=== PATIENT | male | born 1975 | race Caucasian/White ===

== ENCOUNTER 2019-05-28 20:11 | Emergency (ER) | payer OTHER ==
[~2019-05-28] VITALS: Ht 170 cm; Wt 105.0 kg
[~2019-05-28 20:11] MED LIST: AMBIEN; CPR500T PO; CYCL10TA9; ORPH100T PO; PAXIL; PRX20T; TRAM-21 PO; TRM50T
[2019-05-28] MEDS ORDERED: METO75TA PO (20:45)
[2019-05-28] MEDS ORDERED: NAPR250T6 PO (20:45)
[2019-05-28] MEDS ORDERED: HYDR25TA4 PO (20:45)
[2019-05-28 20:48] LABS: BILIRUBIN,URINE NEGATIVE (NEGATIVE); CLARITY,URINE CLEAR; COLOR,URINE YELLOW; GLUCOSE, URINE (UA) NEGATIVE (NEGATIVE); KETONES,URINE NEGATIVE (NEGATIVE); LEUKOCYTE ESTERASE ,URINE NEGATIVE (NEGATIVE); NITRITE,URINE NEGATIVE (NEGATIVE); PH,URINE 6.5 (5-9); PROTEIN,URINE NEGATIVE (NEGATIVE)
[2019-05-28 21:11] LABS: AMORPHOUS SEDIMENT,UR RARE AMOR URATES /LPF; BACTERIA,URINE TRACE /HPF
--- NOTE | 2019-05-28 21:22 | ED General ---
General Chief Complaint: General Problems/Pain Stated Complaint: POSSIBLE KIDNEY INFECTION, Nursing Triage Note: Pt ambulates to [facility] 6 with c/o fever and aches for 1 day. PT states he has one working kidney and gets kidney infections frequently. Pt states he's been taking tylenol for his fever, last dose at 1800. Pt denies any acute pain at this time, has chronic back pain. Nursing Sepsis Screen: No Definite Risk Source of Information: Patient Exam Limitations: No Limitations History of Present Illness Date Seen by Provider: May 28, 2019 Time Seen by Provider: 20:25 Initial Comments This 44-year-old gentleman presents to the emergency room concerned that he may be developing a urinary tract infection. He has had body aches and subjective fever at home today. He last took Tylenol 2 hours ago. 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 He historically has had several urinary tract infections and is susceptible to UTI. He is presenting today to be sure his symptoms are not secondary to UTI. He reports chronic dysuria but no acute changes to his urine. He is afebrile on presentation but slightly tachycardic. His primary care provider is Dr. Piter Willard in [place]. His urologist is Dr. Mata, also in [place]. He denies any respiratory symptoms today. Allergies and Home Medications Allergies Coded Allergies: No Known Drug Allergies (Unverified , 05/28/19) Patient Home Medication List Home Medication List Reviewed: Yes Review of Systems Review of Systems Constitutional: see HPI EENTM: no symptoms reported Respiratory: no symptoms reported Cardiovascular: see HPI Gastrointestinal: no symptoms reported Genitourinary: see HPI Musculoskeletal: no symptoms reported Skin: no symptoms reported Psychiatric/Neurological: No Symptoms Reported Hematologic/Lymphatic: No Symptoms Reported Immunological/Allergic: no symptoms reported Past Zkgvidq-Qexvbk-Ckpysc Hx Past Med/Social Hx: Reviewed Nursing Past Med/Soc Hx Patient Social History Alcohol Use: Rarely Uses Recreational Drug Use: No Smoking Status: Never a Smoker 2nd Hand Smoke Exposure: No Recent Foreign Travel: No Contact w/Someone Who Travel: No Recent Infectious Disease Expo: No Recent Hopitalizations: No Physical Abuse: No Sexual Abuse: No Mistreated: No Fear: No Seasonal Allergies Seasonal Allergies: No Past Medical History Surgeries: Yes (back Sx, 6 percutaneous nephrolithotomy) Tonsillectomy Respiratory: No Cardiac: Yes Hypertension Neurological: No Genitourinary: Yes (functionally unilateral kidney) Kidney Infection, Kidney Stones Gastrointestinal: No Musculoskeletal: Yes Chronic Back Pain Endocrine: No HEENT: No Cancer: No Psychosocial: No Integumentary: No Blood Disorders: No Physical Exam Vital Signs Vital Signs - First Documented 05/28/19 20:17 Temp 36.5 Pulse 104 Resp 18 B/P (MAP) 150/105 (120) Pulse Ox 97 O2 Delivery Room Air Capillary Refill : Less Than 3 Seconds Height, Weight, BMI Height: '" Weight: lbs. oz. 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 Norm as Tested Skin: Normal Color, Warm/Dry Progress/Results/Core Measures Suspected Sepsis Recent Fever Within 48 Hours: Yes Infection Criteria Present: None New/Unexplained Altered Menta: No Sepsis Screen: No Definite Risk SIRS Temperature: Pulse: 104 Respiratory Rate: 18 Blood Pressure 150 /105 Mean: 120 Results/Orders Lab Results Laboratory Tests Test 05/28/19 20:16 Range/Units Urine Color YELLOW Urine Clarity CLEAR Urine pH 6.5 5-9 Urine Specific [place] 1.025 H 1.016-1.022 Urine Protein NEGATIVE NEGATIVE Urine Glucose (UA) NEGATIVE NEGATIVE Urine Ketones NEGATIVE NEGATIVE Urine Nitrite NEGATIVE NEGATIVE Urine Bilirubin NEGATIVE NEGATIVE Urine Urobilinogen 4.0 < = 1.0 MG/DL Urine Leukocyte Esterase NEGATIVE NEGATIVE Urine RBC (Auto) NEGATIVE NEGATIVE Urine RBC NONE /HPF Urine WBC 2-5 /HPF Urine Crystals PRESENT H /LPF Urine Amorphous Sediment RARE CARROLL URATES H /LPF Urine Bacteria TRACE /HPF Urine Casts NONE /LPF Urine Mucus SMALL H /LPF Urine Culture Indicated NO Micro Results Microbiology 05/28/19 Influenza Types A,B Antigen ([facility]) - Final, Complete My Orders Orders - GREGORY NELSON MD Ua Culture If Indicated (05/28/19 20:25) Influenza A And B Antigens (05/28/19 20:33) Vital Signs/I&O 05/28/19 05/28/19 20:17 21:27 Temp 36.5 36.5 Pulse 104 96 Resp 18 18 B/P (MAP) 150/105 (120) 134/98 (120) Pulse Ox 97 97 O2 Delivery Room Air Capillary Refill : Less Than 3 Seconds Blood Pressure Mean: 120 Progress Note : Progress Note Urinalysis demonstrated no evidence of urinary tract infection. Influenza screen was negative. Patient was dismissed home with reassurance and return precautions. Departure Impression Primary Impression: Myalgia Additional Impression: History of recurrent urinary tract infection Disposition: HOME, SELF-CARE Condition: Stable Departure-Patient Inst. Decision time for Depature: 21:21 Referrals: SELFANNE MD (PCP/Family) Primary Care Physician Patient Instructions: Urinary Tract Infection, Adult (DC) Add. Discharge Instructions: Your urine was concentrated but did not show evidence of active infection. Drink plenty of clear liquids to stay well-hydrated. Your influenza screen was negative. Return to care in the ER or contact your doctor tomorrow if symptoms worsen or you still have concerns. All discharge instructions reviewed with patient and/or family. Voiced understanding. GREGORY NELSON MD May 28, 2019 21:22
[2019-05-28 21:27] VITALS: BP 134/98
--- OUTSIDE RECORDS SUMMARY | 2019-05-31 10:25 | XMS REPORT ---
Author Author [facility] Medic al StaffAIMEE Organization [facility] Address [address] [place], [place] [id number] Phone [phone] Care Team Providers Care Pearl Fisherman Name Role Phone KATHIA DUKE MD PP [phone] KATHIA DUKE MD, PP [phone] Summary purpose TRANSITION OF CARE AUTO GENERATION Chief Complaint and Reason for Visit Admit Diagnosis 1 LEFT URETEROSCOPY W STONE EX TRACTION Admit Diagnosis 2 POSS LASER Problem list No authorized problems tracked for continuity of care are available for this vis it. Encounters No authorized problems tracked for encounter diagnoses are available for this vi sit. Medications No medications recorded for this patient visit Allergies, adverse reactions, alerts Allergen Category Ingredient Status Reaction Severity Onset No known drug allergies No known drug allergies No known drug al lergies Confirmed or Verified Immunizations No immunizations recorded for this patient visit Relevant diagnostic tests and/or laboratory data RESULTS Radiology Results [id number] RETROGRADE PYELOGRAM PACs Image DATE OF EXAM: Apr 04 2015 RAD 1274-RETROGRADE PYELOGRA M : RADIOLOGY REPORT DATE OF SERVICE: 04/04/15 HISTORY: Ureteral calculus LEFT RETROGRADE PYELOGRAM SUPERVISION AN D [id number] HOURS Comparison is made with the plain film s tudy performed earlier today. The metal flooring installer radiograph shows left ureteral stent in place. There is an opacity overlying the transverse process of L3 on the left adjacent to the stent suggestive of proximal left ur eteric calculus. This was not identified on the prior study. Additiona l left renal calculi are noted. Subsequently, ureteroscope is advanced t o the level of the calculus. IMPRESSION: Left renal and proximal left ureteric calculi as above. MD MARIPOSA Ulloa/wi04/04/2015 14:07:00 / 03/22 14:12:54 cc:Dr. Valdez Herrera This document has been electronically Signed by: On: DATE OF EXAM: Apr 04 2015 RAD 1274-RETROGRADE PYELOGRA M : RADIOLOGY REPORT DATE OF SERVICE: 04/04/15 HISTORY: Ureteral calculus LEFT RETROGRADE PYELOGRAM SUPERVISION AN D [id number] HOURS Comparison is made with the plain film s tudy performed earlier today. The metal flooring installer radiograph shows left ureteral stent in place. There is an opacity overlying the transverse process of L3 on the left adjacent to the stent suggestive of proximal left ur eteric calculus. This was not identified on the prior study. Additiona l left renal calculi are noted. Subsequently, ureteroscope is advanced t o the level of the calculus. IMPRESSION: Left renal and proximal left ureteric calculi as above. MD MARIPOSA Ulloa/nancy04/04/2015 14:07:00 / 03/22 14:12:54 cc:Dr. Valdez Herrera This document has been electronically Signed by: MARYBETH SALGUERO MD On: Apr 04 20156:08P LEFT URETEROSCOPY W STONE EXTR POSS LASER Result Amended on 2015-04-04 at 18:08:39 . Previous status was WI. LEFT URETEROSCOPY W STONE EXTR POSS LASER [id number] ABDOMEN 1 VIEW PACs Image DATE OF EXAM: Apr 04 2015 RAD [id number] 1 VIEW : RADIOLOGY REPORT DATE OF SERVICE: 04/04/15 HISTORY: Left ureteroscopy and possible stone extraction, stent removal. SUPINE ABDOMEN 1240 HOURS The bowel gas pattern is normal. Left ur eteral stent is in place. There are several left renal calculi in the mi dregion and lower pole with at least 3 separate stones. These measures 2.5-6 mm. No definite ureteral calculus is seen. There are surgical kyle nges at the lumbosacral junction. IMPRESSION: 3 small left renal calculi. MD MARIPOSA Ulloa/nancy04/04/2015 13:29:00 / 03/22 13:33:58 cc:Dr. Valdez Herrera This document has been electronically Signed by: On: DATE OF EXAM: Apr 04 2015 RAD [id number] 1 VIEW : RADIOLOGY REPORT DATE OF SERVICE: 04/04/15 HISTORY: Left ureteroscopy and possible stone extraction, stent removal. SUPINE ABDOMEN 1240 HOURS The bowel gas pattern is normal. Left ur eteral stent is in place. There are several left renal calculi in the mi dregion and lower pole with at least 3 separate stones. These measures 2.5-6 mm. No definite ureteral calculus is seen. There are surgical kyle nges at the lumbosacral junction. IMPRESSION: 3 small left renal calculi. MD MARIPOSA Ulloa/wi/ 13:29:00 / 03/22 13:33:58 cc:Dr. Valdez Herrera This document has been electronically Signed by: MARYBETH SALGUERO MD On: Apr 04:10P LEFT URETEROSCOPY W STONE EXTR POSS LASER Result Amended on 2015-04-04 at 14:10:48 . Previous status was WI. LEFT URETEROSCOPY W STONE EXTR POSS LASER Reference Lab ([facility]) [id number] Result Normal Range Units Stone NIDUS Not observed Non Kidney Stone Component See Below Calcium Oxalate Monohydrate (Whewellite) 95% Carbonate Apatite (Dahllite) 5% Stone Weight 0.1560 g The image will follow, unless test is cancelled or no picture is available to report. TEST PERFORMED AT: [facility] [address] [phone] BETZAIDA MENA MD,FCAP History of procedures No procedures recorded for this patient visit. Functional status Functional Status Finding Observation Time Hearing Prob Loc none : Vision Problems no :30 Ambulation Asst Dev none :30 Range of Motion full :10 Muscle Strength RUE 5 ROM full resist :10 Muscle Strength RLE 5 ROM full resist :10 Muscle Strength LUE 5 ROM full resist :10 Muscle Strength LLE 5 ROM full resist :10 Transfers independent :10 Ambulation up ad selvin :10 Balance steady :10 Bathing Assistance none :30 Eating Assistance none :30 Dressing Assistance none : Toileting Assistance none :30 Transfer Assistance none :30 Decline Slf Care/Mob no :30 Phys Cond Stable yes :30 Nutrition normal :10 Diet regular :10 Oral Cavity moist and intact : Teeth intact :10 Dental Hygiene good :10 Abdomen Appearance round : Abdomen tender :10 Bowel Sounds present : NG Tube no :10 Feeding Tube none :10 Hernandez no :10 Cont Bladder Irr no :10 Ostomy no :10 Stool normal : Urination normal : Quality sym/unlabored : Cough absent :10 Secretions no : Breath Sounds RUL clear :10 Breath Sounds RML clear :10 Breath Sounds RLL clear :10 Breath Sounds ALFONSO clear :10 Breath Sounds LLL clear :10 Airway natural :10 Chest Tube no :10 Oxygen no :00 C-PAP no :10 BI-PAP no :10 Temp >100.4 no :10 Temp <96.8 no : Chills with rigors no : HR > 90bpm no :10 Respirations > 20 no :10 Systolic <90 no :10 headache stiff neck no :10 Rapid Resp no :10 IV Site Location Rt hand :35 IV Type peripheral :35 IV Site Information discontinued Comment: cath tip intact :35 IV Site Start Attmpt 1 times :10 IV Site Herb 20 :35 IV Site Appearance WNL :35 IV Site Color clear :35 IV Site Patent yes :35 Dressing Changed yes : Dressing Type gauze :35 Nursing Note VSS. Denies pain or nausea. Voiding without difficulty. States that his urine is red. DC teaching provided. Strainer for urine provided. Pt verbalized understanding and denied further needs or questions. Pt escorted out via wheelchair to private vehicle that is driven by his SO. :40 Cognitive Status Finding Observation Time Oriented To Date 5 Yes : Oriented To Place 5 Yes : Name 3 Objects 3 Yes : Name Object in Rm 2 Yes : Recall 3 Objects 3 Yes : Repeats a Phrase 1 Yes : Follows Verbal Direc 3 Yes : Follows Written Dire 1 Yes : Write a Sentance 1 Yes : Draw an Object 1 Yes :30 Mini Mental Total 25 points :30 Learning Ability comprehends well :35 Neurological no :35 Psychological no :35 Physical no :35 Hearing no :35 Tube Drawing Supervisor Needed no :35 Sign Language no :35 Emotional no :35 Vision no :35 Laguage no :35 Financial no :35 Vital signs Type Value Date Respiration Rate 18breaths per minute : Pulse 79beats per minute : Oxygen Saturation 96% :00 BP Systolic 111mmHg : BP Diastolic 65mmHg : Temperature 97.5F :50 Height 66inches :30 Weight 233.5LB [id number] Social history No Social History or smoking status observations were recorded for this visit. ( Unknown if ever smoked.) Treatment Plan No treatment plan text is available for this visit. Hospital discharge instructions Discharge Date/Time 04/04/15 1540 Relationship spouse/signif other Dismissal Condition good Disposition on DC home Valuables yes Valuable Type cell phone Valuables Returned T patient DC Inst/Educ Give yes Exit Care Educ Given yes Med/Side Effects Rev yes PNE Vac refuses Flu Vac refuses Tetanus Vac 2008 Follow up appt appt made (specify) Follow Up Appt D/T 04/25/15 9:30
--- OUTSIDE RECORDS SUMMARY | 2019-05-31 10:25 | XMS REPORT ---
Author Author Liam Willard Organization [facility] Address [address] [place], [place] [address] Care Team Providers Care Motel Maid Name Role Phone Heath Willard PCP Heath Willard PreferredProvider Allergies and Adverse Reactions Name Reaction Notes No known drug allergy Plan of Treatment Planned Activity Comments Planned Date Planned Time Plan/Goal CMP 04/30/2017 12:00 AM Renal Ultrasound 06/20/2018 12:00 AM ABDOMEN ONE VIEW 06/20/2018 12:00 AM Medications Active Name Start Date Estimated Completion Date SIG Co mments Naproxen OTC 2 in am 2 in the pm metoprolol tartrate 25 mg oral tablet 04/14/2018 TAKE 3 TABLETS BY MOUTH ONCE DAILY hydrochlorothiazide 12.5 mg oral capsule 04/14/2018 TAKE 1 CAPSULE BY MOUTH ONCE DAILY baclofen 20 mg oral tablet 08/31/2018 take 1 tablet by oral route once a day (at bedtime) Name Start Date Expiration Date SIG Comments Bactrim DS 800-160 mg oral tablet 02/04/2018 02/11/2018 take 1 tablet by oral route every 12 hours for 7 days cephalexin 500 mg oral capsule 03/07/2018 03/14/2018 t robi 1 capsule (500 mg) by oral route every 12 hours for 7 days hydrocodone-acetaminophen 7.5-325 mg oral tablet 04/21/2018 04/28/2018 take 1 tablet by oral route prior to bedtime to help with pain/sleep diclofenac sodium 50 mg oral tablet,delayed release (DR/EC) 2018 take 1 tablet (50 mg) by oral route 2 times per day for 30 days Bactrim DS 800-160 mg oral tablet 05/26/2018 06/05/2018 take 1 tablet by oral route every 12 hours for 10 days prednisone 20 mg oral tablet 08/31/2018 09/05/2018 Take 2 tabs x 5 days; Discontinued Name Start Date Discontinued Date SIG Comments metoprolol astudillo-hydrochlorothiaz 50-12.5 mg oral tablet extend ed release 24 hr 04/30/2017 take 1 tablet by oral route once daily taking these me dication seperatly cyclobenzaprine 10 mg oral tablet 03/30/2017 04/30/2017 take 1 tablet (10 mg) by oral route 3 times per day for 30 days metoprolol succinate 25 mg oral tablet extended release 24 h r 05/07/2017 05/07/2017 take 2 tablets (50 mg) by oral route once daily for 30 days Revatio 20 mg oral tablet 05/28/2017 08/31/2017 take 2 tablets by oral route daily as needed for 30 days Problem List Description Status Onset Hypertension Active Kidney Stones Active Solitary kidney Active 12/08/2017 Vital Signs Date Time BP-Sys(mm[Hg] BP-Agatha(mm[Hg]) HR(bpm) RR(rpm) Temp WT HT HC BMI BSA BMI Percentile O2 Sat(%) 08/31/2018 10:38:00 AM 120 mmHg 80 mmHg 90 bpm 16 rpm 97.2 F 230 lbs 67 in 36.0227 kg/m 2.2208 m 96 % 06/11/2018 12:33:00 PM 130 mmHg 90 mmHg 103 bpm 18 rpm 98.1 F 224.25 lbs 98 % 05/26/2018 3:55:00 PM 124 mmHg 90 mmHg 113 bpm 18 rpm 99.1 F 225.125 lbs 67 in 35.2592 kg/m 2.1971 m 94 % 03/25/2018 11:41:00 AM 138 mmHg 80 mmHg 92 bpm 18 rpm 97.7 F 222.25 lbs 67 i n 34.81 kg/m2 2.18 m2 96 % 03/07/2018 3:50:00 PM 110 mmHg 80 mmHg 99 bpm 17 rpm 97.5 F 212 lbs 67 in 33.20 kg/m2 2.13 m2 92 % 12/17/2017 2:56:00 PM 120 mmHg 80 mmHg 95 bpm 18 rpm 98.1 F 214.375 lbs 96 % 11/26/2017 10:20:00 AM 130 mmHg 100 mmHg 83 bpm 16 rpm 97.9 F 212.25 lbs 67 in 33.2427 kg/m 2.1333 m 95 % 11/26/2017 8:58:00 AM 132 mmHg 82 mmHg 105 bpm 20 rpm 97.3 F 213 lbs 67 in 33.36 kg/m2 2.14 m2 97 % 09/27/2017 5:16:00 PM 150 mmHg 88 mmHg 86 bpm 97.9 F 214 lbs 67 in 33.5168 kg/m 2.1421 m 96 % 08/31/2017 3:53:00 PM 130 mmHg 90 mmHg 08/31/2017 3:48:00 PM 132 mmHg 90 mmHg 82 bpm 20 rpm 97.9 F 212.25 lbs 67 i n 33.24 kg/m2 2.13 m2 96 % 04/30/2017 11:37:00 AM 122 mmHg 78 mmHg 71 bpm 20 rpm 98.5 F 214.375 lbs 67 in 33.5755 kg/m 2.144 m 95 % 03/30/2017 6:15:00 PM 144 mmHg 84 mmHg 88 bpm 18 rpm 97.3 F 216 lbs 67 in 33.83 kg/m2 2.15 m2 95 % Social History Name Description Comments Tobacco Former smoker Alcohol Light History of Procedures Date Ordered Description Order Status 08/31/2017 12:00 AM RADEX SPINE LUMBOSACRAL 2/3 VIEWS Return ed 08/31/2017 12:00 AM COMPLETE CBC W/AUTO DIFF WBC Returned 08/31/2017 12:00 AM COMPREHEN METABOLIC PANEL Returned 08/31/2017 12:00 AM C-REACTIVE PROTEIN Returned 08/31/2017 12:00 AM RBC SED RATE AUTOMATED Returned 08/31/2017 12:00 AM CREATINE MB FRACTION Returned 08/31/2017 12:00 AM VITAMIN B-12 Returned 11/26/2017 12:00 AM URINALYSIS AUTO W/SCOPE Reviewed 11/26/2017 12:00 AM COMPLETE CBC W/AUTO DIFF WBC Reviewed 11/26/2017 12:00 AM METABOLIC PANEL TOTAL CA Reviewed 12/17/2017 12:00 AM CALCULUS SPECTROSCOPY Reviewed 02/04/2018 12:00 AM URNLS DIP STICK/TABLET RGNT AUTO W/O STARR ROSCOPY Reviewed 03/07/2018 12:00 AM URINALYSIS AUTO W/SCOPE Reviewed 05/26/2018 12:00 AM URINALYSIS AUTO W/SCOPE Reviewed 06/11/2018 12:00 AM THER/PROPH/DIAG INJ SC/IM Reviewed 06/11/2018 12:00 AM Depo Medrol 40mg Injection, RHC Medicai d Reviewed 06/11/2018 12:00 AM Decadron 4mg Injection Reviewed 03/25/2018 12:00 AM URINALYSIS AUTO W/SCOPE Reviewed 03/25/2018 12:00 AM COMPLETE CBC W/AUTO DIFF WBC Reviewed 03/25/2018 12:00 AM METABOLIC PANEL TOTAL CA Reviewed 03/25/2018 12:00 AM ELECTROCARDIOGRAM TRACING Reviewed 05/26/2018 12:00 AM SEMEN ANAL SPERM DETECTION Reviewed Results Summary Date and Description Results 11/26/2017 11:44 AM COLOR YELLOW APPEARANCE LISHA R SPEC GRAV 1.020 pH 6.5 PROTEIN NEGATIVE GLUCOSE NEGATIVE KETONE NEGATIVE BILIRUBIN NEGATIVE BLOOD NEGATIVE NITRITE NEGATIVE LEUK SCREEN NEGATIVE WBC/HPF NEGATIVE RBC/HPF NEGATIVE CASTS/LPF NEGATIVE CRYSTALS NEGATIVE MUCOUS THRDS NEGATIVE BACTERIA NEGATIVE EPITH CELLS NEGATIVE TRICHOMONAS NEGATIVE YEAST NEGATIVE CULT SET UP? NO 11/26/2017 11:48 AM GLUCOSE 88 SODIUM 140 POTASS IUM 4.3 CHLORIDE 103 CO2 28 BUN 23 CREATININE 1.2 CALCIUM 9.5 AGE 42 GFR NonAA 67 GFR AA 81 eGFR 67 eGFR AA* >60 WBC 9.6 RBC 4.38 HGB 14.1 HCT 41.9 MCV 96 MCH 32.2 MCHC 33.7 RDW SD 46 RDW CV 12.9 MPV 9.5 PLT 542 NRBC# 0.00 NRBC% 0.0 %NEUT 50.7 %LYMP 38.4 %MONO 8.1 %EOS 1.8 %BASO 0.7 #NEUT 4.88 #LYMP 3.69 #MONO 0.78 #EOS 0.17 #BASO 0.07 MANUAL DIFF NOT IND 12/17/2017 5:00 PM Color Brown Size COMMENT Monty ght 37.0 Composition COMMENT Ca oxalate dihydrate 2 Ca oxalate monohydr. 95 Calcium phosphate 3 Nidus No Nidus visualized Comment Note: Photo COMMENT Comment: COMMENT Please note: COMMENT Disclaimer: COMMENT 02/04/2018 12:11 PM COLOR YELLOW APPEARANCE LISHA R SPEC GRAV 1.025 pH 6.0 PROTEIN TRACE GLUCOSE NEGATIVE KETONE NEGATIVE BILIRUBIN NEGATIVE BLOOD NEGATIVE NITRITE NEGATIVE LEUK SCREEN NEGATIVE MICRO INDICATED? SEE BELOW WBC/HPF 5-10 RBC/HPF RARE CASTS/LPF NEGATIVE CRYSTALS NEGATIVE MUCOUS THRDS NEGATIVE BACTERIA NEGATIVE EPITH CELLS NEGATIVE TRICHOMONAS NEGATIVE YEAST NEGATIVE CULT SET UP? YES 03/07/2018 11:04 AM COLOR YELLOW APPEARANCE LISHA R SPEC GRAV 1.015 pH 7.5 PROTEIN NEGATIVE GLUCOSE NEGATIVE KETONE NEGATIVE BILIRUBIN NEGATIVE BLOOD NEGATIVE NITRITE NEGATIVE LEUK SCREEN NEGATIVE WBC/HPF 0-5 RBC/HPF NEGATIVE CASTS/LPF NEGATIVE CRYSTALS NEGATIVE MUCOUS THRDS FEW BACTERIA NEGATIVE EPITH CELLS FEW SQUAMOUS TRICHOMONAS NEGATIVE YEAST NEGATIVE CULT SET UP? NO 03/25/2018 12:41 PM COLOR YELLOW APPEARANCE LISHA R SPEC GRAV 1.015 pH 6.0 PROTEIN NEGATIVE GLUCOSE NEGATIVE KETONE TRACE BILIRUBIN NEGATIVE BLOOD NEGATIVE NITRITE NEGATIVE LEUK SCREEN NEGATIVE WBC/HPF RARE RBC/HPF NEGATIVE CASTS/LPF NEGATIVE CRYSTALS NEGATIVE MUCOUS THRDS NEGATIVE BACTERIA NEGATIVE EPITH CELLS NEGATIVE TRICHOMONAS NEGATIVE YEAST NEGATIVE CULT SET UP? NO 03/25/2018 12:45 PM WBC 7.2 RBC 4.73 HGB 15.0 HC T 43.5 MCV 92 MCH 31.7 MCHC 34.5 RDW SD 43 RDW CV 12.8 MPV 10.6 PLT 306 NRBC# 0.00 NRBC% 0.0 %NEUT 51.6 %LYMP 35.5 %MONO 10.3 %EOS 2.1 %BASO 0.4 #NEUT 3.69 #LYMP 2.54 #MONO 0.74 #EOS 0.15 #BASO 0.03 MANUAL DIFF NOT IND GLUCOSE 91 SODIUM 140 POTASSIUM 4.3 CHLORIDE 107 CO2 25 BUN 21 CREATININE 1.5 CALCIUM 9.4 AGE 43 GFR NonAA 52 GFR AA 63 eGFR 52 eGFR AA* >60 05/26/2018 5:18 PM COLOR YELLOW APPEARANCE LISHA R SPEC GRAV 1.025 pH 6.0 PROTEIN NEGATIVE GLUCOSE NEGATIVE KETONE NEGATIVE BILIRUBIN NEGATIVE BLOOD NEGATIVE NITRITE NEGATIVE LEUK SCREEN NEGATIVE WBC/HPF RARE RBC/HPF NEGATIVE CASTS/LPF NEGATIVE CRYSTALS NEGATIVE MUCOUS THRDS NEGATIVE BACTERIA NEGATIVE EPITH CELLS FEW SQUAMOUS TRICHOMONAS NEGATIVE YEAST NEGATIVE CULT SET UP? NO History Of Immunizations Not available. History of Past Illness Name Date of Onset Comments Hypertension Kidney Stones Solitary kidney 12/08/2017 Left anterior knee pain Mar 30 2017 6:20PM Acute pain of left knee Apr 30 2017 11:49AM Essential Hypertension Apr 30 2017 11:49AM Establishing care with new doctor, encounter for Apr 30 2017 11:49AM Numbness in feet Aug 31 2017 3:55PM Essential hypertension Sep 27 2017 5:21PM Left-sided Nephrolithiasis Nov 26 2017 10:23AM Solitary kidney Nov 26 2017 10:23AM Vasectomy evaluation Nov 26 2017 10:23AM Solitary kidney Nov 26 2017 8:59AM Nephrolithiasis Nov 26 2017 8:59AM Nephrolithiasis Dec 17 2017 2:59PM Solitary kidney Dec 17 2017 2:59PM Dysuria Feb 04 2018 11:34AM Dysuria Mar 07 2018 11:00AM Solitary kidney Mar 07 2018 3:51PM Kidney Stones Mar 07 2018 3:51PM Dysuria Mar 07 2018 3:51PM Kidney Stones Mar 25 2018 11:42AM Burning with urination Mar 25 2018 11:42AM Left-sided Nephrolithiasis Apr 15 2018 6:53AM Vasectomy evaluation Apr 15 2018 6:53AM S/P vasectomy Apr 21 2018 10:53AM Urinary Frequency May 26 2018 4:00PM Hematoma (nontraumatic) of seminal vesic le, spermatic cord, testis, scrotum, tunica vaginalis, or vas deferens May 26 2018 4:00PM Urinary frequency May 26 2018 4:33PM Allergic rhinitis Jun 11 2018 12:38PM Left-sided Nephrolithiasis May 26 2018 4:00PM Nephrolithiasis Jun 20 2018 8:34AM Lumbago with sciatica, right side Aug 31 2018 10:40AM Payers Insurance Name Company Name Plan Name Plan Number Policy Number Duane cy Group Number Start Date Cigna Cigna [id number] May History of Encounters Visit Date Visit Type Provider 08/31/2018 Office visit Heath Willard APR N 06/11/2018 Office visit Bailey KATE RN 05/26/2018 Office visit Bar Mata MD 04/21/2018 Office visit Bar Mata MD 04/15/2018 Surgery Bar Mata MD 03/25/2018 Hospital Mina Barlow MD 03/25/2018 Office visit Bar Mata MD 03/07/2018 Office visit Heath Willard APR N 12/17/2017 Office visit Heath Willard APR N 12/06/2017 Hospital Mina Barlow MD 11/26/2017 Office visit Bar Mata MD 11/26/2017 Office visit Heath Willard APR N 09/27/2017 Office visit Heath Willard APR N 08/31/2017 Office visit Philomena Nelson COMMERCIAL LOAN COORDINATOR 04/30/[address] Julio Alexis MD 03/30/2017 Office visit Uyen Cardenas APR N
--- OUTSIDE RECORDS SUMMARY | 2019-05-31 10:25 | XMS REPORT ---
Author Author Liam Tom Organization [facility] Address [address] [place], [place] [address] Care Team Providers Care Superintendent Landfill Operations Name Role Phone Bailey Tom PCP Heath Willard PreferredProvider Allergies and Adverse [...] TAKE 1 CAPSULE BY MOUTH ONCE DAILY Name Start Date Expiration Date SIG Comments [...] route every 12 hours for 10 days Discontinued Name Start Date Discontinued Date SIG [...] HC BMI BSA BMI Percentile O2 Sat(%) 06/11/2018 12:33:00 PM 130 mmHg 90 mmHg [...] 2018 4:00PM Nephrolithiasis Jun 20 2018 8:34AM Payers Insurance Name Company Name Plan Name Plan Number Policy Number Duane cy Group Number Start Date Cigna Cigna [id number] N/A History of Encounters Visit Date Visit Type Provider 06/11/2018 Office visit Bailey KATE RN 05/26/2018 Office visit Bar Mata MD 04/21/2018 Office visit Bar Mata MD 04/15/2018 Surgery Bar Mata MD 03/25/2018 Hospital Mina Barlow MD 03/25/2018 Office visit Bar Mata MD 03/07/2018 Office visit Heath Willard APR N 12/17/2017 Office visit Heath Willard APR N 12/06/2017 [facility] Mina Barlow MD 11/26/2017 Office visit Bar Mata MD 11/26/2017 Office visit Heath Willard APR N 09/27/2017 Office visit Heath Willard APR N 08/31/2017 Office visit Philomena Nelson INPATIENT AUDITOR 04/30/[address] Julio Alexis MD 03/30/2017 Office visit Uyen Cardenas APR N
--- OUTSIDE RECORDS SUMMARY | 2019-05-31 10:25 | XMS REPORT ---
Author Author [facility] Medic al Staff, AIMEE Lopez Organization [facility] Address [address] [place], [place] [address] Phone [phone] Care Team Providers Care Furniture Delivery Driver Name Role Phone KATHIA DUKE MD PP [phone] Summary purpose TRANSITION OF CARE AUTO GENERATION Chief Complaint and Reason for Visit Admit Diagnosis 1 ABN INVOLUN MOVEMENT NEC Problem list No authorized problems tracked for continuity of care are available for this vis it. Encounters No authorized problems tracked for encounter diagnoses are available for this vi sit. Medications No home medications recorded for this patient visit Allergies, adverse reactions, alerts Allergen Category Ingredient Status Reaction Severity Onset No known allergies No known allergies No known allergies Confirmed or Verified Immunizations No immunizations recorded for this patient visit Relevant diagnostic tests and/or laboratory data No authorized results are available for this patient visit History of procedures Procedure Code Code Type Description Date Performed Performing Physician 65316 CPT-4 EMERGENCY DEPT VISIT 06-16-2014 YUDI JUNE 72805 CPT-4 EMERGENCY DEPT VISIT 06-16-2014 YUDI JUNE Functional status Functional Status Finding Observation Time Abdomen Appearance flat :30 Abdomen non-tender :30 Bowel Sounds present [id number] Quality sym/unlabored :30 Cough absent :30 Breath Sounds RUL clear :30 Breath Sounds RML clear :30 Breath Sounds RLL clear :30 Breath Sounds ALFONSO clear :30 Breath Sounds LLL clear :30 Oxygen no :55 Temp >100.4 no :30 Temp <96.8 no :30 Chills with rigors no :30 HR > 90bpm no :30 Respirations > 20 no :30 Systolic <90 no :30 headache stiff neck no :30 Rapid Resp no :30 Nursing Note dc inst discussed with pt.dc d to home in good condition. Pain med script given to pt. :55 Vital signs Type Value Date Respiration Rate 18breaths per minute : 55 Pulse 103beats per minute :5 5 Oxygen Saturation 96% :55 BP Systolic 136mmHg :55 BP Diastolic 108mmHg :55 Temperature 96.6F :55 Height 66inches :21 Weight 225LB :21 Social history No Social History or smoking status observations were recorded for this visit. ( Unknown if ever smoked.) Treatment Plan No treatment plan text is available for this visit. Hospital discharge instructions Dismissal Condition good Disposition on DC home DC Inst/Educ Give yes Med/Side Effects Rev yes PNE Vac never Flu Vac none Tetanus Vac 2007
--- OUTSIDE RECORDS SUMMARY | 2019-05-31 10:25 | XMS REPORT ---
Author Author [facility] Medic al Staff, AIMEE Lopez Organization [facility] Address [address], [place] [address] Phone [phone] Care Team Providers Care Wall Crane Operator Name Role Phone KATHIA DUKE MD PP [phone] Summary purpose TRANSITION OF CARE AUTO GENERATION Chief Complaint and Reason for Visit Admit Diagnosis 1 SUICIDE IDEATION Problem list No authorized problems tracked for [...] Relevant diagnostic tests and/or laboratory data RESULTS Drug Screen In House :50:00 Result Normal Range Units Amphetamine Negative Negative Barbiturates Negative Negative Benzodiazepines Negative Negative Cannabinoids Negative Negative *Triage TOXis a medical drug screen to be used only for assessment and treatment of patients. This drug screen cannot be used for employment or legal purposes. Cocaine Negative Negative Mamp/MDMA Negative Negative Methadone Negative Negative Opiates AB Positive Negative Phencyclidine Negative Negative Tricyclic Antidepressants Negative Negativ e Therapeutic Drug Monitoring :42:00 Result Normal Range Units Acetaminophen L 0 10.0-30.0 ug/ml Salicylate 2.5 2.0-20.0 mg/dl Chemistry :42:00 Result Normal Range Units Sodium 140 134-145 mEq/l Potassium 3.7 3.5-5.1 mEq/l Chloride 103 98-107 mEq/l CO2 26.7 22-28 mEq/l Glucose H 112 70-105 mg/dl BUN 13 7-18 mg/dl Creatinine H 1.46 0.6-1.3 mg/dl Calcium 9.3 8.4-10.2 mg/dl TP - Total Protein 7.9 6.0-8.3 g /dl Albumin 4.3 3.5-5 g/dl Bilirubin - Total 0.4 0.1-1.0 mg /dl AST H 48 10-42 IU/L ALT H 105 12-65 IU/L ALP H 215 39-107 IU/L Osmolality 280.3 280-300 mOsm/L Albumin/Globulin Ratio 1.2 0-8 Anion GAP 10.3 8-16 BUN/Creatinine Ratio L 8.9 10-20 Estimated GFR L 54 >= 60 mL/min /1.7 Hematology [id number]:42:00 Result Normal Range Units WBC H 11.0 4.8-10.8 103/uL RBC 4.8 4.7-6.1 106/uL HGB 15.4 13.0-18.0 g/dl HCT 43.7 41.9-52.0 % MCV 92.0 80-94 FL MCH H 32.4 27-31 pg MCHC 35.2 33-37 g/dl RDW 12.7 11.5-15.5 % PLT 324 130-400 103/uL MPV H 10.7 7.3-10.4 FL Neutro % 46.0 40-70 % Lymph % H 44.2 20-40 % [place] % 7.8 0-10.0 % Eos % 1.5 0-7.0 % Baso % 0.4 0-2 % Neutro # 5.1 1.5-7.5 103/uL Lymph # H 4.9 0.9-4.0 103/uL [place] # H 0.9 0-0.8 103/uL Eos # 0.2 0-0.6 103/uL Baso # 0.0 0-0.1 103/uL Special Chemistry [id number]:42:00 Result Normal Range Units ETOH < 3 0-5 mg/dl Thyroid Testing [id number]:42:00 Result Normal Range Units TSH H 4.23 0.36-3.74 uIU/mL Radiology Results [id number]:42:00 Result Normal Range Units MPV H 10.7 7.3-10.4 FL History of procedures Procedure Code Code Type Description Date Performed Performing Physician 08196 CPT-4 COMPLETE CBC W/AUTO DIFF WBC 10-03-2014 TIA WALL 20566 CPT-4 COMPREHEN METABOLIC PANEL 10-03-2014 TIA WALL 03732 CPT-4 ANALGESICS NON-OPIOID 1 OR 2 10-03-2014 TIA WALL 80846 CPT-4 ANALGESICS NON-OPIOID 1 OR 2 10-03-2014 TIA WALL 90824 CPT-4 DRUG SCREEN QUANTALCOHOLS 10-03-2014 TIA WALL 51983 CPT-4 DRUG SCREEN NON TLC DEVICES 10-03-2014 TIA WALL 79463 CPT-4 ASSAY THYROID STIM HORMONE 10-03-2014 TIA WALL 73477 CPT-4 ROUTINE VENIPUNCTURE 10-03-2014 TIA WALL 14013 CPT-4 EMERGENCY DEPT VISIT 10-03-2014 TIA WALL 32638 CPT-4 EMERGENCY DEPT VISIT 10-03-2014 TIA WALL Functional status Functional Status Finding Observation Time Abdomen Appearance round [id number]:30 Abdomen non-tender [id number]:30 Bowel Sounds present :30 Urination normal [id number]:30 Quality sym/unlabored :30 Cough absent :30 Secretions no :30 Breath Sounds RUL clear :30 Breath Sounds RML clear :30 Breath Sounds RLL clear : Breath Sounds ALFONSO clear :30 Breath Sounds LLL clear :30 Airway natural :30 Oxygen no [id number] Temp >100.4 no :30 Temp <96.8 no : Chills with rigors no : HR > 90bpm no : Respirations > 20 no : Systolic <90 no : headache stiff neck no :30 Rapid Resp no :30 Nursing Note Dismissed home per Dr Wall . Has been medically cleared by a screener.Has a plan in place to remove guns from the house and that he will not hurt himself. Agreed to follow up with physciatric provider or return to ER if suicidal thoughts return. Verbalized understanding of instructions. Ambulated to exit in stable condition escorted by PD. :40 Vital signs Type Value Date Respiration Rate 18breaths per minute : 40 Pulse 88beats per minute :40 Oxygen Saturation 99% :40 BP Systolic 134mmHg :40 BP Diastolic 103mmHg :40 Temperature 98.4F :40 Social history Type Value Smoking Status FORMER SMOKER Treatment Plan No treatment plan text is available for this visit. Hospital discharge instructions Dismissal Condition good Disposition on DC home DC Inst/Educ Give yes Med/Side Effects Rev yes PNE Vac never Flu Vac none Tetanus Vac 2007
--- OUTSIDE RECORDS SUMMARY | 2019-05-31 10:26 | XMS REPORT ---
Author Author Liam Tom Organization [facility] Address [address] [place], [place] [address] Care Team Providers Care Cobol Developer Name Role Phone Bailey Tom PCP Heath Willard PreferredProvider Allergies and Adverse Reactions Name Reaction Notes No known drug allergy Plan of Treatment Planned Activity Comments Planned Date Planned Time Plan/Goal CMP 04/30/2017 12:00 AM Post vasectomy sperm count 05/26/2018 12:00 AM Renal Ultrasound 06/20/2018 12:00 AM [...] Reviewed 03/25/2018 12:00 AM ELECTROCARDIOGRAM TRACING Reviewed Results Summary Date and Description Results [...] cy Group Number Start Date Cigna Cigna [id number] N/A History of Encounters Visit Date Visit Type Provider 06/11/2018 Office visit Bailey KATE RN 05/26/2018 Office visit Bar Mata MD 04/21/2018 Office visit Bar Mata MD 04/15/2018 Surgery Bar Mata MD 03/25/2018 Hospital Mina Barlow MD 03/25/2018 Office visit Bar Mata MD 03/07/2018 Office visit Heath Willard APR N 12/17/2017 Office visit Heath Willard APR N 12/06/2017 [facility] Mina Barlow MD 11/26/2017 Office visit Bar Mata MD 11/26/2017 Office visit Heath Willard APR N 09/27/2017 Office visit Heath Willard APR N 08/31/2017 Office visit Philomena Nelson TIP PUNCHER 04/30/[address] Julio Alexis MD 03/30/2017 Office visit Uyen Cardenas APR N
--- OUTSIDE RECORDS SUMMARY | 2019-05-31 10:26 | XMS REPORT ---
Author Author Liam Tom Organization [facility] Address [address] [place], [place] [address] Care Team Providers Care University Services Program Associate Name Role Phone Bailey Tom PCP Heath [...] cy Group Number Start Date Cigna Cigna [id number] N/A History of Encounters Visit Date Visit Type Provider 06/11/2018 Office visit Bailey KATE RN 05/26/2018 Office visit Bar Mata MD 04/21/2018 Office visit Bar Mata MD 04/15/2018 Surgery Bar Mata MD 03/25/2018 Hospital Mina Barlow MD 03/25/2018 Office visit Bar Mata MD 03/07/2018 Office visit Heath Willard APR N 12/17/2017 Office visit Heath Willard APR N 12/06/2017 [facility] Mina Barlow MD 11/26/2017 Office visit Bar Mata MD 11/26/2017 Office visit Heath Willard APR N 09/27/2017 Office visit Heath Willard APR N 08/31/2017 Office visit Philomena Nelson WATER SOFTENER SERVICER 04/30/[address] Julio Alexis MD 03/30/2017 Office visit Uyen Cardenas APR N
--- OUTSIDE RECORDS SUMMARY | 2019-05-31 10:26 | XMS REPORT ---
Author Author Liam Tom Organization [facility] Address [address] [place], [place] [address] Care Team Providers Care Electrician Helper Name Role Phone Bailey Tom PCP Heath [...] cy Group Number Start Date Cigna Cigna [id number] N/A History of Encounters Visit Date Visit Type Provider 06/11/2018 Office visit Bailey KATE RN 05/26/2018 Office visit Bar Mata MD 04/21/2018 Office visit Bar Mata MD 04/15/2018 Surgery Bar Mata MD 03/25/2018 Hospital Mina Barlow MD 03/25/2018 Office visit Bar Mata MD 03/07/2018 Office visit Heath Willard APR N 12/17/2017 Office visit Heath Willard APR N 12/06/2017 [facility] Mina Barlow MD 11/26/2017 Office visit Bar Mata MD 11/26/2017 Office visit Heath Willard APR N 09/27/2017 Office visit Heath Willard APR N 08/31/2017 Office visit Philomena Nelson MARBLE SETTER HELPER 04/30/[address] Julio Alexis MD 03/30/2017 Office visit Uyen Cardenas APR N
--- OUTSIDE RECORDS SUMMARY | 2019-05-31 10:26 | XMS REPORT ---
Author Author Liam Tom Organization [facility] Address [address] [place], [place] [address] Care Team Providers Care Verifying Machine Operator Name Role Phone Bailey Tom PCP Heath [...] 05/26/2018 12:00 AM SEMEN ANAL SPERM DETECTION Returned Results Summary Date and Description Results 11/26/2017 [...] cy Group Number Start Date Cigna Cigna [id number] N/A History of Encounters Visit Date Visit Type Provider 06/11/2018 Office visit Bailey KATE RN 05/26/2018 Office visit Bar Mata MD 04/21/2018 Office visit Bar Mata MD 04/15/2018 Surgery Bar Mata MD 03/25/2018 Hospital Mina Barlow MD 03/25/2018 Office visit Bar Mata MD 03/07/2018 Office visit Heath Willard APR N 12/17/2017 Office visit Heath Willard APR N 12/06/2017 [facility] Mina Barlow MD 11/26/2017 Office visit Bar Mata MD 11/26/2017 Office visit Heath Willard APR N 09/27/2017 Office visit Heath Willard APR N 08/31/2017 Office visit Philomena Nelson BRIQUETTE OPERATOR 04/30/[address] Julio Alexis MD 03/30/2017 Office visit Uyen Cardenas APR N
--- OUTSIDE RECORDS SUMMARY | 2019-05-31 10:27 | XMS REPORT ---
Author Author Liam Tom Organization [facility] ou Address [address] [place], [place] [phone] Care Team Providers Care Audit Associate Name Role Phone Bailey Tom PCP Heath Willard PreferredProvider Allergies and Adverse Reactions Name Reaction Notes No known drug allergy Plan of Treatment Planned Activity Comments Planned Date Planned Time Plan/Goal CMP 04/30/2017 12:00 AM Post vasectomy sperm count 05/26/2018 12:00 AM Medications Active Name Start Date [...] 12:38PM Left-sided Nephrolithiasis May 26 2018 4:00PM Payers Insurance Name Company Name Plan Name Plan Number Policy Number Duane cy Group Number Start Date Cigna Cigna [id number] N/A History of Encounters Visit Date Visit Type Provider 06/11/2018 Office visit Bailey KATE RN 05/26/2018 Office visit Bar Mata MD 04/21/2018 Office visit Bar Mata MD 04/15/2018 Surgery Bar Mata MD 03/25/2018 Hospital Mina Barlow MD 03/25/2018 Office visit Bar Mata MD 03/07/2018 Office visit Heath Willard APR N 12/17/2017 Office visit Heath Willard APR N 12/06/2017 [facility] Mina Barlow MD 11/26/2017 Office visit Bar aMta MD 11/26/2017 Office visit Heath Willard APR N 09/27/2017 Office visit Heath Willard APR N 08/31/2017 Office visit Philomena Nelson MACHINE CERAMIC COATER 04/30/[address] Julio Aelxis MD 03/30/2017 Office visit Uyen Cardenas APR N
--- OUTSIDE RECORDS SUMMARY | 2019-05-31 10:27 | XMS REPORT ---
Author Author Liam Mata Organization [facility] oup Address [address] [place] [id number] Care Team Providers Care Early Morning Name Role Phone Bar Mata PCP Heath Willard PreferredProvider Allergies and Adverse Reactions Name Reaction Notes No known drug allergy Plan of Treatment Planned Activity Comments Planned Date Planned Time Plan/Goal CMP 04/30/2017 12:00 AM Post vasectomy sperm count 05/26/2018 12:00 AM URINALYSIS W/MICRO C&S IF IND 05/26/2018 12:00 AM Medications Active Name Start Date Estimated Completion Date SIG Co mments Naproxen OTC 2 in am 2 in the pm metoprolol tartrate 25 mg oral tablet 04/14/2018 TAKE 3 TABLETS BY MOUTH ONCE DAILY hydrochlorothiazide 12.5 mg oral capsule 04/14/2018 TAKE 1 CAPSULE BY MOUTH ONCE DAILY diclofenac sodium 50 mg oral tablet,delayed release (DR/EC) 2018 take 1 tablet (50 mg) by oral route 2 times per day for 30 days Bactrim DS 800-160 mg oral tablet 05/26/2018 06/05/2018 take 1 tablet by oral route every 12 hours for 10 days Name Start Date Expiration Date SIG Comments [...] prior to bedtime to help with pain/sleep Discontinued Name Start Date Discontinued Date SIG [...] HC BMI BSA BMI Percentile O2 Sat(%) 05/26/2018 3:55:00 PM 124 mmHg 90 mmHg [...] 03/07/2018 12:00 AM URINALYSIS AUTO W/SCOPE Reviewed 03/25/2018 12:00 AM URINALYSIS AUTO W/SCOPE [...] AA 63 eGFR 52 eGFR AA* >60 History Of Immunizations Not available. History of [...] 4:00PM Urinary frequency May 26 2018 4:33PM Payers Insurance Name Company Name Plan Name Plan Number Policy Number Duane cy Group Number Start Date Cigna Cigna [id number] N/A History of Encounters Visit Date Visit Type Provider 05/26/2018 Office visit Bar Mata MD 04/21/2018 Office visit Bar Mata MD 04/15/2018 Surgery Bar Mata MD 03/25/2018 [facility] Mina Barlow MD 03/25/2018 Office visit Bar Mata MD 03/07/2018 Office visit Heath Willard APR N 12/17/2017 Office visit Heath Willard APR N 12/06/2017 Hafsa Barlow MD 11/26/2017 Office visit Bar aMta MD 11/26/2017 Office visit Heath Willard APR N 09/27/2017 Office visit Heath Willard APR N 08/31/2017 Office visit Philomena Nelson AGRICULTURAL SCIENCE PROFESSOR 04/30/[address] Julio Alexis MD 03/30/2017 Office visit Uyen Cardenas APR N
--- OUTSIDE RECORDS SUMMARY | 2019-05-31 10:27 | XMS REPORT ---
Author Author Liam Tom Organization [facility] ou Address [address] [place], [place] [phone] Care Team Providers Care Planer Tailer Name Role Phone Bailey Tom PCP Heath [...] 4:33PM Allergic rhinitis Jun 11 2018 12:38PM Payers Insurance Name Company Name Plan Name Plan Number Policy Number Duane cy Group Number Start Date Cigna Cigna [id number] N/A History of Encounters Visit Date Visit [...] APR N 08/31/2017 Office visit Philomena Nelson PHYSICAL PLANT MANAGER 04/30/[address] Julio Alexis MD 03/30/2017 Office visit Uyen Cardenas APR N
--- OUTSIDE RECORDS SUMMARY | 2019-05-31 10:27 | XMS REPORT ---
Author Author Liam Mata Organization [facility] Phys[facility] oup Address [address] [place] [phone] Care Team Providers Care Middle School English Teacher Name Role Phone Bar Mata PCP Heath [...] 2 times per day for 30 days Name Start Date Expiration Date SIG [...] prior to bedtime to help with pain/sleep Bactrim DS 800-160 mg oral tablet 05/26/2018 [...] AM ELECTROCARDIOGRAM TRACING Reviewed 05/26/2018 12:00 AM URINALYSIS AUTO W/SCOPE Returned Results Summary Date and Description Results [...] Duane cy Group Number Start Date Cigna Cigcherelle [id number] N/A History of Encounters Visit Date Visit Type Provider 05/26/2018 Office visit Bar Mata MD 04/21/2018 Office visit Bar Mata MD 04/15/2018 Surgery Bar Mata MD 03/25/2018 [facility] Mina Balrow MD 03/25/2018 Office visit Bar Mata MD 03/07/2018 Office visit Heath Willard APR N 12/17/2017 Office visit Heath Willard APR N 12/06/2017 Hafsa Barlow MD 11/26/2017 Office visit Bar Mata MD 11/26/2017 Office visit Heath Willard APR N 09/27/2017 Office visit Heath Willard APR N 08/31/2017 Office visit Philomena Nelson COMMUNICATION PROFESSOR 04/30/[address] Julio Alexis MD 03/30/2017 Office visit Uyen Cardenas APR N
--- OUTSIDE RECORDS SUMMARY | 2019-05-31 10:27 | XMS REPORT ---
Author Author Liam Tom Organization [facility] ou Address [address] [place], [place] [phone] Care Team Providers Care Towerman Name Role Phone Bailey Tom PCP Heath [...] 06/11/2018 12:00 AM THER/PROPH/DIAG INJ SC/IM Reviewed Results Summary Date and Description Results [...] Number Duane cy Group Number Start Date Adela Chapman [id number] N/A History of Encounters Visit Date Visit Type Provider 06/11/2018 Office visit Bailey KATE RN 05/26/2018 Office visit Bar Mata MD 04/21/2018 Office visit Bar Mata MD 04/15/2018 Surgery Bar Mata MD 03/25/2018 Hospital Mina Barlow MD 03/25/2018 Office visit Bar Mata MD 03/07/2018 Office visit Heath Willard APR N 12/17/2017 Office visit Heath Willard APR N 12/06/2017 [facility] Mina Barlow MD 11/26/2017 Office visit Bar Mata MD 11/26/2017 Office visit Heath Willard APR N 09/27/2017 Office visit Heath Willard APR N 08/31/2017 Office visit Philomena Nelson GUIDANCE ADVISER 04/30/[address] Julio Alexis MD 03/30/2017 Office visit Uyen Cardenas APR N
--- OUTSIDE RECORDS SUMMARY | 2019-05-31 10:28 | XMS REPORT ---
Author Author Liam Mata Organization [facility] oup Address [address] [place] [id number] Care Team Providers Care Field Operations Technician Name Role Phone Bar Mata PCP Heath Willard PreferredProvider Allergies and Adverse Reactions Name Reaction Notes No known drug allergy Plan of Treatment Planned Activity Comments Planned Date Planned Time Plan/Goal CMP 04/30/2017 12:00 AM Medications Active Name Start Date Estimated Completion Date SIG Co mments Naproxen OTC 2 in am 2 in the pm metoprolol tartrate 25 mg oral tablet 04/14/2018 TAKE 3 TABLETS BY MOUTH ONCE DAILY hydrochlorothiazide 12.5 mg oral capsule 04/14/2018 TAKE 1 CAPSULE BY MOUTH ONCE DAILY hydrocodone-acetaminophen 7.5-325 mg oral tablet 04/21/2018 04/28/2018 [...] route every 12 hours for 7 days Discontinued Name Start Date Discontinued Date [...] HC BMI BSA BMI Percentile O2 Sat(%) 03/25/2018 11:41:00 AM 138 mmHg 80 mmHg 92 bpm 18 rpm 97.7 F 222.25 lbs 67 i n 34.8089 kg/m 2.183 m 96 % 03/07/2018 3:50:00 PM 110 mmHg [...] 6:53AM S/P vasectomy Apr 21 2018 10:53AM Payers Insurance Name Company Name Plan Name Plan Number Policy Number Duane cy Group Number Start Date Cigna Cigna [id number] N/A History of Encounters Visit Date Visit Type Provider 04/21/2018 Office visit Bar Mata MD 04/15/2018 Surgery Bar Mata MD 03/25/2018 [facility] Mina Barlow MD 03/25/2018 Office visit Bar Mata MD 03/07/2018 Office visit Heath Willard APR N 12/17/2017 Office visit Heath Willard APR N 12/06/2017 Hospital Mina Barlow MD 11/26/2017 Office visit Bar Mata MD 11/26/2017 Office visit Heath Willard APR N 09/27/2017 Office visit Heath Willard APR N 08/31/2017 Office visit Philomena Nelson SCANNER OPERATOR 04/30/[address] Julio Alexis MD 03/30/2017 Office visit Uyen Cardenas APR N
--- OUTSIDE RECORDS SUMMARY | 2019-05-31 10:28 | XMS REPORT ---
Author Author Liam Mata Organization [facility] oup Address [address] [place] [id number] Care Team Providers Care Behavioral Health Rn Name Role Phone Bar Mata PCP Heath [...] cy Group Number Start Date Cigna Cigna [id number] N/A History of Encounters Visit Date Visit Type Provider 04/21/2018 Office visit Bar Mata MD 04/15/2018 Surgery Bar Mata MD 03/25/2018 [facility] Mina Barlow MD 03/25/2018 Office visit Bar Mata MD 03/07/2018 Office visit Heath Willard APR N 12/17/2017 Office visit Heath Willard APR N 12/06/2017 Hospital Mina Barlow MD 11/26/2017 Office visit Bar Mata MD 11/26/2017 Office visit Heath Willard APR N 09/27/2017 Office visit Heath Willard APR N 08/31/2017 Office visit Philomena Nelson CLINICAL TRIAL SPECIALIST 04/30/[address] Julio Alexis MD 03/30/2017 Office visit Uyen Cardenas APR N
--- OUTSIDE RECORDS SUMMARY | 2019-05-31 10:28 | XMS REPORT ---
Author Author Liam Mata Organization [facility] Physicians oup Address [address] [place] [id number] Care Team Providers Care Electronic Lab Technician Name Role Phone Bar Mata PCP [...] 6:53AM Vasectomy evaluation Apr 15 2018 6:53AM Payers Insurance Name Company Name Plan Name Plan Number Policy Number Duane cy Group Number Start Date Cigna Cigna [id number] N/A History of Encounters Visit Date Visit Type Provider 04/21/2018 Office visit Bar Mata MD 04/15/2018 Surgery Bar Mata MD 03/25/2018 [facility] Mina Barlow MD 03/25/2018 Office visit Bar Mata MD 03/07/2018 Office visit Heath Willard APR N 12/17/2017 Office visit Heath Willard APR N 12/06/2017 Hospital Mina Barlow MD 11/26/2017 Office visit Bar Mata MD 11/26/2017 Office visit Heath Willard APR N 09/27/2017 Office visit Heath Willard APR N 08/31/2017 Office visit Philomena Nelson SENIOR ENGINEERING TEAM LEADER 04/30/[address] Julio Alexis MD 03/30/2017 Office visit Uyen Cardenas APR N
--- OUTSIDE RECORDS SUMMARY | 2019-05-31 10:28 | XMS REPORT ---
Author Author Liam Mata Organization [facility] oup Address [address] [place] [id number] Care Team Providers Care Furniture Designer Name Role Phone Bar Mata PCP Heath [...] cy Group Number Start Date Cigna Cigna [id number] N/A History of Encounters Visit Date Visit [...] APR N 08/31/2017 Office visit Philomena Nelson DIRECTOR HRIS 04/30/[address] Julio Alexis MD 03/30/2017 Office visit Uyen Cardenas APR N
--- OUTSIDE RECORDS SUMMARY | 2019-05-31 10:28 | XMS REPORT ---
Author Author Liam Mata Organization [facility] oup Address [address] [place] [phone] Care Team Providers Care Esol Instructor Name Role Phone Bar Mata PCP Heath [...] route every 12 hours for 7 days diclofenac sodium 50 mg oral tablet,delayed release (DR/EC) 03/07/2018 04/06/2018 take 1 tablet (50 mg) by oral route 2 times per day fo r 30 days Discontinued Name Start Date Discontinued Date SIG Comments metoprolol asutdillo-hydrochlorothiaz 50-12.5 mg oral tablet extend ed release [...] cy Group Number Start Date Cigna Cigna [id number] N/A History of Encounters Visit Date Visit Type Provider 04/15/2018 Surgery Bar Mata MD 03/25/2018 Hospital Mina Barlow MD 03/25/2018 Office visit Bar Mata MD 03/07/2018 Office visit Heath Willard APR N 12/17/2017 Office visit Heath Willard APR N 12/06/2017 Hospital Mina Barlow MD 11/26/2017 Office visit Bar Mata MD 11/26/2017 Office visit Heath Willard APR N 09/27/2017 Office visit Heath Willard APR N 08/31/2017 Office visit Philomena Nelson HUMAN RESOURCES SERVICES SPECIALIST 04/30/[address] Julio Alexis MD 03/30/2017 Office visit Uyen Cardenas APR N
--- OUTSIDE RECORDS SUMMARY | 2019-05-31 10:29 | XMS REPORT ---
Author Author Liam Willard Organization [facility] Physicians oup Address [address] [place], [place] [phone] Care Team Providers Care Detention Deputy Name Role Phone Heath Willard PCP Allergies and Adverse Reactions Name Reaction Notes No known drug allergy Plan of Treatment Planned Activity Comments Planned Date Planned Time Plan/Goal CMP 04/30/2017 12:00 AM URINALYSIS W/MICRO C&S IF IND 03/07/2018 12:00 AM Medications Active Name Start Date Estimated Completion Date SIG Co mments Naproxen OTC 2 in am 2 in the pm metoprolol tartrate 25 mg oral tablet 09/27/2017 03/26/2018 take 3 tablets by oral route daily for 30 days hydrochlorothiazide 12.5 mg oral capsule 09/27/2017 9 take 1 capsule (12.5 mg) by oral route once daily for 30 days Name Start Date Expiration [...] HC BMI BSA BMI Percentile O2 Sat(%) 12/17/2017 2:56:00 PM 120 mmHg 80 mmHg 95 bpm 18 rpm 98.1 F 214.375 lbs 96 % 11/26/2017 10:20:00 AM 130 mmHg 100 mmHg 83 bpm 16 rpm 97.9 F 212.25 lbs 67 in 33.24 kg/m2 2.1333 m 95 % 11/26/2017 8:58:00 AM 132 mmHg 82 mmHg 105 bpm 20 rpm 97.3 F 213 lbs 67 in 33.3602 kg/m 2.14 m2 97 % 09/27/2017 5:16:00 PM 150 mmHg 88 mmHg 86 bpm 97.9 F 214 lbs 67 in 33.52 kg/m2 2.1421 m 96 % 08/31/2017 3:53:00 PM 130 mmHg 90 mmHg 08/31/2017 3:48:00 PM 132 mmHg 90 mmHg 82 bpm 20 rpm 97.9 F 212.25 lbs 67 i n 33.24 kg/m2 2.1333 m 96 % 04/30/2017 11:37:00 AM 122 mmHg 78 mmHg 71 bpm 20 rpm 98.5 F 214.375 lbs 67 in 33.5755 kg/m 2.14 m2 95 % 03/30/2017 6:15:00 PM 144 mmHg [...] CA Reviewed 12/17/2017 12:00 AM CALCULUS SPECTROSCOPY Returned 02/04/2018 12:00 AM URNLS DIP STICK/TABLET RGNT AUTO W/O STARR ROSCOPY Returned Results Summary Date and Description Results [...] 0.17 #BASO 0.07 MANUAL DIFF NOT IND History Of Immunizations Not available. History of [...] 2018 11:34AM Dysuria Mar 07 2018 11:00AM Payers Insurance Name Company Name Plan Name Plan Number Policy Number Duane cy Group Number Start Date Adela Chapman [id number] N/A History of Encounters Visit Date Visit Type Provider 12/17/2017 Office visit Heath Willard APR N 12/06/2017 [facility] Mina Barlow MD 11/26/2017 Office visit Bar Mata MD 11/26/2017 Office visit Heath Willard APR N 09/27/2017 Office visit Heath Willard APR N 08/31/2017 Office visit Philomena Nelson HEAD LOADER 04/30/[address] Julio Alexis MD 03/30/2017 Office visit Uyen Cardenas APR N
--- OUTSIDE RECORDS SUMMARY | 2019-05-31 10:29 | XMS REPORT ---
Author Author Liam Willard Organization [facility] Physicians oup Address [address] [place], [place] [phone] Care Team Providers Care Die Trouble Shooter Name Role Phone Heath Willard PCP Allergies and Adverse Reactions Name Reaction Notes No known drug allergy Plan of Treatment Planned Activity Comments Planned Date Planned Time Plan/Goal CMP 04/30/2017 12:00 AM Stone analysis 12/17/2017 12:00 AM Medications Active Name Start Date Estimated Completion Date SIG Co mments Naproxen OTC 2 in am 2 in the pm metoprolol tartrate 25 mg oral tablet 09/27/2017 03/26/2018 take 3 tablets by oral route daily for 30 days hydrochlorothiazide 12.5 mg oral capsule 09/27/2017 9 take 1 capsule (12.5 mg) by oral route once daily for 30 days Discontinued Name Start Date Discontinued [...] 12:00 AM METABOLIC PANEL TOTAL CA Reviewed Results Summary Date and Description Results [...] 2:59PM Solitary kidney Dec 17 2017 2:59PM Payers Insurance Name Company Name Plan Name Plan Number Policy Number Duane cy Group Number Start Date Cigna Cigna [id number] N/A History of Encounters Visit Date Visit Type Provider 12/17/2017 Office visit Heath Willard APR N 11/26/2017 Office visit Bar Mata MD 11/26/2017 Office visit Heath Willard APR N 09/27/2017 Office visit Heath Willard APR N 08/31/2017 Office visit Philomena Nelson CANVAS BASTER 04/30/[address] Julio Alexis MD 03/30/2017 Office visit Uyen Cardenas APR N
--- OUTSIDE RECORDS SUMMARY | 2019-05-31 10:29 | XMS REPORT ---
Author Author Liam Willard Organization [facility] Physicians oup Address [address] [place], [place] [phone] Care Team Providers Care Licensed Electrician Name Role Phone Heath Willard PCP Allergies [...] route once daily taking these me dication seperatlkat cyclobenzaprine 10 mg oral tablet 03/30/2017 04/30/2017 [...] STICK/TABLET RGNT AUTO W/O STARR ROSCOPY Returned 03/07/2018 12:00 AM URINALYSIS AUTO W/SCOPE Returned Results [...] Number Duane cy Group Number Start Date Cigcherelle Chapman [id number] N/A History of Encounters Visit Date Visit Type Provider 03/07/2018 Office visit Heath Willard APR N 12/17/2017 Office visit Heath Willard APR N 12/06/2017 [facility] Mina Barlow MD 11/26/2017 Office visit Bar Mata MD 11/26/2017 Office visit Heath Willard APR N 09/27/2017 Office visit Heath Willard APR N 08/31/2017 Office visit Philomena Nelson EQUIPMENT INSTALLER 04/30/[address] Julio Alexis MD 03/30/2017 Office visit Uyen Cardenas APR N
--- OUTSIDE RECORDS SUMMARY | 2019-05-31 10:29 | XMS REPORT ---
Author Author Liam Willard Organization [facility] Physicians ou Address [address] [place], [place] [address] Care Team Providers Care Seo Marketing Specialist Name Role Phone Heath Willard PCP Allergies [...] oral route once daily for 30 days cephalexin 500 mg oral capsule 03/07/2018 03/14/2018 t robi 1 capsule (500 mg) by oral route every 12 hours for 7 days diclofenac sodium 50 mg oral tablet,delayed release (DR/EC) 03/07/2018 04/06/2018 take 1 tablet (50 mg) by oral route 2 times per day fo r 30 days Name Start Date Expiration Date [...] HC BMI BSA BMI Percentile O2 Sat(%) 03/07/2018 3:50:00 PM 110 mmHg 80 mmHg 99 bpm 17 rpm 97.5 F 212 lbs 67 in 33.2036 kg/m 2.1321 m 92 % 12/17/2017 2:56:00 PM 120 mmHg [...] 97.3 F 216 lbs 67 in 33.83 kg/m 2.15 m2 95 % Social History Name [...] 03/07/2018 12:00 AM URINALYSIS AUTO W/SCOPE Reviewed Results Summary Date and Description Results [...] 2018 3:51PM Dysuria Mar 07 2018 3:51PM Payers Insurance Name Company Name Plan Name Plan Number Policy Number Duane cy Group Number Start Date Cigna Cigna [id number] N/A History of Encounters Visit Date Visit Type Provider 03/07/2018 Office visit Heath Willard APR N 12/17/2017 Office visit Heath Willard APR N 12/06/2017 Hfasa Barlow MD 11/26/2017 Office visit Bar Mata MD 11/26/2017 Office visit Heath Willard APR N 09/27/2017 Office visit Heath Willard APR N 08/31/2017 Office visit Philomena Nelson BLUEPRINT REPRODUCER 04/30/[address] Julio Alexis MD 03/30/2017 Office visit Uyen Cardenas APR N
--- OUTSIDE RECORDS SUMMARY | 2019-05-31 10:29 | XMS REPORT ---
Author Author Liam Willard Organization [facility] Physicians oup Address [address] [place], [place] [address] Care Team Providers Care Blankbook Forwarder Name Role Phone Heath Willard PCP Allergies and Adverse Reactions Name Reaction Notes No known drug allergy Plan of Treatment Planned Activity Comments Planned Date Planned Time Plan/Goal CMP 04/30/2017 12:00 AM Urinalysis Routine C&S If Indicated 02/04/2018 12:00 AM Medications Active Name Start Date [...] Reviewed 12/17/2017 12:00 AM CALCULUS SPECTROSCOPY Returned Results Summary Date and Description Results [...] 2017 2:59PM Dysuria Feb 04 2018 11:34AM Payers Insurance Name Company Name Plan Name Plan Number Policy Number Duane cy Group Number Start Date Cigna Cigcherelle [id number] N/A History of Encounters Visit Date Visit Type Provider 12/17/2017 Office visit Heath Willard APR N 12/06/2017 Hafsa Barlow MD 11/26/2017 Office visit Bar Mata MD 11/26/2017 Office visit Heath Willard APR N 09/27/2017 Office visit Heath Willard APR N 08/31/2017 Office visit Philomena Nelson CLOTHING EXAMINER 04/30/[address] Julio Alexis MD 03/30/2017 Office visit Uyen Cardenas APR N
--- OUTSIDE RECORDS SUMMARY | 2019-05-31 10:29 | XMS REPORT ---
Author Author Liam Willard Organization [facility] Phys[facility] ou Address [address] [place], [place] [address] Care Team Providers Care Globe Mounter Name Role Phone Heath Willard PCP Allergies [...] cy Group Number Start Date Cigna Cigna [id number] N/A History of Encounters Visit Date Visit Type Provider 03/07/2018 Office visit Heath Willard APR N 12/17/2017 Office visit Heath Willard APR N 12/06/2017 Hafsa Barlow MD 11/26/2017 Office visit Bar Mata MD 11/26/2017 Office visit Heath Willard APR N 09/27/2017 Office visit Heath Willard APR N 08/31/2017 Office visit Philomena Nelson CONFERENCE ORGANIZER 04/30/[address] Julio Alexis MD 03/30/2017 Office visit Uyen Cardenas APR N
--- OUTSIDE RECORDS SUMMARY | 2019-05-31 10:29 | XMS REPORT ---
Author Author Liam Mata Organization [facility] Physicians oup Address [address] [place] [phone] Care Team Providers Care Apprentice Plant Attendant Name Role Phone Bar Mata PCP Heath [...] cy Group Number Start Date Cigna Cigna [id number] N/A History of Encounters Visit Date Visit Type Provider 03/25/2018 Office visit Bar Mata MD 03/07/2018 Office visit Heath Willard APR N 12/17/2017 Office visit Heath Willard APR N 12/06/2017 Hafsa Barlow MD 11/26/2017 Office visit Bar Mata MD 11/26/2017 Office visit Heath Willard APR N 09/27/2017 Office visit Heath Willard APR N 08/31/2017 Office visit Philomena Nelson CLINICAL LIAISON 04/30/[address] Julio Alexis MD 03/30/2017 Office visit Uyen Cardenas APR N
--- OUTSIDE RECORDS SUMMARY | 2019-05-31 10:30 | XMS REPORT ---
Author Author Liam Mata Organization [facility] Gr oup Address [address] [place] [id number] Care Team Providers Care Rn Patient Services Name Role Phone Esperanza Bar PCP Allergies and Adverse Reactions Name Reaction Notes No known drug allergy Plan of Treatment Planned Activity Comments Planned Date Planned Time Plan/Goal CMP 04/30/2017 12:00 AM URINALYSIS W/MICRO C&S IF IND 11/26/2017 12:00 AM CBC W/ AUTO DIFF (RFLX MAN DIFF IF IND). 11/26/2017 12:00 AM BMP 11/26/2017 12:00 AM Medications Active Name Start Date [...] as needed for 30 days Problem List Not available. Vital Signs Date Time BP-Sys(mm[Hg] BP-Agatha(mm[Hg]) HR(bpm) RR(rpm) Temp WT HT HC BMI BSA BMI Percentile O2 Sat(%) 11/26/2017 10:20:00 AM 130 mmHg 100 mmHg 83 bpm 16 rpm 97.9 F 212.25 lbs 67 in 33.2427 kg/m 2.1333 m 95 % 11/26/2017 8:58:00 AM 132 mmHg 82 mmHg 105 bpm 20 rpm 97.3 F 213 lbs 67 in 33.36 kg/m2 2.14 m2 97 % 09/27/2017 5:16:00 PM 150 mmHg 88 mmHg 86 bpm 97.9 F 214 lbs 67 in 33.52 kg/m2 2.14 m2 96 % 08/31/2017 3:53:00 PM 130 mmHg [...] Returned 08/31/2017 12:00 AM VITAMIN B-12 Returned Results Summary Not available. History Of Immunizations Not available. History of Past Illness Name Date of Onset Comments Hypertension Kidney Stones Left anterior knee pain Mar 30 2017 [...] 10:23AM Vasectomy evaluation Nov 26 2017 10:23AM Payers Insurance Name Company Name Plan Name Plan Number Policy Number Duane cy Group Number Start Date Adela Chapman [id number] N/A History of Encounters Visit Date Visit Type Provider 11/26/2017 Office visit Bar Mata MD 11/26/2017 Office visit Heath Willard APR N 09/27/2017 Office visit Heath Willard APR N 08/31/2017 Office visit Philomena Nelson 5TH GRADE TEACHER 04/30/[address] Juilo Alexis MD 03/30/2017 Office visit Uyen Cardenas APR N
--- OUTSIDE RECORDS SUMMARY | 2019-05-31 10:30 | XMS REPORT ---
Author Author Liam Alexis Organization [facility] Address [address] [place], [place] [address] Care Team Providers Care Legal Biller Name Role Phone Julio Alexis PCP Allergies and Adverse Reactions Name Reaction Notes No known drug allergy Plan of Treatment Planned Activity Comments Planned Date Planned Time Plan/Goal CMP 04/30/2017 12:00 AM Medications Active Name Start Date Estimated Completion Date SIG Co mments metoprolol succinate 25 mg oral tablet extended release 24 hr take 2 tablets (50 mg) by oral route once daily hydrochlorothiazide 12.5 mg oral tablet take 1 tablet (12.5 mg) by oral route once daily Naproxen OTC 2 in am 2 in the pm Discontinued Name Start Date Discontinued Date SIG Comments metoprolol astudillo-hydrochlorothiaz 50-12.5 mg oral tablet extend ed release 24 hr 04/30/2017 take 1 tablet by oral route once daily taking these me dication seperatly cyclobenzaprine 10 mg oral tablet 03/30/2017 04/30/2017 take 1 tablet (10 mg) by oral route 3 times per day for 30 days Problem List Not available. Vital Signs Date Time BP-Sys(mm[Hg] BP-Agatha(mm[Hg]) HR(bpm) RR(rpm) Temp WT HT HC BMI BSA BMI Percentile O2 Sat(%) 04/30/2017 11:37:00 AM 122 mmHg 78 mmHg 71 bpm 20 rpm 98.5 F 214.375 lbs 67 in 33.58 kg/m2 2.14 m2 95 % 03/30/2017 6:15:00 PM 144 mmHg 84 mmHg 88 bpm 18 rpm 97.3 F 216 lbs 67 in 33.83 kg/m 2.1521 m 95 % Social History Name Description Comments Tobacco Former smoker Alcohol Light History of Procedures Not available. Results Summary Not available. History Of Immunizations Not available. History of Past Illness Name Date of Onset Comments Hypertension Kidney Stones Left anterior knee pain Mar 30 2017 6:20PM Acute pain of left knee Apr 30 2017 11:49AM Essential Hypertension Apr 30 2017 11:49AM Establishing care with new doctor, encounter for Apr 30 2017 11:49AM Payers Insurance Name Company Name Plan Name Plan Number Policy Number Duane cy Group Number Start Date Cigna [employer] [id number] N/A History of Encounters Visit Date Visit Type Provider 04/30/[address] Julio Alexis MD 03/30/2017 Office visit Uyen Cardenas APR N
--- OUTSIDE RECORDS SUMMARY | 2019-05-31 10:30 | XMS REPORT | Clinical Summary ---
Author Author Admin, Liam Ruffin [facility] Address Unknown Phone Unavailable Allergies, Adverse Reactions, Alerts Allergy Name Reaction Description Start Date Severity Status Pr ovider No Known Allergies Alliso n [place] NKDA Critical Active Jameel STILES Conditions or Problems Problem Name Problem Code Onset Date Status Entry Date Provider Comment Standard Description Annotate HEALTH SCREENING V70.0 Resolved Didier Valdez MD Routine general medical examination at a health care facility UTI 599.0 Resolved Didier Valdez MD Urinary tract infection, site not specified RENAL CALCULUS, RIGHT 592.0 Resolved Didier Sibley MD Calculus of kidney URETERAL CALCULUS 592.1 Resolved Didier Valdez MD Calculus of ureter URETERAL CALCULUS 592.1 Active Jessica Burton Calculus of ureter RENAL CALCULUS 592.9 Resolved Didier Valdez MD Urinary calculus, unspecified HEALTH SCREENING V70.0 Active Jameel Balderrama A Routine general medical examination at a health care facility BACK PAIN 724.5 Inactive Eli De La Torre Ba ckache, unspecified Low back pain, chronic 724.2 Active Didier Sibley MD Lumbago LOW BACK PAIN, ACUTE 724.2 Resolved Didier talavera MD Lumbago LUMBAR STRAIN, ACUTE 847.2 Resolved Didier talavera MD Lumbar sprain SCIATICA 724.3 Resolved Didier Valdez MD Sciatica HYPERTENSION 401.9 Active Wilfredo Troncoso MD Unspecified essential hypertension Depression 311 Active Didier Valdez MD Depressive disorder, not elsewhere classified HEALTH SCREENING ICD-V70.0 Inactive Didier Sibley MD UTI ICD-599.0 Inactive Didier Valdez MD 2014 RENAL CALCULUS, RIGHT ICD-592.0 Inactive Lyudmila Valdez MD RENAL CALCULUS ICD-592.9 Inactive Didier dasilva MD LOW BACK PAIN, ACUTE ICD-724.2 Inactive Josh Valdez MD LUMBAR STRAIN, ACUTE ICD-847.2 Inactive Josh Valdez MD SCIATICA ICD-724.3 Inactive Didier Valdez MD 201 07/21/05 Medication List Medication Instructions Start Date Stop Date Generic Name NDC Status Provider Patient Instruction CYCLOBENZAPRINE HCL 10 MG TABS 1 tablet by mouth three times daily as needed for muscle spasm/pain CYCLOBENZAPRINE HCL 44360668197 Active Didier Valdez MD Active OXYCONTIN 10 MG ORAL T12A by mouth twice a day OXY CODONE HCL 44201135837 Active Didier Valdez MD Active OXYCODONE HCL 5 MG ORAL CAPS Take one by mouth TID OXYCODONE HCL 43548197049 Active Didier Valdez MD Active METHYLPREDNISOLONE (MARY KATE) 4 MG TABS M ETHYLPREDNISOLONE 58138366596 No Longer Active Didier Valdez MD Active METHOCARBAMOL 750 MG TABS 1 tab tid METHOCARBAMOL 84372014848 No Longer Active Didier Valdez MD Active ULTRAM 50 MG TABS 1 tab q4-6h PRN TRAMADOL HCL 66 610812747 No Longer Active Didier Valdez MD Active TRAZODONE HCL 50 MG TABS Take 1 to 2 tablets every night TRAZODONE HCL 84643338301 No Longer Active Didier Valdez MD Activ e EQ IBUPROFEN 200 MG TABS Take 2 tablets every 4 to 6 hours PRN IBUPROFEN 96097570003 No Longer Active Wilfredo Troncoso MD Acti ve MOBIC 7.5 MG TABS 1 tablet by mouth twice daily MELOXICAM 38889012894 No Longer Active Wilfredo Troncoso MD Active PERCOCET 10-325 MG TABS take 1 tab po q6 hours prn pain. OXYCODONE-ACETAMINOPHEN 54694084413 Active Wilfredo Troncoso MD Active HYDROCODONE-ACETAMINOPHEN 7.5-325 MG TABS take 1-2 tab lets every 6 hours as needed for pain HYDROCODONE-ACETAMINOPHEN 90807608014 No Longer Active Wilfredo Troncoso MD Active LORTAB 5 5-500 MG TABS 1 tablet by mouth every 6 hours as ne eded for pain HYDROCODONE-ACETAMINOPHEN 77962216511 No Longer Activ e Wilfredo Troncoso MD Active MEDROL (MARY KATE) 4 MG TABS 6 tabs on day 1, 5 tabs on d ay 2, 4 tabs on day 3, 3 tabs on day 4, 2 tabs on day 5, 1 tab on day 6 METHYLPREDNISOLONE 76434412159 No Longer Active Wilfredo Troncoso MD Active ALPRAZOLAM 1 MG TABS Take 1 tablet 1x daily ALPRAZOLAM 3 6866216173 Active Wilfredo Troncoso MD Active ZOLOFT 100 MG TABS Take 1 tablet 2x daily SERTRALINE HCL 69140759573 Active Wilfredo Troncoso MD Active ZOLOFT 100 MG TABS 2 tabs by mouth once a day S ERTRALINE HCL 77221996175 No Longer Active Jameel STILES Active ZOFRAN ODT 4 MG TBDP 1 tablet every 6 hours as needed for nausea . ONDANSETRON 87937284247 No Longer Active Jameel STIELS Active METOPROLOL TARTRATE 25 MG TABS 1 po q a.m. and 0.5 in evening 03/12 METOPROLOL TARTRATE 53053823448 Active Didier Valdez MD Ac tive ZOFRAN ODT 4 MG TBDP 1 tablet every 6 hours as needed for nausea . ZOFRAN ODT 4 MG TBDP 292815 ONDANSETRON Inactive ZOLOFT 100 MG TABS 2 tabs by mouth once a day Z OLOFT 100 MG TABS 614156 SERTRALINE HCL Inactive LORTAB 5 5-500 MG TABS 1 tablet by mouth every 6 hours as ne eded for pain LORTAB 5 5-500 MG TABS HYDROCODONE-ACETAM INOPHEN Inactive HYDROCODONE-ACETAMINOPHEN 7.5-325 MG TABS take 1-2 tab lets every 6 hours as needed for pain HYDROCODONE-ACETAMINOPHEN 7.5-32 5 MG TABS 958900 HYDROCODONE-ACETAMINOPHEN Inactive MOBIC 7.5 MG TABS 1 tablet by mouth twice daily 09/16 MOBIC 7.5 MG TABS 536152 MELOXICAM Inactive EQ IBUPROFEN 200 MG TABS Take 2 tablets every 4 to 6 hours PRN EQ IBUPROFEN 200 MG TABS 741447 IBUPROFEN Inactive TRAZODONE HCL 50 MG TABS Take 1 to 2 tablets every night TRAZODONE HCL 50 MG TABS 533936 TRAZODONE HCL Inactive ULTRAM 50 MG TABS 1 tab q4-6h PRN ULTRAM 50 MG TA 506858 TRAMADOL HCL Inactive METHOCARBAMOL 750 MG TABS 1 tab tid METHOCARBA MOL 750 MG TABS 509339 METHOCARBAMOL Inactive METHYLPREDNISOLONE (MARY KATE) 4 MG TABS 04/27 METHYLPREDNISOLONE (MARY KATE) 4 MG TABS METHYLPREDNISOLONE Inactive MEDROL (MARY KATE) 4 MG TABS 6 tabs on day 1, 5 tabs on d ay 2, 4 tabs on day 3, 3 tabs on day 4, 2 tabs on day 5, 1 tab on day 6 MEDROL (MARY KATE) 4 MG TABS METHYLPREDNISOLONE Inactive Vital Signs Date Name Value Unit Range Description blood pressure, diastolic, second observation 86 m m[Hg] BP fink blood pressure, diastolic - 8462-4 79 mm[Hg] BP fink blood pressure, systolic, second observation 128 mm [Hg] BP sys blood pressure, systolic - 8480-6 157 mm[Hg] BP sys pulse rate E&M - 8867-4 90 /min H eart rate temperature E&M 97.1 [degF] Body temp erature weight E&M - 3141-9 228.7 [lb_av] Weigh t Measured Diagnostic Results Date Name Value Unit Range Description Chart Maintenance: Outside labs entered on flowsheet - Chemistry sodium, serum 142 mmol/L potassium, serum 3.9 mmol/L blood glucose 95 mg/dL creatinine, serum 1.35 mg/dL Chart Maintenance: Outside labs entered on flowsheet - Hematology leukocyte count, blood 8.1 10*3/mm3 hemoglobin, blood 15.2 g/dL platelet count 329 10*3/mm3 Encounters Code Encounter Date Provider Facility CPT-29220 Level 4 Est. 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 Patient 17:18:46 CDT Wilfredo wyatt MD [facility] CPT-22717 Level 3 Est. Patient 10:03:01 CDT Wilfredo wyatt MD [facility] CPT-29909 Level 3 Est. 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 Patient 18:41:44 FIBRE OPTIC CABLE SPLICER Wilfredo wyatt MD [facility] CPT-90632 Level 3 Est. Patient 19:42:04 FIBRE OPTIC CABLE SPLICER Wilfredo wyatt MD [facility] CPT-86464 Level 4 New Patient 12:51:50 CDT J Valdez gan MD [facility] Procedures Code Procedure Name Date Entry Date Standard Desc ription CPT-96866 Abd single AP View 10:52:37 FIBRE OPTIC CABLE SPLICER CPT-90706 LS spine AP and Lat 13:45:51 CDT CPT-06782 LS spine AP and Lat 15:58:55 FIBRE OPTIC CABLE SPLICER CPT-56109 Drug Screen Leonid 14:45:55 FIBRE OPTIC CABLE SPLICER CPT-15595 Postop F/U Visit 17:53:11 CDT CPT-92316 Urine Dip (Floor Use Only) 12:51:50 CDT 201 04/24/28 CPT-25432 Abd single AP View 12:51:50 CDT
--- OUTSIDE RECORDS SUMMARY | 2019-05-31 10:30 | XMS REPORT | Clinical Summary ---
Author Author Admin, Liam Ruffin [facility] Address Unknown Phone Unavailable Allergies, Adverse Reactions, [...] MD LOW BACK PAIN, ACUTE ICD-724.2 Inactive Johs Valdez MD LUMBAR STRAIN, ACUTE ICD-847.2 Inactive Jsoh Valdez MD SCIATICA ICD-724.3 Inactive Didier Valdez MD 201 07/21/05 Medication List Medication Instructions Start Date Stop Date Generic Name NDC Status Provider Patient Instruction CYCLOBENZAPRINE HCL 10 MG TABS 1 tablet by mouth three times daily as needed for muscle spasm/pain CYCLOBENZAPRINE HCL 59110493982 Active Didier Valdez MD Active OXYCONTIN 10 MG ORAL T12A by mouth twice a day OXY CODONE HCL 66587801558 Active Didier Valdez MD Active OXYCODONE HCL 5 MG ORAL CAPS Take one by mouth TID OXYCODONE HCL 10248272689 Active Didier Valdez MD Active METHYLPREDNISOLONE (MARY KATE) 4 MG TABS M ETHYLPREDNISOLONE 44348457937 No Longer Active Didier Valdez MD Active METHOCARBAMOL 750 MG TABS 1 tab tid METHOCARBAMOL 56466112530 No Longer Active Didier Valdez MD Active ULTRAM 50 MG TABS 1 tab q4-6h PRN TRAMADOL HCL 66 545827347 No Longer Active Didier Valdez MD Active TRAZODONE HCL 50 MG TABS Take 1 to 2 tablets every night TRAZODONE HCL 21649229341 No Longer Active Didier Valdez MD Activ e EQ IBUPROFEN 200 MG TABS Take 2 tablets every 4 to 6 hours PRN IBUPROFEN 19196259339 No Longer Active Wilfredo Troncoso MD Acti ve MOBIC 7.5 MG TABS 1 tablet by mouth twice daily MELOXICAM 66268113936 No Longer Active Wilfredo Troncoso MD Active PERCOCET 10-325 MG TABS take 1 tab po q6 hours prn pain. OXYCODONE-ACETAMINOPHEN 17828833261 Active Wilfredo Troncoso MD Active HYDROCODONE-ACETAMINOPHEN 7.5-325 MG TABS take 1-2 tab lets every 6 hours as needed for pain HYDROCODONE-ACETAMINOPHEN 01283006291 No Longer Active Wilfredo Troncoso MD Active LORTAB 5 5-500 MG TABS 1 tablet by mouth every 6 hours as ne eded for pain HYDROCODONE-ACETAMINOPHEN 89762296248 No Longer Activ e Wilfredo Troncoso MD Active MEDROL (MARY KATE) 4 MG TABS 6 tabs on day 1, 5 tabs on d ay 2, 4 tabs on day 3, 3 tabs on day 4, 2 tabs on day 5, 1 tab on day 6 METHYLPREDNISOLONE 13644474488 No Longer Active Wilfredo Troncoso MD Active ALPRAZOLAM 1 MG TABS Take 1 tablet 1x daily ALPRAZOLAM 3 0139750819 Active Wilfredo Troncoso MD Active ZOLOFT 100 MG TABS Take 1 tablet 2x daily SERTRALINE HCL 92440093812 Active Wilfredo Troncoso MD Active ZOLOFT 100 MG TABS 2 tabs by mouth once a day S ERTRALINE HCL 66638162558 No Longer Active Jameel STILES Active ZOFRAN ODT 4 MG TBDP 1 tablet every 6 hours as needed for nausea . ONDANSETRON 99221586128 No Longer Active Jameel STILES Active METOPROLOL TARTRATE 25 MG TABS 1 po q a.m. and 0.5 in evening 03/12 METOPROLOL TARTRATE 64605231993 Active Didier Valdez MD Ac tive ZOFRAN ODT 4 MG TBDP 1 tablet every 6 hours as needed for nausea . ZOFRAN ODT 4 MG TBDP 009652 ONDANSETRON Inactive ZOLOFT 100 MG TABS 2 tabs by mouth once a day Z OLOFT 100 MG TABS 021544 SERTRALINE HCL Inactive LORTAB 5 5-500 MG TABS 1 tablet by mouth every 6 hours as ne eded for pain LORTAB 5 5-500 MG TABS HYDROCODONE-ACETAM INOPHEN Inactive HYDROCODONE-ACETAMINOPHEN 7.5-325 MG TABS take 1-2 tab lets every 6 hours as needed for pain HYDROCODONE-ACETAMINOPHEN 7.5-32 5 MG TABS 189923 HYDROCODONE-ACETAMINOPHEN Inactive MOBIC 7.5 MG TABS 1 tablet by mouth twice daily 09/16 MOBIC 7.5 MG TABS 397518 MELOXICAM Inactive EQ IBUPROFEN 200 MG TABS Take 2 tablets every 4 to 6 hours PRN EQ IBUPROFEN 200 MG TABS 492049 IBUPROFEN Inactive TRAZODONE HCL 50 MG TABS Take 1 to 2 tablets every night TRAZODONE HCL 50 MG TABS 907952 TRAZODONE HCL Inactive ULTRAM 50 MG TABS 1 tab q4-6h PRN ULTRAM 50 MG TA 788238 TRAMADOL HCL Inactive METHOCARBAMOL 750 MG TABS 1 tab tid METHOCARBA MOL 750 MG TABS 750242 METHOCARBAMOL Inactive METHYLPREDNISOLONE (MARY KATE) 4 MG [...] 10*3/mm3 Encounters Code Encounter Date Provider Facility CPT-28954 Level 4 Est. 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 Patient 17:18:46 CDT Wilfredo wyatt MD [facility] CPT-56284 Level 3 Est. Patient 10:03:01 CDT Wilfredo wyatt MD [facility] CPT-92911 Level 3 Est. Patient 14:51:46 READING PROFESSOR Wilfredo wyatt MD [facility] CPT-12084 Level 3 Est. Patient 18:41:44 READING PROFESSOR Wilfredo wyatt MD [facility] CPT-76862 Level 3 Est. Patient 19:42:04 READING PROFESSOR Wilfredo wyatt MD [facility] CPT-62015 Level 4 New Patient 12:51:50 CDT J Valdez gan MD [facility] Procedures Code Procedure Name Date Entry Date Standard Desc ription CPT-22703 Postop F/U Visit 12:35:54 READING PROFESSOR CPT-51582 Abd single AP View 10:52:37 READING PROFESSOR CPT-06223 LS spine AP and Lat 13:45:51 CDT CPT-94639 LS spine AP and Lat 15:58:55 READING PROFESSOR CPT-60398 Drug Screen Leonid 14:45:55 READING PROFESSOR CPT-76455 Postop F/U Visit 17:53:11 CDT CPT-58631 Urine Dip (Floor Use Only) 12:51:50 CDT 201 04/24/28 CPT-11836 Abd single AP View 12:51:50 CDT
--- OUTSIDE RECORDS SUMMARY | 2019-05-31 10:30 | XMS REPORT ---
Author Author Liam Willard Organization [facility] Address [address] [place] [id number] Care Team Providers Care Robotics Specialist Name Role Phone Heath Willard PCP [...] HC BMI BSA BMI Percentile O2 Sat(%) 09/27/2017 5:16:00 PM 150 mmHg 88 mmHg [...] 3:55PM Essential hypertension Sep 27 2017 5:21PM Payers Insurance Name Company Name Plan Name Plan Number Policy Number Duane cy Group Number Start Date Cigna Cigna [id number] N/A History of Encounters Visit Date Visit Type Provider 09/27/2017 Office visit Heath Willard APR N 08/31/2017 Office visit Philomena Nelson INSTRUMENT MECHANICS SUPERVISOR 04/30/[address] Julio Alexis MD 03/30/2017 Office visit Uyen Cardenas APR N
--- OUTSIDE RECORDS SUMMARY | 2019-05-31 10:30 | XMS REPORT ---
Author Author Liam Mata Organization [facility] Address [address] [place], [place] [address] Care Team Providers Care Supervisor Statement Clerks Name Role Phone Esperanza Bar PCP Allergies [...] 2017 8:59AM Nephrolithiasis Nov 26 2017 8:59AM Payers Insurance Name Company Name Plan Name Plan Number Policy Number Duane cy Group Number Start Date Cigna Cigna [id number] N/A History of Encounters Visit Date Visit Type Provider 11/26/2017 Office visit Bar Mata MD 11/26/2017 Office visit Heath Willard APR N 09/27/2017 Office visit Heath Willard APR N 08/31/2017 Office visit Philomena Nelson IN SCHOOL SUSPENSION AIDE 04/30/[address] Julio Alexis MD 03/30/2017 Office visit Uyen Cardenas APR N
--- OUTSIDE RECORDS SUMMARY | 2019-05-31 10:30 | XMS REPORT ---
Author Author Liam Cardenas Organization [facility] Address [address] [place], [place] [address] Care Team Providers Care Measurement Advisor Name Role Phone Uyen Cardenas PCP Allergies and Adverse Reactions Name Reaction Notes No known drug allergy Plan of Treatment Not available. Medications Active Name Start Date Estimated Completion Date SIG Co mments metoprolol astudillo-hydrochlorothiaz 50-12.5 mg oral tablet extend ed release 24 hr take 1 tablet by oral route once daily cyclobenzaprine 10 mg oral tablet 03/30/2017 take 1 tablet (10 mg) by oral route 3 times per day for 30 days Problem List Not available. Vital Signs Date Time BP-Sys(mm[Hg] BP-Agatha(mm[Hg]) HR(bpm) RR(rpm) Temp WT HT HC BMI BSA BMI Percentile O2 Sat(%) 03/30/2017 6:15:00 PM 144 mmHg 84 mmHg 88 bpm 18 rpm 97.3 F 216 lbs 67 in 33.83 kg/m2 2.15 m2 95 % Social History Name Description Comments Tobacco Alcohol Light History of Procedures Not available. Results Summary Not available. History Of Immunizations Not available. History of Past Illness Name Date of Onset Comments Hypertension Left anterior knee pain Mar 30 2017 6:20PM Payers Insurance Name Company Name Plan Name Plan Number Policy Number Duane cy Group Number Start Date Cigna Cigna [id number] N/A History of Encounters Visit Date Visit Type Provider 03/30/2017 Office visit Uyen Cardenas APR N
--- OUTSIDE RECORDS SUMMARY | 2019-05-31 10:30 | XMS REPORT | Clinical Summary ---
Author Author Admin, Liam Ruffin [facility] Address Unknown Phone Unavailable Allergies, Adverse [...] as needed for muscle spasm/pain CYCLOBENZAPRINE HCL 26666174519 Active Didier Valdez MD Active OXYCONTIN 10 MG ORAL T12A by mouth twice a day OXY CODONE HCL 05734066269 Active Didier Valdez MD Active OXYCODONE HCL 5 MG ORAL CAPS Take one by mouth TID OXYCODONE HCL 10367494926 Active Didier Valdez MD Active METHYLPREDNISOLONE (MARY KATE) 4 MG TABS M ETHYLPREDNISOLONE 41172969898 No Longer Active Didier Valdez MD Active METHOCARBAMOL 750 MG TABS 1 tab tid METHOCARBAMOL 57265929924 No Longer Active Didier Valdez MD Active ULTRAM 50 MG TABS 1 tab q4-6h PRN TRAMADOL HCL 66 016693619 No Longer Active Didier Valdez MD Active TRAZODONE HCL 50 MG TABS Take 1 to 2 tablets every night TRAZODONE HCL 18714832660 No Longer Active Didier Valdez MD Activ e EQ IBUPROFEN 200 MG TABS Take 2 tablets every 4 to 6 hours PRN IBUPROFEN 78687358204 No Longer Active Wilfredo Troncoso MD Acti ve MOBIC 7.5 MG TABS 1 tablet by mouth twice daily MELOXICAM 13895707839 No Longer Active Wilfredo Troncoso MD Active PERCOCET 10-325 MG TABS take 1 tab po q6 hours prn pain. OXYCODONE-ACETAMINOPHEN 60364986676 Active Wilfredo Troncoso MD Active HYDROCODONE-ACETAMINOPHEN 7.5-325 MG TABS take 1-2 tab lets every 6 hours as needed for pain HYDROCODONE-ACETAMINOPHEN 93905338069 No Longer Active Wilfredo Troncoso MD Active LORTAB 5 5-500 MG TABS 1 tablet by mouth every 6 hours as ne eded for pain HYDROCODONE-ACETAMINOPHEN 43971882724 No Longer Activ e Wilfredo Troncoso MD Active MEDROL (MARY KATE) 4 MG TABS 6 tabs on day 1, 5 tabs on d ay 2, 4 tabs on day 3, 3 tabs on day 4, 2 tabs on day 5, 1 tab on day 6 METHYLPREDNISOLONE 27545079877 No Longer Active Wilfredo Troncoso MD Active ALPRAZOLAM 1 MG TABS Take 1 tablet 1x daily ALPRAZOLAM 3 7425072759 Active Wilfredo Troncoso MD Active ZOLOFT 100 MG TABS Take 1 tablet 2x daily SERTRALINE HCL 41060811694 Active Wilfredo Troncoso MD Active ZOLOFT 100 MG TABS 2 tabs by mouth once a day S ERTRALINE HCL 88442723637 No Longer Active Jameel STILES Active ZOFRAN ODT 4 MG TBDP 1 tablet every 6 hours as needed for nausea . ONDANSETRON 06707119964 No Longer Active Jameel STILES Active METOPROLOL TARTRATE 25 MG TABS 1 po q a.m. and 0.5 in evening 03/12 METOPROLOL TARTRATE 48116142933 Active Didier Valdez MD Ac tive ZOFRAN ODT 4 MG TBDP 1 tablet every 6 hours as needed for nausea . ZOFRAN ODT 4 MG TBDP 419913 ONDANSETRON Inactive ZOLOFT 100 MG TABS 2 tabs by mouth once a day Z OLOFT 100 MG TABS 796931 SERTRALINE HCL Inactive LORTAB 5 5-500 MG TABS 1 tablet by mouth every 6 hours as ne eded for pain LORTAB 5 5-500 MG TABS HYDROCODONE-ACETAM INOPHEN Inactive HYDROCODONE-ACETAMINOPHEN 7.5-325 MG TABS take 1-2 tab lets every 6 hours as needed for pain HYDROCODONE-ACETAMINOPHEN 7.5-32 5 MG TABS 534557 HYDROCODONE-ACETAMINOPHEN Inactive MOBIC 7.5 MG TABS 1 tablet by mouth twice daily 09/16 MOBIC 7.5 MG TABS 237188 MELOXICAM Inactive EQ IBUPROFEN 200 MG TABS Take 2 tablets every 4 to 6 hours PRN EQ IBUPROFEN 200 MG TABS 114774 IBUPROFEN Inactive TRAZODONE HCL 50 MG TABS Take 1 to 2 tablets every night TRAZODONE HCL 50 MG TABS 296737 TRAZODONE HCL Inactive ULTRAM 50 MG TABS 1 tab q4-6h PRN ULTRAM 50 MG TA 151320 TRAMADOL HCL Inactive METHOCARBAMOL 750 MG TABS 1 tab tid METHOCARBA MOL 750 MG TABS 470961 METHOCARBAMOL Inactive METHYLPREDNISOLONE (MARY KATE) 4 MG [...] Name Value Unit Range Description blood pressure, diastolic - 8462-4 82 mm[Hg] BP fink blood pressure, systolic - 8480-6 127 mm[Hg] BP sys pulse rate E&M - 8867-4 80 /min H eart rate weight E&M - 3141-9 230 [lb_av] Weigh t Measured blood pressure, diastolic, second observation 86 m [...] 10*3/mm3 Encounters Code Encounter Date Provider Facility CPT-66409 Level 4 Est. 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 Patient 17:18:46 CDT Wilfredo wyatt MD [facility] CPT-79528 Level 3 Est. Patient 10:03:01 CDT Wilfredo wyatt MD [facility] CPT-65311 Level 3 Est. Patient 14:51:46 MACHINE CRATER Wilfredo wyatt MD [facility] CPT-26634 Level 3 Est. Patient 18:41:44 MACHINE CRATER Wilfredo wyatt MD [facility] CPT-05814 Level 3 Est. Patient 19:42:04 MACHINE CRATER Wilfredo wyatt MD [facility] CPT-56638 Level 4 New Patient 12:51:50 CDT J Valdez gan MD [facility] Procedures Code Procedure Name Date Entry Date Standard Desc ription CPT-85212 Postop F/U Visit 12:35:54 MACHINE CRATER CPT-88136 Abd single AP View 10:52:37 MACHINE CRATER CPT-66300 LS spine AP and Lat 13:45:51 CDT CPT-65488 LS spine AP and Lat 15:58:55 MACHINE CRATER CPT-86785 Drug Screen Leonid 14:45:55 MACHINE CRATER CPT-40039 Postop F/U Visit 17:53:11 CDT CPT-66231 Urine Dip (Floor Use Only) 12:51:50 CDT 201 04/24/28 CPT-35698 Abd single AP View 12:51:50 CDT
--- OUTSIDE RECORDS SUMMARY | 2019-05-31 10:30 | XMS REPORT ---
Author Author Liam Nelson Organization [facility] Address [address] [place], [place] [id number] Care Team Providers Care Corporate Tutor Name Role Phone Philomena Nelson PCP Allergies and Adverse Reactions Name Reaction Notes No known drug allergy Plan of Treatment Planned Activity Comments Planned Date Planned Time Plan/Goal CMP 04/30/2017 12:00 AM Medications Active Name Start Date Estimated Completion Date SIG Co mments Naproxen OTC 2 in am 2 in the pm hydrochlorothiazide 12.5 mg oral tablet 05/07/2017 take 1 tablet (12.5 mg) by oral route once daily for 30 days metoprolol tartrate 25 mg oral tablet take 2 tablets (50 mg) by oral [...] HC BMI BSA BMI Percentile O2 Sat(%) 08/31/2017 3:53:00 PM 130 mmHg 90 mmHg [...] Numbness in feet Aug 31 2017 3:55PM Payers Insurance Name Company Name Plan Name Plan Number Policy Number [place] Group Number Start Date Cigna Cigna [id number] N/A History of Encounters Visit Date Visit Type Provider 08/31/2017 Office visit Philomena Nelson APRN 04/30/[address] Julio Alexis MD 03/30/2017 Office visit Uyen Cardenas APR N
--- OUTSIDE RECORDS SUMMARY | 2019-05-31 10:30 | XMS REPORT | Clinical Summary ---
Author Author Admin, Liam Lopez Organization [facility] Address Unknown Phone Unavailable Allergies, Adverse [...] MD Calculus of ureter URETERAL CALCULUS 592.1 Resolved Didier Valdez MD Calculus of ureter RENAL CALCULUS 592.9 Resolved Didier Valdez MD Urinary calculus, unspecified Health screening V70.0 Active Didier Kim Routine general medical examination at a health care facility BACK PAIN 724.5 Inactive Eli De La Torre Ba ckache, unspecified Low back pain, chronic 724.2 Active Didier Sibley MD Lumbago LOW BACK PAIN, ACUTE 724.2 Resolved Didier talavera MD Lumbago LUMBAR STRAIN, ACUTE 847.2 Resolved Didier talavera MD Lumbar sprain SCIATICA 724.3 Resolved Didier Valdez MD Sciatica HYPERTENSION 401.9 Inactive Wilfredo Troncoso MD Unspecified essential hypertension Hypertension, benign essential 401.1 Active 10/13 Didier Valdez MD Benign essential hypertension Depression 311 Active Didier Valdez MD Depressive disorder, not elsewhere classified Daytime somnolence 780.09 Active Didier Valdez MD Other alteration of consciousness UTI ICD-599.0 Inactive Didier Valdez MD 2014 RENAL CALCULUS, RIGHT ICD-592.0 Inactive Lyudmila Valdez MD URETERAL CALCULUS ICD-592.1 Inactive Didier rose MD RENAL CALCULUS ICD-592.9 Inactive Didier dasilva MD LOW BACK PAIN, ACUTE ICD-724.2 Inactive Josh Valdez MD LUMBAR STRAIN, ACUTE ICD-847.2 Inactive Josh Valdez MD SCIATICA ICD-724.3 Inactive Didier Valdez MD 201 07/21/05 HEALTH SCREENING ICD-V70.0 Inactive Didier Sibley MD Medication List Medication Instructions Start Date Stop Date Generic Name NDC Status Provider Patient Instruction ZOLOFT 100 MG TABS 1 po qd SERTRALINE HCL 42448998610 Active Didier Valdez MD Active OXYCONTIN 10 MG ORAL T12A by mouth twice a day OXYCODONE HCL 39501002628 No Longer Active Didier Valdez MD Active CYCLOBENZAPRINE HCL 10 MG TABS 1 tablet by mouth three times daily as needed for muscle spasm/pain CYCLOBENZAPRINE HCL 32942160871 Active Didier Valdez MD Active OXYCODONE HCL 5 MG ORAL CAPS Take one by mouth TID OXYCODONE HCL 13075460853 Active Didier Valdez MD Active METHYLPREDNISOLONE (MARY KATE) 4 MG TABS M ETHYLPREDNISOLONE 71402600122 No Longer Active Didier Valdez MD Active METHOCARBAMOL 750 MG TABS 1 tab tid METHOCARBAMOL 92715083650 No Longer Active Didier Valdez MD Active ULTRAM 50 MG TABS 1 tab q4-6h PRN TRAMADOL HCL 66 997611483 No Longer Active Didier Valdez MD Active TRAZODONE HCL 50 MG TABS Take 1 to 2 tablets every night TRAZODONE HCL 97435409550 No Longer Active Didier Valdez MD Activ e EQ IBUPROFEN 200 MG TABS Take 2 tablets every 4 to 6 hours PRN IBUPROFEN 09165071931 No Longer Active Wilfredo Troncoso MD Acti ve MOBIC 7.5 MG TABS 1 tablet by mouth twice daily MELOXICAM 06993291834 No Longer Active Wilfredo Troncoso MD Active PERCOCET 10-325 MG TABS take 1 tab po q6 hours prn pain. OXYCODONE-ACETAMINOPHEN 34920553325 Active Wilfredo Troncoso MD Active HYDROCODONE-ACETAMINOPHEN 7.5-325 MG TABS take 1-2 tab lets every 6 hours as needed for pain HYDROCODONE-ACETAMINOPHEN 57937943165 No Longer Active Wilfredo Troncoso MD Active LORTAB 5 5-500 MG TABS 1 tablet by mouth every 6 hours as ne eded for pain HYDROCODONE-ACETAMINOPHEN 15870808067 No Longer Activ e Wilfredo Troncoso MD Active MEDROL (MARY KATE) 4 MG TABS 6 tabs on day 1, 5 tabs on d ay 2, 4 tabs on day 3, 3 tabs on day 4, 2 tabs on day 5, 1 tab on day 6 METHYLPREDNISOLONE 96350090607 No Longer Active Wilfredo Troncoso MD Active ALPRAZOLAM 1 MG TABS Take 1 tablet 1x daily ALPRAZOLAM 3 9756564913 Active Wilfredo Troncoso MD Active ZOLOFT 100 MG TABS 2 tabs by mouth once a day S ERTRALINE HCL 17817458079 No Longer Active Jameel STILES Active ZOFRAN ODT 4 MG TBDP 1 tablet every 6 hours as needed for nausea . ONDANSETRON 93902783992 No Longer Active Jameel STILES Active METOPROLOL TARTRATE 25 MG TABS 1 po q a.m. and 0.5 in evening 03/12 METOPROLOL TARTRATE 74070116134 Active Didier Valdez MD Ac tive ZOFRAN ODT 4 MG TBDP 1 tablet every 6 hours as needed for nausea . ZOFRAN ODT 4 MG TBDP 810649 ONDANSETRON Inactive ZOLOFT 100 MG TABS 2 tabs by mouth once a day Z OLOFT 100 MG TABS 282938 SERTRALINE HCL Inactive LORTAB 5 5-500 MG TABS 1 tablet by mouth every 6 hours as ne eded for pain LORTAB 5 5-500 MG TABS HYDROCODONE-ACETAM INOPHEN Inactive HYDROCODONE-ACETAMINOPHEN 7.5-325 MG TABS take 1-2 tab lets every 6 hours as needed for pain HYDROCODONE-ACETAMINOPHEN 7.5-32 5 MG TABS 415096 HYDROCODONE-ACETAMINOPHEN Inactive MOBIC 7.5 MG TABS 1 tablet by mouth twice daily 09/16 MOBIC 7.5 MG TABS 735916 MELOXICAM Inactive EQ IBUPROFEN 200 MG TABS Take 2 tablets every 4 to 6 hours PRN EQ IBUPROFEN 200 MG TABS 817152 IBUPROFEN Inactive TRAZODONE HCL 50 MG TABS Take 1 to 2 tablets every night TRAZODONE HCL 50 MG TABS 414824 TRAZODONE HCL Inactive ULTRAM 50 MG TABS 1 tab q4-6h PRN ULTRAM 50 MG TA BS 244256 TRAMADOL HCL Inactive METHOCARBAMOL 750 MG TABS 1 tab tid METHOCARBA MOL 750 MG TABS 465948 METHOCARBAMOL Inactive METHYLPREDNISOLONE (MARY KATE) 4 MG TABS 04/27 METHYLPREDNISOLONE (MARY KATE) 4 MG TABS 204904 METHYLPREDNISOLONE Inactive OXYCONTIN 10 MG ORAL T12A by mouth twice a day OXYCONTIN 10 MG ORAL T12A OXYCODONE HCL Inactive MEDROL (MARY KATE) 4 MG TABS 6 tabs on day 1, 5 tabs on d ay 2, 4 tabs on day 3, 3 tabs on day 4, 2 tabs on day 5, 1 tab on day 6 MEDROL (MARY KATE) 4 MG TABS 392396 METHYLPREDNISOLONE Inactive Vital Signs Date Name Value Unit Range Description blood pressure, diastolic - 8462-4 95 mm[Hg] BP fink blood pressure, systolic - 8480-6 131 mm[Hg] BP sys pulse rate E&M - 8867-4 70 /min H eart rate temperature E&M 96.9 [degF] Body temp erature weight E&M - 3141-9 212 [lb_av] Weigh t Measured blood pressure, diastolic - 8462-4 82 mm[Hg] BP fink blood pressure, systolic - 8480-6 127 mm[Hg] BP sys pulse rate E&M - 8867-4 80 /min H eart rate weight E&M - 3141-9 230 [lb_av] Weigh t Measured Diagnostic Results Date [...] 10*3/mm3 Encounters Code Encounter Date Provider Facility CPT-99589 Level 4 Est. Patient 08:45:55 CDT Didier Valdez MD [facility] CPT-40269 Level 4 Est. Patient 16:31:23 SERVER Didier Valdez MD [facility] CPT-12313 Level 3 Est. Patient 17:18:46 CDT Wilfredo wyatt MD [facility] CPT-23969 Level 3 Est. Patient 10:03:01 CDT Wilfredo wyatt MD [facility] CPT-10899 Level 3 Est. Patient 14:51:46 SERVER Wilfredo wyatt MD [facility] CPT-78120 Level 3 Est. Patient 18:41:44 SERVER Wilfredo wyatt MD [facility] CPT-20056 Level 3 Est. Patient 19:42:04 SERVER Wilfredo wyatt MD [facility] CPT-62616 Level 4 New Patient 12:51:50 CDT J Valdez gan MD [facility] Procedures Code Procedure Name Date Entry Date Standard Desc ription CPT-38732 Venipuncture Draw Fee 08:56:11 CDT CPT-71104 Postop F/U Visit 12:35:54 SERVER CPT-85850 Abd single AP View 10:52:37 SERVER CPT-69862 LS spine AP and Lat 13:45:51 CDT CPT-84223 LS spine AP and Lat 15:58:55 SERVER CPT-05273 Drug Screen Leonid 14:45:55 SERVER CPT-92711 Postop F/U Visit 17:53:11 CDT CPT-44864 Urine Dip (Floor Use Only) 12:51:50 CDT 201 04/24/28 CPT-86573 Abd single AP View 12:51:50 CDT
--- OUTSIDE RECORDS SUMMARY | 2019-05-31 10:31 | XMS REPORT | Clinical Summary ---
Author Author Admin, Liam Ruffin [facility] Address Unknown Phone Unavailable Allergies, Adverse Reactions, [...] MG TABS 1 po qd SERTRALINE HCL 75978280886 Active Didier Valdez MD Active OXYCONTIN 10 MG ORAL T12A by mouth twice a day OXYCODONE HCL 20641886480 No Longer Active Didier Valdez MD Active CYCLOBENZAPRINE HCL 10 MG TABS 1 tablet by mouth three times daily as needed for muscle spasm/pain CYCLOBENZAPRINE HCL 62703566269 Active Didier Valdez MD Active OXYCODONE HCL 5 MG ORAL CAPS Take one by mouth TID OXYCODONE HCL 42427932838 Active Didier Valdez MD Active METHYLPREDNISOLONE (MARY KATE) 4 MG TABS M ETHYLPREDNISOLONE 45283750915 No Longer Active Didier Valdez MD Active METHOCARBAMOL 750 MG TABS 1 tab tid METHOCARBAMOL 09268967862 No Longer Active Didier Valdez MD Active ULTRAM 50 MG TABS 1 tab q4-6h PRN TRAMADOL HCL 66 196266583 No Longer Active Didier Valdez MD Active TRAZODONE HCL 50 MG TABS Take 1 to 2 tablets every night TRAZODONE HCL 48363152115 No Longer Active Didier Valdez MD Activ e EQ IBUPROFEN 200 MG TABS Take 2 tablets every 4 to 6 hours PRN IBUPROFEN 75648094707 No Longer Active Wilfredo Troncoso MD Acti ve MOBIC 7.5 MG TABS 1 tablet by mouth twice daily MELOXICAM 86276400726 No Longer Active Wilfredo Troncoso MD Active PERCOCET 10-325 MG TABS take 1 tab po q6 hours prn pain. OXYCODONE-ACETAMINOPHEN 45522529834 Active Wilfredo Troncoso MD Active HYDROCODONE-ACETAMINOPHEN 7.5-325 MG TABS take 1-2 tab lets every 6 hours as needed for pain HYDROCODONE-ACETAMINOPHEN 23882097158 No Longer Active Wilfredo Troncoso MD Active LORTAB 5 5-500 MG TABS 1 tablet by mouth every 6 hours as ne eded for pain HYDROCODONE-ACETAMINOPHEN 99967880682 No Longer Activ e Wilfredo Troncoso MD Active MEDROL (MARY KATE) 4 MG TABS 6 tabs on day 1, 5 tabs on d ay 2, 4 tabs on day 3, 3 tabs on day 4, 2 tabs on day 5, 1 tab on day 6 METHYLPREDNISOLONE 32033641982 No Longer Active Wilfredo Troncoso MD Active ALPRAZOLAM 1 MG TABS Take 1 tablet 1x daily ALPRAZOLAM 3 7296692694 Active Wilfredo Troncoso MD Active ZOLOFT 100 MG TABS 2 tabs by mouth once a day S ERTRALINE HCL 60134233006 No Longer Active Jameel STILES Active ZOFRAN ODT 4 MG TBDP 1 tablet every 6 hours as needed for nausea . ONDANSETRON 05387073041 No Longer Active Jameel STILES Active METOPROLOL TARTRATE 25 MG TABS 1 po q a.m. and 0.5 in evening 03/12 METOPROLOL TARTRATE 63998873920 Active Didier Valdez MD Ac tive ZOFRAN ODT 4 MG TBDP 1 tablet every 6 hours as needed for nausea . ZOFRAN ODT 4 MG TBDP 278313 ONDANSETRON Inactive ZOLOFT 100 MG TABS 2 tabs by mouth once a day Z OLOFT 100 MG TABS 893215 SERTRALINE HCL Inactive LORTAB 5 5-500 MG TABS 1 tablet by mouth every 6 hours as ne eded for pain LORTAB 5 5-500 MG TABS HYDROCODONE-ACETAM INOPHEN Inactive HYDROCODONE-ACETAMINOPHEN 7.5-325 MG TABS take 1-2 tab lets every 6 hours as needed for pain HYDROCODONE-ACETAMINOPHEN 7.5-32 5 MG TABS 658875 HYDROCODONE-ACETAMINOPHEN Inactive MOBIC 7.5 MG TABS 1 tablet by mouth twice daily 09/16 MOBIC 7.5 MG TABS 819578 MELOXICAM Inactive EQ IBUPROFEN 200 MG TABS Take 2 tablets every 4 to 6 hours PRN EQ IBUPROFEN 200 MG TABS 657875 IBUPROFEN Inactive TRAZODONE HCL 50 MG TABS Take 1 to 2 tablets every night TRAZODONE HCL 50 MG TABS 635152 TRAZODONE HCL Inactive ULTRAM 50 MG TABS 1 tab q4-6h PRN ULTRAM 50 MG TA BS 536226 TRAMADOL HCL Inactive METHOCARBAMOL 750 MG TABS 1 tab tid METHOCARBA MOL 750 MG TABS 036993 METHOCARBAMOL Inactive METHYLPREDNISOLONE (MARY KATE) 4 MG TABS 04/27 METHYLPREDNISOLONE (MARY KATE) 4 MG TABS 829119 METHYLPREDNISOLONE Inactive OXYCONTIN 10 MG ORAL T12A by mouth twice a day OXYCONTIN 10 MG ORAL T12A OXYCODONE HCL Inactive MEDROL (MARY KATE) 4 MG TABS 6 tabs on day 1, 5 tabs on d ay 2, 4 tabs on day 3, 3 tabs on day 4, 2 tabs on day 5, 1 tab on day 6 MEDROL (MARY KATE) 4 MG TABS 707298 METHYLPREDNISOLONE Inactive Vital Signs Date Name Value [...] mg/dL Chart Maintenance: Outside labs entered on [employer] - Hematology leukocyte count, blood 8.1 10*3/mm3 hemoglobin, blood 15.2 g/dL platelet count 329 10*3/mm3 Lab Report: Thyroid Stimulating Hormone (L), MICROALB/CREAT W/RATIO, Lip ... - Chemistry TSH 1.38 m[iU]/mL 0.36-3.74 albumin/creatinine ratio, urine < 30 mg/g mg/g{creat} 0-2 9 cholesterol, serum 154 mg/dL 009-680 2394/07/25 triglyceride, serum, fasting 122 mg/dL 30-200 HDL cholesterol, serum 41 mg/dL 32-96 LDL cholesterol, serum 89 mg/dL 0-130 sodium, serum 144 mmol/L 742-933 8325/07/25 carbon dioxide, venous blood 30.1 mmol/L 21.0-32 .0 potassium, serum 4.3 mmol/L 3.5-5.2 chloride, serum 106 mmol/L 98-107 blood glucose 98 mg/dL 65-110 urea nitrogen, blood 8 mg/dL 7-18 creatinine, serum 1.13 mg/dL 0.55-1.30 alanine aminotransferase (SGPT), serum 73 U/L 12-78 aspartate aminotransferase (SGOT), serum 37 U/L 15-37 calcium, serum 9.3 mg/dL 8.5-10.1 bilirubin, serum, total 0.50 mg/dL 0.00-1.00 Lab Report: Thyroid Stimulating Hormone (L), MICROALB/CREAT W/RATIO, Lip ... - Lab microalbumin, urine 30 0-19 Encounters Code Encounter Date Provider Facility CPT-58061 Level 4 Est. Patient 08:45:55 CDT Didier Valdez MD [facility] CPT-51953 Level 4 Est. Patient 16:31:23 CARDIAC CATHETERIZATION TECHNICIAN Didier Valdez MD [facility] CPT-88570 Level 3 Est. Patient 17:18:46 CDT Wilfredo wyatt MD [facility] CPT-87590 Level 3 Est. Patient 10:03:01 CDT Wilfredo wyatt MD [facility] CPT-83053 Level 3 Est. Patient 14:51:46 CARDIAC CATHETERIZATION TECHNICIAN Wilfredo wyatt MD [facility] CPT-62793 Level 3 Est. Patient 18:41:44 CARDIAC CATHETERIZATION TECHNICIAN Wilfredo wyatt MD [facility] CPT-11754 Level 3 Est. Patient 19:42:04 CARDIAC CATHETERIZATION TECHNICIAN Wilfredo wyatt MD [facility] CPT-46604 Level 4 New Patient 12:51:50 CDT J Valdez gan MD [facility] Procedures Code Procedure Name Date Entry Date Standard Desc ription CPT-56402 Venipuncture Draw Fee 09:13:28 CDT CPT-57744 Venipuncture Draw Fee 08:56:11 CDT CPT-55860 Postop F/U Visit 12:35:54 CARDIAC CATHETERIZATION TECHNICIAN CPT-06691 Abd single AP View 10:52:37 CARDIAC CATHETERIZATION TECHNICIAN CPT-05451 LS spine AP and Lat 13:45:51 CDT CPT-80981 LS spine AP and Lat 15:58:55 CARDIAC CATHETERIZATION TECHNICIAN CPT-29589 Drug Screen Leonid 14:45:55 CARDIAC CATHETERIZATION TECHNICIAN CPT-28217 Postop F/U Visit 17:53:11 CDT CPT-46114 Urine Dip (Floor Use Only) 12:51:50 CDT 201 04/24/28 CPT-42121 Abd single AP View 12:51:50 CDT
--- OUTSIDE RECORDS SUMMARY | 2019-05-31 10:31 | XMS REPORT | Clinical Summary ---
Author Author Admin, Liam Ruffin [facility] Address Unknown Phone Unavailable Allergies, Adverse Reactions, [...] Didier Valdez MD Other alteration of consciousness HEALTH SCREENING ICD-V70.0 Inactive Didier Sibley MD [...] MG TABS 1 po qd SERTRALINE HCL 15910836226 Active Didier Valdez MD Active OXYCONTIN 10 MG ORAL T12A by mouth twice a day OXYCODONE HCL 63443348569 No Longer Active Didier Valdez MD Active CYCLOBENZAPRINE HCL 10 MG TABS 1 tablet by mouth three times daily as needed for muscle spasm/pain CYCLOBENZAPRINE HCL 59650912770 Active Didier Valdez MD Active OXYCODONE HCL 5 MG ORAL CAPS Take one by mouth TID OXYCODONE HCL 97406537313 Active Didier Valdez MD Active METHYLPREDNISOLONE (MARY KATE) 4 MG TABS M ETHYLPREDNISOLONE 71556907997 No Longer Active Didier Valdez MD Active METHOCARBAMOL 750 MG TABS 1 tab tid METHOCARBAMOL 75497235396 No Longer Active Didier Valdez MD Active ULTRAM 50 MG TABS 1 tab q4-6h PRN TRAMADOL HCL 66 402077010 No Longer Active Didier Valdez MD Active TRAZODONE HCL 50 MG TABS Take 1 to 2 tablets every night TRAZODONE HCL 19846864336 No Longer Active Didier Valdez MD Activ e EQ IBUPROFEN 200 MG TABS Take 2 tablets every 4 to 6 hours PRN IBUPROFEN 29483946288 No Longer Active Wilfredo Troncoso MD Acti ve MOBIC 7.5 MG TABS 1 tablet by mouth twice daily MELOXICAM 69399725473 No Longer Active Wilfredo Troncoso MD Active PERCOCET 10-325 MG TABS take 1 tab po q6 hours prn pain. OXYCODONE-ACETAMINOPHEN 04349979311 Active Wilfredo Troncoso MD Active HYDROCODONE-ACETAMINOPHEN 7.5-325 MG TABS take 1-2 tab lets every 6 hours as needed for pain HYDROCODONE-ACETAMINOPHEN 40764134489 No Longer Active Wilfredo Troncoso MD Active LORTAB 5 5-500 MG TABS 1 tablet by mouth every 6 hours as ne eded for pain HYDROCODONE-ACETAMINOPHEN 59624756594 No Longer Activ e Wilfredo Troncoso MD Active MEDROL (MARY KATE) 4 MG TABS 6 tabs on day 1, 5 tabs on d ay 2, 4 tabs on day 3, 3 tabs on day 4, 2 tabs on day 5, 1 tab on day 6 METHYLPREDNISOLONE 25039416805 No Longer Active Wilfredo Troncoso MD Active ALPRAZOLAM 1 MG TABS Take 1 tablet 1x daily ALPRAZOLAM 3 1281829347 Active Wilfredo Troncoso MD Active ZOLOFT 100 MG TABS 2 tabs by mouth once a day S ERTRALINE HCL 17415074907 No Longer Active Jameel STILES Active ZOFRAN ODT 4 MG TBDP 1 tablet every 6 hours as needed for nausea . ONDANSETRON 42031583361 No Longer Active Jameel STILES Active METOPROLOL TARTRATE 25 MG TABS 1 po q a.m. and 0.5 in evening 03/12 METOPROLOL TARTRATE 38787339011 Active Didier Valdez MD Ac tive ZOFRAN ODT 4 MG TBDP 1 tablet every 6 hours as needed for nausea . ZOFRAN ODT 4 MG TBDP 650723 ONDANSETRON Inactive ZOLOFT 100 MG TABS 2 tabs by mouth once a day Z OLOFT 100 MG TABS 781924 SERTRALINE HCL Inactive LORTAB 5 5-500 MG TABS 1 tablet by mouth every 6 hours as ne eded for pain LORTAB 5 5-500 MG TABS HYDROCODONE-ACETAM INOPHEN Inactive HYDROCODONE-ACETAMINOPHEN 7.5-325 MG TABS take 1-2 tab lets every 6 hours as needed for pain HYDROCODONE-ACETAMINOPHEN 7.5-32 5 MG TABS 922679 HYDROCODONE-ACETAMINOPHEN Inactive MOBIC 7.5 MG TABS 1 tablet by mouth twice daily 09/16 MOBIC 7.5 MG TABS 736737 MELOXICAM Inactive EQ IBUPROFEN 200 MG TABS Take 2 tablets every 4 to 6 hours PRN EQ IBUPROFEN 200 MG TABS 474934 IBUPROFEN Inactive TRAZODONE HCL 50 MG TABS Take 1 to 2 tablets every night TRAZODONE HCL 50 MG TABS 639057 TRAZODONE HCL Inactive ULTRAM 50 MG TABS 1 tab q4-6h PRN ULTRAM 50 MG TA BS 105354 TRAMADOL HCL Inactive METHOCARBAMOL 750 MG TABS 1 tab tid METHOCARBA MOL 750 MG TABS 792920 METHOCARBAMOL Inactive METHYLPREDNISOLONE (MARY KATE) 4 MG TABS 04/27 METHYLPREDNISOLONE (MARY KATE) 4 MG TABS 690270 METHYLPREDNISOLONE Inactive OXYCONTIN 10 MG ORAL T12A by mouth twice a day OXYCONTIN 10 MG ORAL T12A OXYCODONE HCL Inactive MEDROL (MARY KATE) 4 MG TABS 6 tabs on day 1, 5 tabs on d ay 2, 4 tabs on day 3, 3 tabs on day 4, 2 tabs on day 5, 1 tab on day 6 MEDROL (MARY KATE) 4 MG TABS 181885 METHYLPREDNISOLONE Inactive Vital Signs Date Name Value [...] mg/dL Chart Maintenance: Outside labs entered on [employer] - Hematology leukocyte count, blood 8.1 10*3/mm3 hemoglobin, blood 15.2 g/dL platelet count 329 10*3/mm3 Lab Report: Thyroid Stimulating Hormone (L), MICROALB/CREAT W/RATIO, Lip ... - Chemistry TSH 1.38 m[iU]/mL 0.36-3.74 albumin/creatinine ratio, urine < 30 mg/g mg/g{creat} 0-2 9 cholesterol, serum 154 mg/dL 731-521 8624/07/25 triglyceride, serum, fasting 122 mg/dL 30-200 HDL cholesterol, serum 41 mg/dL 32-96 LDL cholesterol, serum 89 mg/dL 0-130 sodium, serum 144 mmol/L 473-752 6092/07/25 carbon dioxide, venous blood 30.1 mmol/L 21.0-32 [...] 0-19 Encounters Code Encounter Date Provider Facility CPT-75119 Level 4 Est. Patient 08:45:55 CDT Didier Valdez MD [facility] CPT-61675 Level 4 Est. Patient 16:31:23 IT SYSTEMS ANALYST CONSULTANT Didier Valdez MD [facility] CPT-09871 Level 3 Est. Patient 17:18:46 CDT Wilfredo wyatt MD [facility] CPT-73268 Level 3 Est. Patient 10:03:01 CDT Wilfredo wyatt MD [facility] CPT-64377 Level 3 Est. Patient 14:51:46 IT SYSTEMS ANALYST CONSULTANT Wilfredo wyatt MD [facility] CPT-75963 Level 3 Est. Patient 18:41:44 IT SYSTEMS ANALYST CONSULTANT Wilfredo wyatt MD [facility] CPT-88503 Level 3 Est. Patient 19:42:04 IT SYSTEMS ANALYST CONSULTANT Wilfredo wyatt MD [facility] CPT-15013 Level 4 New Patient 12:51:50 CDT J Valdez gan MD [facility] Procedures Code Procedure Name Date Entry Date Standard Desc ription CPT-20324 Venipuncture Draw Fee 09:13:28 CDT CPT-12623 Venipuncture Draw Fee 08:56:11 CDT CPT-38228 Postop F/U Visit 12:35:54 IT SYSTEMS ANALYST CONSULTANT CPT-30988 Abd single AP View 10:52:37 IT SYSTEMS ANALYST CONSULTANT CPT-11532 LS spine AP and Lat 13:45:51 CDT CPT-71315 LS spine AP and Lat 15:58:55 IT SYSTEMS ANALYST CONSULTANT CPT-00570 Drug Screen Leonid 14:45:55 IT SYSTEMS ANALYST CONSULTANT CPT-32566 Postop F/U Visit 17:53:11 CDT CPT-76205 Urine Dip (Floor Use Only) 12:51:50 CDT 201 04/24/28 CPT-67154 Abd single AP View 12:51:50 CDT
--- OUTSIDE RECORDS SUMMARY | 2019-05-31 10:31 | XMS REPORT | Clinical Summary ---
Author Author Admin, Liam Ruffin [facility] Address Unknown Phone Unavailable Allergies, Adverse Reactions, [...] as needed for muscle spasm/pain CYCLOBENZAPRINE HCL 52233767238 Active Didier Valdez MD Active OXYCONTIN 10 MG ORAL T12A by mouth twice a day OXY CODONE HCL 10515736283 Active Didier Valdez MD Active OXYCODONE HCL 5 MG ORAL CAPS Take one by mouth TID OXYCODONE HCL 33347675278 Active Didier Valdez MD Active METHYLPREDNISOLONE (MARY KATE) 4 MG TABS M ETHYLPREDNISOLONE 09376260984 No Longer Active Didier Valdez MD Active METHOCARBAMOL 750 MG TABS 1 tab tid METHOCARBAMOL 74181660729 No Longer Active Didier Valdez MD Active ULTRAM 50 MG TABS 1 tab q4-6h PRN TRAMADOL HCL 66 417496269 No Longer Active Didier Valdez MD Active TRAZODONE HCL 50 MG TABS Take 1 to 2 tablets every night TRAZODONE HCL 91171000513 No Longer Active Didier Valdez MD Activ e EQ IBUPROFEN 200 MG TABS Take 2 tablets every 4 to 6 hours PRN IBUPROFEN 63163718069 No Longer Active Wilfredo Troncoso MD Acti ve MOBIC 7.5 MG TABS 1 tablet by mouth twice daily MELOXICAM 37639136897 No Longer Active Wilfredo Troncoso MD Active PERCOCET 10-325 MG TABS take 1 tab po q6 hours prn pain. OXYCODONE-ACETAMINOPHEN 67744823441 Active Wilfredo Troncoso MD Active HYDROCODONE-ACETAMINOPHEN 7.5-325 MG TABS take 1-2 tab lets every 6 hours as needed for pain HYDROCODONE-ACETAMINOPHEN 81351909730 No Longer Active Wilfredo Troncoso MD Active LORTAB 5 5-500 MG TABS 1 tablet by mouth every 6 hours as ne eded for pain HYDROCODONE-ACETAMINOPHEN 69870083750 No Longer Activ e Wilfredo Troncoso MD Active MEDROL (MARY KATE) 4 MG TABS 6 tabs on day 1, 5 tabs on d ay 2, 4 tabs on day 3, 3 tabs on day 4, 2 tabs on day 5, 1 tab on day 6 METHYLPREDNISOLONE 03035438437 No Longer Active Wilfredo Troncoso MD Active ALPRAZOLAM 1 MG TABS Take 1 tablet 1x daily ALPRAZOLAM 3 9476392883 Active Wilfredo Troncoso MD Active ZOLOFT 100 MG TABS Take 1 tablet 2x daily SERTRALINE HCL 72502395292 Active Wilfredo Troncoso MD Active ZOLOFT 100 MG TABS 2 tabs by mouth once a day S ERTRALINE HCL 58721536961 No Longer Active Jameel STILES Active ZOFRAN ODT 4 MG TBDP 1 tablet every 6 hours as needed for nausea . ONDANSETRON 17614845858 No Longer Active Jameel W Cloven PA Active METOPROLOL TARTRATE 25 MG TABS 1 po q a.m. and 0.5 in evening 03/12 METOPROLOL TARTRATE 52268166563 Active Didier Valdez MD Ac tive ZOFRAN ODT 4 MG TBDP 1 tablet every 6 hours as needed for nausea . ZOFRAN ODT 4 MG TBDP 361462 ONDANSETRON Inactive ZOLOFT 100 MG TABS 2 tabs by mouth once a day Z OLOFT 100 MG TABS 622149 SERTRALINE HCL Inactive LORTAB 5 5-500 MG TABS 1 tablet by mouth every 6 hours as ne eded for pain LORTAB 5 5-500 MG TABS HYDROCODONE-ACETAM INOPHEN Inactive HYDROCODONE-ACETAMINOPHEN 7.5-325 MG TABS take 1-2 tab lets every 6 hours as needed for pain HYDROCODONE-ACETAMINOPHEN 7.5-32 5 MG TABS 472491 HYDROCODONE-ACETAMINOPHEN Inactive MOBIC 7.5 MG TABS 1 tablet by mouth twice daily 09/16 MOBIC 7.5 MG TABS 642234 MELOXICAM Inactive EQ IBUPROFEN 200 MG TABS Take 2 tablets every 4 to 6 hours PRN EQ IBUPROFEN 200 MG TABS 982102 IBUPROFEN Inactive TRAZODONE HCL 50 MG TABS Take 1 to 2 tablets every night TRAZODONE HCL 50 MG TABS 115237 TRAZODONE HCL Inactive ULTRAM 50 MG TABS 1 tab q4-6h PRN ULTRAM 50 MG TA BS 156184 TRAMADOL HCL Inactive METHOCARBAMOL 750 MG TABS 1 tab tid METHOCARBA MOL 750 MG TABS 795768 METHOCARBAMOL Inactive METHYLPREDNISOLONE (MARY KATE) 4 MG [...] - 3141-9 228.7 [lb_av] Weigh t Measured Encounters Code Encounter Date Provider Facility CPT-41361 Level 4 Est. 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 Patient 17:18:46 CDT Wilfredo wyatt MD [facility] CPT-84390 Level 3 Est. Patient 10:03:01 CDT Wilfredo wyatt MD [facility] CPT-91404 Level 3 Est. Patient 14:51:46 HEATING AND VENTILATING WORKER Wilfredo wyatt MD [facility] CPT-66535 Level 3 Est. Patient 18:41:44 HEATING AND VENTILATING WORKER Wilfredo wyatt MD [facility] CPT-17960 Level 3 Est. Patient 19:42:04 HEATING AND VENTILATING WORKER Wilfredo wyatt MD [facility] CPT-09826 Level 4 New Patient 12:51:50 CDT Florentino gan MD [facility] Procedures Code Procedure Name Date Entry Date Standard Desc ription CPT-07979 LS spine AP and Lat 13:45:51 CDT CPT-48254 LS spine AP and Lat 15:58:55 HEATING AND VENTILATING WORKER CPT-64760 Drug Screen Leonid 14:45:55 HEATING AND VENTILATING WORKER CPT-84707 Postop F/U Visit 17:53:11 CDT CPT-57197 Urine Dip (Floor Use Only) 12:51:50 CDT 201 04/24/28 CPT-04207 Abd single AP View 12:51:50 CDT
--- OUTSIDE RECORDS SUMMARY | 2019-05-31 10:31 | XMS REPORT | Clinical Summary ---
Author Author Admin, Liam Lopez Organization [facility] Address Unknown Phone Unavailable Allergies, Adverse Reactions, [...] MG TABS 1 po qd SERTRALINE HCL 59235625415 Active Didier Valdez MD Active OXYCONTIN 10 MG ORAL T12A by mouth twice a day OXYCODONE HCL 86872469273 No Longer Active Didier Valdez MD Active CYCLOBENZAPRINE HCL 10 MG TABS 1 tablet by mouth three times daily as needed for muscle spasm/pain CYCLOBENZAPRINE HCL 82905599265 Active Didier Valdez MD Active OXYCODONE HCL 5 MG ORAL CAPS Take one by mouth TID OXYCODONE HCL 92407315205 Active Didier Valdez MD Active METHYLPREDNISOLONE (MARY KATE) 4 MG TABS M ETHYLPREDNISOLONE 43388913253 No Longer Active Didier Valdez MD Active METHOCARBAMOL 750 MG TABS 1 tab tid METHOCARBAMOL 65096766076 No Longer Active Didier Valdez MD Active ULTRAM 50 MG TABS 1 tab q4-6h PRN TRAMADOL HCL 66 485697554 No Longer Active Didier Valdez MD Active TRAZODONE HCL 50 MG TABS Take 1 to 2 tablets every night TRAZODONE HCL 19283893248 No Longer Active Didier Valdez MD Activ e EQ IBUPROFEN 200 MG TABS Take 2 tablets every 4 to 6 hours PRN IBUPROFEN 16210313912 No Longer Active Wilfredo Troncoso MD Acti ve MOBIC 7.5 MG TABS 1 tablet by mouth twice daily MELOXICAM 36226567487 No Longer Active Wilfredo Troncoso MD Active PERCOCET 10-325 MG TABS take 1 tab po q6 hours prn pain. OXYCODONE-ACETAMINOPHEN 55989799722 Active Wilfredo Troncoso MD Active HYDROCODONE-ACETAMINOPHEN 7.5-325 MG TABS take 1-2 tab lets every 6 hours as needed for pain HYDROCODONE-ACETAMINOPHEN 80585021242 No Longer Active Wilfredo Troncoso MD Active LORTAB 5 5-500 MG TABS 1 tablet by mouth every 6 hours as ne eded for pain HYDROCODONE-ACETAMINOPHEN 62709021201 No Longer Activ e Wilfredo Troncoso MD Active MEDROL (MARY KATE) 4 MG TABS 6 tabs on day 1, 5 tabs on d ay 2, 4 tabs on day 3, 3 tabs on day 4, 2 tabs on day 5, 1 tab on day 6 METHYLPREDNISOLONE 95883204571 No Longer Active Wilfredo Troncoso MD Active ALPRAZOLAM 1 MG TABS Take 1 tablet 1x daily ALPRAZOLAM 3 0818743187 Active Wilfredo Troncoso MD Active ZOLOFT 100 MG TABS 2 tabs by mouth once a day S ERTRALINE HCL 12119695788 No Longer Active Jameel STILES Active ZOFRAN ODT 4 MG TBDP 1 tablet every 6 hours as needed for nausea . ONDANSETRON 39933474999 No Longer Active Jameel STILES Active METOPROLOL TARTRATE 25 MG TABS 1 po q a.m. and 0.5 in evening 03/12 METOPROLOL TARTRATE 68597258119 Active Didier Valdez MD Ac tive ZOFRAN ODT 4 MG TBDP 1 tablet every 6 hours as needed for nausea . ZOFRAN ODT 4 MG TBDP 018828 ONDANSETRON Inactive ZOLOFT 100 MG TABS 2 tabs by mouth once a day Z OLOFT 100 MG TABS 289653 SERTRALINE HCL Inactive LORTAB 5 5-500 MG TABS 1 tablet by mouth every 6 hours as ne eded for pain LORTAB 5 5-500 MG TABS HYDROCODONE-ACETAM INOPHEN Inactive HYDROCODONE-ACETAMINOPHEN 7.5-325 MG TABS take 1-2 tab lets every 6 hours as needed for pain HYDROCODONE-ACETAMINOPHEN 7.5-32 5 MG TABS 831110 HYDROCODONE-ACETAMINOPHEN Inactive MOBIC 7.5 MG TABS 1 tablet by mouth twice daily 09/16 MOBIC 7.5 MG TABS 844336 MELOXICAM Inactive EQ IBUPROFEN 200 MG TABS Take 2 tablets every 4 to 6 hours PRN EQ IBUPROFEN 200 MG TABS 874532 IBUPROFEN Inactive TRAZODONE HCL 50 MG TABS Take 1 to 2 tablets every night TRAZODONE HCL 50 MG TABS 710968 TRAZODONE HCL Inactive ULTRAM 50 MG TABS 1 tab q4-6h PRN ULTRAM 50 MG TA BS 320814 TRAMADOL HCL Inactive METHOCARBAMOL 750 MG TABS 1 tab tid METHOCARBA MOL 750 MG TABS 977788 METHOCARBAMOL Inactive METHYLPREDNISOLONE (MARY KATE) 4 MG TABS 04/27 METHYLPREDNISOLONE (MARY KATE) 4 MG TABS 679994 METHYLPREDNISOLONE Inactive OXYCONTIN 10 MG ORAL T12A by mouth twice a day OXYCONTIN 10 MG ORAL T12A OXYCODONE HCL Inactive MEDROL (MARY KATE) 4 MG TABS 6 tabs on day 1, 5 tabs on d ay 2, 4 tabs on day 3, 3 tabs on day 4, 2 tabs on day 5, 1 tab on day 6 MEDROL (MARY KATE) 4 MG TABS 797727 METHYLPREDNISOLONE Inactive Vital Signs Date Name Value [...] 10*3/mm3 Encounters Code Encounter Date Provider Facility CPT-03597 Level 4 Est. Patient 08:45:55 CDT Didier Valdez MD [facility] CPT-63081 Level 4 Est. 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 Patient 17:18:46 CDT Wilfredo wyatt MD [facility] CPT-30364 Level 3 Est. Patient 10:03:01 CDT Wilfredo wyatt MD [facility] CPT-22047 Level 3 Est. Patient 14:51:46 TUMBLING AND ROLLING SUPERVISOR Wilfredo wyatt MD [facility] CPT-34085 Level 3 Est. Patient 18:41:44 TUMBLING AND ROLLING SUPERVISOR Wilfredo wyatt MD [facility] CPT-28335 Level 3 Est. Patient 19:42:04 TUMBLING AND ROLLING SUPERVISOR Wilfredo wyatt MD [facility] CPT-94739 Level 4 New Patient 12:51:50 CDT Florentino gan MD [facility] Procedures Code Procedure Name Date Entry Date Standard Desc ription CPT-17084 Venipuncture Draw Fee 09:13:28 CDT CPT-74220 Venipuncture Draw Fee 08:56:11 CDT CPT-59398 Postop F/U Visit 12:35:54 TUMBLING AND ROLLING SUPERVISOR CPT-32645 Abd single AP View 10:52:37 TUMBLING AND ROLLING SUPERVISOR CPT-98381 LS spine AP and Lat 13:45:51 CDT CPT-07807 LS spine AP and Lat 15:58:55 TUMBLING AND ROLLING SUPERVISOR CPT-71240 Drug Screen Leonid 14:45:55 TUMBLING AND ROLLING SUPERVISOR CPT-57025 Postop F/U Visit 17:53:11 CDT CPT-57919 Urine Dip (Floor Use Only) 12:51:50 CDT 201 04/24/28 CPT-00659 Abd single AP View 12:51:50 CDT
--- OUTSIDE RECORDS SUMMARY | 2019-05-31 10:31 | XMS REPORT | Clinical Summary ---
Author Author Admin, Liam Ruffin [facility] Address Unknown Phone Unavailable Allergies, Adverse [...] as needed for muscle spasm/pain CYCLOBENZAPRINE HCL 58391565534 Active Didier Valdez MD Active OXYCONTIN 10 MG ORAL T12A by mouth twice a day OXY CODONE HCL 83183579373 Active Didier Valdez MD Active OXYCODONE HCL 5 MG ORAL CAPS Take one by mouth TID OXYCODONE HCL 57365202089 Active Didier Valdez MD Active METHYLPREDNISOLONE (MARY KATE) 4 MG TABS M ETHYLPREDNISOLONE 58384383445 No Longer Active Didier Valdez MD Active METHOCARBAMOL 750 MG TABS 1 tab tid METHOCARBAMOL 35014212292 No Longer Active Didier Valdez MD Active ULTRAM 50 MG TABS 1 tab q4-6h PRN TRAMADOL HCL 66 291626398 No Longer Active Didier Valdez MD Active TRAZODONE HCL 50 MG TABS Take 1 to 2 tablets every night TRAZODONE HCL 52695454639 No Longer Active Didier Valdez MD Activ e EQ IBUPROFEN 200 MG TABS Take 2 tablets every 4 to 6 hours PRN IBUPROFEN 12748602605 No Longer Active Wilfredo Troncoso MD Acti ve MOBIC 7.5 MG TABS 1 tablet by mouth twice daily MELOXICAM 43410312137 No Longer Active Wilfredo Troncoso MD Active PERCOCET 10-325 MG TABS take 1 tab po q6 hours prn pain. OXYCODONE-ACETAMINOPHEN 63135817086 Active Wilfredo Troncoso MD Active HYDROCODONE-ACETAMINOPHEN 7.5-325 MG TABS take 1-2 tab lets every 6 hours as needed for pain HYDROCODONE-ACETAMINOPHEN 06150438221 No Longer Active Wilfredo Troncoso MD Active LORTAB 5 5-500 MG TABS 1 tablet by mouth every 6 hours as ne eded for pain HYDROCODONE-ACETAMINOPHEN 17147830422 No Longer Activ e Wilfredo Troncoso MD Active MEDROL (MARY KATE) 4 MG TABS 6 tabs on day 1, 5 tabs on d ay 2, 4 tabs on day 3, 3 tabs on day 4, 2 tabs on day 5, 1 tab on day 6 METHYLPREDNISOLONE 49610946746 No Longer Active Wilfredo Troncoso MD Active ALPRAZOLAM 1 MG TABS Take 1 tablet 1x daily ALPRAZOLAM 3 0592496971 Active Wilfredo Troncoso MD Active ZOLOFT 100 MG TABS Take 1 tablet 2x daily SERTRALINE HCL 94489973033 Active Wilfredo Troncoso MD Active ZOLOFT 100 MG TABS 2 tabs by mouth once a day S ERTRALINE HCL 90317359876 No Longer Active Jameel STILES Active ZOFRAN ODT 4 MG TBDP 1 tablet every 6 hours as needed for nausea . ONDANSETRON 13206828694 No Longer Active Jameel STILES Active METOPROLOL TARTRATE 25 MG TABS 1 po q a.m. and 0.5 in evening 03/12 METOPROLOL TARTRATE 56073731313 Active Didier Valdez MD Ac tive ZOFRAN ODT 4 MG TBDP 1 tablet every 6 hours as needed for nausea . ZOFRAN ODT 4 MG TBDP 857278 ONDANSETRON Inactive ZOLOFT 100 MG TABS 2 tabs by mouth once a day Z OLOFT 100 MG TABS 749600 SERTRALINE HCL Inactive LORTAB 5 5-500 MG TABS 1 tablet by mouth every 6 hours as ne eded for pain LORTAB 5 5-500 MG TABS HYDROCODONE-ACETAM INOPHEN Inactive HYDROCODONE-ACETAMINOPHEN 7.5-325 MG TABS take 1-2 tab lets every 6 hours as needed for pain HYDROCODONE-ACETAMINOPHEN 7.5-32 5 MG TABS 964471 HYDROCODONE-ACETAMINOPHEN Inactive MOBIC 7.5 MG TABS 1 tablet by mouth twice daily 09/16 MOBIC 7.5 MG TABS 813722 MELOXICAM Inactive EQ IBUPROFEN 200 MG TABS Take 2 tablets every 4 to 6 hours PRN EQ IBUPROFEN 200 MG TABS 737442 IBUPROFEN Inactive TRAZODONE HCL 50 MG TABS Take 1 to 2 tablets every night TRAZODONE HCL 50 MG TABS 631154 TRAZODONE HCL Inactive ULTRAM 50 MG TABS 1 tab q4-6h PRN ULTRAM 50 MG TA 421053 TRAMADOL HCL Inactive METHOCARBAMOL 750 MG TABS 1 tab tid METHOCARBA MOL 750 MG TABS 546847 METHOCARBAMOL Inactive METHYLPREDNISOLONE (MARY KATE) 4 MG [...] 10*3/mm3 Encounters Code Encounter Date Provider Facility CPT-68585 Level 4 Est. 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 CPT-98632 Level 3 Est. Patient 17:18:46 CDT Wilfredo wyatt MD [facility] CPT-92465 Level 3 Est. Patient 10:03:01 CDT Wilfredo wyatt MD [facility] CPT-14067 Level 3 Est. Patient 14:51:46 EGG FACTORY WORKER Wilfredo wyatt MD [facility] CPT-55862 Level 3 Est. Patient 18:41:44 EGG FACTORY WORKER Wilfredo wyatt MD [facility] CPT-84165 Level 3 Est. Patient 19:42:04 EGG FACTORY WORKER Wilfredo wyatt MD [facility] CPT-03970 Level 4 New Patient 12:51:50 CDT J Valdez gan MD [facility] Procedures Code Procedure Name Date Entry Date Standard Desc ription CPT-90319 Postop F/U Visit 12:35:54 EGG FACTORY WORKER CPT-42627 Abd single AP View 10:52:37 EGG FACTORY WORKER CPT-44694 LS spine AP and Lat 13:45:51 CDT CPT-69384 LS spine AP and Lat 15:58:55 EGG FACTORY WORKER CPT-69416 Drug Screen Leonid 14:45:55 EGG FACTORY WORKER CPT-95565 Postop F/U Visit 17:53:11 CDT CPT-68943 Urine Dip (Floor Use Only) 12:51:50 CDT 201 04/24/28 CPT-54792 Abd single AP View 12:51:50 CDT
--- OUTSIDE RECORDS SUMMARY | 2019-05-31 10:31 | XMS REPORT | Clinical Summary ---
Author Author Admin, Liam Lopez Organization [facility] Address Unknown Phone Unavailable Allergies, [...] CALCULUS, RIGHT ICD-592.0 Inactive Lyudmila Valdez MD HEALTH SCREENING ICD-V70.0 Inactive Didier Sibley MD RENAL CALCULUS ICD-592.9 Inactive Didier dasilva MD LOW BACK PAIN, ACUTE ICD-724.2 Inactive Josh Valdez MD LUMBAR STRAIN, ACUTE ICD-847.2 Inactive Josh Valdez MD SCIATICA ICD-724.3 Inactive Didier Valdez MD 201 07/21/05 URETERAL CALCULUS ICD-592.1 Inactive Didier rose MD Medication List Medication Instructions Start Date Stop Date Generic Name NDC Status Provider Patient Instruction ZOLOFT 100 MG TABS 1 po qd SERTRALINE HCL 75243081425 Active Didier Valdez MD Active OXYCONTIN 10 MG ORAL T12A by mouth twice a day OXYCODONE HCL 46733289029 No Longer Active Didier Valdez MD Active CYCLOBENZAPRINE HCL 10 MG TABS 1 tablet by mouth three times daily as needed for muscle spasm/pain CYCLOBENZAPRINE HCL 72474228984 Active Didier Valdez MD Active OXYCODONE HCL 5 MG ORAL CAPS Take one by mouth TID OXYCODONE HCL 78685362910 Active Didier Valdez MD Active METHYLPREDNISOLONE (MARY KATE) 4 MG TABS M ETHYLPREDNISOLONE 91411291795 No Longer Active Didier Valdez MD Active METHOCARBAMOL 750 MG TABS 1 tab tid METHOCARBAMOL 66321757654 No Longer Active Didier Valdez MD Active ULTRAM 50 MG TABS 1 tab q4-6h PRN TRAMADOL HCL 66 730610074 No Longer Active Didier Valdez MD Active TRAZODONE HCL 50 MG TABS Take 1 to 2 tablets every night TRAZODONE HCL 60535089534 No Longer Active Didier Valdez MD Activ e EQ IBUPROFEN 200 MG TABS Take 2 tablets every 4 to 6 hours PRN IBUPROFEN 61081164200 No Longer Active Wilfredo Troncoso MD Acti ve MOBIC 7.5 MG TABS 1 tablet by mouth twice daily MELOXICAM 76572510944 No Longer Active Wilfredo Troncoso MD Active PERCOCET 10-325 MG TABS take 1 tab po q6 hours prn pain. OXYCODONE-ACETAMINOPHEN 84243519184 Active Wilfredo Troncoso MD Active HYDROCODONE-ACETAMINOPHEN 7.5-325 MG TABS take 1-2 tab lets every 6 hours as needed for pain HYDROCODONE-ACETAMINOPHEN 66905595064 No Longer Active Wilfredo Troncoso MD Active LORTAB 5 5-500 MG TABS 1 tablet by mouth every 6 hours as ne eded for pain HYDROCODONE-ACETAMINOPHEN 22751847942 No Longer Activ e Wilfredo Troncoso MD Active MEDROL (MARY KATE) 4 MG TABS 6 tabs on day 1, 5 tabs on d ay 2, 4 tabs on day 3, 3 tabs on day 4, 2 tabs on day 5, 1 tab on day 6 METHYLPREDNISOLONE 86756951466 No Longer Active Wilfredo Troncoso MD Active ALPRAZOLAM 1 MG TABS Take 1 tablet 1x daily ALPRAZOLAM 3 5665431374 Active Wilfredo Troncoso MD Active ZOLOFT 100 MG TABS 2 tabs by mouth once a day S ERTRALINE HCL 80266438159 No Longer Active Jameel STILES Active ZOFRAN ODT 4 MG TBDP 1 tablet every 6 hours as needed for nausea . ONDANSETRON 52148355397 No Longer Active Jameel STILES Active METOPROLOL TARTRATE 25 MG TABS 1 po q a.m. and 0.5 in evening 03/12 METOPROLOL TARTRATE 41021742159 Active Didier Valdez MD Ac tive ZOFRAN ODT 4 MG TBDP 1 tablet every 6 hours as needed for nausea . ZOFRAN ODT 4 MG TBDP 192356 ONDANSETRON Inactive ZOLOFT 100 MG TABS 2 tabs by mouth once a day Z OLOFT 100 MG TABS 702717 SERTRALINE HCL Inactive LORTAB 5 5-500 MG TABS 1 tablet by mouth every 6 hours as ne eded for pain LORTAB 5 5-500 MG TABS HYDROCODONE-ACETAM INOPHEN Inactive HYDROCODONE-ACETAMINOPHEN 7.5-325 MG TABS take 1-2 tab lets every 6 hours as needed for pain HYDROCODONE-ACETAMINOPHEN 7.5-32 5 MG TABS 277967 HYDROCODONE-ACETAMINOPHEN Inactive MOBIC 7.5 MG TABS 1 tablet by mouth twice daily 09/16 MOBIC 7.5 MG TABS 833584 MELOXICAM Inactive EQ IBUPROFEN 200 MG TABS Take 2 tablets every 4 to 6 hours PRN EQ IBUPROFEN 200 MG TABS 629109 IBUPROFEN Inactive TRAZODONE HCL 50 MG TABS Take 1 to 2 tablets every night TRAZODONE HCL 50 MG TABS 018984 TRAZODONE HCL Inactive ULTRAM 50 MG TABS 1 tab q4-6h PRN ULTRAM 50 MG TA BS 777740 TRAMADOL HCL Inactive METHOCARBAMOL 750 MG TABS 1 tab tid METHOCARBA MOL 750 MG TABS 063861 METHOCARBAMOL Inactive METHYLPREDNISOLONE (MARY KATE) 4 MG TABS 04/27 METHYLPREDNISOLONE (MARY KATE) 4 MG TABS 983530 METHYLPREDNISOLONE Inactive OXYCONTIN 10 MG ORAL T12A by mouth twice a day OXYCONTIN 10 MG ORAL T12A OXYCODONE HCL Inactive MEDROL (MARY KATE) 4 MG TABS 6 tabs on day 1, 5 tabs on d ay 2, 4 tabs on day 3, 3 tabs on day 4, 2 tabs on day 5, 1 tab on day 6 MEDROL (MARY KATE) 4 MG TABS 462340 METHYLPREDNISOLONE Inactive Vital Signs Date Name Value [...] serum 142 mmol/L potassium, serum 3.9 mmol/L creatinine, serum 1.35 mg/dL blood glucose 95 mg/dL Chart Maintenance: Outside labs entered on [employer] - Hematology hemoglobin, blood 15.2 g/dL leukocyte count, blood 8.1 10*3/mm3 platelet count 329 10*3/mm3 Lab Report: Thyroid Stimulating Hormone (L), MICROALB/CREAT W/RATIO, Lip ... - Chemistry TSH 1.38 m[iU]/mL 0.36-3.74 albumin/creatinine ratio, urine < 30 mg/g mg/g{creat} 0-2 9 cholesterol, serum 154 mg/dL 197-933 0344/07/25 triglyceride, serum, fasting 122 mg/dL 30-200 HDL cholesterol, serum 41 mg/dL 32-96 LDL cholesterol, serum 89 mg/dL 0-130 sodium, serum 144 mmol/L 974-744 0113/07/25 carbon dioxide, venous blood 30.1 mmol/L 21.0-32 [...] 0-19 Encounters Code Encounter Date Provider Facility CPT-35983 Level 4 Est. Patient 08:45:55 CDT Didier Valdez MD [facility] CPT-77517 Level 4 Est. 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 Patient 17:18:46 CDT Wilfredo wyatt MD [facility] CPT-73984 Level 3 Est. Patient 10:03:01 CDT Wilfredo wyatt MD [facility] CPT-09280 Level 3 Est. Patient 14:51:46 BUSINESS ADMINISTRATION TEACHER Wilfredo wyatt MD [facility] CPT-36493 Level 3 Est. Patient 18:41:44 BUSINESS ADMINISTRATION TEACHER Wilfredo wyatt MD [facility] CPT-27643 Level 3 Est. Patient 19:42:04 BUSINESS ADMINISTRATION TEACHER Wilfredo wyatt MD [facility] CPT-54247 Level 4 New Patient 12:51:50 CDT J Valdez gan MD [facility] Procedures Code Procedure Name Date Entry Date Standard Desc ription CPT-19663 Venipuncture Draw Fee 09:13:28 CDT CPT-42571 Venipuncture Draw Fee 08:56:11 CDT CPT-25578 Postop F/U Visit 12:35:54 BUSINESS ADMINISTRATION TEACHER CPT-82365 Abd single AP View 10:52:37 BUSINESS ADMINISTRATION TEACHER CPT-43968 LS spine AP and Lat 13:45:51 CDT CPT-36641 LS spine AP and Lat 15:58:55 BUSINESS ADMINISTRATION TEACHER CPT-04070 Drug Screen Leonid 14:45:55 BUSINESS ADMINISTRATION TEACHER CPT-52567 Postop F/U Visit 17:53:11 CDT CPT-29084 Urine Dip (Floor Use Only) 12:51:50 CDT 201 04/24/28 CPT-05377 Abd single AP View 12:51:50 CDT
--- OUTSIDE RECORDS SUMMARY | 2019-05-31 10:31 | XMS REPORT | Clinical Summary ---
Author Author Admin, Liam Ruffin [facility] Address Unknown Phone Unavailable Allergies, Adverse [...] hypertension Hypertension, benign essential 401.1 Active 10/13 Didire Valdez MD Benign essential hypertension Depression 311 [...] MG TABS 1 po qd SERTRALINE HCL 79765463194 Active Didier Valdez MD Active OXYCONTIN 10 MG ORAL T12A by mouth twice a day OXYCODONE HCL 01527352967 No Longer Active Didier Valdez MD Active CYCLOBENZAPRINE HCL 10 MG TABS 1 tablet by mouth three times daily as needed for muscle spasm/pain CYCLOBENZAPRINE HCL 32578590019 Active Didier Valdez MD Active OXYCODONE HCL 5 MG ORAL CAPS Take one by mouth TID OXYCODONE HCL 95315616611 Active Didier Valdez MD Active METHYLPREDNISOLONE (MARY KATE) 4 MG TABS M ETHYLPREDNISOLONE 91777194941 No Longer Active Didier Valdez MD Active METHOCARBAMOL 750 MG TABS 1 tab tid METHOCARBAMOL 89036682933 No Longer Active Didier Valdez MD Active ULTRAM 50 MG TABS 1 tab q4-6h PRN TRAMADOL HCL 66 948949529 No Longer Active Didier Valdez MD Active TRAZODONE HCL 50 MG TABS Take 1 to 2 tablets every night TRAZODONE HCL 96538783530 No Longer Active Didier Valdez MD Activ e EQ IBUPROFEN 200 MG TABS Take 2 tablets every 4 to 6 hours PRN IBUPROFEN 52152545029 No Longer Active Wilfredo Troncoso MD Acti ve MOBIC 7.5 MG TABS 1 tablet by mouth twice daily MELOXICAM 30922320694 No Longer Active Wilfredo Troncoso MD Active PERCOCET 10-325 MG TABS take 1 tab po q6 hours prn pain. OXYCODONE-ACETAMINOPHEN 74324776687 Active Wilfredo Troncoso MD Active HYDROCODONE-ACETAMINOPHEN 7.5-325 MG TABS take 1-2 tab lets every 6 hours as needed for pain HYDROCODONE-ACETAMINOPHEN 21574170845 No Longer Active Wilfredo Troncoso MD Active LORTAB 5 5-500 MG TABS 1 tablet by mouth every 6 hours as ne eded for pain HYDROCODONE-ACETAMINOPHEN 76663902502 No Longer Activ e Wilfredo Troncoso MD Active MEDROL (MARY KATE) 4 MG TABS 6 tabs on day 1, 5 tabs on d ay 2, 4 tabs on day 3, 3 tabs on day 4, 2 tabs on day 5, 1 tab on day 6 METHYLPREDNISOLONE 85648393599 No Longer Active Wilfredo Troncoso MD Active ALPRAZOLAM 1 MG TABS Take 1 tablet 1x daily ALPRAZOLAM 3 1900895649 Active Wilfredo Troncoso MD Active ZOLOFT 100 MG TABS 2 tabs by mouth once a day S ERTRALINE HCL 25551669087 No Longer Active Jameel STILES Active ZOFRAN ODT 4 MG TBDP 1 tablet every 6 hours as needed for nausea . ONDANSETRON 35683332145 No Longer Active Jameel STILES Active METOPROLOL TARTRATE 25 MG TABS 1 po q a.m. and 0.5 in evening 03/12 METOPROLOL TARTRATE 99824758674 Active Didier Valdez MD Ac tive ZOFRAN ODT 4 MG TBDP 1 tablet every 6 hours as needed for nausea . ZOFRAN ODT 4 MG TBDP 567924 ONDANSETRON Inactive ZOLOFT 100 MG TABS 2 tabs by mouth once a day Z OLOFT 100 MG TABS 603167 SERTRALINE HCL Inactive LORTAB 5 5-500 MG TABS 1 tablet by mouth every 6 hours as ne eded for pain LORTAB 5 5-500 MG TABS HYDROCODONE-ACETAM INOPHEN Inactive HYDROCODONE-ACETAMINOPHEN 7.5-325 MG TABS take 1-2 tab lets every 6 hours as needed for pain HYDROCODONE-ACETAMINOPHEN 7.5-32 5 MG TABS 013411 HYDROCODONE-ACETAMINOPHEN Inactive MOBIC 7.5 MG TABS 1 tablet by mouth twice daily 09/16 MOBIC 7.5 MG TABS 472681 MELOXICAM Inactive EQ IBUPROFEN 200 MG TABS Take 2 tablets every 4 to 6 hours PRN EQ IBUPROFEN 200 MG TABS 854499 IBUPROFEN Inactive TRAZODONE HCL 50 MG TABS Take 1 to 2 tablets every night TRAZODONE HCL 50 MG TABS 973737 TRAZODONE HCL Inactive ULTRAM 50 MG TABS 1 tab q4-6h PRN ULTRAM 50 MG TA BS 285359 TRAMADOL HCL Inactive METHOCARBAMOL 750 MG TABS 1 tab tid METHOCARBA MOL 750 MG TABS 784041 METHOCARBAMOL Inactive METHYLPREDNISOLONE (MARY KATE) 4 MG TABS 04/27 METHYLPREDNISOLONE (MARY KATE) 4 MG TABS 151440 METHYLPREDNISOLONE Inactive OXYCONTIN 10 MG ORAL T12A by mouth twice a day OXYCONTIN 10 MG ORAL T12A OXYCODONE HCL Inactive MEDROL (MARY KTAE) 4 MG TABS 6 tabs on day 1, 5 tabs on d ay 2, 4 tabs on day 3, 3 tabs on day 4, 2 tabs on day 5, 1 tab on day 6 MEDROL (MARY KATE) 4 MG TABS 214897 METHYLPREDNISOLONE Inactive Vital Signs Date Name Value [...] 10*3/mm3 Encounters Code Encounter Date Provider Facility CPT-98859 Level 4 Est. Patient 08:45:55 CDT Didier Valdez MD [facility] CPT-88902 Level 4 Est. Patient 16:31:23 PHARMACY TECHNICIAN INSTRUCTOR Didier Valdez MD [facility] CPT-96819 Level 3 Est. Patient 17:18:46 CDT Wilfredo wyatt MD [facility] CPT-44231 Level 3 Est. Patient 10:03:01 CDT Wilfredo wyatt MD [facility] CPT-63477 Level 3 Est. Patient 14:51:46 PHARMACY TECHNICIAN INSTRUCTOR Wilfredo wyatt MD [facility] CPT-48899 Level 3 Est. Patient 18:41:44 PHARMACY TECHNICIAN INSTRUCTOR Wilfredo wyatt MD [facility] CPT-66863 Level 3 Est. Patient 19:42:04 PHARMACY TECHNICIAN INSTRUCTOR Wilfredo wyatt MD [facility] CPT-10838 Level 4 New Patient 12:51:50 CDT Florentino gan MD [facility] Procedures Code Procedure Name Date Entry Date Standard Desc ription CPT-22401 Venipuncture Draw Fee 09:13:28 CDT CPT-91091 Venipuncture Draw Fee 08:56:11 CDT CPT-02487 Postop F/U Visit 12:35:54 PHARMACY TECHNICIAN INSTRUCTOR CPT-54040 Abd single AP View 10:52:37 PHARMACY TECHNICIAN INSTRUCTOR CPT-55957 LS spine AP and Lat 13:45:51 CDT CPT-66936 LS spine AP and Lat 15:58:55 PHARMACY TECHNICIAN INSTRUCTOR CPT-80464 Drug Screen Leonid 14:45:55 PHARMACY TECHNICIAN INSTRUCTOR CPT-24273 Postop F/U Visit 17:53:11 CDT CPT-63520 Urine Dip (Floor Use Only) 12:51:50 CDT 201 04/24/28 CPT-91249 Abd single AP View 12:51:50 CDT
--- OUTSIDE RECORDS SUMMARY | 2019-05-31 10:32 | XMS REPORT | Clinical Summary ---
Author Author Admin, Liam Ruffin [facility] Address Unknown Phone Unavailable Allergies, Adverse [...] as needed for muscle spasm/pain CYCLOBENZAPRINE HCL 03730091330 Active Didier Valdez MD Active OXYCONTIN 10 MG ORAL T12A by mouth twice a day OXY CODONE HCL 87003065263 Active Didier Valdez MD Active OXYCODONE HCL 5 MG ORAL CAPS Take one by mouth TID OXYCODONE HCL 85114194155 Active Didier Valdez MD Active METHYLPREDNISOLONE (MARY KATE) 4 MG TABS M ETHYLPREDNISOLONE 84175446349 No Longer Active Didier Valdez MD Active METHOCARBAMOL 750 MG TABS 1 tab tid METHOCARBAMOL 04076027372 No Longer Active Didier Valdez MD Active ULTRAM 50 MG TABS 1 tab q4-6h PRN TRAMADOL HCL 66 130139153 No Longer Active Didier Valdez MD Active TRAZODONE HCL 50 MG TABS Take 1 to 2 tablets every night TRAZODONE HCL 90269477814 No Longer Active Didier Valdez MD Activ e EQ IBUPROFEN 200 MG TABS Take 2 tablets every 4 to 6 hours PRN IBUPROFEN 55317081240 No Longer Active Wilfredo Troncoso MD Acti ve MOBIC 7.5 MG TABS 1 tablet by mouth twice daily MELOXICAM 72708527502 No Longer Active Wilfredo Troncoso MD Active PERCOCET 10-325 MG TABS take 1 tab po q6 hours prn pain. OXYCODONE-ACETAMINOPHEN 98490378160 Active Wilfredo Troncoso MD Active HYDROCODONE-ACETAMINOPHEN 7.5-325 MG TABS take 1-2 tab lets every 6 hours as needed for pain HYDROCODONE-ACETAMINOPHEN 22502263569 No Longer Active Wilfredo Troncoso MD Active LORTAB 5 5-500 MG TABS 1 tablet by mouth every 6 hours as ne eded for pain HYDROCODONE-ACETAMINOPHEN 53416691142 No Longer Activ e Wilfredo Troncoso MD Active MEDROL (MARY KATE) 4 MG TABS 6 tabs on day 1, 5 tabs on d ay 2, 4 tabs on day 3, 3 tabs on day 4, 2 tabs on day 5, 1 tab on day 6 METHYLPREDNISOLONE 09549119947 No Longer Active Wilfredo Troncoso MD Active ALPRAZOLAM 1 MG TABS Take 1 tablet 1x daily ALPRAZOLAM 3 6969645346 Active Wilfredo Troncoso MD Active ZOLOFT 100 MG TABS Take 1 tablet 2x daily SERTRALINE HCL 96480281434 Active Wilfredo Troncoso MD Active ZOLOFT 100 MG TABS 2 tabs by mouth once a day S ERTRALINE HCL 57972950413 No Longer Active Jameel STILES Active ZOFRAN ODT 4 MG TBDP 1 tablet every 6 hours as needed for nausea . ONDANSETRON 65634324864 No Longer Active Jameel STILES Active METOPROLOL TARTRATE 25 MG TABS 1 po q a.m. and 0.5 in evening 03/12 METOPROLOL TARTRATE 63757615220 Active Didier Valdez MD Ac tive ZOFRAN ODT 4 MG TBDP 1 tablet every 6 hours as needed for nausea . ZOFRAN ODT 4 MG TBDP 271222 ONDANSETRON Inactive ZOLOFT 100 MG TABS 2 tabs by mouth once a day Z OLOFT 100 MG TABS 386220 SERTRALINE HCL Inactive LORTAB 5 5-500 MG TABS 1 tablet by mouth every 6 hours as ne eded for pain LORTAB 5 5-500 MG TABS HYDROCODONE-ACETAM INOPHEN Inactive HYDROCODONE-ACETAMINOPHEN 7.5-325 MG TABS take 1-2 tab lets every 6 hours as needed for pain HYDROCODONE-ACETAMINOPHEN 7.5-32 5 MG TABS 630940 HYDROCODONE-ACETAMINOPHEN Inactive MOBIC 7.5 MG TABS 1 tablet by mouth twice daily 09/16 MOBIC 7.5 MG TABS 618249 MELOXICAM Inactive EQ IBUPROFEN 200 MG TABS Take 2 tablets every 4 to 6 hours PRN EQ IBUPROFEN 200 MG TABS 078540 IBUPROFEN Inactive TRAZODONE HCL 50 MG TABS Take 1 to 2 tablets every night TRAZODONE HCL 50 MG TABS 077418 TRAZODONE HCL Inactive ULTRAM 50 MG TABS 1 tab q4-6h PRN ULTRAM 50 MG TA 271587 TRAMADOL HCL Inactive METHOCARBAMOL 750 MG TABS 1 tab tid METHOCARBA MOL 750 MG TABS 791080 METHOCARBAMOL Inactive METHYLPREDNISOLONE (MARY KATE) 4 MG TABS 04/27 METHYLPREDNISOLONE (MARY KATE) 4 MG TABS METHYLPREDNISOLONE Inactive MEDROL (MARY KATE) 4 MG TABS 6 tabs on day 1, 5 tabs on d ay 2, 4 tabs on day 3, 3 tabs on day 4, 2 tabs on day 5, 1 tab on day 6 MEDROL (MARY AKTE) 4 MG TABS METHYLPREDNISOLONE Inactive Vital Signs [...] 10*3/mm3 Encounters Code Encounter Date Provider Facility CPT-51882 Level 4 Est. Patient 16:31:23 BREASTFEEDING EDUCATOR Didier Valdez MD [facility] CPT-73783 Level 3 Est. Patient 17:18:46 CDT Wilfredo wyatt MD [facility] CPT-08688 Level 3 Est. Patient 10:03:01 CDT Wilfredo wyatt MD [facility] CPT-13971 Level 3 Est. Patient 14:51:46 BREASTFEEDING EDUCATOR Wilfredo wyatt MD [facility] CPT-19132 Level 3 Est. Patient 18:41:44 BREASTFEEDING EDUCATOR Wilfredo wyatt MD [facility] CPT-25548 Level 3 Est. Patient 19:42:04 BREASTFEEDING EDUCATOR Wilfredo wyatt MD [facility] CPT-44054 Level 4 New Patient 12:51:50 CDT J Valdez gan MD [facility] Procedures Code Procedure Name Date Entry Date Standard Desc ription CPT-38724 Postop F/U Visit 12:35:54 BREASTFEEDING EDUCATOR CPT-02579 Abd single AP View 10:52:37 BREASTFEEDING EDUCATOR CPT-60111 LS spine AP and Lat 13:45:51 CDT CPT-60929 LS spine AP and Lat 15:58:55 BREASTFEEDING EDUCATOR CPT-90979 Drug Screen Leonid 14:45:55 BREASTFEEDING EDUCATOR CPT-11890 Postop F/U Visit 17:53:11 CDT CPT-16775 Urine Dip (Floor Use Only) 12:51:50 CDT 201 04/24/28 CPT-36979 Abd single AP View 12:51:50 CDT
--- OUTSIDE RECORDS SUMMARY | 2019-05-31 10:32 | XMS REPORT | Clinical Summary ---
Author Author Admin, Liam Lopez Organization [facility] Address Unknown Phone Unavailable Allergies, Adverse [...] not elsewhere classified Daytime somnolence 780.09 Active Diider Valdez MD Other alteration of consciousness UTI [...] MG TABS 1 po qd SERTRALINE HCL 59417242494 Active Didier Valdez MD Active OXYCONTIN 10 MG ORAL T12A by mouth twice a day OXYCODONE HCL 33594589631 No Longer Active Didier Valdez MD Active CYCLOBENZAPRINE HCL 10 MG TABS 1 tablet by mouth three times daily as needed for muscle spasm/pain CYCLOBENZAPRINE HCL 49212947175 Active Didier Valdez MD Active OXYCODONE HCL 5 MG ORAL CAPS Take one by mouth TID OXYCODONE HCL 28766332944 Active Didier Valdez MD Active METHYLPREDNISOLONE (MARY KATE) 4 MG TABS M ETHYLPREDNISOLONE 96948402042 No Longer Active Didier Valdez MD Active METHOCARBAMOL 750 MG TABS 1 tab tid METHOCARBAMOL 19484168877 No Longer Active Didier Valdez MD Active ULTRAM 50 MG TABS 1 tab q4-6h PRN TRAMADOL HCL 66 315730409 No Longer Active Didier Valdez MD Active TRAZODONE HCL 50 MG TABS Take 1 to 2 tablets every night TRAZODONE HCL 58405022814 No Longer Active Didier Valdez MD Activ e EQ IBUPROFEN 200 MG TABS Take 2 tablets every 4 to 6 hours PRN IBUPROFEN 01470092437 No Longer Active Wilfredo Troncoso MD Acti ve MOBIC 7.5 MG TABS 1 tablet by mouth twice daily MELOXICAM 90278383464 No Longer Active Wilfredo Troncoso MD Active PERCOCET 10-325 MG TABS take 1 tab po q6 hours prn pain. OXYCODONE-ACETAMINOPHEN 54074272529 Active Wilfredo Troncoso MD Active HYDROCODONE-ACETAMINOPHEN 7.5-325 MG TABS take 1-2 tab lets every 6 hours as needed for pain HYDROCODONE-ACETAMINOPHEN 39000046839 No Longer Active Wilfredo Troncoso MD Active LORTAB 5 5-500 MG TABS 1 tablet by mouth every 6 hours as ne eded for pain HYDROCODONE-ACETAMINOPHEN 15946678716 No Longer Activ e Wilfredo Troncoso MD Active MEDROL (MARY KATE) 4 MG TABS 6 tabs on day 1, 5 tabs on d ay 2, 4 tabs on day 3, 3 tabs on day 4, 2 tabs on day 5, 1 tab on day 6 METHYLPREDNISOLONE 15408906981 No Longer Active Wilfredo Troncoso MD Active ALPRAZOLAM 1 MG TABS Take 1 tablet 1x daily ALPRAZOLAM 3 9070644184 Active Wilfredo Troncoso MD Active ZOLOFT 100 MG TABS 2 tabs by mouth once a day S ERTRALINE HCL 16412413830 No Longer Active Jameel STILES Active ZOFRAN ODT 4 MG TBDP 1 tablet every 6 hours as needed for nausea . ONDANSETRON 64243146677 No Longer Active Jameel STILES Active METOPROLOL TARTRATE 25 MG TABS 1 po q a.m. and 0.5 in evening 03/12 METOPROLOL TARTRATE 01102879069 Active Didier Valdez MD Ac tive ZOFRAN ODT 4 MG TBDP 1 tablet every 6 hours as needed for nausea . ZOFRAN ODT 4 MG TBDP 957763 ONDANSETRON Inactive ZOLOFT 100 MG TABS 2 tabs by mouth once a day Z OLOFT 100 MG TABS 799305 SERTRALINE HCL Inactive LORTAB 5 5-500 MG TABS 1 tablet by mouth every 6 hours as ne eded for pain LORTAB 5 5-500 MG TABS HYDROCODONE-ACETAM INOPHEN Inactive HYDROCODONE-ACETAMINOPHEN 7.5-325 MG TABS take 1-2 tab lets every 6 hours as needed for pain HYDROCODONE-ACETAMINOPHEN 7.5-32 5 MG TABS 672930 HYDROCODONE-ACETAMINOPHEN Inactive MOBIC 7.5 MG TABS 1 tablet by mouth twice daily 09/16 MOBIC 7.5 MG TABS 963990 MELOXICAM Inactive EQ IBUPROFEN 200 MG TABS Take 2 tablets every 4 to 6 hours PRN EQ IBUPROFEN 200 MG TABS 930024 IBUPROFEN Inactive TRAZODONE HCL 50 MG TABS Take 1 to 2 tablets every night TRAZODONE HCL 50 MG TABS 855222 TRAZODONE HCL Inactive ULTRAM 50 MG TABS 1 tab q4-6h PRN ULTRAM 50 MG TA BS 402535 TRAMADOL HCL Inactive METHOCARBAMOL 750 MG TABS 1 tab tid METHOCARBA MOL 750 MG TABS 632962 METHOCARBAMOL Inactive METHYLPREDNISOLONE (MARY KATE) 4 MG TABS 04/27 METHYLPREDNISOLONE (MARY KATE) 4 MG TABS 160261 METHYLPREDNISOLONE Inactive OXYCONTIN 10 MG ORAL T12A by mouth twice a day OXYCONTIN 10 MG ORAL T12A OXYCODONE HCL Inactive MEDROL (MARY KATE) 4 MG TABS 6 tabs on day 1, 5 tabs on d ay 2, 4 tabs on day 3, 3 tabs on day 4, 2 tabs on day 5, 1 tab on day 6 MEDROL (MARY KATE) 4 MG TABS 634482 METHYLPREDNISOLONE Inactive Vital Signs Date Name Value [...] mg/dL Chart Maintenance: Outside labs entered on [facility] - Hematology hemoglobin, blood 15.2 g/dL leukocyte count, blood 8.1 10*3/mm3 platelet count 329 10*3/mm3 Lab Report: Thyroid Stimulating Hormone (L), MICROALB/CREAT W/RATIO, Lip ... - Chemistry TSH 1.38 m[iU]/mL 0.36-3.74 albumin/creatinine ratio, urine < 30 mg/g mg/g{creat} 0-2 9 cholesterol, serum 154 mg/dL 030-616 9961/07/25 triglyceride, serum, fasting 122 mg/dL 30-200 HDL cholesterol, serum 41 mg/dL 32-96 LDL cholesterol, serum 89 mg/dL 0-130 sodium, serum 144 mmol/L 803-877 3017/07/25 carbon dioxide, venous blood 30.1 mmol/L 21.0-32 [...] 0-19 Encounters Code Encounter Date Provider Facility CPT-31944 Level 4 Est. Patient 08:45:55 CDT Didier Valdez MD [facility] CPT-61467 Level 4 Est. Patient 16:31:23 ELECTRONIC FUNDS TRANSFER COORDINATOR Didier Valdez MD [facility] CPT-17237 Level 3 Est. Patient 17:18:46 CDT Wilfredo wyatt MD [facility] CPT-61306 Level 3 Est. Patient 10:03:01 CDT Wilfredo wyatt MD [facility] CPT-50139 Level 3 Est. Patient 14:51:46 ELECTRONIC FUNDS TRANSFER COORDINATOR Wilfredo wyatt MD [facility] CPT-07580 Level 3 Est. Patient 18:41:44 ELECTRONIC FUNDS TRANSFER COORDINATOR Wilfredo wyatt MD [facility] CPT-09697 Level 3 Est. Patient 19:42:04 ELECTRONIC FUNDS TRANSFER COORDINATOR Wilfredo wyatt MD [facility] CPT-17231 Level 4 New Patient 12:51:50 CDT J Valdez gan MD [facility] Procedures Code Procedure Name Date Entry Date Standard Desc ription CPT-27545 Venipuncture Draw Fee 09:13:28 CDT CPT-86357 Venipuncture Draw Fee 08:56:11 CDT CPT-73231 Postop F/U Visit 12:35:54 ELECTRONIC FUNDS TRANSFER COORDINATOR CPT-07042 Abd single AP View 10:52:37 ELECTRONIC FUNDS TRANSFER COORDINATOR CPT-42934 LS spine AP and Lat 13:45:51 CDT CPT-73282 LS spine AP and Lat 15:58:55 ELECTRONIC FUNDS TRANSFER COORDINATOR CPT-61902 Drug Screen Leonid 14:45:55 ELECTRONIC FUNDS TRANSFER COORDINATOR CPT-36821 Postop F/U Visit 17:53:11 CDT CPT-34639 Urine Dip (Floor Use Only) 12:51:50 CDT 201 04/24/28 CPT-81247 Abd single AP View 12:51:50 CDT
--- OUTSIDE RECORDS SUMMARY | 2019-05-31 10:32 | XMS REPORT | Clinical Summary ---
Author Author Admin, Liam Ruffin [facility] Address Unknown Phone Unavailable Allergies, Adverse Reactions, [...] Valdez MD Depressive disorder, not elsewhere classified UTI ICD-599.0 Inactive Didier Valdez MD 2014 [...] as needed for muscle spasm/pain CYCLOBENZAPRINE HCL 53522792143 Active Didier Valdez MD Active OXYCONTIN 10 MG ORAL T12A by mouth twice a day OXY CODONE HCL 35094394037 Active Didier Valdez MD Active OXYCODONE HCL 5 MG ORAL CAPS Take one by mouth TID OXYCODONE HCL 30879098703 Active Didier Valdez MD Active METHYLPREDNISOLONE (MARY KATE) 4 MG TABS M ETHYLPREDNISOLONE 93380356530 No Longer Active Didier Valdez MD Active METHOCARBAMOL 750 MG TABS 1 tab tid METHOCARBAMOL 31997940135 No Longer Active Didier Valdez MD Active ULTRAM 50 MG TABS 1 tab q4-6h PRN TRAMADOL HCL 66 002510013 No Longer Active Didier Valdez MD Active TRAZODONE HCL 50 MG TABS Take 1 to 2 tablets every night TRAZODONE HCL 09144947778 No Longer Active Didier Valdez MD Activ e EQ IBUPROFEN 200 MG TABS Take 2 tablets every 4 to 6 hours PRN IBUPROFEN 73672831137 No Longer Active Wilfredo Troncoso MD Acti ve MOBIC 7.5 MG TABS 1 tablet by mouth twice daily MELOXICAM 82634307223 No Longer Active Wilfredo Troncoso MD Active PERCOCET 10-325 MG TABS take 1 tab po q6 hours prn pain. OXYCODONE-ACETAMINOPHEN 07325126825 Active Wilfredo Troncoso MD Active HYDROCODONE-ACETAMINOPHEN 7.5-325 MG TABS take 1-2 tab lets every 6 hours as needed for pain HYDROCODONE-ACETAMINOPHEN 58062639611 No Longer Active Wilfredo Troncoso MD Active LORTAB 5 5-500 MG TABS 1 tablet by mouth every 6 hours as ne eded for pain HYDROCODONE-ACETAMINOPHEN 46731169122 No Longer Activ e Wilfredo Troncoso MD Active MEDROL (MARY KATE) 4 MG TABS 6 tabs on day 1, 5 tabs on d ay 2, 4 tabs on day 3, 3 tabs on day 4, 2 tabs on day 5, 1 tab on day 6 METHYLPREDNISOLONE 97102265823 No Longer Active Wilfredo Troncoso MD Active ALPRAZOLAM 1 MG TABS Take 1 tablet 1x daily ALPRAZOLAM 3 9059445731 Active Wilfredo Troncoso MD Active ZOLOFT 100 MG TABS Take 1 tablet 2x daily SERTRALINE HCL 76993976930 Active Wilfredo Troncoso MD Active ZOLOFT 100 MG TABS 2 tabs by mouth once a day S ERTRALINE HCL 75728229669 No Longer Active Jameel STILES Active ZOFRAN ODT 4 MG TBDP 1 tablet every 6 hours as needed for nausea . ONDANSETRON 57408134694 No Longer Active Jameel STILES Active METOPROLOL TARTRATE 25 MG TABS 1 po q a.m. and 0.5 in evening 03/12 METOPROLOL TARTRATE 03649037738 Active Didier Valdez MD Ac tive ZOFRAN ODT 4 MG TBDP 1 tablet every 6 hours as needed for nausea . ZOFRAN ODT 4 MG TBDP 446730 ONDANSETRON Inactive ZOLOFT 100 MG TABS 2 tabs by mouth once a day Z OLOFT 100 MG TABS 187953 SERTRALINE HCL Inactive LORTAB 5 5-500 MG TABS 1 tablet by mouth every 6 hours as ne eded for pain LORTAB 5 5-500 MG TABS HYDROCODONE-ACETAM INOPHEN Inactive HYDROCODONE-ACETAMINOPHEN 7.5-325 MG TABS take 1-2 tab lets every 6 hours as needed for pain HYDROCODONE-ACETAMINOPHEN 7.5-32 5 MG TABS 240446 HYDROCODONE-ACETAMINOPHEN Inactive MOBIC 7.5 MG TABS 1 tablet by mouth twice daily 09/16 MOBIC 7.5 MG TABS 381870 MELOXICAM Inactive EQ IBUPROFEN 200 MG TABS Take 2 tablets every 4 to 6 hours PRN EQ IBUPROFEN 200 MG TABS 766499 IBUPROFEN Inactive TRAZODONE HCL 50 MG TABS Take 1 to 2 tablets every night TRAZODONE HCL 50 MG TABS 444642 TRAZODONE HCL Inactive ULTRAM 50 MG TABS 1 tab q4-6h PRN ULTRAM 50 MG TA 702933 TRAMADOL HCL Inactive METHOCARBAMOL 750 MG TABS 1 tab tid METHOCARBA MOL 750 MG TABS 671010 METHOCARBAMOL Inactive METHYLPREDNISOLONE (MARY KATE) 4 MG [...] Outside labs entered on flowsheet - Chemistry blood glucose 95 mg/dL creatinine, serum 1.35 mg/dL potassium, serum 3.9 mmol/L sodium, serum 142 mmol/L Chart Maintenance: Outside labs entered on flowsheet - Hematology platelet count 329 10*3/mm3 hemoglobin, blood 15.2 g/dL leukocyte count, blood 8.1 10*3/mm3 Encounters Code Encounter Date Provider Facility CPT-76545 Level 4 Est. Patient 16:31:23 LINUX KERNEL DEVELOPER Didier Valdez MD [facility] CPT-91275 Level 3 Est. Patient 17:18:46 CDT Wilfredo wyatt MD [facility] CPT-79231 Level 3 Est. Patient 10:03:01 CDT Wilfredo wyatt MD [facility] CPT-00103 Level 3 Est. Patient 14:51:46 LINUX KERNEL DEVELOPER Wilfredo wyatt MD [facility] CPT-11729 Level 3 Est. Patient 18:41:44 LINUX KERNEL DEVELOPER Wilfredo wyatt MD [facility] CPT-50975 Level 3 Est. Patient 19:42:04 LINUX KERNEL DEVELOPER Wilfredo wyatt MD [facility] CPT-38705 Level 4 New Patient 12:51:50 CDT J Valdez gan MD [facility] Procedures Code Procedure Name Date Entry Date Standard Desc ription CPT-76170 Postop F/U Visit 12:35:54 LINUX KERNEL DEVELOPER CPT-03282 Abd single AP View 10:52:37 LINUX KERNEL DEVELOPER CPT-29265 LS spine AP and Lat 13:45:51 CDT CPT-84121 LS spine AP and Lat 15:58:55 LINUX KERNEL DEVELOPER CPT-66378 Drug Screen Leonid 14:45:55 LINUX KERNEL DEVELOPER CPT-24071 Postop F/U Visit 17:53:11 CDT CPT-42325 Urine Dip (Floor Use Only) 12:51:50 CDT 201 04/24/28 CPT-30790 Abd single AP View 12:51:50 CDT
--- OUTSIDE RECORDS SUMMARY | 2019-05-31 10:32 | XMS REPORT | Clinical Summary ---
Author Author Admin, Liam Ruffin [facility] Address Unknown Phone Unavailable Allergies, [...] MG TABS 1 po qd SERTRALINE HCL 21884133802 Active Didier Valdez MD Active OXYCONTIN 10 MG ORAL T12A by mouth twice a day OXYCODONE HCL 51480002541 No Longer Active Didier Valdez MD Active CYCLOBENZAPRINE HCL 10 MG TABS 1 tablet by mouth three times daily as needed for muscle spasm/pain CYCLOBENZAPRINE HCL 05561034456 Active Didier Valdez MD Active OXYCODONE HCL 5 MG ORAL CAPS Take one by mouth TID OXYCODONE HCL 97094084188 Active Didier Valdez MD Active METHYLPREDNISOLONE (MARY KATE) 4 MG TABS M ETHYLPREDNISOLONE 57283931406 No Longer Active Didier Valdez MD Active METHOCARBAMOL 750 MG TABS 1 tab tid METHOCARBAMOL 45579580023 No Longer Active Didier Valdez MD Active ULTRAM 50 MG TABS 1 tab q4-6h PRN TRAMADOL HCL 66 734252089 No Longer Active Didier Valdez MD Active TRAZODONE HCL 50 MG TABS Take 1 to 2 tablets every night TRAZODONE HCL 63827821734 No Longer Active Didier Valdez MD Activ e EQ IBUPROFEN 200 MG TABS Take 2 tablets every 4 to 6 hours PRN IBUPROFEN 62900422818 No Longer Active Wilfredo Troncoso MD Acti ve MOBIC 7.5 MG TABS 1 tablet by mouth twice daily MELOXICAM 65812225954 No Longer Active Wilfredo Troncoso MD Active PERCOCET 10-325 MG TABS take 1 tab po q6 hours prn pain. OXYCODONE-ACETAMINOPHEN 80968468350 Active Wilfredo Troncoso MD Active HYDROCODONE-ACETAMINOPHEN 7.5-325 MG TABS take 1-2 tab lets every 6 hours as needed for pain HYDROCODONE-ACETAMINOPHEN 99834309333 No Longer Active Wilfredo Troncoso MD Active LORTAB 5 5-500 MG TABS 1 tablet by mouth every 6 hours as ne eded for pain HYDROCODONE-ACETAMINOPHEN 00333458422 No Longer Activ e Wilfredo Troncoso MD Active MEDROL (MARY KATE) 4 MG TABS 6 tabs on day 1, 5 tabs on d ay 2, 4 tabs on day 3, 3 tabs on day 4, 2 tabs on day 5, 1 tab on day 6 METHYLPREDNISOLONE 29284525933 No Longer Active Wilfredo Troncoso MD Active ALPRAZOLAM 1 MG TABS Take 1 tablet 1x daily ALPRAZOLAM 3 9415354169 Active Wilfredo Troncoso MD Active ZOLOFT 100 MG TABS 2 tabs by mouth once a day S ERTRALINE HCL 17533099001 No Longer Active Jameel STILES Active ZOFRAN ODT 4 MG TBDP 1 tablet every 6 hours as needed for nausea . ONDANSETRON 29346832240 No Longer Active Jameel STILES Active METOPROLOL TARTRATE 25 MG TABS 1 po q a.m. and 0.5 in evening 03/12 METOPROLOL TARTRATE 45217819489 Active Didier Valdez MD Ac tive ZOFRAN ODT 4 MG TBDP 1 tablet every 6 hours as needed for nausea . ZOFRAN ODT 4 MG TBDP 059840 ONDANSETRON Inactive ZOLOFT 100 MG TABS 2 tabs by mouth once a day Z OLOFT 100 MG TABS 042962 SERTRALINE HCL Inactive LORTAB 5 5-500 MG TABS 1 tablet by mouth every 6 hours as ne eded for pain LORTAB 5 5-500 MG TABS HYDROCODONE-ACETAM INOPHEN Inactive HYDROCODONE-ACETAMINOPHEN 7.5-325 MG TABS take 1-2 tab lets every 6 hours as needed for pain HYDROCODONE-ACETAMINOPHEN 7.5-32 5 MG TABS 020743 HYDROCODONE-ACETAMINOPHEN Inactive MOBIC 7.5 MG TABS 1 tablet by mouth twice daily 09/16 MOBIC 7.5 MG TABS 115262 MELOXICAM Inactive EQ IBUPROFEN 200 MG TABS Take 2 tablets every 4 to 6 hours PRN EQ IBUPROFEN 200 MG TABS 758041 IBUPROFEN Inactive TRAZODONE HCL 50 MG TABS Take 1 to 2 tablets every night TRAZODONE HCL 50 MG TABS 362935 TRAZODONE HCL Inactive ULTRAM 50 MG TABS 1 tab q4-6h PRN ULTRAM 50 MG TA BS 619454 TRAMADOL HCL Inactive METHOCARBAMOL 750 MG TABS 1 tab tid METHOCARBA MOL 750 MG TABS 506612 METHOCARBAMOL Inactive METHYLPREDNISOLONE (MARY KATE) 4 MG TABS 04/27 METHYLPREDNISOLONE (MARY KATE) 4 MG TABS 079409 METHYLPREDNISOLONE Inactive OXYCONTIN 10 MG ORAL T12A by mouth twice a day OXYCONTIN 10 MG ORAL T12A OXYCODONE HCL Inactive MEDROL (MARY KATE) 4 MG TABS 6 tabs on day 1, 5 tabs on d ay 2, 4 tabs on day 3, 3 tabs on day 4, 2 tabs on day 5, 1 tab on day 6 MEDROL (MARY KATE) 4 MG TABS 096626 METHYLPREDNISOLONE Inactive Vital Signs Date Name Value [...] mg/dL Chart Maintenance: Outside labs entered on [employer] - Hematology leukocyte count, blood 8.1 10*3/mm3 hemoglobin, blood 15.2 g/dL platelet count 329 10*3/mm3 Lab Report: Thyroid Stimulating Hormone (L), MICROALB/CREAT W/RATIO, Lip ... - Chemistry TSH 1.38 m[iU]/mL 0.36-3.74 albumin/creatinine ratio, urine < 30 mg/g mg/g{creat} 0-2 9 cholesterol, serum 154 mg/dL 292-884 7037/07/25 triglyceride, serum, fasting 122 mg/dL 30-200 HDL cholesterol, serum 41 mg/dL 32-96 LDL cholesterol, serum 89 mg/dL 0-130 sodium, serum 144 mmol/L 000-887 3017/07/25 carbon dioxide, venous blood 30.1 mmol/L [...] 0-19 Encounters Code Encounter Date Provider Facility CPT-87457 Level 4 Est. Patient 08:45:55 CDT Didier Valdez MD [facility] CPT-22727 Level 4 Est. Patient 16:31:23 LAW EXAMINER Didier Valdez MD [facility] CPT-32986 Level 3 Est. Patient 17:18:46 CDT Wilfredo wyatt MD [facility] CPT-45684 Level 3 Est. Patient 10:03:01 CDT Wilfredo wyatt MD [facility] CPT-48535 Level 3 Est. Patient 14:51:46 LAW EXAMINER Wilfredo wyatt MD [facility] CPT-76707 Level 3 Est. Patient 18:41:44 LAW EXAMINER Wilfredo wyatt MD [facility] CPT-70735 Level 3 Est. Patient 19:42:04 LAW EXAMINER Wilfredo wyatt MD [facility] CPT-25221 Level 4 New Patient 12:51:50 CDT J Valdez gan MD [facility] Procedures Code Procedure Name Date Entry Date Standard Desc ription CPT-76517 Venipuncture Draw Fee 09:13:28 CDT CPT-39556 Venipuncture Draw Fee 08:56:11 CDT CPT-25659 Postop F/U Visit 12:35:54 LAW EXAMINER CPT-17101 Abd single AP View 10:52:37 LAW EXAMINER CPT-09051 LS spine AP and Lat 13:45:51 CDT CPT-59527 LS spine AP and Lat 15:58:55 LAW EXAMINER CPT-25289 Drug Screen Leonid 14:45:55 LAW EXAMINER CPT-01189 Postop F/U Visit 17:53:11 CDT CPT-70626 Urine Dip (Floor Use Only) 12:51:50 CDT 201 04/24/28 CPT-50962 Abd single AP View 12:51:50 CDT
--- OUTSIDE RECORDS SUMMARY | 2019-05-31 10:32 | XMS REPORT | Clinical Summary ---
Author Author Admin, Liam Ruffin [facility] Address Unknown Phone Unavailable Allergies, [...] Low back pain, chronic 724.2 Active Didier iSbley MD Lumbago LOW BACK PAIN, ACUTE 724.2 [...] as needed for muscle spasm/pain CYCLOBENZAPRINE HCL 89966631885 Active Didier Valdez MD Active OXYCONTIN 10 MG ORAL T12A by mouth twice a day OXY CODONE HCL 91015951742 Active Didier Valdez MD Active OXYCODONE HCL 5 MG ORAL CAPS Take one by mouth TID OXYCODONE HCL 12171511136 Active Didier Valdez MD Active METHYLPREDNISOLONE (MARY KATE) 4 MG TABS M ETHYLPREDNISOLONE 30149320647 No Longer Active Didier Valdez MD Active METHOCARBAMOL 750 MG TABS 1 tab tid METHOCARBAMOL 62460592088 No Longer Active Didier Valdez MD Active ULTRAM 50 MG TABS 1 tab q4-6h PRN TRAMADOL HCL 66 087081815 No Longer Active Didier Valdez MD Active TRAZODONE HCL 50 MG TABS Take 1 to 2 tablets every night TRAZODONE HCL 84315075556 No Longer Active Didier Valdez MD Activ e EQ IBUPROFEN 200 MG TABS Take 2 tablets every 4 to 6 hours PRN IBUPROFEN 63653377708 No Longer Active Wilfredo Troncoso MD Acti ve MOBIC 7.5 MG TABS 1 tablet by mouth twice daily MELOXICAM 36943843123 No Longer Active Wilfredo Troncoso MD Active PERCOCET 10-325 MG TABS take 1 tab po q6 hours prn pain. OXYCODONE-ACETAMINOPHEN 16850162246 Active Wilfredo Troncoso MD Active HYDROCODONE-ACETAMINOPHEN 7.5-325 MG TABS take 1-2 tab lets every 6 hours as needed for pain HYDROCODONE-ACETAMINOPHEN 47235373100 No Longer Active Wilfredo Troncoso MD Active LORTAB 5 5-500 MG TABS 1 tablet by mouth every 6 hours as ne eded for pain HYDROCODONE-ACETAMINOPHEN 08426989276 No Longer Activ e Wilfredo Troncoso MD Active MEDROL (MARY KATE) 4 MG TABS 6 tabs on day 1, 5 tabs on d ay 2, 4 tabs on day 3, 3 tabs on day 4, 2 tabs on day 5, 1 tab on day 6 METHYLPREDNISOLONE 65134262477 No Longer Active Wilfredo Troncoso MD Active ALPRAZOLAM 1 MG TABS Take 1 tablet 1x daily ALPRAZOLAM 3 5867036083 Active Wilfredo Troncoso MD Active ZOLOFT 100 MG TABS Take 1 tablet 2x daily SERTRALINE HCL 86921673099 Active Wilfredo Troncoso MD Active ZOLOFT 100 MG TABS 2 tabs by mouth once a day S ERTRALINE HCL 25303893260 No Longer Active Jameel STILES Active ZOFRAN ODT 4 MG TBDP 1 tablet every 6 hours as needed for nausea . ONDANSETRON 97943577430 No Longer Active Jameel STILES Active METOPROLOL TARTRATE 25 MG TABS 1 po q a.m. and 0.5 in evening 03/12 METOPROLOL TARTRATE 51573457952 Active Didier Valdez MD Ac tive ZOFRAN ODT 4 MG TBDP 1 tablet every 6 hours as needed for nausea . ZOFRAN ODT 4 MG TBDP 082744 ONDANSETRON Inactive ZOLOFT 100 MG TABS 2 tabs by mouth once a day Z OLOFT 100 MG TABS 906208 SERTRALINE HCL Inactive LORTAB 5 5-500 MG TABS 1 tablet by mouth every 6 hours as ne eded for pain LORTAB 5 5-500 MG TABS HYDROCODONE-ACETAM INOPHEN Inactive HYDROCODONE-ACETAMINOPHEN 7.5-325 MG TABS take 1-2 tab lets every 6 hours as needed for pain HYDROCODONE-ACETAMINOPHEN 7.5-32 5 MG TABS 910296 HYDROCODONE-ACETAMINOPHEN Inactive MOBIC 7.5 MG TABS 1 tablet by mouth twice daily 09/16 MOBIC 7.5 MG TABS 579179 MELOXICAM Inactive EQ IBUPROFEN 200 MG TABS Take 2 tablets every 4 to 6 hours PRN EQ IBUPROFEN 200 MG TABS 163538 IBUPROFEN Inactive TRAZODONE HCL 50 MG TABS Take 1 to 2 tablets every night TRAZODONE HCL 50 MG TABS 981437 TRAZODONE HCL Inactive ULTRAM 50 MG TABS 1 tab q4-6h PRN ULTRAM 50 MG TA 693572 TRAMADOL HCL Inactive METHOCARBAMOL 750 MG TABS 1 tab tid METHOCARBA MOL 750 MG TABS 269379 METHOCARBAMOL Inactive METHYLPREDNISOLONE (MARY KATE) 4 MG [...] 10*3/mm3 Encounters Code Encounter Date Provider Facility CPT-58604 Level 4 Est. Patient 16:31:23 MEDIA SERVICES COORDINATOR Didier Valdez MD [facility] CPT-67612 Level 3 Est. Patient 17:18:46 CDT Wilfredo wyatt MD [facility] CPT-02579 Level 3 Est. Patient 10:03:01 CDT Wilfredo wyatt MD [facility] CPT-77016 Level 3 Est. Patient 14:51:46 MEDIA SERVICES COORDINATOR Wilfredo wyatt MD [facility] CPT-93163 Level 3 Est. Patient 18:41:44 MEDIA SERVICES COORDINATOR Wilfredo wyatt MD [facility] CPT-87323 Level 3 Est. Patient 19:42:04 MEDIA SERVICES COORDINATOR Wilfredo wyatt MD [facility] CPT-62815 Level 4 New Patient 12:51:50 CDT J Valdez gan MD [facility] Procedures Code Procedure Name Date Entry Date Standard Desc ription CPT-86836 Abd single AP View 10:52:37 MEDIA SERVICES COORDINATOR CPT-65737 LS spine AP and Lat 13:45:51 CDT CPT-93890 LS spine AP and Lat 15:58:55 MEDIA SERVICES COORDINATOR CPT-68144 Drug Screen Leonid 14:45:55 MEDIA SERVICES COORDINATOR CPT-95716 Postop F/U Visit 17:53:11 CDT CPT-37754 Urine Dip (Floor Use Only) 12:51:50 CDT 201 04/24/28 CPT-27453 Abd single AP View 12:51:50 CDT
--- OUTSIDE RECORDS SUMMARY | 2019-05-31 10:32 | XMS REPORT | Clinical Summary ---
Author Author Admin, Liam Ruffin [facility] Address Unknown Phone Unavailable Allergies, Adverse Reactions, [...] as needed for muscle spasm/pain CYCLOBENZAPRINE HCL 93750901141 Active Didier Valdez MD Active OXYCONTIN 10 MG ORAL T12A by mouth twice a day OXY CODONE HCL 29302157535 Active Didier Valdez MD Active OXYCODONE HCL 5 MG ORAL CAPS Take one by mouth TID OXYCODONE HCL 39475215013 Active Didier Valdez MD Active METHYLPREDNISOLONE (MARY KATE) 4 MG TABS M ETHYLPREDNISOLONE 19055012238 No Longer Active Didier Valdez MD Active METHOCARBAMOL 750 MG TABS 1 tab tid METHOCARBAMOL 94210244167 No Longer Active Didier Valdez MD Active ULTRAM 50 MG TABS 1 tab q4-6h PRN TRAMADOL HCL 66 638478386 No Longer Active Didier Valdez MD Active TRAZODONE HCL 50 MG TABS Take 1 to 2 tablets every night TRAZODONE HCL 58523619203 No Longer Active Didier Valdez MD Activ e EQ IBUPROFEN 200 MG TABS Take 2 tablets every 4 to 6 hours PRN IBUPROFEN 29105640063 No Longer Active Wilfredo Troncoso MD Acti ve MOBIC 7.5 MG TABS 1 tablet by mouth twice daily MELOXICAM 66809432472 No Longer Active Wilfredo Troncoso MD Active PERCOCET 10-325 MG TABS take 1 tab po q6 hours prn pain. OXYCODONE-ACETAMINOPHEN 98668078388 Active Wilfredo Troncoso MD Active HYDROCODONE-ACETAMINOPHEN 7.5-325 MG TABS take 1-2 tab lets every 6 hours as needed for pain HYDROCODONE-ACETAMINOPHEN 92640952784 No Longer Active Wilfredo Troncoso MD Active LORTAB 5 5-500 MG TABS 1 tablet by mouth every 6 hours as ne eded for pain HYDROCODONE-ACETAMINOPHEN 64339038580 No Longer Activ e Wilfredo Troncoso MD Active MEDROL (MARY KATE) 4 MG TABS 6 tabs on day 1, 5 tabs on d ay 2, 4 tabs on day 3, 3 tabs on day 4, 2 tabs on day 5, 1 tab on day 6 METHYLPREDNISOLONE 91469549973 No Longer Active Wilfredo Troncoso MD Active ALPRAZOLAM 1 MG TABS Take 1 tablet 1x daily ALPRAZOLAM 3 6069366337 Active Wilfredo Troncoso MD Active ZOLOFT 100 MG TABS Take 1 tablet 2x daily SERTRALINE HCL 95601425041 Active Wilfredo Troncoso MD Active ZOLOFT 100 MG TABS 2 tabs by mouth once a day S ERTRALINE HCL 49622597586 No Longer Active Jameel STILES Active ZOFRAN ODT 4 MG TBDP 1 tablet every 6 hours as needed for nausea . ONDANSETRON 36256644159 No Longer Active Jameel STILES Active METOPROLOL TARTRATE 25 MG TABS 1 po q a.m. and 0.5 in evening 03/12 METOPROLOL TARTRATE 45553836059 Active Didier Valdez MD Ac tive ZOFRAN ODT 4 MG TBDP 1 tablet every 6 hours as needed for nausea . ZOFRAN ODT 4 MG TBDP 995705 ONDANSETRON Inactive ZOLOFT 100 MG TABS 2 tabs by mouth once a day Z OLOFT 100 MG TABS 432899 SERTRALINE HCL Inactive LORTAB 5 5-500 MG TABS 1 tablet by mouth every 6 hours as ne eded for pain LORTAB 5 5-500 MG TABS HYDROCODONE-ACETAM INOPHEN Inactive HYDROCODONE-ACETAMINOPHEN 7.5-325 MG TABS take 1-2 tab lets every 6 hours as needed for pain HYDROCODONE-ACETAMINOPHEN 7.5-32 5 MG TABS 751946 HYDROCODONE-ACETAMINOPHEN Inactive MOBIC 7.5 MG TABS 1 tablet by mouth twice daily 09/16 MOBIC 7.5 MG TABS 334793 MELOXICAM Inactive EQ IBUPROFEN 200 MG TABS Take 2 tablets every 4 to 6 hours PRN EQ IBUPROFEN 200 MG TABS 025014 IBUPROFEN Inactive TRAZODONE HCL 50 MG TABS Take 1 to 2 tablets every night TRAZODONE HCL 50 MG TABS 401211 TRAZODONE HCL Inactive ULTRAM 50 MG TABS 1 tab q4-6h PRN ULTRAM 50 MG TA 044233 TRAMADOL HCL Inactive METHOCARBAMOL 750 MG TABS 1 tab tid METHOCARBA MOL 750 MG TABS 369182 METHOCARBAMOL Inactive METHYLPREDNISOLONE (MARY KATE) 4 MG [...] 10*3/mm3 Encounters Code Encounter Date Provider Facility CPT-09332 Level 4 Est. Patient 16:31:23 SAP PP CONSULTANT Didier Valdez MD [facility] CPT-42056 Level 3 Est. Patient 17:18:46 CDT Wilfredo wyatt MD [facility] CPT-01312 Level 3 Est. Patient 10:03:01 CDT Wilfredo wyatt MD [facility] CPT-30184 Level 3 Est. Patient 14:51:46 SAP PP CONSULTANT Wilfredo wyatt MD [facility] CPT-88682 Level 3 Est. Patient 18:41:44 SAP PP CONSULTANT Wilfredo wyatt MD [facility] CPT-40118 Level 3 Est. Patient 19:42:04 SAP PP CONSULTANT Wilfredo wyatt MD [facility] CPT-37939 Level 4 New Patient 12:51:50 CDT J Valdez gan MD [facility] Procedures Code Procedure Name Date Entry Date Standard Desc ription CPT-79578 Postop F/U Visit 12:35:54 SAP PP CONSULTANT CPT-04743 Abd single AP View 10:52:37 SAP PP CONSULTANT CPT-76932 LS spine AP and Lat 13:45:51 CDT CPT-32779 LS spine AP and Lat 15:58:55 SAP PP CONSULTANT CPT-63835 Drug Screen Leonid 14:45:55 SAP PP CONSULTANT CPT-97162 Postop F/U Visit 17:53:11 CDT CPT-73308 Urine Dip (Floor Use Only) 12:51:50 CDT 201 04/24/28 CPT-35428 Abd single AP View 12:51:50 CDT
--- OUTSIDE RECORDS SUMMARY | 2019-05-31 10:33 | XMS REPORT ---
Author Author Liam BARRAGAN Organization [facility] Address [address] [place] [address] Care Team Providers Care Green Lumber Grader Name Role Phone ILIR BARRAGAN Unavailable PROBLEMS Type Condition ICD9-CM Code [id number] Code Onset Dates Condition S tatus SNOMED Code Problem Other insomnia G47.09 Active 96602 2000 Problem Chronic pain disorder G89.4 Active 554754672 Problem Essential hypertension I10 Active 73299310 ALLERGIES No Information SOCIAL HISTORY Never Assessed PLAN OF CARE VITAL SIGNS MEDICATIONS Medication Instructions Dosage Frequency Start Date End Date Duration S tatus Metoprolol Tartrate 50 mg Orally Once a day 1 tablet with food 24h May, Active Hydrochlorothiazide 12.5 MG Orally Once a day 1 tablet in the morni ng 24h May, Active RESULTS No Results PROCEDURES No Known procedures IMMUNIZATIONS No Known Immunizations MEDICAL (GENERAL) HISTORY Type Description Date Medical History Essential hypertension Surgical History Fusion L5S1. Back surgery 2012 Hospitalization History Surgery(s) Hospitalization History Kidney stones
--- OUTSIDE RECORDS SUMMARY | 2019-05-31 10:33 | XMS REPORT ---
Author Author Liam BARRAGAN Organization [facility] [place] Address [address] [place] [address] Care Team Providers Care Silverware Supervisor Name Role Phone LAUREL ILIR Unavailable PROBLEMS Type Condition ICD9-CM Code FUN48-AC Code Onset Dates Condition S tatus SNOMED Code Problem Other insomnia G47.09 Active 94106 2000 Problem Chronic pain disorder G89.4 Active 647988250 Problem Essential hypertension I10 Active 85385921 ALLERGIES No Known Allergies ENCOUNTERS Encounter Location Date Diagnosis [facility] [place] [address] [id number] [place] [address] Jan, [facility] [place] [address] [id number] [place], [place] [address]266[address] Jan, Dental examination Z01.20 [facility] [place] [address] [id number] [place], [place] [address] 9755[address] Jan, Essential hypertension I10 [facility] [place] [address] [id number] [place], [place] [address]138 Nov, Essential hypertension I10 [facility] [place] [address] [id number] [place], [place] [address] 342308 Nov, Essential hypertension I10 [facility] [place] [address] [id number] [place], [place] [id number] Oct, Essential hypertension I10 [facility] [place] [address] [id number] [place], [place] [address] 7559[address] Sep, [facility] [place] [address] [id number] [place] [address] 4997[address] Sep, [facility] [place] [address] [id number] [place], [place] [address] 047[address] Sep, [facility] [place] [address] [id number] [place], [place] [address] 244919 Aug, Essential hypertension I10 and Chronic pain disorder G89.[address] [facility] [place] [address] [id number] [place], [place] [address] 028686 Aug, [facility] [place] [address] [id number] [place], [place] [address] 0825[address] Aug, [facility] [place] [address] [id number] [place], [place] [address] 0168[address] Aug, Chronic pain disorder G89.[address] [facility] [place] [address] [id number] [place], [place] [address] 7489[address] July, Chronic pain disorder G89.4 [facility] [place] [address] [id number] [place], [place] [address] 1401[address] July, Chronic pain disorder G89.4 [facility] [place] [address] [facility] [address] [id number] [place], [place] [address] 889[address] May, Essential hypertension I10 ; Other insomnia G47.09 and Chronic pain disorder G89.4 [facility] [place] [address] [facility] [address] [id number] [place], [place] [address] 9800[address] May, Essential hypertension I10 [facility] [place] [address] [id number] [place], [place] [address] 711[address] May, [facility] [place] [address] [id number] [place], [place] [address] 735162 May, Essential hypertension I10 [facility] [place] [address] [id number] [place], [place] [address] 397244 May, Chronic pain disorder G89.4 and Essential hypertension I10 [facility] [place] [address] [id number] [place], [place] [address] 010627 14 May, 2016 Essential hypertension I10 [facility] [place] [address] [id number] [place], [place] [address] 274435 13 May, 2016 Chronic pain disorder G89.4 and Essential hypertension I10 [facility] [place] [address] [id number] [place], [place] [address]17[address] 14 Apr, 2016 Chronic pain disorder G89.4 and Essential hypertension I10 IMMUNIZATIONS No Known Immunizations SOCIAL HISTORY Never Assessed REASON FOR VISIT Blood pressure and back pain follow up-JULIO Adler PLAN OF CARE Activity Details Follow Up prn,4 Weeks Reason:f/u on pa in management VITAL SIGNS Height 66.5 in 2016-09-14 Weight 213.0 lbs 2016-09-14 Temperature 98.6 degrees Fahrenheit 2016-09-14 Heart Rate 75 bpm 2016-09-14 Respiratory Rate 18 2016-09-14 BMI 33.86 kg/m2 2016-09-14 Blood pressure systolic 122 mmHg 2016-09-14 Blood pressure diastolic 97 mmHg 2016-09-14 MEDICATIONS Medication Instructions Dosage Frequency Start Date End Date Duration S tatus Hydrochlorothiazide 12.5 MG Orally Once a day 1 tablet in the morni ng 24h May, Active Meloxicam 15 MG Orally Once a day 1 tablet 24h Aug, Sep, 30 day(s) Active Metoprolol Tartrate 25 MG Orally Once a day 2 tablet with food 24h May, Active RESULTS No Results PROCEDURES No Known procedures INSTRUCTIONS MEDICATIONS ADMINISTERED No Known Medications MEDICAL (GENERAL) HISTORY Type Description Date Medical History Essential hypertension Surgical History Fusion L5S1. Back surgery 2012 Hospitalization History Surgery(s) Hospitalization History Kidney stones
--- OUTSIDE RECORDS SUMMARY | 2019-05-31 10:33 | XMS REPORT ---
Author Author Liam BARRAGAN Organization [facility] [place] Address [address] [place] [address] Care Team Providers Care Cloth Picker Name Role Phone LAUREL ILIR Unavailable PROBLEMS Type Condition ICD9-CM Code [id number] Code Onset Dates Condition S tatus SNOMED Code Problem Other insomnia G47.09 Active 37945 2000 Problem Chronic pain disorder G89.4 Active 314967453 Problem Essential hypertension I10 Active 50552494 ALLERGIES No Information ENCOUNTERS Encounter Location Date Diagnosis [facility] [place] [address] [id number] [place] [address] 362428 Jan, [facility] [place] [address] [id number] [place] [address] 463172 Jan, Dental examination Z01.20 [facility] [place] [address] [id number] [place] [address] 639177 Jan, Essential hypertension I10 [facility] [place] [address] [id number] [place] [address] 334669 Nov, Essential hypertension I10 [facility] [place] [address] [id number] [place] [address] 749376 Nov, Essential hypertension I10 [facility] [place] [address] [id number] [place] [address] 809538 Oct, Essential hypertension I10 [facility] [place] [address] [id number] [place] [address] 786024 Sep, [facility] [place] [address] [id number] [place] [address] 305907 Sep, [facility] [place] [address] [id number] [place] [address] 605238 Sep, [facility] [place] [address] [id number] [place] [address] 495912 Aug, Essential hypertension I10 and Chronic pain disorder G89.4 [facility] [place] [address] [id number] [place] [address] 063866 Aug, [facility] [place] [address] [id number] [place] [address] 509872 Aug, [facility] [place] [address] [facility] [address] [id number] [place] [address] 185786 Aug, Chronic pain disorder G89.4 [facility] [place] [address] [facility] [address] [id number] [place] [address] 058029 July, Chronic pain disorder G89.4 [facility] [place] [address] [facility] [address] [id number] [place] [address] 720053 July, Chronic pain disorder G89.4 [facility] [place] [address] [facility] [address] [id number] [place] [address] 824278 May, Essential hypertension I10 ; Other insomnia G47.09 and Chronic pain disorder G89.4 [facility] [place] [address] [facility] [address] [id number] [place] [address] 009478 May, Essential hypertension I10 [facility] [place] [address] [facility] [address] [id number] [place] [address] 033802 May, [facility] [place] [address] [facility] [address] [id number] [place] [address] 981599 May, Essential hypertension I10 [facility] [place] [address] [facility] [address] [id number] [place] [address] 226521 May, Chronic pain disorder G89.4 and Essential hypertension I10 [facility] [place] [address] [facility] [address] [id number] [place] [address] 027598 14 May, 2016 Essential hypertension I10 [facility] [place] [address] [facility] [address] [id number] [place] [address] 836452 13 May, 2016 Chronic pain disorder G89.4 and Essential hypertension I10 [facility] [place] [address] [facility] [address] [id number] [place] [address] 387795 14 Apr, 2016 Chronic pain disorder G89.4 and Essential hypertension I10 IMMUNIZATIONS No Known Immunizations SOCIAL HISTORY Never Assessed REASON FOR VISIT medication refill PLAN OF CARE VITAL SIGNS MEDICATIONS Medication Instructions Dosage Frequency Start Date End Date Duration S angela Hydrochlorothiazide 12.5 MG Orally Once a day 1 tablet in the morni ng 24h May, Active Metoprolol Tartrate 25 MG Orally Once a day 2 tablet with food 24h May, Active RESULTS No Results PROCEDURES No Known procedures INSTRUCTIONS MEDICATIONS ADMINISTERED No Known Medications MEDICAL (GENERAL) HISTORY Type Description Date Medical History Essential hypertension Surgical History Fusion L5S1. Back surgery 2012 Hospitalization History Surgery(s) Hospitalization History Kidney stones
--- OUTSIDE RECORDS SUMMARY | 2019-05-31 10:33 | XMS REPORT | Clinical Summary ---
Author Author Admin, Liam Ruffin [facility] Address Unknown Phone Unavailable Allergies, Adverse Reactions, Alerts Allergy Name Reaction Description Start Date Severity Status Pr ovider No Known Allergies Alliso n [place] NKDA Critical Active Jameel STILES Conditions or Problems Problem Name Problem Code Onset Date Status Entry Date Provider Comment Standard Description Annotate HEALTH SCREENING V70.0 Active Jameel Balderrama A Routine general medical examination at a health care facility UTI 599.0 Active Didier Valdez MD Urinary tract infection, site not specified RENAL CALCULUS, RIGHT 592.0 Active Florentino lechuga MD Calculus of kidney URETERAL CALCULUS 592.1 Active Florentino Herrera MD Calculus of ureter RENAL CALCULUS 592.9 Active Florentino Herrera MD Urinary calculus, unspecified HEALTH SCREENING V70.0 Active Jameel Balderrama A Routine general medical examination at a health care facility BACK PAIN 724.5 Active Eli andre, unspecified LOW BACK PAIN, ACUTE 724.2 Active Wilfredo cornejo MD Lumbago LUMBAR STRAIN, ACUTE 847.2 Active Wilfredo cornejo MD Lumbar sprain SCIATICA 724.3 Active Wilfredo Troncoso MD Sciatica HYPERTENSION 401.9 Active Wilfredo Troncoso MD Unspecified essential hypertension Medication List Medication Instructions Start Date Stop Date Generic Name NDC Status Provider Patient Instruction EQ IBUPROFEN 200 MG TABS Take 2 tablets every 4 to 6 hours PRN IBUPROFEN 31840307980 No Longer Active Wilfredo Troncoso MD Acti ve MOBIC 7.5 MG TABS 1 tablet by mouth twice daily MELOXICAM 72893112537 No Longer Active Wilfredo Troncoso MD Active METHYLPREDNISOLONE (MARY KATE) 4 MG TABS M ETHYLPREDNISOLONE 68618642208 Active Wilfredo Troncoso MD Active METHOCARBAMOL 750 MG TABS 1 tab tid METHOCARBAMOL 702158 70920 Active Wilfredo Troncoso MD Active ULTRAM 50 MG TABS 1 tab q4-6h PRN TRAMADOL HCL 352118431 25 Active Wilfredo Troncoso MD Active PERCOCET 10-325 MG TABS take 1 tab po q6 hours prn pain. OXYCODONE-ACETAMINOPHEN 96765831197 Active Wilfredo Troncoso MD Active HYDROCODONE-ACETAMINOPHEN 7.5-325 MG TABS take 1-2 tab lets every 6 hours as needed for pain HYDROCODONE-ACETAMINOPHEN 73130134278 No Longer Active Wilfredo Troncoso MD Active LORTAB 5 5-500 MG TABS 1 tablet by mouth every 6 hours as ne eded for pain HYDROCODONE-ACETAMINOPHEN 36560611942 No Longer Activ e Wilfredo Troncoso MD Active MEDROL (MARY KATE) 4 MG TABS 6 tabs on day 1, 5 tabs on d ay 2, 4 tabs on day 3, 3 tabs on day 4, 2 tabs on day 5, 1 tab on day 6 METHYLPREDNISOLONE 09509638899 No Longer Active Wilfredo Troncoso MD Active TRAZODONE HCL 50 MG TABS Take 1 to 2 tablets every night TRAZODONE HCL 85681775058 Active Wilfredo Troncoso MD Active ALPRAZOLAM 1 MG TABS Take 1 tablet 1x daily ALPRAZOLAM 3 6141549948 Active Wilfredo Troncoso MD Active ZOLOFT 100 MG TABS Take 1 tablet 2x daily SERTRALINE HCL 41271632855 Active Wilfredo Troncoso MD Active ZOLOFT 100 MG TABS 2 tabs by mouth once a day S ERTRALINE HCL 46673340319 No Longer Active Jameel STILES Active ZOFRAN ODT 4 MG TBDP 1 tablet every 6 hours as needed for nausea . ONDANSETRON 78287579586 No Longer Active Jameel STILES Active METOPROLOL TARTRATE 25 MG TABS 1 po q a.m. and 0.5 in evening 03/12 METOPROLOL TARTRATE 25011497689 Active Wilfredo Troncoso MD A ctive ZOFRAN ODT 4 MG TBDP 1 tablet every 6 hours as needed for nausea . ZOFRAN ODT 4 MG TBDP 141128 ONDANSETRON Inactive ZOLOFT 100 MG TABS 2 tabs by mouth once a day Z OLOFT 100 MG TABS 978026 SERTRALINE HCL Inactive LORTAB 5 5-500 MG TABS 1 tablet by mouth every 6 hours as ne eded for pain LORTAB 5 5-500 MG TABS HYDROCODONE-ACETAM INOPHEN Inactive HYDROCODONE-ACETAMINOPHEN 7.5-325 MG TABS take 1-2 tab lets every 6 hours as needed for pain HYDROCODONE-ACETAMINOPHEN 7.5-32 5 MG TABS 989694 HYDROCODONE-ACETAMINOPHEN Inactive MOBIC 7.5 MG TABS 1 tablet by mouth twice daily 09/16 MOBIC 7.5 MG TABS 358652 MELOXICAM Inactive EQ IBUPROFEN 200 MG TABS Take 2 tablets every 4 to 6 hours PRN EQ IBUPROFEN 200 MG TABS 445446 IBUPROFEN Inactive MEDROL (MARY KATE) 4 MG TABS 6 tabs on day 1, 5 tabs on d ay 2, 4 tabs on day 3, 3 tabs on day 4, 2 tabs on day 5, 1 tab on day 6 MEDROL (MARY KATE) 4 MG TABS METHYLPREDNISOLONE Inactive Encounters Code Encounter Date Provider Facility CPT-96765 Level 3 Est. Patient 17:18:46 CDT Wilfredo wyatt MD [facility] CPT-81724 Level 3 Est. Patient 10:03:01 CDT Wilfredo wyatt MD [facility] CPT-55161 Level 3 Est. Patient 14:51:46 MACHINE SETTER AUTOMATIC Wilfredo wyatt MD [facility] CPT-09708 Level 3 Est. Patient 18:41:44 MACHINE SETTER AUTOMATIC Wilfredo wyatt MD [facility] CPT-83074 Level 3 Est. Patient 19:42:04 MACHINE SETTER AUTOMATIC Wilfredo wyatt MD [facility] CPT-91534 Level 4 New Patient 12:51:50 CDT J Valdez gan MD [facility] Procedures Code Procedure Name Date Entry Date Standard Desc ription CPT-19508 LS spine AP and Lat 13:45:51 CDT CPT-03112 LS spine AP and Lat 15:58:55 MACHINE SETTER AUTOMATIC CPT-28378 Drug Screen Leonid 14:45:55 MACHINE SETTER AUTOMATIC CPT-55845 Postop F/U Visit 17:53:11 CDT CPT-16416 Urine Dip (Floor Use Only) 12:51:50 CDT 201 04/24/28 CPT-45614 Abd single AP View 12:51:50 CDT
--- OUTSIDE RECORDS SUMMARY | 2019-05-31 10:33 | XMS REPORT ---
Author Author [facility] Medic al StaffAIMEE Organization [facility] Address [address] [place], [place] [address] Phone [phone] Care Team Providers Care Employee Relations Manager Name Role Phone KATHIA DUKE MD PP [phone] Summary purpose TRANSITION OF CARE AUTO GENERATION Chief Complaint and Reason for Visit No authorized Reason for Visit (Admitting Diagnosis) is available for this visit . Problem list No authorized problems tracked for [...] Code Type Description Date Performed Performing Physician 16893 CPT-4 EMERGENCY DEPT VISIT 08-06-2015 YUDI JUNE 87027 CPT-4 EMERGENCY DEPT VISIT 08-06-2015 YUDI JUNE Functional status Functional Status Finding Observation Time Abdomen Appearance round :50 Abdomen non-tender :50 Bowel Sounds present :50 Hernandez no :50 Urination normal :50 Quality sym/unlabored :50 Cough absent :50 Secretions no :50 Breath Sounds RUL clear :50 Breath Sounds RML clear :50 Breath Sounds RLL clear :50 Breath Sounds ALFONSO clear :50 Breath Sounds LLL clear :50 Airway natural :50 Oxygen no :10 Temp >100.4 no :50 Temp <96.8 no :50 Chills with rigors no : HR > 90bpm no :50 Respirations > 20 no :50 Systolic <90 no : headache stiff neck no :50 IV Site Location no access :00 Nursing Note dc instructions given. medic ation education given. pt verbalized understanding. denies questions or concerns. pt amb off unit. encouraged to call with any questions. :10 Vital signs Type Value Date Respiration Rate 20breaths per minute : Pulse 90beats per minute :10 Oxygen Saturation 95% :10 BP Systolic 151mmHg :10 BP Diastolic 102mmHg :10 Temperature 98.2F :10 Social history Type Value Smoking Status CURRENT EVERY DAY SMOKER Treatment Plan No treatment plan text is available for this visit. Hospital discharge instructions Dismissal Condition good Disposition on DC home DC Inst/Educ Give yes Med/Side Effects Rev yes PNE Vac None Flu Vac None Tetanus Vac 2007
--- OUTSIDE RECORDS SUMMARY | 2019-05-31 10:33 | XMS REPORT ---
Author Author Liam BARRAGAN Organization [facility] Address [address] [place] [address] Care Team Providers Care Paper Testing Supervisor Name Role Phone ILIR BARRAGAN Unavailable PROBLEMS Type Condition ICD9-CM Code IPL47-NC Code Onset Dates Condition S tatus SNOMED Code Problem Other insomnia G47.09 Active 83643 2000 Problem Chronic pain disorder G89.4 Active 721513647 Problem Essential hypertension I10 Active 24688442 ALLERGIES No Known Allergies SOCIAL HISTORY Never Assessed PLAN OF CARE Activity Details Follow Up prn, 1 Week Reason:for BP ch abbi VITAL SIGNS Height 66.5 in 2016-06-09 Weight 214.6 lbs 2016-06-09 Temperature 97.9 degrees Fahrenheit 2016-06-09 Heart Rate 86 bpm 2016-06-09 Respiratory Rate 16 2016-06-09 BMI 34.11 kg/m2 2016-06-09 Blood pressure systolic 148 mmHg 2016-06-09 Blood pressure diastolic 106 mmHg 2016-06-09 MEDICATIONS Medication Instructions Dosage Frequency Start Date End Date Duration S tatus Tramadol HCl 50 mg Orally every 6 hrs 1-2 tablet as needed 6h 13 Tia r, 2017 Active Metoprolol-HCTZ ER 50-12.5 MG Orally Once a day 1 tablet 24h Active RESULTS No Results PROCEDURES No Known procedures IMMUNIZATIONS No Known Immunizations MEDICAL (GENERAL) HISTORY Type Description Date Medical History Essential hypertension Surgical History Fusion L5S1. Back surgery 2012 Hospitalization History Surgery(s) Hospitalization History Kidney stones
--- OUTSIDE RECORDS SUMMARY | 2019-05-31 10:33 | XMS REPORT ---
Author Author Liam BARRAGAN Organization [facility] [place] Address [address] [place] [address] Care Team Providers Care Real Estate Office Supervisor Name Role Phone LAUREL ILIR Unavailable PROBLEMS Type Condition ICD9-CM Code OZL65-JQ Code Onset Dates Condition S tatus SNOMED Code Problem Other insomnia G47.09 Active 59025 2000 Problem Chronic pain disorder G89.4 Active 778085926 Problem Essential hypertension I10 Active 46598643 ALLERGIES No Information ENCOUNTERS Encounter Location Date Diagnosis [facility] [place] [address] [id number] [place] [address] 760896 Jan, [facility] [place] [address] [id number] [place] [address] 956826 Jan, Dental examination Z01.20 [facility] [place] [address] [id number] [place] [address] 502685 Jan, Essential hypertension I10 [facility] [place] [address] [id number] [place] [address] 301348 Nov, Essential hypertension I10 [facility] [place] [address] [id number] [place] [address] 035083 Nov, Essential hypertension I10 [facility] [place] [address] [id number] [place] [address] 379785 Oct, Essential hypertension I10 [facility] [place] [address] [id number] [place] [address] 881332 Sep, [facility] [place] [address] [id number] [place] [address] 408626 Sep, [facility] [place] [address] [id number] [place] [address] 788012 Sep, [facility] [place] [address] [id number] [place] [address] 590600 Aug, Chronic pain disorder G89.4 and Essential hypertension I10 [facility] [place] [address] [id number] [place] [address] 675356 Aug, [facility] [place] [address] [id number] [place] [address] 536928 Aug, [facility] [place] [address] [facility] [address] [id number] [place] [address] 999021 Aug, Chronic pain disorder G89.4 [facility] [place] [address] [facility] [address] [id number] [place] [address] 778697 July, Chronic pain disorder G89.4 [facility] [place] [address] [facility] [address] [id number] [place] [address] 867553 July, Chronic pain disorder G89.4 [facility] [place] [address] [facility] [address] [id number] [place] [address] 149409 May, Essential hypertension I10 ; Other insomnia G47.09 and Chronic pain disorder G89.4 [facility] [place] [address] [facility] [address] [id number] [place] [address] 423015 May, Essential hypertension I10 [facility] [place] [address] [facility] [address] [id number] [place] [address] 956481 May, [facility] [place] [address] [facility] [address] [id number] [place] [address] 619609 May, Essential hypertension I10 [facility] [place] [address] [facility] [address] [id number] [place] [address] 565959 May, Chronic pain disorder G89.4 and Essential hypertension I10 [facility] [place] [address] [facility] [address] [id number] [place] [address] 113576 14 May, 2016 Essential hypertension I10 [facility] [place] [address] [facility] [address] [id number] [place] [address] 246041 13 May, 2016 Chronic pain disorder G89.4 and Essential hypertension I10 [facility] [place] [address] [facility] [address] [id number] [place] [address] 626497 14 Apr, 2016 Chronic pain disorder G89.4 and Essential hypertension I10 IMMUNIZATIONS No Known Immunizations SOCIAL HISTORY Never Assessed REASON FOR VISIT Refill request PLAN OF CARE VITAL SIGNS MEDICATIONS Medication [...]
--- OUTSIDE RECORDS SUMMARY | 2019-05-31 10:33 | XMS REPORT ---
Author Author Liam BARRAGAN Organization [facility] [place] Address [address] [place] [address] Care Team Providers Care Gas Pumping Station Helper Name Role Phone LAUREL ILIR Unavailable PROBLEMS Type Condition ICD9-CM Code [id number] Code Onset Dates Condition S tatus SNOMED Code Problem Other insomnia G47.09 Active 19757 2000 Problem Chronic pain disorder G89.4 Active 778647889 Problem Essential hypertension I10 Active 78917565 ALLERGIES No Information ENCOUNTERS Encounter Location Date Diagnosis [facility] [place] [address] [id number] [place] [address] 532732 Jan, [facility] [place] [address] [id number] [place] [address] 742395 Jan, Dental examination Z01.20 [facility] [place] [address] [id number] [place] [address] 162000 Jan, Essential hypertension I10 [facility] [place] [address] [id number] [place] [address] 638120 Nov, Essential hypertension I10 [facility] [place] [address] [id number] [place] [address] 976691 Nov, Essential hypertension I10 [facility] [place] [address] [id number] [place] [address] 316399 Oct, Essential hypertension I10 [facility] [place] [address] [id number] [place] [address] 369464 Sep, [facility] [place] [address] [id number] [place] [address] 419271 Sep, [facility] [place] [address] [id number] [place] [address] 483368 Sep, [facility] [place] [address] [id number] [place] [address] 897031 Aug, Essential hypertension I10 and Chronic pain disorder G89.4 [facility] [place] [address] [id number] [place] [address] 478071 Aug, [facility] [place] [address] [id number] [place] [address] 646473 Aug, [facility] [place] [address] [facility] [address] [id number] [place] [address] 452103 Aug, Chronic pain disorder G89.4 [facility] [place] [address] [id number] [place] [address] 320736 July, Chronic pain disorder G89.4 [facility] [place] [address] [facility] [address] [id number] [place] [address] 339664 July, Chronic pain disorder G89.4 [facility] [place] [address] [facility] [address] [id number] [place] [address] 197195 May, Essential hypertension I10 ; Other insomnia G47.09 and Chronic pain disorder G89.4 [facility] [place] [address] [facility] [address] [id number] [place] [address] 155483 May, Essential hypertension I10 [facility] [place] [address] [facility] [address] [id number] [place] [address] 451318 May, [facility] [place] [address] [facility] [address] [id number] [place] [address] 848724 May, Essential hypertension I10 [facility] [place] [address] [facility] [address] [id number] [place] [address] 539094 May, Chronic pain disorder G89.4 and Essential hypertension I10 [facility] [place] [address] [facility] [address] [id number] [place] [address] 291608 14 May, 2016 Essential hypertension I10 [facility] [place] [address] [facility] [address] [id number] [place] [address] 649540 13 May, 2016 Chronic pain disorder G89.4 and Essential hypertension I10 [facility] [place] [address] [id number] [place] [address] 959095 14 Apr, 2016 Chronic pain disorder G89.4 and Essential hypertension I10 IMMUNIZATIONS No Known Immunizations SOCIAL HISTORY Never Assessed REASON FOR VISIT Refill request PLAN OF CARE VITAL SIGNS MEDICATIONS Unknown Medications RESULTS No Results PROCEDURES No Known procedures INSTRUCTIONS MEDICATIONS ADMINISTERED No Known Medications MEDICAL (GENERAL) HISTORY Type Description Date Medical History Essential hypertension Surgical History Fusion L5S1. Back surgery 2012 Hospitalization History Surgery(s) Hospitalization History Kidney stones
--- OUTSIDE RECORDS SUMMARY | 2019-05-31 10:33 | XMS REPORT ---
Author Author Liam BRICENO Organization [facility] Address [address] [place] [address] Care Team Providers Care Supervisor Testing Name Role Phone JOSE BRICENO Unavailable PROBLEMS Type Condition ICD9-CM Code [id number] Code Onset Dates Condition S tatus SNOMED Code Problem Other insomnia G47.09 Active 33521 2000 Problem Chronic pain disorder G89.4 Active 547432452 Problem Essential hypertension I10 Active 98208619 ALLERGIES No Information SOCIAL HISTORY Never Assessed PLAN OF CARE VITAL SIGNS MEDICATIONS Medication Instructions Dosage Frequency Start Date End Date Duration S tatus Tramadol HCl 50 mg Orally every 6 hrs--Pt needs appt with PCM prior to next refill 1 tablet as needed May, 21 days Acti ve RESULTS No Results PROCEDURES No Known procedures IMMUNIZATIONS No Known Immunizations MEDICAL (GENERAL) HISTORY Type Description Date Medical History Essential hypertension Surgical History Fusion L5S1. Back surgery 2012 Hospitalization History Surgery(s) Hospitalization History Kidney stones
--- OUTSIDE RECORDS SUMMARY | 2019-05-31 10:33 | XMS REPORT | Clinical Summary ---
Author Author Admin, Liam [facility] Address Unknown Phone Unavailable Allergies, Adverse Reactions, [...] MG TABS 1 po qd SERTRALINE HCL 28292555901 Active Didier Valdez MD Active OXYCONTIN 10 MG ORAL T12A by mouth twice a day OXYCODONE HCL 59965542234 No Longer Active Didier Valdez MD Active CYCLOBENZAPRINE HCL 10 MG TABS 1 tablet by mouth three times daily as needed for muscle spasm/pain CYCLOBENZAPRINE HCL 90861435467 Active Didier Valdez MD Active OXYCODONE HCL 5 MG ORAL CAPS Take one by mouth TID OXYCODONE HCL 30793660799 Active Didier Valdez MD Active METHYLPREDNISOLONE (MARY KATE) 4 MG TABS M ETHYLPREDNISOLONE 46582700933 No Longer Active Didier Valdez MD Active METHOCARBAMOL 750 MG TABS 1 tab tid METHOCARBAMOL 27006306773 No Longer Active Didier Valdez MD Active ULTRAM 50 MG TABS 1 tab q4-6h PRN TRAMADOL HCL 66 667152936 No Longer Active Didier Valdez MD Active TRAZODONE HCL 50 MG TABS Take 1 to 2 tablets every night TRAZODONE HCL 68484318693 No Longer Active Didier Valdez MD Activ e EQ IBUPROFEN 200 MG TABS Take 2 tablets every 4 to 6 hours PRN IBUPROFEN 33063296636 No Longer Active Wilfredo Troncoso MD Acti ve MOBIC 7.5 MG TABS 1 tablet by mouth twice daily MELOXICAM 93039771498 No Longer Active Wilfredo Troncoso MD Active PERCOCET 10-325 MG TABS take 1 tab po q6 hours prn pain. OXYCODONE-ACETAMINOPHEN 35161933690 Active Wilfredo Troncoso MD Active HYDROCODONE-ACETAMINOPHEN 7.5-325 MG TABS take 1-2 tab lets every 6 hours as needed for pain HYDROCODONE-ACETAMINOPHEN 08582048938 No Longer Active Wilfredo Troncoso MD Active LORTAB 5 5-500 MG TABS 1 tablet by mouth every 6 hours as ne eded for pain HYDROCODONE-ACETAMINOPHEN 44088542359 No Longer Activ e Wilfredo Troncoso MD Active MEDROL (MARY KATE) 4 MG TABS 6 tabs on day 1, 5 tabs on d ay 2, 4 tabs on day 3, 3 tabs on day 4, 2 tabs on day 5, 1 tab on day 6 METHYLPREDNISOLONE 81367572526 No Longer Active Wilfredo Troncoos MD Active ALPRAZOLAM 1 MG TABS Take 1 tablet 1x daily ALPRAZOLAM 3 3278571424 Active Wilfredo Troncoso MD Active ZOLOFT 100 MG TABS 2 tabs by mouth once a day S ERTRALINE HCL 30228858702 No Longer Active Jameel STILES Active ZOFRAN ODT 4 MG TBDP 1 tablet every 6 hours as needed for nausea . ONDANSETRON 39100411838 No Longer Active Jameel STILES Active METOPROLOL TARTRATE 25 MG TABS 1 po q a.m. and 0.5 in evening 03/12 METOPROLOL TARTRATE 73268030702 Active Didier Valdez MD Ac tive ZOFRAN ODT 4 MG TBDP 1 tablet every 6 hours as needed for nausea . ZOFRAN ODT 4 MG TBDP 650343 ONDANSETRON Inactive ZOLOFT 100 MG TABS 2 tabs by mouth once a day Z OLOFT 100 MG TABS 218514 SERTRALINE HCL Inactive LORTAB 5 5-500 MG TABS 1 tablet by mouth every 6 hours as ne eded for pain LORTAB 5 5-500 MG TABS HYDROCODONE-ACETAM INOPHEN Inactive HYDROCODONE-ACETAMINOPHEN 7.5-325 MG TABS take 1-2 tab lets every 6 hours as needed for pain HYDROCODONE-ACETAMINOPHEN 7.5-32 5 MG TABS 730949 HYDROCODONE-ACETAMINOPHEN Inactive MOBIC 7.5 MG TABS 1 tablet by mouth twice daily 09/16 MOBIC 7.5 MG TABS 812370 MELOXICAM Inactive EQ IBUPROFEN 200 MG TABS Take 2 tablets every 4 to 6 hours PRN EQ IBUPROFEN 200 MG TABS 951152 IBUPROFEN Inactive TRAZODONE HCL 50 MG TABS Take 1 to 2 tablets every night TRAZODONE HCL 50 MG TABS 528035 TRAZODONE HCL Inactive ULTRAM 50 MG TABS 1 tab q4-6h PRN ULTRAM 50 MG TA BS 428646 TRAMADOL HCL Inactive METHOCARBAMOL 750 MG TABS 1 tab tid METHOCARBA MOL 750 MG TABS 147836 METHOCARBAMOL Inactive METHYLPREDNISOLONE (MARY KATE) 4 MG TABS 04/27 METHYLPREDNISOLONE (MARY KATE) 4 MG TABS 231442 METHYLPREDNISOLONE Inactive OXYCONTIN 10 MG ORAL T12A by mouth twice a day OXYCONTIN 10 MG ORAL T12A OXYCODONE HCL Inactive MEDROL (MARY KATE) 4 MG TABS 6 tabs on day 1, 5 tabs on d ay 2, 4 tabs on day 3, 3 tabs on day 4, 2 tabs on day 5, 1 tab on day 6 MEDROL (MARY KATE) 4 MG TABS 514045 METHYLPREDNISOLONE Inactive Vital Signs Date Name Value Unit Range Description blood pressure, diastolic - 8462-4 95 mm[Hg] BP fink blood pressure, systolic - 8480-6 131 mm[Hg] BP sys pulse rate E&M - 8867-4 70 /min H eart rate temperature E&M 96.9 [degF] Body temp erature weight E&M - 3141-9 212 [lb_av] Weigh t Measured blood pressure, diastolic - 8462-4 82 mm[Hg] BP ifnk blood pressure, systolic - 8480-6 127 mm[Hg] [...] mg/dL Chart Maintenance: Outside labs entered on [employer] - Hematology leukocyte count, blood 8.1 10*3/mm3 hemoglobin, blood 15.2 g/dL platelet count 329 10*3/mm3 Lab Report: Thyroid Stimulating Hormone (L), MICROALB/CREAT W/RATIO, Lip ... - Chemistry TSH 1.38 m[iU]/mL 0.36-3.74 albumin/creatinine ratio, urine < 30 mg/g mg/g{creat} 0-2 9 cholesterol, serum 154 mg/dL 930-488 7022/07/25 triglyceride, serum, fasting 122 mg/dL 30-200 HDL cholesterol, serum 41 mg/dL 32-96 LDL cholesterol, serum 89 mg/dL 0-130 sodium, serum 144 mmol/L 348-935 8702/07/25 carbon dioxide, venous blood 30.1 mmol/L 21.0-32 [...] 0-19 Encounters Code Encounter Date Provider Facility CPT-48284 Level 4 Est. Patient 08:45:55 CDT Didier Valdez MD [facility] CPT-75627 Level 4 Est. Patient 16:31:23 SUSTAINABLE AGRICULTURE SPECIALIST Didier Valdez MD [facility] CPT-79726 Level 3 Est. Patient 17:18:46 CDT Wilfredo wyatt MD [facility] CPT-71057 Level 3 Est. Patient 10:03:01 CDT Wilfredo wyatt MD [facility] CPT-82638 Level 3 Est. Patient 14:51:46 SUSTAINABLE AGRICULTURE SPECIALIST Wilfredo wyatt MD [facility] CPT-07337 Level 3 Est. Patient 18:41:44 SUSTAINABLE AGRICULTURE SPECIALIST Wilfredo wyatt MD [facility] CPT-67479 Level 3 Est. Patient 19:42:04 SUSTAINABLE AGRICULTURE SPECIALIST Wilfredo wyatt MD [facility] CPT-98163 Level 4 New Patient 12:51:50 CDT J Valdez gan MD [facility] Procedures Code Procedure Name Date Entry Date Standard Desc ription CPT-48974 Venipuncture Draw Fee 09:13:28 CDT CPT-36311 Venipuncture Draw Fee 08:56:11 CDT CPT-31811 Postop F/U Visit 12:35:54 SUSTAINABLE AGRICULTURE SPECIALIST CPT-82553 Abd single AP View 10:52:37 SUSTAINABLE AGRICULTURE SPECIALIST CPT-69713 LS spine AP and Lat 13:45:51 CDT CPT-45067 LS spine AP and Lat 15:58:55 SUSTAINABLE AGRICULTURE SPECIALIST CPT-13942 Drug Screen Leonid 14:45:55 SUSTAINABLE AGRICULTURE SPECIALIST CPT-41450 Postop F/U Visit 17:53:11 CDT CPT-91039 Urine Dip (Floor Use Only) 12:51:50 CDT 201 04/24/28 CPT-09817 Abd single AP View 12:51:50 CDT
--- OUTSIDE RECORDS SUMMARY | 2019-05-31 10:33 | XMS REPORT ---
Author Author Liam BARRAGAN Organization [facility] Address [address] [place] [address] Care Team Providers Care Select Banker Name Role Phone ILIR BARRAGAN Unavailable PROBLEMS Type Condition ICD9-CM Code [id number] Code Onset Dates Condition S tatus SNOMED Code Problem Other insomnia G47.09 Active 00913 2000 Problem Chronic pain disorder G89.4 Active 295549048 Problem Essential hypertension I10 Active 75915394 ALLERGIES No Known Allergies SOCIAL HISTORY Never Assessed PLAN OF CARE Activity Details Follow Up prn, 2 - 3 Days Reason:for f asting labs VITAL SIGNS Height 66.5 in 2016-05-05 Weight 213.0 lbs 2016-05-05 Temperature 98.6 degrees Fahrenheit 2016-05-05 Heart Rate 84 bpm 2016-05-05 Respiratory Rate 16 2016-05-05 BMI 33.86 kg/m2 2016-05-05 Blood pressure systolic 118 mmHg 2016-05-05 Blood pressure diastolic 80 mmHg 2016-05-05 MEDICATIONS Medication Instructions Dosage Frequency Start Date End Date Duration S tatus Hydrocodone-Acetaminophen 10-325 MG Orally every 6 hrs 1 tablet as ne eded 6h Active Oxycodone HCl 5 MG Orally every 6 hrs 1 tablet 6h Active Metoprolol-HCTZ ER 25-12.5 MG Orally Once a day 1 tablet 24h Active RESULTS No Results PROCEDURES No Known procedures IMMUNIZATIONS No Known Immunizations MEDICAL (GENERAL) HISTORY Type Description Date Medical History Essential hypertension Surgical History Fusion L5S1. Back surgery 2012 Hospitalization History Surgery(s) Hospitalization History Kidney stones
--- OUTSIDE RECORDS SUMMARY | 2019-05-31 10:33 | XMS REPORT ---
Author Author Liam BARRAGAN [facility] Address [address] [place] [address] Care Team Providers Care Dehydrator Tender Name Role Phone ILIR BARRAGAN Unavailable PROBLEMS Type Condition ICD9-CM Code [id number] Code Onset Dates Condition S tatus SNOMED Code Problem Other insomnia G47.09 Active 14253 2000 Problem Chronic pain disorder G89.4 Active 157033146 Problem Essential hypertension I10 Active 44250445 ALLERGIES No Information SOCIAL HISTORY Never Assessed PLAN OF CARE VITAL SIGNS MEDICATIONS No Known Medications RESULTS No Results PROCEDURES No Known procedures IMMUNIZATIONS No Known Immunizations MEDICAL (GENERAL) HISTORY Type Description Date Medical History Essential hypertension Surgical History Fusion L5S1. Back surgery 2012 Hospitalization History Surgery(s) Hospitalization History Kidney stones
--- OUTSIDE RECORDS SUMMARY | 2019-05-31 10:33 | XMS REPORT ---
Author Author Liam BARRAGAN [facility] Address [address] [place] [address] Care Team Providers Care Oven Tender Bagels Name Role Phone ILIR BARRAGAN Unavailable PROBLEMS Type Condition ICD9-CM Code [id number] Code Onset Dates Condition S tatus SNOMED Code Problem Other insomnia G47.09 Active 24405 2000 Problem Chronic pain disorder G89.4 Active 438528975 Problem Essential hypertension I10 Active 81543962 ALLERGIES No Information SOCIAL HISTORY Never Assessed PLAN OF CARE VITAL SIGNS MEDICATIONS Medication Instructions Dosage Frequency Start Date End Date Duration S tatus Tramadol HCl 50 mg Orally every 6 hrs 1 tablet as needed 6h May, Active RESULTS No Results PROCEDURES No Known procedures IMMUNIZATIONS No Known Immunizations MEDICAL (GENERAL) HISTORY Type Description Date Medical History Essential hypertension Surgical History Fusion L5S1. Back surgery 2012 Hospitalization History Surgery(s) Hospitalization History Kidney stones
--- OUTSIDE RECORDS SUMMARY | 2019-05-31 10:33 | XMS REPORT ---
Author Author Liam BARRAGAN Organization [facility] Address [address] [place] [address] Care Team Providers Care Clin Application Specialist Name Role Phone ILIR BARRAGAN Unavailable PROBLEMS Type Condition ICD9-CM Code [id number] Code Onset Dates Condition S tatus SNOMED Code Problem Other insomnia G47.09 Active 09610 2000 Problem Chronic pain disorder G89.4 Active 285888004 Problem Essential hypertension I10 Active 21547100 ALLERGIES No Information SOCIAL HISTORY Never Assessed PLAN OF CARE VITAL SIGNS MEDICATIONS Medication Instructions Dosage Frequency Start Date End Date Duration S tatus Tramadol HCl 50 mg Orally every 6 hrs--Pt needs appt with PCM prior to next refill 1 tablet as needed May, Aug, 21 days Ac tive RESULTS No Results PROCEDURES No Known procedures IMMUNIZATIONS No Known Immunizations MEDICAL (GENERAL) HISTORY Type Description Date Medical History Essential hypertension Surgical History Fusion L5S1. Back surgery 2012 Hospitalization History Surgery(s) Hospitalization History Kidney stones
--- OUTSIDE RECORDS SUMMARY | 2019-05-31 10:33 | XMS REPORT ---
Author Author Liam BARRAGAN [facility] Address [address] [place] [address] Care Team Providers Care Subassembler Name Role Phone ILIR BARRAGAN Unavailable PROBLEMS Type Condition ICD9-CM Code GHF07-LW Code Onset Dates Condition S tatus SNOMED Code Problem Other insomnia G47.09 Active 11460 2000 Problem Chronic pain disorder G89.4 Active 341661342 Problem Essential hypertension I10 Active 79279983 ALLERGIES No Information SOCIAL HISTORY Never Assessed PLAN OF CARE VITAL SIGNS MEDICATIONS Medication Instructions Dosage Frequency Start Date End Date Duration S tatus Metoprolol-HCTZ ER 50-12.5 MG Orally Once a day 1 tablet 24h Active RESULTS No Results PROCEDURES No Known procedures IMMUNIZATIONS No Known Immunizations MEDICAL (GENERAL) HISTORY Type Description Date Medical History Essential hypertension Surgical History Fusion L5S1. Back surgery 2012 Hospitalization History Surgery(s) Hospitalization History Kidney stones
--- OUTSIDE RECORDS SUMMARY | 2019-05-31 10:33 | XMS REPORT | Clinical Summary ---
Author Author Admin, Liam Ruffin [facility] Address Unknown Phone Unavailable Allergies, Adverse Reactions, Alerts Allergy Name Reaction Description Start Date Severity Status Pr ovider No Known Allergies Alliso n [place] NKDA Critical Active Jameel STILES Conditions or Problems Problem Name Problem Code Onset Date Status Entry Date Provider Comment Standard Description Annotate HEALTH SCREENING V70.0 Active Jameel aBlderrama A Routine general medical examination at a [...] every 4 to 6 hours PRN IBUPROFEN 57421795129 No Longer Active Wilfredo Troncoso MD Acti ve MOBIC 7.5 MG TABS 1 tablet by mouth twice daily MELOXICAM 09957838682 No Longer Active Wilfredo Troncoso MD Active METHYLPREDNISOLONE (MARY KATE) 4 MG TABS M ETHYLPREDNISOLONE 33692972949 Active Wilfredo Troncoso MD Active METHOCARBAMOL 750 MG TABS 1 tab tid METHOCARBAMOL 639530 32139 Active Wilfredo Troncoso MD Active ULTRAM 50 MG TABS 1 tab q4-6h PRN TRAMADOL HCL 049443563 25 Active Wilfredo Troncoso MD Active PERCOCET 10-325 MG TABS take 1 tab po q6 hours prn pain. OXYCODONE-ACETAMINOPHEN 87935830278 Active Wilfredo Troncoso MD Active HYDROCODONE-ACETAMINOPHEN 7.5-325 MG TABS take 1-2 tab lets every 6 hours as needed for pain HYDROCODONE-ACETAMINOPHEN 54901087463 No Longer Active Wilfredo Troncoso MD Active LORTAB 5 5-500 MG TABS 1 tablet by mouth every 6 hours as ne eded for pain HYDROCODONE-ACETAMINOPHEN 36603314970 No Longer Activ e Wilfredo Troncoso MD Active MEDROL (MARY KATE) 4 MG TABS 6 tabs on day 1, 5 tabs on d ay 2, 4 tabs on day 3, 3 tabs on day 4, 2 tabs on day 5, 1 tab on day 6 METHYLPREDNISOLONE 92864983800 No Longer Active Wilfredo Troncoso MD Active TRAZODONE HCL 50 MG TABS Take 1 to 2 tablets every night TRAZODONE HCL 50461771479 Active Wilfredo Troncoso MD Active ALPRAZOLAM 1 MG TABS Take 1 tablet 1x daily ALPRAZOLAM 3 3602782801 Active Wilfredo Troncoso MD Active ZOLOFT 100 MG TABS Take 1 tablet 2x daily SERTRALINE HCL 97326122136 Active Wilfredo Troncoso MD Active ZOLOFT 100 MG TABS 2 tabs by mouth once a day S ERTRALINE HCL 50798621688 No Longer Active Jameel STILES Active ZOFRAN ODT 4 MG TBDP 1 tablet every 6 hours as needed for nausea . ONDANSETRON 94377292897 No Longer Active Jameel STILES Active METOPROLOL TARTRATE 25 MG TABS 1 po q a.m. and 0.5 in evening 03/12 METOPROLOL TARTRATE 72500954986 Active Wilfredo Troncoso MD A ctive ZOFRAN ODT 4 MG TBDP 1 tablet every 6 hours as needed for nausea . ZOFRAN ODT 4 MG TBDP 596273 ONDANSETRON Inactive ZOLOFT 100 MG TABS 2 tabs by mouth once a day Z OLOFT 100 MG TABS 576386 SERTRALINE HCL Inactive LORTAB 5 5-500 MG TABS 1 tablet by mouth every 6 hours as ne eded for pain LORTAB 5 5-500 MG TABS HYDROCODONE-ACETAM INOPHEN Inactive HYDROCODONE-ACETAMINOPHEN 7.5-325 MG TABS take 1-2 tab lets every 6 hours as needed for pain HYDROCODONE-ACETAMINOPHEN 7.5-32 5 MG TABS 657464 HYDROCODONE-ACETAMINOPHEN Inactive MOBIC 7.5 MG TABS 1 tablet by mouth twice daily 09/16 MOBIC 7.5 MG TABS 395152 MELOXICAM Inactive EQ IBUPROFEN 200 MG TABS Take 2 tablets every 4 to 6 hours PRN EQ IBUPROFEN 200 MG TABS 591838 IBUPROFEN Inactive MEDROL (MARY KATE) 4 MG TABS 6 tabs on day 1, 5 tabs on d ay 2, 4 tabs on day 3, 3 tabs on day 4, 2 tabs on day 5, 1 tab on day 6 MEDROL (MARY KATE) 4 MG TABS METHYLPREDNISOLONE Inactive Encounters Code Encounter Date Provider Facility CPT-22846 Level 3 Est. Patient 17:18:46 CDT Wilfredo wyatt MD [facility] CPT-11115 Level 3 Est. Patient 10:03:01 CDT Wilfredo wyatt MD [facility] CPT-53376 Level 3 Est. Patient 14:51:46 BANDER Wilfredo wyatt MD [facility] CPT-62485 Level 3 Est. Patient 18:41:44 BANDER Wilfredo wyatt MD [facility] CPT-29696 Level 3 Est. Patient 19:42:04 BANDER Wilfredo wyatt MD [facility] CPT-06748 Level 4 New Patient 12:51:50 CDT J Valdez gan MD [facility] Procedures Code Procedure Name Date Entry Date Standard Desc ription CPT-52325 LS spine AP and Lat 13:45:51 CDT CPT-33964 LS spine AP and Lat 15:58:55 BANDER CPT-28221 Drug Screen Leonid 14:45:55 BANDER CPT-51525 Postop F/U Visit 17:53:11 CDT CPT-65894 Urine Dip (Floor Use Only) 12:51:50 CDT 201 04/24/28 CPT-55303 Abd single AP View 12:51:50 CDT
--- OUTSIDE RECORDS SUMMARY | 2019-05-31 10:33 | XMS REPORT ---
Author Author [facility] Medic al Staff, AIMEE Lopez Organization [facility] Address [address] [place], [place] [address] Phone [phone] Care Team Providers Care Tip Fixer Name Role Phone DIDIER DUKE MD PP [phone] Summary purpose TRANSITION OF CARE AUTO GENERATION [...] Relevant diagnostic tests and/or laboratory data RESULTS Chemistry [id number]:15:00 Result Normal Range Units Sodium 141 134-145 mEq/l Potassium 4.1 3.5-5.1 mEq/l Chloride 105 98-107 mEq/l CO2 27.7 22-28 mEq/l Glucose 102 70-105 mg/dl BUN 12 7-18 mg/dl Creatinine 1.09 0.6-1.3 mg/dl Calcium 9.0 8.4-10.2 mg/dl TP - Total Protein 7.4 6.0-8.3 g /dl Albumin 3.9 3.5-5 g/dl Bilirubin - Total 0.5 0.1-1.0 mg /dl AST 30 10-42 IU/L ALT H 71 12-65 IU/L ALP H 153 39-107 IU/L Osmolality 281.2 280-300 mOsm/L Albumin/Globulin Ratio 1.1 0-8 Anion GAP 8.3 8-16 BUN/Creatinine Ratio 11.0 10-20 Estimated GFR 76 >= 60 mL/min /1.7 Hematology 09-13-362496:15:00 Result Normal Range Units WBC 9.2 4.8-10.8 103/uL RBC L 4.6 4.7-6.1 106/uL HGB 15.1 13.0-18.0 g/dl HCT 43.2 41.9-52.0 % MCV 93.3 80-94 FL MCH H 32.6 27-31 pg MCHC 35.0 33-37 g/dl RDW 12.8 11.5-15.5 % PLT 308 130-400 103/uL MPV H 10.5 7.3-10.4 FL Cardiac [id number]:15:00 Result Normal Range Units CK 62 39-308 IU/L CKMB 0.9 0-3.6 ng/ml Patient samples may contain heterophilic antibodies that could react with immunoa ssays to give falsely elevated or depressed resul ts. This Dimension assay has been designed to minimize interference from heterophilic antibodies. Nevertheless, complete elimination of this interference from all patient specimens cannot be guaranteed. A test result that is inconsistent with the clinical picture and patient history should be interpreted with caution. Troponin I < 0.02 0.0-0.4 ng/ml Patient samples may contain heterophilic antibodies that could react in immunoass ays to give falsely elevated or depressed resul ts. This Dimension assay has been designed to minimize interference from heterophilic antibodies. Nevertheless, complete elimination of this interference from all patient specimens cannot be guaranteed. A test result that is inconsistent with the clinical picture and patient history should be interpreted with caution. Radiology Results [id number]:30:00 Chest X-Ray - 2 View PACs Image DATE OF EXAM: Oct 02 2015 RAD 0300-CHEST XRAY 2 VIEW : RADIOLOGY REPORT DATE OF SERVICE: 10/02/15 HISTORY:Chest pain. CHEST - 2 [id number] HOURS The lungs are clear. Heart size and pulm onary vessels are normal. There are no hilar or mediastinal abnormalities. IMPRESSION: Negative chest. MD MARIPOSA Ulloa/pili 10/02/2015 12:06:00 / 2015 12:59:42 cc:Dr. Didier Duke This document has been electronically Signed by: On: DATE OF EXAM: Oct 02 2015 RAD 0300-CHEST XRAY 2 VIEW : RADIOLOGY REPORT DATE OF SERVICE: 10/02/15 HISTORY:Chest pain. CHEST - 2 [id number] HOURS The lungs are clear. Heart size and pulm onary vessels are normal. There are no hilar or mediastinal abnormalities. IMPRESSION: Negative chest. MD MARIPOSA Ulloa/pili 10/02/2015 12:06:00 / 2015 12:59:42 cc:Dr. Didier Duke This document has been electronically Signed by: MARYBETH SALGUERO MD On: Oct 01:30P Result Amended on 2015-10-02 at 13:30:53 . Previous status was MS. [id number]:15:00 Result Normal Range Units MPV H 10.5 7.3-10.4 FL History of procedures No procedures recorded for this patient visit. Functional status Functional Status Finding Observation Time Abdomen Appearance round [id number]:50 Abdomen non-tender :50 Bowel Sounds present 25-08-880745:50 Hernandez no :50 Urination normal :50 Quality sym/unlabored :50 Cough absent :50 Secretions no :50 Breath Sounds RUL clear :50 Breath Sounds RML clear :50 Breath Sounds RLL clear :50 Breath Sounds ALFONSO clear :50 Breath Sounds LLL clear 61-60-986001:50 Airway natural :50 Oxygen no :30 Temp >100.4 no :50 Temp <96.8 no :50 Chills with rigors no :50 HR > 90bpm no :50 Respirations > 20 no :50 Systolic <90 no :50 headache stiff neck no :50 IV Site Location R outer AC :35 IV Type peripheral :35 IV Site Information discontinued :35 IV Site Start Attmpt 1 times :15 IV Site Herb 20 74-85-221091:15 IV Site Appearance WNL 19-94-650607:15 IV Site Color clear 58-85-507460:15 IV Site Patent yes [id number]:15 Dressing Type occlusive 40-71-323507:15 Nursing Note Pt was given home instructions and Pt IV was removed at this time 77-58-412865:37 Vital signs Type Value Date Respiration Rate 16breaths per minute : 30 Pulse 67beats per minute :30 Oxygen Saturation 94% :30 BP Systolic 124mmHg 86-89-552578:30 BP Diastolic 83mmHg 31-38-162157:30 Temperature 97.8F 09-68-678159:30 Weight 210.2LB 37-84-111080:48 Social history Type Value Smoking Status CURRENT EVERY DAY SMOKER Treatment Plan No treatment plan text is available for this visit. Hospital discharge instructions Dismissal Condition good Disposition on DC home DC Inst/Educ Give yes PNE Vac None Flu Vac None Tetanus Vac 2007
--- OUTSIDE RECORDS SUMMARY | 2019-05-31 10:33 | XMS REPORT ---
Author Author Liam BRICENO Organization [facility] [place] Address [address] [place] [address] Care Team Providers Care Semiconductor Processing Group Leader Name Role Phone LILAJOSE NEGRON Unavailable PROBLEMS Type Condition ICD9-CM Code [id number] Code Onset Dates Condition S tatus SNOMED Code Problem Other insomnia G47.09 Active 54047 2000 Problem Chronic pain disorder G89.4 Active 186486588 Problem Essential hypertension I10 Active 76282802 ALLERGIES No Information ENCOUNTERS Encounter Location Date Diagnosis [facility] [place] [address] [id number] [place] [address] [id number] Jan, [facility] [place] [address] [id number] [place], [place] [address] 460272 Jan, Dental examination Z01.20 [facility] [place] [address] [id number] [place] [address] 036253 Jan, Essential hypertension I10 [facility] [place] [address] [id number] [place] [address] 265911 Nov, Essential hypertension I10 [facility] [place] [address] [id number] [place] [address] 141555 Nov, Essential hypertension I10 [facility] [place] [address] [id number] [place] [address] 582824 Oct, Essential hypertension I10 [facility] [place] [address] [id number] [place] [address] 774490 Sep, [facility] [place] [address] [id number] [place] [address] 335078 Sep, [facility] [place] [address] [id number] [place] [address] 273957 Sep, [facility] [place] [address] [id number] [place] [address] 504046 Aug, Essential hypertension I10 and Chronic pain disorder G89.4 [facility] [place] [address] [id number] [place] [address] 521732 Aug, [facility] [place] [address] [id number] [place] [address] 926316 Aug, [facility] [place] [address] [facility] [address] [id number] [place] [address] 458794 Aug, Chronic pain disorder G89.4 [facility] [place] [address] [id number] [place] [address] 152251 July, Chronic pain disorder G89.4 [facility] [place] [address] [facility] [address] [id number] [place] [address] 858166 July, Chronic pain disorder G89.4 [facility] [place] [address] [facility] [address] [id number] [place] [address] 138969 May, Essential hypertension I10 ; Other insomnia G47.09 and Chronic pain disorder G89.4 [facility] [place] [address] [facility] [address] [id number] [place] [address] 028655 May, Essential hypertension I10 [facility] [place] [address] [facility] [address] [id number] [place] [address] 719351 May, [facility] [place] [address] [facility] [address] [id number] [place] [address] 244496 May, Essential hypertension I10 [facility] [place] [address] [facility] [address] [id number] [place] [address] 685930 May, Chronic pain disorder G89.4 and Essential hypertension I10 [facility] [place] [address] [facility] [address] [id number] [place] [address] 371421 14 May, 2016 Essential hypertension I10 [facility] [place] [address] [facility] [address] [id number] [place] [address] 407972 13 May, 2016 Chronic pain disorder G89.4 and Essential hypertension I10 [facility] [place] [address] [id number] [place] [address] 289066 14 Apr, 2016 Chronic pain disorder G89.4 and Essential hypertension I10 IMMUNIZATIONS No Known Immunizations SOCIAL HISTORY Never Assessed REASON FOR VISIT PLAN OF CARE VITAL SIGNS MEDICATIONS Unknown Medications RESULTS No Results PROCEDURES No Known procedures INSTRUCTIONS MEDICATIONS ADMINISTERED No Known Medications MEDICAL (GENERAL) HISTORY Type Description Date Medical History Essential hypertension Surgical History Fusion L5S1. Back surgery 2012 Hospitalization History Surgery(s) Hospitalization History Kidney stones
--- OUTSIDE RECORDS SUMMARY | 2019-05-31 10:33 | XMS REPORT ---
Author Author Liam BARRAGAN Organization [facility] [place] Address [address] [place] [address] Care Team Providers Care Steam Fitter Supervisor Name Role Phone LAUREL ILIR Unavailable PROBLEMS Type Condition ICD9-CM Code GCB03-ZI Code Onset Dates Condition S tatus SNOMED Code Problem Other insomnia G47.09 Active 71764 2000 Problem Chronic pain disorder G89.4 Active 149189049 Problem Essential hypertension I10 Active 17713374 ALLERGIES No Information ENCOUNTERS Encounter Location Date Diagnosis [facility] [place] [address] [id number] [place] [address] 804079 Jan, [facility] [place] [address] [id number] [place] [address] 564868 Jan, Dental examination Z01.20 [facility] [place] [address] [id number] [place] [address] 442567 Jan, Essential hypertension I10 [facility] [place] [address] [id number] [place] [address] 124874 Nov, Essential hypertension I10 [facility] [place] [address] [id number] [place] [address] 096109 Nov, Essential hypertension I10 [facility] [place] [address] [id number] [place] [address] 575855 Oct, Essential hypertension I10 [facility] [place] [address] [id number] [place] [address] 393281 Sep, [facility] [place] [address] [id number] [place] [address] 553109 Sep, [facility] [place] [address] [id number] [place] [address] 930821 Sep, [facility] [place] [address] [id number] [place] [address] 341604 Aug, Chronic pain disorder G89.4 and Essential hypertension I10 [facility] [place] [address] [id number] [place] [address] 822217 Aug, [facility] [place] [address] [id number] [place] [address] 822079 Aug, [facility] [place] [address] [facility] [address] [id number] [place] [address] 012601 Aug, Chronic pain disorder G89.4 [facility] [place] [address] [facility] [address] [id number] [place] [address] 486748 July, Chronic pain disorder G89.4 [facility] [place] [address] [facility] [address] [id number] [place] [address] 856510 July, Chronic pain disorder G89.4 [facility] [place] [address] [facility] [address] [id number] [place] [address] 350638 May, Essential hypertension I10 ; Other insomnia G47.09 and Chronic pain disorder G89.4 [facility] [place] [address] [facility] [address] [id number] [place] [address] 073185 May, Essential hypertension I10 [facility] [place] [address] [facility] [address] [id number] [place] [address] 792174 May, [facility] [place] [address] [facility] [address] [id number] [place] [address] 264455 May, Essential hypertension I10 [facility] [place] [address] [facility] [address] [id number] [place] [address] 878532 May, Chronic pain disorder G89.4 and Essential hypertension I10 [facility] [place] [address] [facility] [address] [id number] [place] [address] 516226 14 May, 2016 Essential hypertension I10 [facility] [place] [address] [facility] [address] [id number] [place] [address] 156547 13 May, 2016 Chronic pain disorder G89.4 and Essential hypertension I10 [facility] [place] [address] [facility] [address] [id number] [place] [address] 129621 14 Apr, 2016 Chronic pain disorder G89.4 and Essential hypertension I10 IMMUNIZATIONS No Known Immunizations SOCIAL HISTORY Never Assessed REASON FOR VISIT Partial Refill PLAN OF CARE VITAL SIGNS MEDICATIONS Medication [...]
--- OUTSIDE RECORDS SUMMARY | 2019-05-31 10:33 | XMS REPORT ---
Author Author Liam HAYWOOD Organization [facility] [place] Address [address] [place] [address] Care Team Providers Care Healthcare Financial Analyst Name Role Phone DORCAS HAYWOOD Unavailable PROBLEMS Type Condition ICD9-CM Code YZZ49-YR Code Onset Dates Condition S tatus SNOMED Code Problem Other insomnia G47.09 Active 01369 2000 Problem Chronic pain disorder G89.4 Active 387956378 Problem Essential hypertension I10 Active 21433971 ALLERGIES No Known Allergies ENCOUNTERS Encounter Location Date Diagnosis [facility] [place] [address] [id number] [place] [address] 661972 Jan, [facility] [place] [address] [id number] [place] [address] 613401 Jan, Dental examination Z01.20 [facility] [place] [address] [id number] [place] [address] 377820 Jan, Essential hypertension I10 [facility] [place] [address] [id number] [place] [address] 840312 Nov, Essential hypertension I10 [facility] [place] [address] [id number] [place] [address] 669506 Nov, Essential hypertension I10 [facility] [place] [address] [id number] [place] [address] 484772 Oct, Essential hypertension I10 [facility] [place] [address] [id number] [place] [address] 280735 Sep, [facility] [place] [address] [id number] [place] [address] 398515 Sep, [facility] [place] [address] [id number] [place] [address] 978315 Sep, [facility] [place] [address] [id number] [place] [address] 896039 Aug, Essential hypertension I10 and Chronic pain disorder G89.4 [facility] [place] [address] [id number] [place] [address] 268569 Aug, [facility] [place] [address] [facility] [address] [id number] [place] [address] 245773 Aug, [facility] [place] [address] [facility] [address] [id number] [place] [address] 825709 Aug, Chronic pain disorder G89.4 [facility] [place] [address] [facility] [address] [id number] [place] [address] 577982 July, Chronic pain disorder G89.4 [facility] [place] [address] [facility] [address] [id number] [place] [address] 623431 July, Chronic pain disorder G89.4 [facility] [place] [address] [facility] [address] [id number] [place] [address] 685986 May, Essential hypertension I10 ; Other insomnia G47.09 and Chronic pain disorder G89.4 [facility] [place] [address] [facility] [address] [id number] [place] [address] 452494 May, Essential hypertension I10 [facility] [place] [address] [facility] [address] [id number] [place] [address] 238314 May, [facility] [place] [address] [facility] [address] [id number] [place] [address] 559831 May, Essential hypertension I10 [facility] [place] [address] [facility] [address] [id number] [place] [address] 949587 May, Chronic pain disorder G89.4 and Essential hypertension I10 [facility] [place] [address] [facility] [address] [id number] [place] [address] 513324 14 May, 2016 Essential hypertension I10 [facility] [place] [address] [facility] [address] [id number] [place] [address] 278377 13 May, 2016 Chronic pain disorder G89.4 and Essential hypertension I10 [facility] [place] [address] [facility] [address] [id number] [place] [address] 855148 14 Apr, 2016 Chronic pain disorder G89.4 and Essential hypertension I10 IMMUNIZATIONS No Known Immunizations SOCIAL HISTORY Never Assessed REASON FOR VISIT bleeding gums and swelling PLAN OF CARE VITAL SIGNS MEDICATIONS Medication Instructions Dosage Frequency Start Date End Date Duration S harshadus Hydrochlorothiazide 12.5 MG Orally Once a day 1 tablet in the morni ng 24h May, Active Naproxen 250 MG Orally Twice a day 1 tablet 12h Active Metoprolol Tartrate 25 MG Orally Once a day 2 tablet with food 24h May, Active RESULTS No Results PROCEDURES Procedure Date Ordered Result Body Site LTD ORAL EVALUATION - PROBLEM FOCUS Jan 22, 2017 PANORAMIC FILM SEE ALSO CODE 77247 Jan 22, 2017 INSTRUCTIONS MEDICATIONS ADMINISTERED No Known Medications MEDICAL (GENERAL) HISTORY Type Description Date Medical History Essential hypertension Surgical History Fusion L5S1. Back surgery 2012 Hospitalization History Surgery(s) Hospitalization History Kidney stones
--- OUTSIDE RECORDS SUMMARY | 2019-05-31 10:33 | XMS REPORT ---
Author Author Liam BARRAGAN [facility] Address [address] [place] [address] Care Team Providers Care Inspector Balance Wheel Motion Name Role Phone ILIR BARRAGAN Unavailable PROBLEMS Type Condition ICD9-CM Code SUY96-SU Code Onset Dates Condition S tatus SNOMED Code Problem Other insomnia G47.09 Active 96421 2000 Problem Chronic pain disorder G89.4 Active 807768191 Problem Essential hypertension I10 Active 21124130 ALLERGIES No Information SOCIAL HISTORY Never Assessed PLAN OF CARE VITAL SIGNS MEDICATIONS No Known Medications RESULTS No Results PROCEDURES No Known procedures IMMUNIZATIONS No Known Immunizations MEDICAL (GENERAL) HISTORY Type Description Date Medical History Essential hypertension Surgical History Fusion L5S1. Back surgery 2012 Hospitalization History Surgery(s) Hospitalization History Kidney stones
--- OUTSIDE RECORDS SUMMARY | 2019-05-31 10:34 | XMS REPORT ---
Author Author [facility] Medic al Staff, AIMEE Lopez Organization [facility] Address [address] [place], [place] [address] Phone [phone] Care Team Providers Care Note Teller Name Role Phone KATHIA DUKE MD PP [phone] Summary purpose TRANSITION OF CARE AUTO GENERATION [...] for this patient visit History of procedures No procedures recorded for this patient visit. Functional status Functional Status Finding Observation Time Abdomen Appearance flat :30 Abdomen non-tender :30 Bowel Sounds present :30 Quality sym/unlabored :30 Cough absent :30 Breath Sounds RUL clear :30 Breath Sounds RML clear :30 Breath Sounds RLL clear :30 Breath Sounds ALFONSO clear :30 Breath Sounds LLL clear :30 Oxygen no :55 Temp >100.4 no :30 Temp <96.8 no :30 Chills with rigors no : HR > 90bpm no :30 Respirations > 20 no :30 Systolic <90 no :30 headache stiff neck no 62-28-028331:30 Rapid Resp no :30 Nursing Note dc [...]
--- OUTSIDE RECORDS SUMMARY | 2019-05-31 10:34 | XMS REPORT ---
Author Author [facility] Medic al StaffAIMEE Organization [email or web address] Address [address], [place] [address] Phone [phone] Care Team Providers Care Paper Machine Operator Name Role Phone KATHIA DUKE MD PP [phone] KATHIA DUKE MD, PP [phone] Summary purpose TRANSITION OF CARE AUTO GENERATION Chief Complaint and Reason for Visit Admit Diagnosis 1 RENAL CALCULUS PARTIAL URETE RAL Admit Diagnosis 2 OBSTRUCTION Problem list No authorized problems tracked for continuity of care are available for this vis it. Encounters The following conditions tracked for encounter diagnoses were recorded for this visit: Finding or Diagnosis Status Certainty Chronicity Onset *KIDNEY STONE; Obstructing L Ureteral stone Active Medications No medications recorded for this patient visit Allergies, adverse reactions, alerts Allergen Category Ingredient Status Reaction Severity Onset No known drug allergies No known drug allergies No known drug al lergies Confirmed or Verified Immunizations No immunizations recorded for this patient visit Relevant diagnostic tests and/or laboratory data RESULTS Routine Urinalysis [id number]:05:00 Result Normal Range Units Color YELLOW Clarity Cloudy Specific [place] 1.015 1.003-1.035 pH 5.5 4.5-8.0 Glucose NEGATIVE Bilirubin NEGATIVE Ketones NEGATIVE Protein TRACE Urobilinogen 0.2 0-0.2 E.U./dL Nitrites NEGATIVE Blood 3+ Leukocytes NEGATIVE WBCs 5-10 RBCs Too numerous to count Squamous Epithelial Few Bacteria 1+ Chemistry [id number]:45:00 Result Normal Range Units Sodium 143 134-145 mEq/l Potassium 4.2 3.5-5.1 mEq/l Chloride H 108 98-107 mEq/l CO2 27.2 22-28 mEq/l Glucose 96 70-105 mg/dl BUN 14 7-18 mg/dl Creatinine H 2.25 0.6-1.3 mg/dl Calcium L 8.1 8.4-10.2 mg/dl Osmolality 285.3 280-300 mOsm/L Anion GAP L 7.8 8-16 BUN/Creatinine Ratio L 6.2 10-20 Estimated GFR L 33 >= 60 mL/min /1.7 :10:00 Result Normal Range Units Sodium 140 134-145 mEq/l Potassium 4.0 3.5-5.1 mEq/l Chloride 103 98-107 mEq/l CO2 H 28.5 22-28 mEq/l Glucose H 122 70-105 mg/dl BUN 11 7-18 mg/dl Creatinine H 1.64 0.6-1.3 mg/dl Calcium 9.0 8.4-10.2 mg/dl TP - Total Protein 7.7 6.0-8.3 g /dl Albumin 4.1 3.5-5 g/dl Bilirubin - Total 0.6 0.1-1.0 mg /dl AST 33 10-42 IU/L ALT H 80 12-65 IU/L ALP H 149 39-107 IU/L Osmolality 280.1 280-300 mOsm/L Albumin/Globulin Ratio 1.1 0-8 Anion GAP 8.5 8-16 BUN/Creatinine Ratio L 6.7 10-20 Estimated GFR L 47 >= 60 mL/min /1.7 Hematology :10:00 Result Normal Range Units WBC 10.2 4.8-10.8 103/uL RBC 4.7 4.7-6.1 106/uL HGB 15.4 13.0-18.0 g/dl HCT 42.8 41.9-52.0 % MCV 90.7 80-94 FL MCH H 32.6 27-31 pg MCHC 36.0 33-37 g/dl RDW 12.2 11.5-15.5 % PLT 313 130-400 103/uL MPV 10.3 7.3-10.4 FL Neutro % 56.1 40-70 % Lymph % 34.0 20-40 % Emmet % 7.2 0-10.0 % Eos % 1.9 0-7.0 % Baso % 0.5 0-2 % Neutro # 5.7 1.5-7.5 103/uL Lymph # 3.5 0.9-4.0 103/uL Emmet # 0.7 0-0.8 103/uL Eos # 0.2 0-0.6 103/uL Baso # 0.1 0-0.1 103/uL Body Fluid [id number]:05:00 Result Normal Range Units pH 5.5 4.5-8.0 Radiology Results 05-90-310026:23:00 RETROGRADE PYELOGRAM PACs Image DATE OF EXAM: 2014 RAD 1274-RETROGRADE PYELOGRA M : RADIOLOGY REPORT DATE OF SERVICE: 02/21/15 HISTORY: Renal calculi, hydronephrosis BILATERAL RETROGRADE [id number] HOURS Films were obtained with the portable im age intensifier. Initial film shows injection of contrast in the right ureter. There is tapered narrowing and complete obstruction of th e proximal right ureter in the region of the right ureteropelvic juncti on. There is no filling of the right renal collecting system. Subsequent image shows placement of a le ft-sided stent. The proximal limb is in the region of the left renal collecting system. There is a 9 mm calculus adjacent to the proximal mccray b of the stent. The distal ureteric region was not included on the study. IMPRESSION: 1. Complete right UPJ obstruction. 2. Placement of left-sided stent with 9 mm proximal left ureteric stone. MD MARIPOSA Ulloa/nancy02/21/2015 08:03:00 / 1205/2014 08:17:00 cc:Dr. Valdez Herrera This document has been electronically Signed by: On: DATE OF EXAM: 2014 RAD 1274-RETROGRADE PYELOGRA M : RADIOLOGY REPORT DATE OF SERVICE: 02/21/15 HISTORY: Renal calculi, hydronephrosis BILATERAL RETROGRADE [id number] HOURS Films were obtained with the portable im age intensifier. Initial film shows injection of contrast in the right ureter. There is tapered narrowing and complete obstruction of th e proximal right ureter in the region of the right ureteropelvic juncti on. There is no filling of the right renal collecting system. Subsequent image shows placement of a le ft-sided stent. The proximal limb is in the region of the left renal collecting system. There is a 9 mm calculus adjacent to the proximal mccray b of the stent. The distal ureteric region was not included on the study. IMPRESSION: 1. Complete right UPJ obstruction. 2. Placement of left-sided stent with 9 mm proximal left ureteric stone. MD MARIPOSA Ulloa/nancy02/21/2015 08:03:05/2014 08:17:00 cc:Dr. Valdez Herrera This document has been electronically Signed by: JORGE ALBERTO HENAO MD On: Feb 21 2015 10:23A RENAL CALCULUS PARTIAL URETERA OBSTRUCTION Result Amended on 2015-02-21 at 10:23:31 . Previous status was [place]. RENAL CALCULUS PARTIAL URETERA OBSTRUCTION [id number]:22:00 Renal/Kidney Sono PACs Image DATE OF EXAM: 2014 [id number]/KIDNEY SONO : RADIOLOGY REPORT DATE OF SERVICE: 02/20/15 HISTORY: Left flank pain, history of marcela al stones RENAL ULTRASOUND 1600 HOURS The left kidney is normal in size. There is minimal left hydronephrosis. There are calculi in the midregion and l ower pole of the left kidney measuring up to 7 mm in size. Calculus i dentified at the left ureteropelvic junction on plain film can not be definitely seen by this ultrasound exam. There are no left renal masses. The right kidney is severely hydronephro tic. There is only a thin rim of remaining cortical tissue. There is no perinephric fluid surroundin g either kidney. The bladder was empty at the time of the examination. IMPRESSION: 1. Mild left hydronephrosis probably due to the ureteropelvic junction stone noted on prior plain film exam. Ad ditional left renal calculi. 2. Severe right hydronephrosis probably chronic. It is suspected that this kidney probably has very little function. Findings were telephoned to Dr. Humphreys in [facility] emergency department on 02/20/2015 at 1605 hours. MD MARIPOSA Ulloa/nm02/21/2015 08:06:05/2014 08:18:54 cc:Dr. Valdez Herrera This document has been electronically Signed by: On: DATE OF EXAM: 2014 [id number]/KIDNEY SONO : RADIOLOGY REPORT DATE OF SERVICE: 02/20/15 HISTORY: Left flank pain, history of marcela al stones RENAL ULTRASOUND 1600 HOURS The left kidney is normal in size. There is minimal left hydronephrosis. There are calculi in the midregion and l ower pole of the left kidney measuring up to 7 mm in size. Calculus i dentified at the left ureteropelvic junction on plain film can not be definitely seen by this ultrasound exam. There are no left renal masses. The right kidney is severely hydronephro tic. There is only a thin rim of remaining cortical tissue. There is no perinephric fluid surroundin g either kidney. The bladder was empty at the time of the examination. IMPRESSION: 1. Mild left hydronephrosis probably due to the ureteropelvic junction stone noted on prior plain film exam. Ad ditional left renal calculi. 2. Severe right hydronephrosis probably chronic. It is suspected that this kidney probably has very little function. Findings were telephoned to Dr. Humphreys in [facility] emergency department on 02/20/2015 at 1605 hours. MD MARIPOSA Ulloa/nm02/21/2015 08:06:00 05/2014 08:18:54 cc:Dr. Valdez Herrera This document has been electronically Signed by: JORGE ALBERTO HENAO MD On: Feb 21 2015 10:22A RENAL CALCULUS PARTIAL URETERA OBSTRUCTION Result Amended on 2015-02-21 at 10:22:24 . Previous status was [place]. RENAL CALCULUS PARTIAL URETERA OBSTRUCTION 82-98-647633:16:00 Abdomen 2 View PACs Image DATE OF EXAM: 2014 RAD 0037-ABDOMEN 2 VIEW : RADIOLOGY REPORT DATE OF SERVICE: 02/20/15 HISTORY: Left flank pain. ABDOMEN 2 VIEWS 1422 HOURS A 9 mm calculus is present at the left u reteropelvic junction. Four additional calculi are present in the le ft kidney ranging in size from 1.5-6 mm. No definite right ureteric sto barbara are present. The bowel gas pattern is normal. There are changes of prior lower lumbar internal fixation. There is no free air. IMPRESSION: Left renal calculi. 9 mm gregg culus at the left ureteropelvic junction. MD MARIPOSA Ulloa/nancy02/20/2015 14:41:00 04/2014 14:50:16 cc:Dr. Julio Dunn This document has been electronically Signed by: On: DATE OF EXAM: 2014 RAD 0037-ABDOMEN 2 VIEW : RADIOLOGY REPORT DATE OF SERVICE: 02/20/15 HISTORY: Left flank pain. ABDOMEN 2 VIEWS 1422 HOURS A 9 mm calculus is present at the left u reteropelvic junction. Four additional calculi are present in the le ft kidney ranging in size from 1.5-6 mm. No definite right ureteric sto barbara are present. The bowel gas pattern is normal. There are changes of prior lower lumbar internal fixation. There is no free air. IMPRESSION: Left renal calculi. 9 mm gregg culus at the left ureteropelvic junction. Jorge Alberto Henao MD MWJudy/nm02/20/2015 14:41:00 / 120 04/2014 14:50:16 cc:Dr. Julio Dunn This document has been electronically Signed by: JORGE ALBERTO HENAO MD On: Feb 20 20153:16P Result Amended on 2015-02-20 at 15:16:40 . Previous status was [place]. 53-95-321946:10:00 Result Normal Range Units MPV 10.3 7.3-10.4 FL History of procedures No procedures recorded for this patient visit. Functional status Functional Status Finding Observation Time Hearing Prob Loc none 65-40-967660:35 Vision Problems no 60-86-599137:35 Ambulation Asst Dev none 17-18-274198:35 Range of Motion full 47-31-375972:35 Muscle Strength RUE 5 ROM full resist 27-39-928895:35 Muscle Strength RLE 5 ROM full resist 89-49-008449:35 Muscle Strength LUE 5 ROM full resist 05-61-768980:35 Muscle Strength LLE 5 ROM full resist 51-05-282879:35 Transfers assist x 1 23-45-299874:35 Ambulation in room 95-62-483093:35 Balance steady 34-10-834656:35 Bathing Assistance none 66-22-622344:35 Eating Assistance none :35 Dressing Assistance none 17-88-826936:35 Toileting Assistance none 75-94-650697:35 Transfer Assistance none :35 Decline Slf Care/Mob no :35 Phys Cond Stable yes :35 Nutrition normal 90-25-791936:35 Diet clear 93-99-321649:35 Oral Cavity moist and intact 91-99-562937:35 Teeth intact 33-22-880272:35 Dental Hygiene good 93-92-980073:35 Abdomen Appearance round 95-68-385651:35 Abdomen tender 17-80-328421:35 Bowel Sounds present :35 NG Tube no :35 Feeding Tube none :35 Hernandez no :35 Cont Bladder Irr no :35 Ostomy no :35 Stool normal Comment: per pt report :35 Urination normal :35 Urine Clarity clear :35 Urine Color bloody :35 Quality sym/unlabored :35 Cough absent :35 Secretions no :35 Breath Sounds RUL clear :35 Breath Sounds RML clear :35 Breath Sounds RLL clear :35 Breath Sounds ALFONSO clear :35 Breath Sounds LLL clear :35 Airway natural :35 Chest Tube no :35 Oxygen no :49 Oxygen Mask Type nasal cannula :45 Oxygen Flow Rate RA :49 C-PAP no :35 BI-PAP no :35 Temp >100.4 no :35 Temp <96.8 no :35 Chills with rigors no :35 HR > 90bpm yes :35 Respirations > 20 no :35 Systolic <90 no :35 headache stiff neck no 23-92-872679:35 WBC > 60529 no :35 WBC < 4000 no :35 Rapid Resp no :35 IV Site Location Right hand :40 IV Type peripheral :40 IV Site Information discontinued :40 IV Site Start Attmpt 2 times 08-77-474701:00 IV Site Herb 20 22-30-342305:40 IV Site Appearance WNL :40 IV Site Color clear :40 IV Site Patent yes :40 Dressing Type gauze :40 Nursing Note Pt wheeled off unit to [facility] vehicle. Personal belongings in hand. prescriptions in hand. pt in good condition. :20 Cognitive Status Finding Observation Time Oriented To Date 5 Yes :[address] 5 Yes :35 Name 3 Objects 3 Yes :35 Name Object in Rm 2 Yes :35 Recall 3 Objects 3 Yes :35 Repeats a Phrase 1 Yes : Follows Verbal Direc 3 Yes :35 Follows Written Dire 1 Yes :35 Write a Sentance 1 Yes :35 Draw an Object 1 Yes :35 Mini Mental Total 25 points :35 Learning Ability comprehends well 41-05-235270:20 Neurological no 30-67-087852:20 Psychological no 67-50-811835:20 Physical no 78-50-107549:20 Hearing no 65-57-966509:20 Technical Support Analyst Needed no :20 Sign Language no 35-94-888656:20 Emotional no :20 Vision no :20 Laguage no :20 Financial no :20 Vital signs Type Value Date Respiration Rate 18breaths per minute : 49 Pulse 101beats per minute :4 9 Oxygen Saturation 95% :49 BP Systolic 128mmHg :49 BP Diastolic 80mmHg :49 Temperature 100.8F :49 Height 66inches :33 Weight 233.5LB :33 Social history Type Value Smoking Status FORMER SMOKER Treatment Plan No treatment plan text is available for this visit. Hospital discharge instructions Discharge Date/Time 02/21/15 1520 Accompanied By Marleny Westhoff Relationship spouse/signif other Dismissal Condition good Disposition on DC home Valuables yes Valuable Type cell phone Valuables Returned T patient DC Inst/Educ Give yes Exit Care Educ Given yes Med/Side Effects Rev yes DC Med Rec Rev yes Immun Indicated no PNE Vac refuses Flu Vac refuses Tetanus Vac 2008 Follow Up Appt D/T 02/28/15 ESWL
--- OUTSIDE RECORDS SUMMARY | 2019-05-31 10:34 | XMS REPORT | Clinical Summary ---
Author Author Admin, Liam Ruffin [facility] Address Unknown Phone Unavailable Allergies, Adverse Reactions, [...] as needed for muscle spasm/pain CYCLOBENZAPRINE HCL 67977427549 Active Didier Valdez MD Active OXYCONTIN 10 MG ORAL T12A by mouth twice a day OXY CODONE HCL 94827435302 Active Didier Valdez MD Active OXYCODONE HCL 5 MG ORAL CAPS Take one by mouth TID OXYCODONE HCL 65181048191 Active Didier Valdez MD Active METHYLPREDNISOLONE (MARY KATE) 4 MG TABS M ETHYLPREDNISOLONE 97155095892 No Longer Active Didier Valdez MD Active METHOCARBAMOL 750 MG TABS 1 tab tid METHOCARBAMOL 57704777839 No Longer Active Didier Valdez MD Active ULTRAM 50 MG TABS 1 tab q4-6h PRN TRAMADOL HCL 66 187529324 No Longer Active Didier Valdez MD Active TRAZODONE HCL 50 MG TABS Take 1 to 2 tablets every night TRAZODONE HCL 92218455915 No Longer Active Didier Valdez MD Activ e EQ IBUPROFEN 200 MG TABS Take 2 tablets every 4 to 6 hours PRN IBUPROFEN 48975990933 No Longer Active Wilfredo Troncoso MD Acti ve MOBIC 7.5 MG TABS 1 tablet by mouth twice daily MELOXICAM 84636733415 No Longer Active Wilfredo Troncoso MD Active PERCOCET 10-325 MG TABS take 1 tab po q6 hours prn pain. OXYCODONE-ACETAMINOPHEN 19652400482 Active Wilfredo Troncoso MD Active HYDROCODONE-ACETAMINOPHEN 7.5-325 MG TABS take 1-2 tab lets every 6 hours as needed for pain HYDROCODONE-ACETAMINOPHEN 19244909842 No Longer Active Wilfredo Troncoso MD Active LORTAB 5 5-500 MG TABS 1 tablet by mouth every 6 hours as ne eded for pain HYDROCODONE-ACETAMINOPHEN 42756509852 No Longer Activ e Wilfredo Troncoso MD Active MEDROL (MARY KATE) 4 MG TABS 6 tabs on day 1, 5 tabs on d ay 2, 4 tabs on day 3, 3 tabs on day 4, 2 tabs on day 5, 1 tab on day 6 METHYLPREDNISOLONE 20007579423 No Longer Active Wilfredo Troncoso MD Active ALPRAZOLAM 1 MG TABS Take 1 tablet 1x daily ALPRAZOLAM 3 9976290972 Active Wilfredo Troncoso MD Active ZOLOFT 100 MG TABS Take 1 tablet 2x daily SERTRALINE HCL 44106231667 Active Wilfredo Troncoso MD Active ZOLOFT 100 MG TABS 2 tabs by mouth once a day S ERTRALINE HCL 62922356110 No Longer Active Jameel STILES Active ZOFRAN ODT 4 MG TBDP 1 tablet every 6 hours as needed for nausea . ONDANSETRON 45447614727 No Longer Active Jameel W Cloven PA Active METOPROLOL TARTRATE 25 MG TABS 1 po q a.m. and 0.5 in evening 03/12 METOPROLOL TARTRATE 90871062740 Active Didier Valdez MD Ac tive ZOFRAN ODT 4 MG TBDP 1 tablet every 6 hours as needed for nausea . ZOFRAN ODT 4 MG TBDP 490414 ONDANSETRON Inactive ZOLOFT 100 MG TABS 2 tabs by mouth once a day Z OLOFT 100 MG TABS 965134 SERTRALINE HCL Inactive LORTAB 5 5-500 MG TABS 1 tablet by mouth every 6 hours as ne eded for pain LORTAB 5 5-500 MG TABS HYDROCODONE-ACETAM INOPHEN Inactive HYDROCODONE-ACETAMINOPHEN 7.5-325 MG TABS take 1-2 tab lets every 6 hours as needed for pain HYDROCODONE-ACETAMINOPHEN 7.5-32 5 MG TABS 393641 HYDROCODONE-ACETAMINOPHEN Inactive MOBIC 7.5 MG TABS 1 tablet by mouth twice daily 09/16 MOBIC 7.5 MG TABS 148598 MELOXICAM Inactive EQ IBUPROFEN 200 MG TABS Take 2 tablets every 4 to 6 hours PRN EQ IBUPROFEN 200 MG TABS 069044 IBUPROFEN Inactive TRAZODONE HCL 50 MG TABS Take 1 to 2 tablets every night TRAZODONE HCL 50 MG TABS 628556 TRAZODONE HCL Inactive ULTRAM 50 MG TABS 1 tab q4-6h PRN ULTRAM 50 MG TA BS 925152 TRAMADOL HCL Inactive METHOCARBAMOL 750 MG TABS 1 tab tid METHOCARBA MOL 750 MG TABS 063168 METHOCARBAMOL Inactive METHYLPREDNISOLONE (MARY KATE) 4 MG [...] Measured Encounters Code Encounter Date Provider Facility CPT-42377 Level 4 Est. Patient 16:31:23 CHECK CLERK Didier Valdez MD [facility] CPT-08456 Level 3 Est. Patient 17:18:46 CDT Wilfredo wyatt MD [facility] CPT-60041 Level 3 Est. Patient 10:03:01 CDT Wilfredo wyatt MD [facility] CPT-61364 Level 3 Est. Patient 14:51:46 CHECK CLERK Wilfredo wyatt MD [facility] CPT-41120 Level 3 Est. Patient 18:41:44 CHECK CLERK Wilfredo wyatt MD [facility] CPT-11868 Level 3 Est. Patient 19:42:04 CHECK CLERK Wilfredo wyatt MD [facility] CPT-72577 Level 4 New Patient 12:51:50 CDT Florentino gan MD [facility] Procedures Code Procedure Name Date Entry Date Standard Desc ription CPT-90516 LS spine AP and Lat 13:45:51 CDT CPT-57142 LS spine AP and Lat 15:58:55 CHECK CLERK CPT-03220 Drug Screen Leonid 14:45:55 CHECK CLERK CPT-53837 Postop F/U Visit 17:53:11 CDT CPT-38220 Urine Dip (Floor Use Only) 12:51:50 CDT 201 04/24/28 CPT-11445 Abd single AP View 12:51:50 CDT
--- OUTSIDE RECORDS SUMMARY | 2019-05-31 10:34 | XMS REPORT ---
Author Author [facility] Medic al Staff, AIMEE Lopez Organization [facility] Address [address] [place], [place] [address] Phone [phone] Care Team Providers Care Mosquito Sprayer Name Role Phone KATHIA DUKE MD PP [phone] Summary purpose TRANSITION OF CARE AUTO GENERATION [...] rigors no :50 HR > 90bpm no : Respirations > [...] per minute : Pulse 90beats per minute : Oxygen Saturation 95% :10 BP Systolic 151mmHg [...]
--- OUTSIDE RECORDS SUMMARY | 2019-05-31 10:34 | XMS REPORT ---
Author Author [facility] Medic al Staff, AIMEE Lopez Organization [facility] Address [address] [place], [place] [address] Phone [phone] Care Team Providers Care Drip Box Tender Name Role Phone DIDIER DUKE MD PP [phone] Summary purpose TRANSITION OF CARE AUTO GENERATION [...] diagnostic tests and/or laboratory data RESULTS Chemistry 97-21-502736:15:00 Result Normal Range Units Sodium 141 134-145 [...] GFR 76 >= 60 mL/min /1.7 Hematology 64-20-960642:15:00 Result Normal Range Units WBC 9.2 4.8-10.8 103/uL RBC L 4.6 4.7-6.1 106/uL HGB 15.1 13.0-18.0 g/dl HCT 43.2 41.9-52.0 % MCV 93.3 80-94 FL MCH H 32.6 27-31 pg MCHC 35.0 33-37 g/dl RDW 12.8 11.5-15.5 % PLT 308 130-400 103/uL MPV H 10.5 7.3-10.4 FL Cardiac 22-06-591953:15:00 Result Normal Range Units CK 62 39-308 [...] should be interpreted with caution. Radiology Results 89-47-073241:30:00 Chest X-Ray - 2 View PACs Image DATE OF EXAM: Oct 02 2015 RAD 0300-CHEST XRAY 2 VIEW : RADIOLOGY REPORT DATE OF SERVICE: 10/02/15 HISTORY:Chest pain. CHEST - 2 [id number] HOURS The lungs are clear. Heart size [...] SERVICE: 10/02/15 HISTORY:Chest pain. CHEST - 2 [id number] HOURS The lungs are clear. Heart size and pulm onary vessels are normal. There are no hilar or mediastinal abnormalities. IMPRESSION: Negative chest. Jorge Alberto Henao MD MWJudy/pili 10/02/2015 12:06:00 / 2015 12:59:42 cc:Dr. Didier Duke This document has been electronically Signed by: JORGE ALBERTO HENAO MD On: Oct 02 20151:30P Result Amended on 2015-10-02 at 13:30:53 . Previous status was [place]. 81-14-974376:15:00 Result Normal Range Units MPV H 10.5 7.3-10.4 FL History of procedures Procedure Code Code Type Description Date Performed Performing Physician 83070 CPT-4 ROUTINE VENIPUNCTURE 10-02-2015 ILIR VIDES 94112 CPT-4 CHEST X-RAY 10-02-2015 ILIR RODRIGORILong 21829 CPT-4 COMPREHEN METABOLIC PANEL 10-02-2015 ILIR RODRIGORIL 24392 CPT-4 ASSAY OF CK (CPK) 10-02-2015 [place] [address] CPT-4 CREATINE, MB FRACTION 10-02-2015 ILIR RODRIGORIL 83209 CPT-4 ASSAY OF TROPONIN, QUANT 10-02-2015 A MY MADRIL 39943 CPT-4 COMPLETE CBC, AUTOMATED 10-02-2015 AM Y MADRIL 70895 CPT-4 ELECTROCARDIOGRAM, TRACING 10-02-2015 ILIR RODRIGORIL 64396 CPT-4 EMERGENCY DEPT VISIT 10-02-2015 ILIR VIDES 76303 CPT-4 EMERGENCY DEPT VISIT 10-02-2015 ILIR VIDES Functional status Functional Status Finding Observation Time Abdomen Appearance round 35-78-922700:50 Abdomen non-tender 41-89-983683:50 Bowel Sounds present 50-05-180736:50 Hernandez no 70-44-189067:50 Urination normal 61-49-204277:50 Quality sym/unlabored 53-71-398983:50 Cough absent 33-20-634213:50 Secretions no 61-95-075813:50 Breath Sounds RUL clear 36-57-168682:50 Breath Sounds RML clear 04-38-578473:50 Breath Sounds RLL clear 86-56-234332:50 Breath Sounds ALFONSO clear 17-26-839644:50 Breath Sounds LLL clear 98-15-849198:50 Airway natural :50 Oxygen no :30 Temp >100.4 no :50 Temp <96.8 no :50 Chills with rigors no :50 HR > 90bpm no :50 Respirations > 20 no :50 Systolic <90 no :50 headache stiff neck no :50 IV Site Location R outer AC :35 IV Type peripheral 68-86-433711:35 IV Site Information discontinued :35 IV Site Start Attmpt 1 times 19-31-927558:15 IV Site Herb 20 84-55-021235:15 IV Site Appearance WNL 68-24-854039:15 IV Site Color clear 64-17-127873:15 IV Site Patent yes 09-99-656342:15 Dressing Type occlusive 28-12-855178:15 Nursing Note Pt was given home instructions and Pt IV was removed at this time :37 Vital signs Type Value Date Respiration Rate 16breaths per minute : 30 Pulse 67beats per minute :30 Oxygen Saturation 94% :30 BP Systolic 124mmHg :30 BP Diastolic 83mmHg :30 Temperature 97.8F :30 Weight 210.2LB 96-41-995796:48 Social history Type Value Smoking Status CURRENT EVERY DAY SMOKER Treatment Plan No treatment plan text is available for this visit. Hospital discharge instructions Dismissal Condition good Disposition on DC home DC Inst/Educ Give yes PNE Vac None Flu Vac None Tetanus Vac 2007
--- OUTSIDE RECORDS SUMMARY | 2019-05-31 10:34 | XMS REPORT | Clinical Summary ---
Author Author Admin, Liam Ruffin [facility] Address Unknown Phone Unavailable Allergies, Adverse [...] as needed for muscle spasm/pain CYCLOBENZAPRINE HCL 22685081479 Active Didier Valdez MD Active OXYCONTIN 10 MG ORAL T12A by mouth twice a day OXY CODONE HCL 78684232293 Active Didier Valdez MD Active OXYCODONE HCL 5 MG ORAL CAPS Take one by mouth TID OXYCODONE HCL 27714108606 Active Didier Valdez MD Active METHYLPREDNISOLONE (MARY KATE) 4 MG TABS M ETHYLPREDNISOLONE 81438814571 No Longer Active Didier Valdez MD Active METHOCARBAMOL 750 MG TABS 1 tab tid METHOCARBAMOL 67619142287 No Longer Active Didier Valdez MD Active ULTRAM 50 MG TABS 1 tab q4-6h PRN TRAMADOL HCL 66 376522914 No Longer Active Didier Valdez MD Active TRAZODONE HCL 50 MG TABS Take 1 to 2 tablets every night TRAZODONE HCL 87222916895 No Longer Active Didier Valdez MD Activ e EQ IBUPROFEN 200 MG TABS Take 2 tablets every 4 to 6 hours PRN IBUPROFEN 90415382796 No Longer Active Wilfredo Troncoso MD Acti ve MOBIC 7.5 MG TABS 1 tablet by mouth twice daily MELOXICAM 95450570368 No Longer Active Wilfredo Troncoso MD Active PERCOCET 10-325 MG TABS take 1 tab po q6 hours prn pain. OXYCODONE-ACETAMINOPHEN 22948028258 Active Wilfredo Troncoso MD Active HYDROCODONE-ACETAMINOPHEN 7.5-325 MG TABS take 1-2 tab lets every 6 hours as needed for pain HYDROCODONE-ACETAMINOPHEN 11919954695 No Longer Active Wilfredo Troncoso MD Active LORTAB 5 5-500 MG TABS 1 tablet by mouth every 6 hours as ne eded for pain HYDROCODONE-ACETAMINOPHEN 04120848355 No Longer Activ e Wilfredo Troncoso MD Active MEDROL (MARY KATE) 4 MG TABS 6 tabs on day 1, 5 tabs on d ay 2, 4 tabs on day 3, 3 tabs on day 4, 2 tabs on day 5, 1 tab on day 6 METHYLPREDNISOLONE 55701959504 No Longer Active Wilfredo Troncoso MD Active ALPRAZOLAM 1 MG TABS Take 1 tablet 1x daily ALPRAZOLAM 3 8222030405 Active Wilfredo Troncoso MD Active ZOLOFT 100 MG TABS Take 1 tablet 2x daily SERTRALINE HCL 04868629487 Active Wilfredo Troncoso MD Active ZOLOFT 100 MG TABS 2 tabs by mouth once a day S ERTRALINE HCL 76234240223 No Longer Active Jameel STILES Active ZOFRAN ODT 4 MG TBDP 1 tablet every 6 hours as needed for nausea . ONDANSETRON 66458669990 No Longer Active Jameel W Cloven PA Active METOPROLOL TARTRATE 25 MG TABS 1 po q a.m. and 0.5 in evening 03/12 METOPROLOL TARTRATE 16899473540 Active Didier Valdez MD Ac tive ZOFRAN ODT 4 MG TBDP 1 tablet every 6 hours as needed for nausea . ZOFRAN ODT 4 MG TBDP 610611 ONDANSETRON Inactive ZOLOFT 100 MG TABS 2 tabs by mouth once a day Z OLOFT 100 MG TABS 472460 SERTRALINE HCL Inactive LORTAB 5 5-500 MG TABS 1 tablet by mouth every 6 hours as ne eded for pain LORTAB 5 5-500 MG TABS HYDROCODONE-ACETAM INOPHEN Inactive HYDROCODONE-ACETAMINOPHEN 7.5-325 MG TABS take 1-2 tab lets every 6 hours as needed for pain HYDROCODONE-ACETAMINOPHEN 7.5-32 5 MG TABS 719263 HYDROCODONE-ACETAMINOPHEN Inactive MOBIC 7.5 MG TABS 1 tablet by mouth twice daily 09/16 MOBIC 7.5 MG TABS 223315 MELOXICAM Inactive EQ IBUPROFEN 200 MG TABS Take 2 tablets every 4 to 6 hours PRN EQ IBUPROFEN 200 MG TABS 933599 IBUPROFEN Inactive TRAZODONE HCL 50 MG TABS Take 1 to 2 tablets every night TRAZODONE HCL 50 MG TABS 427887 TRAZODONE HCL Inactive ULTRAM 50 MG TABS 1 tab q4-6h PRN ULTRAM 50 MG TA BS 839503 TRAMADOL HCL Inactive METHOCARBAMOL 750 MG TABS 1 tab tid METHOCARBA MOL 750 MG TABS 614125 METHOCARBAMOL Inactive METHYLPREDNISOLONE (MARY KATE) 4 MG [...] Measured Encounters Code Encounter Date Provider Facility CPT-59834 Level 4 Est. Patient 16:31:23 MECHANICAL MAINTENANCE Didier Valdez MD [facility] CPT-85616 Level 3 Est. Patient 17:18:46 CDT Wilfredo wyatt MD [facility] CPT-70676 Level 3 Est. Patient 10:03:01 CDT Wilfredo wyatt MD [facility] CPT-28717 Level 3 Est. Patient 14:51:46 MECHANICAL MAINTENANCE Wilfredo wyatt MD [facility] CPT-33944 Level 3 Est. Patient 18:41:44 MECHANICAL MAINTENANCE Wilfredo wyatt MD [facility] CPT-64350 Level 3 Est. Patient 19:42:04 MECHANICAL MAINTENANCE Wilfredo wyatt MD [facility] CPT-98678 Level 4 New Patient 12:51:50 CDT Florentino gan MD [facility] Procedures Code Procedure Name Date Entry Date Standard Desc ription CPT-52231 LS spine AP and Lat 13:45:51 CDT CPT-33509 LS spine AP and Lat 15:58:55 MECHANICAL MAINTENANCE CPT-12631 Drug Screen Leonid 14:45:55 MECHANICAL MAINTENANCE CPT-47087 Postop F/U Visit 17:53:11 CDT CPT-70816 Urine Dip (Floor Use Only) 12:51:50 CDT 201 04/24/28 CPT-45903 Abd single AP View 12:51:50 CDT
--- OUTSIDE RECORDS SUMMARY | 2019-05-31 10:34 | XMS REPORT ---
Author Author [facility] Medic al Staff, AIMEE Lopez Organization [facility] Address [address], [place] [address] Phone [phone] Care Team Providers Care Oil Field Tester Name Role Phone KATHIA DUKE MD PP [phone] KATHIA DUKE MD PP [phone] Summary purpose TRANSITION OF CARE AUTO GENERATION Chief Complaint and Reason for Visit Admit Diagnosis 1 LEFT ESWL Problem list No authorized problems tracked for [...] diagnostic tests and/or laboratory data RESULTS Chemistry :15:00 Result Normal Range Units Sodium 142 134-145 mEq/l Potassium 3.9 3.5-5.1 mEq/l Chloride 104 98-107 mEq/l CO2 H 31.0 22-28 mEq/l Glucose 95 70-105 mg/dl BUN 10 7-18 mg/dl Creatinine H 1.35 0.6-1.3 mg/dl Calcium 8.6 8.4-10.2 mg/dl Osmolality 282.0 280-300 mOsm/L Anion GAP L 7.0 8-16 BUN/Creatinine Ratio L 7.4 10-20 Estimated GFR L 59 >= 60 mL/min /1.7 Hematology :15:00 Result Normal Range Units WBC 8.1 4.8-10.8 103/uL RBC 4.7 4.7-6.1 106/uL HGB 15.2 13.0-18.0 g/dl HCT 42.6 41.9-52.0 % MCV 90.6 80-94 FL MCH H 32.3 27-31 pg MCHC 35.7 33-37 g/dl RDW 11.6 11.5-15.5 % PLT 329 130-400 103/uL MPV H 10.5 7.3-10.4 FL Neutro % 42.2 40-70 % Lymph % H 46.7 20-40 % [place] % 7.9 0-10.0 % Eos % 2.5 0-7.0 % Baso % 0.5 0-2 % Neutro # 3.4 1.5-7.5 103/uL Lymph # 3.8 0.9-4.0 103/uL [place] # 0.6 0-0.8 103/uL Eos # 0.2 0-0.6 103/uL Baso # 0.0 0-0.1 103/uL Radiology Results :15:00 Result Normal Range Units MPV H 10.5 7.3-10.4 FL History of procedures No procedures recorded for this patient visit. Functional status Functional Status Finding Observation Time Ambulation Asst Dev none :39 Range of Motion full :10 Muscle Strength RUE 5 ROM full resist :10 Muscle Strength RLE 5 ROM full resist :10 Muscle Strength LUE 5 ROM full resist :10 Muscle Strength LLE 5 ROM full resist :10 Transfers independent :10 Ambulation in room :10 Balance steady :10 Bathing Assistance none :39 Eating Assistance none :39 Dressing Assistance none :39 Toileting Assistance none :39 Transfer Assistance none :39 Decline Slf Care/Mob no :39 Phys Cond Stable yes :39 Nutrition normal :10 Diet regular :10 Oral Cavity moist and intact :10 Teeth intact :10 Dental Hygiene good :10 Abdomen Appearance round :10 Abdomen tender :10 Bowel Sounds present :10 NG Tube no :10 Feeding Tube none :10 Hernandez no :10 Cont Bladder Irr no :10 Ostomy no :10 Stool normal : Urination normal Comment: straining all urine :10 Urine Clarity clear :10 Urine Color blood-tinged :10 Quality sym/unlabored :10 Cough absent :10 Secretions no :10 Breath Sounds RUL clear :10 Breath Sounds RML clear :10 Breath Sounds RLL clear :10 Breath Sounds ALFONSO clear :10 Breath Sounds LLL clear :10 Airway natural :10 Chest Tube no :10 Oxygen no :45 C-PAP no :10 BI-PAP no :10 Temp >100.4 no :10 Temp <96.8 no :10 Chills with rigors no : HR > 90bpm no :10 Respirations > 20 no :10 Systolic <90 no :10 headache stiff neck no :10 IV Site Location LAC :55 IV Type peripheral :55 IV Site Information discontinued Comment: cath tip intact :55 IV Site Start Attmpt 3 times Comment: unable to obtain IV access in OPS, surgery crew to attempt. :49 IV Site Herb 20 :55 IV Site Appearance WNL :55 IV Site Color clear :55 IV Site Patent yes :55 Dressing Changed yes :55 Dressing Type gauze :55 Nursing Note VSS. Pt urinating without di fficulty. Urine is blood tinged. No stones noted. Straining all urine. Pt instructed to do so at home. Continues to deny pain. Ate a full meal and denies n/v. Dc teaching provided and pt verbalized understanding. Pt escorted out via wheelchair to private vehicle that is being driven by pt's fiance. Denies further needs or questions. : Cognitive Status Finding Observation Time Learning Ability comprehends well Neurological no : Psychological no : Physical no : Hearing no : Optician Manager Needed no : Sign Language no : Emotional no : Vision no : Laguage no : Financial no : Vital signs Type Value Date Respiration Rate 18breaths per minute : 45 Pulse 70beats per minute :45 Oxygen Saturation 96% :45 BP Systolic 119mmHg :45 BP Diastolic 84mmHg :45 Temperature 97.4F :00 Height 66inches :09 Weight 233.5LB :09 Social history No Social History or smoking status observations were recorded for this visit. ( Unknown if ever smoked.) Treatment Plan No treatment plan text is available for this visit. Hospital discharge instructions Discharge Date/Time 02/28/15 17:00:00 Relationship spouse/signif other Dismissal Condition good Disposition on DC home Valuables yes Valuable Type cell phone Valuables Returned T patient DC Inst/Educ Give yes Exit Care Educ Given yes Med/Side Effects Rev yes PNE Vac refuses Flu Vac refuses Tetanus Vac 2008 Follow up appt appt made (specify) Follow Up Appt D/T 03/28/2015 at 1130
--- OUTSIDE RECORDS SUMMARY | 2019-05-31 10:34 | XMS REPORT | Clinical Summary ---
Author Author Admin, Liam Ruffin [facility] Address Unknown Phone Unavailable Allergies, Adverse Reactions, [...] every 4 to 6 hours PRN IBUPROFEN 08075474078 No Longer Active Wilfredo Troncoso MD Acti ve MOBIC 7.5 MG TABS 1 tablet by mouth twice daily MELOXICAM 10504020652 No Longer Active Wilfredo Troncoso MD Active METHYLPREDNISOLONE (MARY KATE) 4 MG TABS M ETHYLPREDNISOLONE 13146268206 Active Wilfredo Troncoso MD Active METHOCARBAMOL 750 MG TABS 1 tab tid METHOCARBAMOL 895772 38295 Active Wilfredo Troncoso MD Active ULTRAM 50 MG TABS 1 tab q4-6h PRN TRAMADOL HCL 325587505 25 Active Wilfredo Troncoso MD Active PERCOCET 10-325 MG TABS take 1 tab po q6 hours prn pain. OXYCODONE-ACETAMINOPHEN 14105856141 Active Wilfredo Troncoso MD Active HYDROCODONE-ACETAMINOPHEN 7.5-325 MG TABS take 1-2 tab lets every 6 hours as needed for pain HYDROCODONE-ACETAMINOPHEN 37320775192 No Longer Active Wilfredo Troncoso MD Active LORTAB 5 5-500 MG TABS 1 tablet by mouth every 6 hours as ne eded for pain HYDROCODONE-ACETAMINOPHEN 28712960658 No Longer Activ e Wilfredo Troncoso MD Active MEDROL (MARY KATE) 4 MG TABS 6 tabs on day 1, 5 tabs on d ay 2, 4 tabs on day 3, 3 tabs on day 4, 2 tabs on day 5, 1 tab on day 6 METHYLPREDNISOLONE 75062044411 No Longer Active Wilfredo Troncoso MD Active TRAZODONE HCL 50 MG TABS Take 1 to 2 tablets every night TRAZODONE HCL 86365512700 Active Wilfredo Troncoso MD Active ALPRAZOLAM 1 MG TABS Take 1 tablet 1x daily ALPRAZOLAM 3 6721100960 Active Wilfredo Troncoso MD Active ZOLOFT 100 MG TABS Take 1 tablet 2x daily SERTRALINE HCL 60214139309 Active Wilfredo Troncoso MD Active ZOLOFT 100 MG TABS 2 tabs by mouth once a day S ERTRALINE HCL 15204560779 No Longer Active Jameel STILES Active ZOFRAN ODT 4 MG TBDP 1 tablet every 6 hours as needed for nausea . ONDANSETRON 64355268464 No Longer Active Jameel STILES Active METOPROLOL TARTRATE 25 MG TABS 1 po q a.m. and 0.5 in evening 03/12 METOPROLOL TARTRATE 19619778678 Active Wilfredo Troncoso MD A ctive ZOFRAN ODT 4 MG TBDP 1 tablet every 6 hours as needed for nausea . ZOFRAN ODT 4 MG TBDP 653157 ONDANSETRON Inactive ZOLOFT 100 MG TABS 2 tabs by mouth once a day Z OLOFT 100 MG TABS 738905 SERTRALINE HCL Inactive LORTAB 5 5-500 MG TABS 1 tablet by mouth every 6 hours as ne eded for pain LORTAB 5 5-500 MG TABS HYDROCODONE-ACETAM INOPHEN Inactive HYDROCODONE-ACETAMINOPHEN 7.5-325 MG TABS take 1-2 tab lets every 6 hours as needed for pain HYDROCODONE-ACETAMINOPHEN 7.5-32 5 MG TABS 961384 HYDROCODONE-ACETAMINOPHEN Inactive MOBIC 7.5 MG TABS 1 tablet by mouth twice daily 09/16 MOBIC 7.5 MG TABS 476369 MELOXICAM Inactive EQ IBUPROFEN 200 MG TABS Take 2 tablets every 4 to 6 hours PRN EQ IBUPROFEN 200 MG TABS 648006 IBUPROFEN Inactive MEDROL (MARY KATE) 4 MG TABS 6 tabs on day 1, 5 tabs on d ay 2, 4 tabs on day 3, 3 tabs on day 4, 2 tabs on day 5, 1 tab on day 6 MEDROL (MARY KATE) 4 MG TABS METHYLPREDNISOLONE Inactive Encounters Code Encounter Date Provider Facility CPT-80477 Level 3 Est. Patient 17:18:46 CDT Wilfredo wyatt MD [facility] CPT-84371 Level 3 Est. Patient 10:03:01 CDT Wilfredo wyatt MD [facility] CPT-47080 Level 3 Est. Patient 14:51:46 ECOLOGY TEACHER Wilfredo wyatt MD [facility] CPT-55488 Level 3 Est. Patient 18:41:44 ECOLOGY TEACHER Wilfredo wyatt MD [facility] CPT-81034 Level 3 Est. Patient 19:42:04 ECOLOGY TEACHER Wilfredo wyatt MD [facility] CPT-29964 Level 4 New Patient 12:51:50 CDT J Valdez gan MD [facility] Procedures Code Procedure Name Date Entry Date Standard Desc ription CPT-18955 LS spine AP and Lat 13:45:51 CDT CPT-08874 LS spine AP and Lat 15:58:55 ECOLOGY TEACHER CPT-91147 Drug Screen Leonid 14:45:55 ECOLOGY TEACHER CPT-53771 Postop F/U Visit 17:53:11 CDT CPT-77409 Urine Dip (Floor Use Only) 12:51:50 CDT 201 04/24/28 CPT-60993 Abd single AP View 12:51:50 CDT
--- OUTSIDE RECORDS SUMMARY | 2019-05-31 10:34 | XMS REPORT | Clinical Summary ---
Author Author Admin, Liam Ruffin [facility] Address Unknown Phone Unavailable Allergies, [...] every 4 to 6 hours PRN IBUPROFEN 78058709384 No Longer Active Wilfredo Troncoso MD Acti ve MOBIC 7.5 MG TABS 1 tablet by mouth twice daily MELOXICAM 28121508934 No Longer Active Wilfredo Troncoso MD Active METHYLPREDNISOLONE (MAYR KATE) 4 MG TABS M ETHYLPREDNISOLONE 40172245428 Active Wilfredo Troncoso MD Active METHOCARBAMOL 750 MG TABS 1 tab tid METHOCARBAMOL 720620 12108 Active Wilfredo Troncoso MD Active ULTRAM 50 MG TABS 1 tab q4-6h PRN TRAMADOL HCL 415396887 25 Active Wilfredo Troncoso MD Active PERCOCET 10-325 MG TABS take 1 tab po q6 hours prn pain. OXYCODONE-ACETAMINOPHEN 37451839567 Active Wilfredo Troncoos MD Active HYDROCODONE-ACETAMINOPHEN 7.5-325 MG TABS take 1-2 tab lets every 6 hours as needed for pain HYDROCODONE-ACETAMINOPHEN 95832788765 No Longer Active Wilfredo Troncoso MD Active LORTAB 5 5-500 MG TABS 1 tablet by mouth every 6 hours as ne eded for pain HYDROCODONE-ACETAMINOPHEN 45025058762 No Longer Activ e Wilfredo Troncoso MD Active MEDROL (MARY KATE) 4 MG TABS 6 tabs on day 1, 5 tabs on d ay 2, 4 tabs on day 3, 3 tabs on day 4, 2 tabs on day 5, 1 tab on day 6 METHYLPREDNISOLONE 01153692460 No Longer Active Wilfredo Troncoso MD Active TRAZODONE HCL 50 MG TABS Take 1 to 2 tablets every night TRAZODONE HCL 04976480938 Active Wilfredo Troncoso MD Active ALPRAZOLAM 1 MG TABS Take 1 tablet 1x daily ALPRAZOLAM 3 6417899836 Active Wilfredo Troncoso MD Active ZOLOFT 100 MG TABS Take 1 tablet 2x daily SERTRALINE HCL 28513071101 Active Wilfredo Troncoso MD Active ZOLOFT 100 MG TABS 2 tabs by mouth once a day S ERTRALINE HCL 47815213035 No Longer Active Jameel STILES Active ZOFRAN ODT 4 MG TBDP 1 tablet every 6 hours as needed for nausea . ONDANSETRON 57469315792 No Longer Active Jameel STILES Active METOPROLOL TARTRATE 25 MG TABS 1 po q a.m. and 0.5 in evening 03/12 METOPROLOL TARTRATE 54072755078 Active Wilfredo Troncoso MD A ctive ZOFRAN ODT 4 MG TBDP 1 tablet every 6 hours as needed for nausea . ZOFRAN ODT 4 MG TBDP 347726 ONDANSETRON Inactive ZOLOFT 100 MG TABS 2 tabs by mouth once a day Z OLOFT 100 MG TABS 790245 SERTRALINE HCL Inactive LORTAB 5 5-500 MG TABS 1 tablet by mouth every 6 hours as ne eded for pain LORTAB 5 5-500 MG TABS HYDROCODONE-ACETAM INOPHEN Inactive HYDROCODONE-ACETAMINOPHEN 7.5-325 MG TABS take 1-2 tab lets every 6 hours as needed for pain HYDROCODONE-ACETAMINOPHEN 7.5-32 5 MG TABS 100084 HYDROCODONE-ACETAMINOPHEN Inactive MOBIC 7.5 MG TABS 1 tablet by mouth twice daily 09/16 MOBIC 7.5 MG TABS 775408 MELOXICAM Inactive EQ IBUPROFEN 200 MG TABS Take 2 tablets every 4 to 6 hours PRN EQ IBUPROFEN 200 MG TABS 787172 IBUPROFEN Inactive MEDROL (MARY KATE) 4 MG TABS 6 tabs on day 1, 5 tabs on d ay 2, 4 tabs on day 3, 3 tabs on day 4, 2 tabs on day 5, 1 tab on day 6 MEDROL (MARY KATE) 4 MG TABS METHYLPREDNISOLONE Inactive Encounters Code Encounter Date Provider Facility CPT-87772 Level 3 Est. Patient 17:18:46 CDT Wilfredo wyatt MD [facility] CPT-91481 Level 3 Est. Patient 10:03:01 CDT Wilfredo wyatt MD [facility] CPT-48221 Level 3 Est. Patient 14:51:46 SCENIC ARTIST Wilfredo wyatt MD [facility] CPT-48353 Level 3 Est. Patient 18:41:44 SCENIC ARTIST Wilfredo wyatt MD [facility] CPT-29312 Level 3 Est. Patient 19:42:04 SCENIC ARTIST Wilfredo wyatt MD [facility] CPT-92218 Level 4 New Patient 12:51:50 CDT J Valdez gan MD [facility] Procedures Code Procedure Name Date Entry Date Standard Desc ription CPT-24356 LS spine AP and Lat 13:45:51 CDT CPT-50375 LS spine AP and Lat 15:58:55 SCENIC ARTIST CPT-03733 Drug Screen Leonid 14:45:55 SCENIC ARTIST CPT-47369 Postop F/U Visit 17:53:11 CDT CPT-45519 Urine Dip (Floor Use Only) 12:51:50 CDT 201 04/24/28 CPT-09737 Abd single AP View 12:51:50 CDT
--- OUTSIDE RECORDS SUMMARY | 2019-05-31 10:34 | XMS REPORT ---
Author Author [facility] Medic al StaffAIMEE Organization [facility] Address [address] [place], [place] [address] Phone [phone] Care Team Providers Care Applied Computer Science Professor Name Role Phone KATHIA DUKE MD PP [phone] KATHIA DUKE MD, PP [phone] Summary purpose TRANSITION OF CARE AUTO GENERATION [...] tests and/or laboratory data RESULTS Radiology Results 05-04-919792:08:00 RETROGRADE PYELOGRAM PACs Image DATE OF EXAM: Apr 04 2015 RAD 1274-RETROGRADE PYELOGRA M : RADIOLOGY REPORT DATE OF SERVICE: 04/04/15 HISTORY: Ureteral calculus LEFT RETROGRADE PYELOGRAM SUPERVISION AN D [id number] HOURS Comparison is made with the plain film s tudy performed earlier today. The administrative processor radiograph shows left ureteral stent in place. [...] left ureteric calculi as above. MD MARIPOSA Ulloa/md04/04/2015 14:07:00 / 03/22 14:12:54 cc:Dr. Valdez Herrera This document has been electronically Signed by: On: DATE OF EXAM: Apr 04 2015 RAD 1274-RETROGRADE PYELOGRA M : RADIOLOGY REPORT DATE OF SERVICE: 04/04/15 HISTORY: Ureteral calculus LEFT RETROGRADE PYELOGRAM SUPERVISION AN D [id number] HOURS Comparison is made with the plain film s tudy performed earlier today. The administrative processor radiograph shows left ureteral stent in place. [...] 2015-04-04 at 18:08:39 . Previous status was [place]. LEFT URETEROSCOPY W STONE EXTR POSS LASER 32-19-311782:10:00 ABDOMEN 1 VIEW PACs Image DATE OF [...] 3 small left renal calculi. MD MARIPOSA Ulloa/md/ 13:29:00 / 03/22 13:33:58 cc:Dr. Valdez Herrera This document has been electronically Signed by: MARYBETH SALGUERO MD On: Apr 04:10P LEFT URETEROSCOPY W STONE EXTR POSS LASER Result Amended on 2015-04-04 at 14:10:48 . Previous status was [place]. LEFT URETEROSCOPY W STONE EXTR POSS LASER History of procedures No procedures recorded for this patient visit. Functional status Functional Status Finding Observation Time Hearing Prob Loc none : Vision Problems no : Ambulation Asst Dev none :30 Range of Motion full :10 Muscle Strength RUE 5 ROM full resist :10 Muscle Strength RLE 5 ROM full resist :10 Muscle Strength LUE 5 ROM full resist :10 Muscle Strength LLE 5 ROM full resist :10 Transfers independent : Ambulation up ad selvin : Balance steady : Bathing Assistance none :30 Eating Assistance none : Dressing Assistance none : Toileting Assistance none : Transfer Assistance none : Decline Slf Care/Mob no : Phys Cond Stable yes : Nutrition normal :10 Diet regular : Oral Cavity moist and intact : Teeth intact :10 Dental Hygiene good :10 Abdomen Appearance round : Abdomen tender :10 Bowel Sounds present : NG Tube no :10 Feeding Tube none :10 Hernandez no :10 Cont Bladder Irr no :10 Ostomy no :10 Stool normal : Urination normal :10 Quality sym/unlabored : Cough absent :10 Secretions no :10 Breath Sounds RUL clear :10 Breath Sounds RML clear :10 Breath Sounds RLL clear :10 Breath Sounds ALFONSO clear :10 Breath Sounds LLL clear :10 Airway natural : Chest Tube no :10 Oxygen no :00 C-PAP no :10 BI-PAP no :10 Temp >100.4 no : Temp <96.8 no :10 Chills with rigors no : HR > 90bpm no : Respirations > 20 no : Systolic <90 no : headache stiff neck no :10 Rapid Resp no :10 IV Site Location Rt hand :35 IV Type peripheral :35 IV Site Information discontinued Comment: cath tip intact :35 IV Site Start Attmpt 1 times :10 IV Site Herb 20 :35 IV Site Appearance WNL :35 IV Site Color clear :35 IV Site Patent yes :35 Dressing Changed yes :35 Dressing Type gauze :35 Nursing Note VSS. Denies pain or nausea. Voiding without difficulty. States that his urine is red. DC teaching provided. Strainer for urine provided. Pt verbalized understanding and denied further needs or questions. Pt escorted out via wheelchair to private vehicle that is driven by his SO. :40 Cognitive Status Finding Observation Time Oriented To Date 5 Yes :[address] 5 Yes :30 Name 3 Objects 3 Yes :30 Name Object in Rm 2 Yes :30 Recall 3 Objects 3 Yes :30 Repeats a Phrase 1 Yes : Follows Verbal Direc 3 Yes : Follows Written Dire 1 Yes : Write a Sentance 1 Yes : Draw an Object 1 Yes : Mini Mental Total 25 points :30 Learning Ability comprehends well :35 Neurological no :35 Psychological no :35 Physical no :35 Hearing no :35 Undercollar Baster Needed no :35 Sign Language no :35 Emotional no :35 Vision no :35 Laguage no :35 Financial no :35 Vital signs Type Value Date Respiration Rate 18breaths per minute : Pulse 79beats per minute : Oxygen Saturation 96% :00 BP Systolic 111mmHg :00 BP Diastolic 65mmHg :00 Temperature 97.5F :50 Height 66inches :30 Weight 233.5LB :30 Social history No Social History or smoking [...]
--- OUTSIDE RECORDS SUMMARY | 2019-05-31 10:35 | XMS REPORT | Continuity of Care Document ---
Demographics x Preferred Language Unknown Marital Status Unknown [employer] Affiliation Unknown Race Unknown Ethnic Group Unknown Author Organization Unknown Address Unknown Phone Unavailable Allergies Active Description Code Type Severity Reaction Onset Reported/Identified Relationship to Patient Clinical Status Yes No known allergies [id number] NK N/A N/A Yes No Known Drug Allergies [id number] N/A N/A Yes No known allergies [id number] Drug Allergy N/A N/A Confi rmed but inactive Yes No known drug allergies [id number] ND N/A N/A Confirmed or Verified Yes No Known Medication Allergies Drug N/A N/A Yes NKANo Known Allergies NKA Miscellaneous Allergy Mild N/A 08/01/2008 Yes No Known Drug Allergies [id number] Drug Allergy Mild N/A 08/18/2008 Yes No Known Drug Allergies [id number] Drug Allergy Unknown N/A 05/28/2019 Medications There is no data. 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 10/04/2014 TIA MASSEY V62.84 SUICIDE IDEATION Procedures Code [place] [address] ROUT INE VENIPUNCTURE 10/04/2014 49759 COMP REHEN METABOLIC PANEL 10/04/2014 36115 DRUG SCREEN NON TLC DEVICES 10/04/2014 65471 DRUG SCREEN QUANTALCOHOLS 10/04/2014 96554 ANAL GESICS NON-OPIOID 1 OR 2 10/04/2014 25738 ASSA Y THYROID STIM HORMONE 10/04/2014 08221 COMP LETE CBC W/AUTO DIFF WBC 10/04/2014 22616 LES GENCY DEPT VISIT 10/04/2014 72948 LES GENCY DEPT VISIT 10/04/2014 46595 LES GENCY DEPT VISIT 08/06/2015 51904 ROUT INE VENIPUNCTURE 10/02/2015 32251 CHES T X-RAY 10/02/2015 74304 COMP REHEN METABOLIC PANEL 10/02/2015 69832 ASSA Y OF CK (CPK) 10/02/2015 66756 CREA AARON, MB FRACTION 10/02/2015 31728 ASSA Y OF TROPONIN, QUANT 10/02/2015 06610 COMP LETE CBC, AUTOMATED 10/02/2015 90981 ELEC TROCARDIOGRAM, TRACING 10/02/2015 17371 LES GENCY DEPT VISIT 10/02/2015 03565 LES GENCY DEPT VISIT 10/02/2015 Results Test Result Range CBC WITH DIFF - 10/03/14 00:00 BASO% 0.4 % 0-2 EOS% 1.5 % 0-7.0 HCT 43.7 % 41.9-52.0 HGB 15.4 G/DL 13.0-18.0 LYMPH% 44.2 % 20-40 MCH 32.4 PG 27-31 MCHC 35.2 G/DL 33-37 MCV 92.0 FL 80-94 MONO% 7.8 % 0-10.0 MPV 10.7 FL 7.3-10.4 NEUTRO% 46.0 % 40-70 PLT 324 10^3u 130-400 RBC 4.8 10^6u 4.7-6.1 RDW 12.7 % 11.5-15.5 WBC 11.0 10^3u 4.8-10.8 NEUTRO# 5.1 10^3u 1.5-7.5 LYMPH# 4.9 10^3u 0.9-4.0 MONO# 0.9 10^3u 0-0.8 EOS# 0.2 10^3u 0-0.6 BASO# 0.0 10^3u 0-0.1 IMM GRANULOCYTE % 0.1 % IMM GRANULOCYTE # 0.0 10^3u 0-5 DRUG SCREEN IN HOUSE - 10/03/14 00:00 MBAR N Negative MBENZO N Negative MCOCN N Negative MMAMP N Negative MMTD N Negative MOPIAT P Negative MPCP N Negative MTCA N Negative MTHC N Negative AMPHETAMINE N Negative TSH - 10/03/14 00:00 TSH 4.23 UIUML 0.36-3.74 SALICYLATES - 10/03/14 00:00 SALIC 2.5 MG/DL 2.0-20.0 CMP - 10/03/14 00:00 ALB 4.3 G/DL 3.5-5 ALP 215 IU/L 39-107 ALT 105 IU/L 12-65 AST 48 IU/L 10-42 BCR 8.9 10-20 BUN 13 MG/DL 7-18 CA 9.3 MG/DL 8.4-10.2 CL 103 MEQ/L 98-107 CO2 26.7 MEQ/L 22-28 CREA 1.46 MG/DL 0.6-1.3 EGFR 54 eGFR >= 60 GLU 112 MG/DL 70-105 K 3.7 MEQ/L 3.5-5.1 NA 140 MEQ/L 134-145 OSMSC 280.3 MOSML 280-300 TBIL 0.4 MG/DL 0.1-1.0 TP 7.9 G/DL 6.0-8.3 Albumin/Globulin Ratio 1.2 0-8 Anion Gap 10.3 8-16 ACETAMINOPHEN - 10/03/14 00:00 ACETA 0 UG/ML 10.0-30.0 ETOH - 10/03/14 00:00 ETOH < 3 MG/DL 0-5 CBC WITH DIFF - 02/20/15 00:00 BASO% 0.5 % 0-2 EOS% 1.9 % 0-7.0 HCT 42.8 % 41.9-52.0 HGB 15.4 G/DL 13.0-18.0 LYMPH% 34.0 % 20-40 MCH 32.6 PG 27-31 MCHC 36.0 G/DL 33-37 MCV 90.7 FL 80-94 MONO% 7.2 % 0-10.0 MPV 10.3 FL 7.3-10.4 NEUTRO% 56.1 % 40-70 PLT 313 10^3u 130-400 RBC 4.7 10^6u 4.7-6.1 RDW 12.2 % 11.5-15.5 WBC 10.2 10^3u 4.8-10.8 NEUTRO# 5.7 10^3u 1.5-7.5 LYMPH# 3.5 10^3u 0.9-4.0 MONO# 0.7 10^3u 0-0.8 EOS# 0.2 10^3u 0-0.6 BASO# 0.1 10^3u 0-0.1 IMM GRANULOCYTE % 0.3 % IMM GRANULOCYTE # 0.0 10^3u 0-5 CMP - 12/02/15 00:00 ALB 4.1 G/DL 3.5-5 ALP 149 IU/L 39-107 ALT 80 IU/L 12-65 AST 33 IU/L 10-42 BCR 6.7 10-20 BUN 11 MG/DL 7-18 CA 9.0 MG/DL 8.4-10.2 CL 103 MEQ/L 98-107 CO2 28.5 MEQ/L 22-28 CREA 1.64 MG/DL 0.6-1.3 EGFR 47 eGFR >= 60 GLU 122 MG/DL 70-105 K 4.0 MEQ/L 3.5-5.1 NA 140 MEQ/L 134-145 OSMSC 280.1 MOSML 280-300 TBIL 0.6 MG/DL 0.1-1.0 TP 7.7 G/DL 6.0-8.3 Albumin/Globulin Ratio 1.1 0-8 Anion Gap 8.5 8-16 UA - 02/20/15 00:00 PH 5.5 4.5-8.0 SG 1.015 1.003-1.035 UABILI NEGATIVE UABLD 3+ UACOLOR YEL UAGLU NEGATIVE UAKET NEGATIVE UALEUK NEGATIVE UANIT NEGATIVE UAURO 0.2 0-0.2 UCX NO CLARITY CLD PROTEIN TRACE UA WBC R510 UA RBC TNTC SQUAMOUS EPITHELIAL CELLS FEW BACTERIA 1+ BMP - 02/21/15 00:00 BCR 6.2 10-20 BUN 14 MG/DL 7-18 CA 8.1 MG/DL 8.4-10.2 CL 108 MEQ/L 98-107 CO2 27.2 MEQ/L 22-28 CREA 2.25 MG/DL 0.6-1.3 EGFR 33 eGFR >= 60 GLU 96 MG/DL 70-105 K 4.2 MEQ/L 3.5-5.1 NA 143 MEQ/L 134-145 OSMSC 285.3 MOSML 280-300 Anion Gap 7.8 8-16 CBC WITH DIFF - 02/28/15 00:00 BASO% 0.5 % 0-2 EOS% 2.5 % 0-7.0 HCT 42.6 % 41.9-52.0 HGB 15.2 G/DL 13.0-18.0 LYMPH% 46.7 % 20-40 MCH 32.3 PG 27-31 MCHC 35.7 G/DL 33-37 MCV 90.6 FL 80-94 MONO% 7.9 % 0-10.0 MPV 10.5 FL 7.3-10.4 NEUTRO% 42.2 % 40-70 PLT 329 10^3u 130-400 RBC 4.7 10^6u 4.7-6.1 RDW 11.6 % 11.5-15.5 WBC 8.1 10^3u 4.8-10.8 NEUTRO# 3.4 10^3u 1.5-7.5 LYMPH# 3.8 10^3u 0.9-4.0 MONO# 0.6 10^3u 0-0.8 EOS# 0.2 10^3u 0-0.6 BASO# 0.0 10^3u 0-0.1 IMM GRANULOCYTE % 0.2 % IMM GRANULOCYTE # 0.0 10^3u 0-5 BMP - 02/28/15 00:00 BCR 7.4 10-20 BUN 10 MG/DL 7-18 CA 8.6 MG/DL 8.4-10.2 CL 104 MEQ/L 98-107 CO2 31.0 MEQ/L 22-28 CREA 1.35 MG/DL 0.6-1.3 EGFR 59 eGFR >= 60 GLU 95 MG/DL 70-105 K 3.9 MEQ/L 3.5-5.1 NA 142 MEQ/L 134-145 OSMSC 282.0 MOSML 280-300 Anion Gap 7.0 8-16 STONE NON KIDNEY - 04/04/15 00:00 STONE NIDUS Not observed NON-KIDNEY STONE COMPONENT 1 See Below STONE WT 0.1560 g CBC - 10/02/15 00:00 HCT 43.2 % 41.9-52.0 HGB 15.1 G/DL 13.0-18.0 MCH 32.6 PG 27-31 MCHC 35.0 G/DL 33-37 MCV 93.3 FL 80-94 MPV 10.5 FL 7.3-10.4 PLT 308 10^3u 130-400 RBC 4.6 10^6u 4.7-6.1 RDW 12.8 % 11.5-15.5 WBC 9.2 10^3u 4.8-10.8 CKMB - 10/02/15 00:00 CKMB 0.9 NG/ML 0-3.6 CK - 10/02/15 00:00 CK 62 IU/L 39-308 CMP - 10/02/15 00:00 ALB 3.9 G/DL 3.5-5 ALP 153 IU/L 39-107 ALT 71 IU/L 12-65 AST 30 IU/L 10-42 BCR 11.0 10-20 BUN 12 MG/DL 7-18 CA 9.0 MG/DL 8.4-10.2 CL 105 MEQ/L 98-107 CO2 27.7 MEQ/L 22-28 CREA 1.09 MG/DL 0.6-1.3 EGFR 76 eGFR >= 60 GLU 102 MG/DL 70-105 K 4.1 MEQ/L 3.5-5.1 NA 141 MEQ/L 134-145 OSMSC 281.2 MOSML 280-300 TBIL 0.5 MG/DL 0.1-1.0 TP 7.4 G/DL 6.0-8.3 Albumin/Globulin Ratio 1.1 0-8 Anion Gap 8.3 8-16 TROP - 10/02/15 00:00 TROP < 0.02 NG/ML 0.0-0.4 Complete urinalysis with reflex to cultu re - 05/28/19 20:16 Urine color determination YELLOW NRG Urine clarity determination CLEAR NR G Urine pH measurement by test strip 6.5 5-9 Specific gravity of urine by test strip 1.025 1.016-1.022 Urine protein assay by test strip, semi-quantitative NEGATIVE NEGATIVE Urine glucose detection by automated test strip NE GATIVE NEGATIVE Erythrocytes detection in urine sediment by light micr oscopy NEGATIVE NEGATIVE Urine ketones detection by automated test strip NE GATIVE NEGATIVE Urine nitrite detection by test strip NEGATIVE NEGATIVE Urine total bilirubin detection by test strip NEGA TIVE NEGATIVE Urine urobilinogen measurement by automated test strip (mass/volume) 4.0 mg/dL < = 1.0 Urine leukocyte esterase detection by dipstick NEG ATIVE NEGATIVE Automated urine sediment erythrocyte cou nt by microscopy (number/high power field) NONE NRG Automated urine sediment leukocyte count by microscopy (number/high power field) [HPF] NRG Bacteria detection in urine sediment by light microsco py TRACE NRG Crystals detection in urine sediment by light microsco py PRESENT NRG Casts detection in urine sediment by light microscopy NONE NRG Mucus detection in urine sediment by light microscopy SMALL NRG Complete urinalysis with reflex to culture NO NRG Amorphous sediment detection in urine sediment by ligh t microscopy RARE CARROLL URATES NRG Influenza virus A and B antigen detectio n - 05/28/19 20:38 FLU RESULT NEGATIVE FOR INFLUENZA A AND B ANTIGENS BY IA NRG Encounters ACCT No. Visit Date/Time Discharge Status Pt. Type Provider Facility Loc./Unit Complaint [id number] 10/03/2014 21:22:00 10/04/2014 00:40 :00 DIS Emergency TIA MASSEY [facility] EMR [id number] 06/16/2014 06:21:00 06/16/2014 07:00 :00 DIS Emergency YUDI JUNE [facility] EMR [id number] 08/21/2013 21:35:00 08/21/2013 22:26 :00 DIS Emergency KARSON CHATMAN [facility] EMR [id number] 08/21/2013 03:09:00 08/21/2013 03:50 :00 DIS Emergency YUDI JUNE [facility] EMR [id number] 02/18/2014 00:00:00 Document Registration [id number] 05/28/2019 20:13:00 020 21:27:00 DIS Emergency LESLIE MAK, GREGORY [facility] ER POSSIBLE KIDNEY INFECTION, [id number] 08/28/2016 17:40:00 7 18:55:00 DIS Emergency Nikole Merrill [facility] ED lft lower quad pain [id number] 08/13/2016 09:33:00 7 12:21:00 DIS Emergency YUDI KARIMI [facility] ED back pain [id number] 03/28/2016 10:25:00 7 11:33:00 DIS Emergency RE [facility]RIGUEZ [facility] ED Sore throat [id number] 02/22/2016 01:06:00 6 04:12:00 DIS Emergency RUCHI GUADALUPE [facility] ED vomiting [id number] 10/02/2015 09:49:00 10/02/2015 11:38 :00 DIS Emergency MADRIL, ILIR [facility] EMR [id number] 08/06/2015 21:35:00 08/06/2015 22:08 :00 DIS Emergency YUDI JUNE [facility] EMR [id number] 04/04/2015 12:14:00 04/04/2015 15:40 :00 DIS Inpatient RADHA ORTIZ [facility] OPS [id number] 02/28/2015 14:03:00 02/28/2015 17:00 :00 DIS Inpatient ORTIZJESSIKARADHA J [facility] OPS [id number] 02/20/2015 17:04:00 02/21/2015 15:20 :00 DIS Inpatient DIANA RADHA J [facility] OBS [id number] 02/18/2015 00:00:00 Document Registration [id number] 02/18/2015 00:00:00 Document Registration [id number] 02/18/2014 00:00:00 Document Registration [id number] 02/18/2014 00:00:00 Document Registration [id number] 04/18/2019 14:38:02 04/18/2019 23:59: 59 CLS Outpatient Heath Willard [id number] 03/27/2019 11:42:06 03/27/2019 23:59: 59 CLS Outpatient Heath Willard [id number] 02/01/2019 16:46:24 02/01/2019 23:59: 59 CLS Outpatient Heath Willard [id number] 01/17/2019 14:42:45 01/17/2019 23:59: 59 CLS Outpatient Heath Willard [id number] 01/03/2019 09:49:56 01/03/2019 23:59: 59 CLS Outpatient PATY YEE [id number] 12/15/2018 14:25:14 12/15/2018 23:59: 59 CLS Outpatient Heath Willard [id number] 11/17/2018 16:56:19 11/17/2018 23:59: 59 CLS Outpatient Heath Willard [id number] 08/31/2018 11:54:18 08/31/2018 23:59: 59 CLS Outpatient Heath Willard [id number] 06/13/2018 10:06:38 06/13/2018 23:59: 59 CLS Outpatient Sally Michaud [id number] 05/26/2018 16:40:47 05/26/2018 23:59: 59 CLS Outpatient Bar Mata [id number] 04/21/2018 11:34:23 04/21/2018 23:59: 59 CLS Outpatient Bar Mata [id number] 04/19/2018 10:14:48 04/19/2018 23:59: 59 CLS Outpatient Bar Mata [id number] 04/15/2018 17:20:33 04/15/2018 23:59: 59 CLS Outpatient Mina Barlow Fidel [id number] 03/25/2018 11:53:48 03/25/2018 23:59: 59 CLS Outpatient Bar Mata [id number] 03/07/2018 16:40:28 03/07/2018 23:59: 59 CLS Outpatient Heath Willard [id number] 02/03/2018 16:24:21 02/03/2018 23:59: 59 CLS Outpatient Mina Barlow Fidel [id number] 12/17/2017 15:50:59 12/17/2017 23:59: 59 CLS Outpatient SudheerHeath [id number] 11/26/2017 11:09:47 11/26/2017 23:59: 59 CLS Outpatient Bar Mata [id number] 09/27/2017 18:17:05 09/27/2017 23:59: 59 CLS Outpatient Sudheer Heath [id number] 08/31/2017 16:44:57 08/31/2017 23:59: 59 CLS Outpatient Philomena Nelson [id number] 04/30/2017 12:11:21 04/30/2017 23:59: 59 CLS Outpatient Julio Alexis [id number] 03/30/2017 19:09:39 03/30/2017 23:59: 59 CLS Outpatient Uyen Cardenas [id number] 05/26/2019 15:45:01 ACT Unknown [id number] 03/27/2019 11:31:47 Document Registration [id number] 03/17/2019 07:50:56 Document Registration [id number] 03/17/2019 07:37:27 Document Registration [id number] 01/22/2019 19:44:53 Document Registration [id number] 01/22/2019 19:30:26 Document Registration [id number] 01/19/2019 15:50:30 Document Registration [id number] 01/16/2019 20:06:57 Document Registration [id number] 01/09/2019 19:23:28 Document Registration [id number] 01/09/2019 19:08:09 Document Registration [id number] 01/03/2019 08:45:22 Document Registration [id number] 12/15/2018 14:31:16 Document Registration [id number] 08/25/2018 08:17:33 Document Registration [id number] 07/08/2018 11:47:01 Document Registration [id number] 06/28/2018 08:01:53 Document Registration [id number] 06/20/2018 08:37:44 Document Registration [id number] 05/26/2018 17:18:11 Document Registration [id number] 04/24/2018 15:57:09 Document Registration [id number] 04/24/2018 15:50:33 Document Registration [id number] 04/01/2018 20:03:46 Document Registration [id number] 04/01/2018 19:54:51 Document Registration [id number] 03/25/2018 12:17:36 Document Registration [id number] 03/09/2018 18:57:17 Document Registration [id number] 03/09/2018 18:51:57 Document Registration [id number] 03/07/2018 10:11:21 Document Registration [id number] 12/17/2017 17:00:15 Document Registration [id number] 12/06/2017 10:55:25 Document Registration [id number] 12/06/2017 10:06:04 Document Registration [id number] 11/29/2017 01:37:14 Document Registration [id number] 11/26/2017 11:42:02 Document Registration [id number] 11/18/2017 14:11:01 Document Registration [id number] 11/12/2017 15:14:49 Document Registration [id number] 11/12/2017 15:09:34 Document Registration [id number] 11/07/2017 23:27:58 Document Registration [id number] 11/07/2017 14:00:09 Document Registration
--- OUTSIDE RECORDS SUMMARY | 2019-05-31 10:35 | XMS REPORT ---
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 Name Role Phone KATHIA DUKE MD PP [phone] KATHIA DUKE MD, PP [phone] Summary purpose TRANSITION OF CARE AUTO GENERATION [...] tests and/or laboratory data RESULTS Routine Urinalysis [id number]:05:00 Result Normal Range Units Color YELLOW Clarity Cloudy Specific [place] 1.015 1.003-1.035 pH 5.5 4.5-8.0 Glucose NEGATIVE Bilirubin NEGATIVE Ketones NEGATIVE Protein TRACE Urobilinogen 0.2 0-0.2 E.U./dL Nitrites NEGATIVE Blood 3+ Leukocytes NEGATIVE WBCs 5-10 RBCs Too numerous to count Squamous Epithelial Few Bacteria 1+ Chemistry [id number]:45:00 Result Normal Range Units Sodium 143 134-145 [...] 40-70 % Lymph % 34.0 20-40 % [place] % 7.2 0-10.0 % Eos % 1.9 0-7.0 % Baso % 0.5 0-2 % Neutro # 5.7 1.5-7.5 103/uL Lymph # 3.5 0.9-4.0 103/uL [place] # 0.7 0-0.8 103/uL Eos # 0.2 0-0.6 103/uL Baso # 0.1 0-0.1 103/uL Body Fluid [id number]:05:00 Result Normal Range Units pH 5.5 4.5-8.0 Radiology Results [id number]:23:00 RETROGRADE PYELOGRAM PACs Image DATE OF EXAM: 2014 RAD 1274-RETROGRADE PYELOGRA M : RADIOLOGY REPORT DATE OF SERVICE: 02/21/15 HISTORY: Renal calculi, hydronephrosis BILATERAL RETROGRADE [id number] HOURS Films were obtained with the portable [...] Ulloa/nancy02/21/2015 08:03:00 / 1205/2014 08:17:00 cc:Dr. Valdez Ortiz This document has been electronically Signed by: On: DATE OF EXAM: 2014 RAD 1274-RETROGRADE PYELOGRA M : RADIOLOGY REPORT DATE OF SERVICE: 02/21/15 HISTORY: Renal calculi, hydronephrosis BILATERAL RETROGRADE [id number] HOURS Films were obtained with the portable [...] MD MARIPOSA Ulloa/nancy02/21/2015 08:03:05/2014 08:17:00 cc:Dr. Valdez Ortiz This document has been electronically Signed by: MARYBETH SALGUERO MD On: Feb 21 2015 10:23A RENAL CALCULUS PARTIAL URETERA OBSTRUCTION Result Amended on 2015-02-21 at 10:23:31 . Previous status was MI. RENAL CALCULUS PARTIAL URETERA OBSTRUCTION [id number]:22:00 Renal/Kidney Sono PACs Image DATE OF EXAM: 2014 [id number]/[id number] SONO : RADIOLOGY REPORT DATE OF SERVICE: [...] Findings were telephoned to Dr. Humphreys in [facility] emergency department on 02/20/2015 at 1605 hours. MD MARIPOSA Ulloa/in02/21/2015 08:06:05/2014 08:18:54 cc:Dr. Valdez Ortiz This document has been electronically Signed by: On: DATE OF EXAM: 2014 [id number]/[id number] SONO : RADIOLOGY REPORT DATE OF SERVICE: [...] Findings were telephoned to Dr. Humphreys in [facility] emergency department on 02/20/2015 at 1605 hours. MD MARIPOSA Ulloa/in02/21/2015 08:06:00 05/2014 08:18:54 cc:Dr. Valdez Ortiz This document has been electronically Signed by: MARYBETH SALGUERO MD On: Feb 21 2015 10:22A RENAL CALCULUS PARTIAL URETERA OBSTRUCTION Result Amended on 2015-02-21 at 10:22:24 . Previous status was MI. RENAL CALCULUS PARTIAL URETERA OBSTRUCTION [id number]:16:00 Abdomen 2 View PACs Image DATE OF [...] at the left ureteropelvic junction. MD MARIPOSA Ulloa/in02/20/2015 14:41:00 / 120 04/2014 14:50:16 cc:Dr. Julio Dunn This document has been electronically Signed by: MARYBETH SALGUERO MD On: Feb 20 20153:16P Result Amended on 2015-02-20 at 15:16:40 . Previous status was MI. [id number]:10:00 Result Normal Range Units MPV 10.3 7.3-10.4 FL History of procedures Procedure Code Code Type Description Date Performed Performing Physician [id number] ICD10 Fluoroscopy of Left Kidney, Ureter and Bl adder 02-21-2015 VALDEZ ORTIZ [id number] ICD10 Fluoroscopy of Right Kidney, Ureter and B ladder [id number] ICD10 Insertion of Other Device into Genitourin luis alfredo Tract, Endo [id number] ICD10 Inspection of Bladder, Endo 59266 CPT-4 CYSTOSCOPY & URETER CATHETER 02-21-2015 KARSON HUMPHREYS 15146 CPT-4 CYSTOSCOPY AND TREATMENT 02-21-2015 Maria Guadalupe HUMPHREYS 58159 CPT-4 COMPLETE CBC W/AUTO DIFF WBC 02-20-2015 VALDEZ ORTIZ 95129 CPT-4 COMPREHEN METABOLIC PANEL 02-20-2015 VALDEZ ORTIZ 31631 CPT-4 URINALYSIS AUTO W/SCOPE 02-20-2015 JESSIKA ORTIZ 42042 CPT-4 X-RAY EXAM OF ABDOMEN 02-20-2015 AARON ORTIZ 56130 CPT-4 US EXAM ABDO BACK WALL COMP 02-20-2015 VALDEZ ORTIZ J2270 CPT-4 MORPHINE SULFATE INJECTION 02-20-2015 KARSON HUMPHREYS J2270 CPT-4 MORPHINE SULFATE INJECTION 02-20-2015 KARSON HUMPHREYS J7120 CPT-4 RINGERS LACTATE INFUSION 02-20-2015 Florentino ORTIZ J1170 CPT-4 HYDROMORPHONE INJECTION 02-20-2015 JESSIKA ORTIZ J1170 CPT-4 HYDROMORPHONE INJECTION 02-20-2015 JESSIKA ORTIZ J3010 CPT-4 FENTANYL CITRATE INJECITON 02-20-2015 VALDEZ ORTIZ J2405 CPT-4 ONDANSETRON HCL INJECTION 02-20-2015 VALDEZ ORTIZ J1170 CPT-4 HYDROMORPHONE INJECTION 02-20-2015 JESSIKA ORTIZ J2270 CPT-4 MORPHINE SULFATE INJECTION 02-20-2015 VALDEZ ORTIZ 08825 CPT-4 ROUTINE VENIPUNCTURE 02-20-2015 KARSON HUMPHREYS 51621 CPT-4 METABOLIC PANEL TOTAL CA 02-21-2015 Florentino ORTIZ 72613 CPT-4 CONTRST X-RAY URINARY TRACT 02-21-2015 VALDEZ ORTIZ J2270 CPT-4 MORPHINE SULFATE INJECTION 02-21-2015 KARSON HUMPHREYS J2270 CPT-4 MORPHINE SULFATE INJECTION 02-21-2015 KARSON HUMPHREYS J2270 CPT-4 MORPHINE SULFATE INJECTION 02-21-2015 KARSON HUMPHREYS J2270 CPT-4 MORPHINE SULFATE INJECTION 02-21-2015 KARSON HUMPHREYS J7120 CPT-4 RINGERS LACTATE INFUSION 02-21-2015 Florentino ORTIZ J2405 CPT-4 ONDANSETRON HCL INJECTION 02-21-2015 VALDEZ ORTIZ J3010 CPT-4 FENTANYL CITRATE INJECITON 02-21-2015 VALDEZ ORTIZ J2250 CPT-4 INJ MIDAZOLAM HYDROCHLORIDE 02-21-2015 VALDEZ ORTIZ J2704 CPT-4 INJ, PROPOFOL, 10 MG 02-21-2015 VALDEZ ORTIZ J0690 CPT-4 CEFAZOLIN SODIUM INJECTION 02-21-2015 VALDEZ ORTIZ 15858 CPT-4 ROUTINE VENIPUNCTURE 02-21-2015 KARSON HUMPHREYS 60190 CPT-4 THER/PROPH/DIAG INJ IV PUSH 02-20-2015 VALDEZ ORTIZ 55977 CPT-4 TX/PRO/DX INJ NEW DRUG ADDON 02-20-2015 VALDEZ ORTIZ 34027 CPT-4 TX/PRO/DX INJ SAME DRUG HOME APPRAISER 02-20-2015 VALDEZ ORTIZ 91008 CPT-4 HYDRATE IV INFUSION ADD-ON 02-20-2015 VALDEZ ORTIZ G0378 CPT-4 HOSPITAL OBSERVATION PER HR 02-20-2015 VALDEZ ORTIZ G0378 CPT-4 HOSPITAL OBSERVATION PER HR 02-20-2015 VALDEZ ORTIZ G0378 CPT-4 HOSPITAL OBSERVATION PER HR 02-21-2015 VALDEZ ORTIZ 19789 CPT-4 TX/PRO/DX INJ SAME DRUG HOME APPRAISER 02-20-2015 VALDEZ ORTIZ 79855 CPT-4 TX/PRO/DX INJ SAME DRUG HOME APPRAISER 02-21-2015 VALDEZ ORTIZ 08639 CPT-4 EMERGENCY DEPT VISIT 02-20-2015 VALDEZ ORTIZ 59195 CPT-4 EMERGENCY DEPT VISIT 02-20-2015 VALDEZ ORTIZ Functional status Functional Status Finding Observation Time Hearing Prob Loc none :35 Vision Problems no :35 Ambulation Asst Dev none :35 Range of Motion full :35 Muscle Strength RUE 5 ROM full resist :35 Muscle Strength RLE 5 ROM full resist :35 Muscle Strength LUE 5 ROM full resist :35 Muscle Strength LLE 5 ROM full resist :35 Transfers assist x 1 :35 Ambulation in room :35 Balance steady :35 Bathing Assistance none :35 Eating Assistance none :35 Dressing Assistance none :35 Toileting Assistance none :35 Transfer Assistance none :35 Decline Slf Care/Mob no :35 Phys Cond Stable yes :35 Nutrition normal 07-73-964798:35 Diet clear 69-81-276175:35 Oral Cavity moist and intact :35 Teeth intact 21-49-543262:35 Dental Hygiene good 00-37-164045:35 Abdomen Appearance round [id number]:35 Abdomen tender 86-27-481419:35 Bowel Sounds present 20-02-013250:35 NG Tube no :35 Feeding Tube none 33-85-806504:35 Hernandez no 93-90-669406:35 Cont Bladder Irr no 21-07-497904:35 Ostomy no :35 Stool normal Comment: per pt report :35 Urination normal 70-66-911835:35 Urine Clarity clear 60-19-536081:35 Urine Color bloody 03-44-229470:35 Quality sym/unlabored 97-64-613677:35 Cough absent :35 Secretions no :35 Breath [...] <90 no :35 headache stiff neck no :35 WBC > 27576 no :35 WBC < 4000 no :35 Rapid Resp no :35 IV Site Location Right hand :40 IV Type peripheral :40 IV Site Information discontinued :40 IV Site Start Attmpt 2 times :00 IV Site Herb 20 :40 IV Site Appearance WNL :40 IV Site Color clear :40 IV Site Patent yes :40 Dressing Type gauze :40 Nursing Note pt states he is fine. 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
== END 2019-05-28 21:27 | disposition home or self-care (01) ==
LOC: EDUNIT# 20:11 → ER 20:13
DX: M79.18 Myalgia, other site (principal); Z87.440 Personal history of urinary (tract) infections
CPT/HCPCS: 81000; 87804

== ENCOUNTER 2019-10-05 09:36 | Outpatient (RCR) | payer OTHER ==
[~2019-10-05 09:36] MED LIST changes: +HYDR25TA4 PO; +METO75TA PO; +NAPR250T6 PO
== END 2019-11-09 15:08 | disposition home or self-care (01) ==
PROVIDERS: ATTEND Physical Medicine & Rehabilitation
DX: M54.5 Low back pain (principal); K21.9 Gastro-esophageal reflux disease without esophagitis; R03.0 Elevated blood-pressure reading, without diagnosis of hypertension; Z98.1 Arthrodesis status; Z87.828 Personal history of other (healed) physical injury and trauma
CPT/HCPCS: 97163; G0283

== ENCOUNTER 2019-12-10 22:02 | Emergency (ER) | payer OTHER ==
[~2019-12-10] VITALS: Ht 170 cm; Wt 99.7 kg
[2019-12-10 22:18] VITALS: BP 139/102
--- NOTE | 2019-12-10 22:29 | ED General ---
General Stated Complaint: POSSIBLE RINGWORM Source of Information: Patient Exam Limitations: No Limitations History of Present Illness Date Seen by Provider: Dec 10, 2019 Time Seen by Provider: 22:17 Initial Comments Here with concerns of skin eruptions that started as possible ringworm infection and now has several areas of rash on arms and legs. Currently on fluconazole. Also takes medicine for high blood pressure. States the rash is not getting better and in fact getting worse and didn't know what to do. He is not from this area but staying here currently and asked about where else he could go for dermatology. Also complaining of being prescription for muscle relaxer because he is out of those. Has long history of low back muscle spasms that are helps with cyclobenzaprine. Denies bowel or bladder incontinence, weakness between his legs, numbness, difficulty with walking or other concerns. Timing/Duration: 1 Week Severity: Mild Associated Systoms: Rash; No Shortness of Air, No Weakness Allergies and Home Medications Allergies Coded Allergies: No Known Drug Allergies (Unverified , 05/28/19) Patient Home Medication List Home Medication List Reviewed: Yes Review of Systems Review of Systems Constitutional: see HPI; No chills, No fever Respiratory: no symptoms reported Cardiovascular: no symptoms reported Musculoskeletal: see HPI, back pain, other (muscle spasms) Skin: lesions; No pruritus; rash Psychiatric/Neurological: No Symptoms Reported Past Nyfxpqj-Bjambp-Oriciy Hx Past Med/Social Hx: Reviewed Nursing Past Med/Soc Hx Patient Social History Alcohol Use: Occasionally Uses Recreational Drug Use: No Smoking Status: Current Everyday Smoker 2nd Hand Smoke Exposure: No Recent Foreign Travel: No Contact w/Someone Who Travel: No Recent Hopitalizations: No Seasonal Allergies Seasonal Allergies: No Past Medical History Surgeries: Yes (back Sx, 6 percutaneous nephrolithotomy) Tonsillectomy Respiratory: No Cardiac: Yes Hypertension Neurological: No Genitourinary: Yes (functionally unilateral kidney) Kidney Infection, Kidney Stones Gastrointestinal: No Musculoskeletal: Yes Chronic Back Pain Endocrine: No HEENT: No Cancer: No Psychosocial: No Integumentary: No Blood Disorders: No Family Medical History Reviewed Nursing Family Hx Physical Exam Vital Signs Capillary Refill : Height, Weight, BMI Height: '" Weight: lbs. oz. kg; 36.00 BMI Method: General Appearance: No Apparent Distress, WD/WN Respiratory: Lungs Clear, Normal Breath Sounds Cardiovascular: Regular Rate, Rhythm, No Murmur Neurologic/Psychiatric: Alert, Oriented x3 Skin: Warm/Dry, Rash (in a few round lesions noted to the lower leg on the left and right upper arm. Several areas of fine rash noted to extremities and at belt line. None noted on hands, trunk or neck.) Progress/Results/Core Measures Suspected Sepsis SIRS Temperature: Pulse: Respiratory Rate: Blood Pressure / Mean: Results/Orders My Orders Orders - BEATRIZ HOOPER MD Prednisone Tablet (Deltasone Tablet) (12/10/19 22:30) Vital Signs/I&O Capillary Refill : Progress Note : Progress Note Seen and evaluated. We did discuss dermatology options in that area and we will give name at discharge. Prednisone 40 mg by mouth. He asked for and I will give small prescription of cyclobenzaprine. Discharged home with return precautions. Patient verbalize understanding instructions and agreement with plan. Departure Impression Primary Impression: Rash and nonspecific skin eruption Additional Impressions: Ringworm Back muscle spasm Disposition: HOME, SELF-CARE Condition: Stable Departure-Patient Inst. Decision time for Depature: 22:32 Referrals: NO,LOCAL PHYSICIAN (PCP) Primary Care Physician [facility] (Family) Primary Care Physician LEFTY SANCHEZ MD Patient Instructions: Skin Rash (DC), Ringworm, Athlete's Foot, and Jock Itch, Muscle Spasms (DC) Add. Discharge Instructions: Take medications as directed. Follow-up with your DrOral for recheck and further evaluation. You may follow-up with the dermatology clinic listed. Return for worse pain, fever, vomiting, weakness, breathing problems or other concerns as needed. Scripts Prednisone (Prednisone) 20 Mg Tab 40 MG PO DAILY, #10 TAB 0 Refills Prov: BEATRIZ HOOPER MD 12/10/19 Cyclobenzaprine HCl (Cyclobenzaprine HCl) 10 Mg Tablet 10 MG PO Q8H PRN for SPASMS, #10 TAB 0 Refills Prov: BEATRIZ HOOPER MD 12/10/19 BEATRIZ HOOPER MD Dec 10, 2019 22:29
[2019-12-10] MEDS ORDERED: predniSONE 20 MG TAB PO ONE (22:30)
[2019-12-10] MEDS ORDERED: PRD20T PO (22:36)
[2019-12-10] MEDS ORDERED: CYCL10TA9 PO (22:36)
== END 2019-12-10 22:44 | disposition home or self-care (01) ==
LOC: EDUNIT# 22:02 → ER 22:04
DX: B35.9 Dermatophytosis, unspecified (principal); M62.830 Muscle spasm of back; I10 Essential (primary) hypertension; F17.200 Nicotine dependence, unspecified, uncomplicated; Z79.899 Other long term (current) drug therapy
CPT/HCPCS: 99283

== ENCOUNTER 2020-07-20 12:45 | Observation (INO) | payer BC, OTHER ==
[~2020-07-20] VITALS: Ht 170.2 cm; Wt 90.7 kg
[~2020-07-20 12:45] MED LIST changes: +CYCL10TA9 PO; +NAPR-1088 PO; -NAPR250T6 PO; +PRD20T PO
--- NOTE | 2020-07-20 13:22 | ED GU-Female ---
General Chief Complaint: - Urinary Stated Complaint: PAINFUL URINATION/BODYACHES HEADACHE Nursing Triage Note: pt c/o painful urination. Hx of similar symptoms, only has one kidney, unsure which side. Nursing Sepsis Screen: No Definite Risk Source: patient Exam Limitations: no limitations History of Present Illness Date Seen by Provider: July 20, 2020 Time Seen by Provider: 13:21 Initial Comments To ER with burning urination for about 3 days. Starting yesterday he developed some headache body aches which are the typical symptoms that he gets when he has a kidney infection. He has a history of recurrent kidney infections he states. He still has both kidneys but only one of them is functional he states. He does have a history of kidney stones. Timing/Duration: constant Severity/Quality: moderate Location: urethral Radiation: none Activities at Onset: none Prior Genitourinary Problems: none Sexual [place] History: not active Allergies and Home Medications Allergies Coded Allergies: No Known Drug Allergies (Unverified , 05/28/19) Home Medications Cyclobenzaprine HCl 10 Mg Tablet, 10 MG PO Q8H PRN for SPASMS Prescribed by: BEATRIZ HOOPER on 12/10/192235 Prednisone 20 Mg Tab, 40 MG PO DAILY Prescribed by: BEATRIZ HOOPER on 12/10/192235 Patient Home Medication List Home Medication List Reviewed: Yes Review of Systems Review of Systems Constitutional: see HPI; No chills, No fever; malaise EENTM: see HPI Respiratory: see HPI, cough Cardiovascular: no symptoms reported Genitourinary: see HPI, dysuria; denies flank pain Musculoskeletal: no symptoms reported Skin: no symptoms reported Psychiatric/Neurological: No Symptoms Reported Endocrine: No Symptoms Reported Hematologic/Lymphatic: No Symptoms Reported Past Givgojx-Sxukls-Ftnkpg Hx Patient Social History Alcohol Use: Denies Use 2nd Hand Smoke Exposure: No Recent Infectious Disease Expo: No Recent Hopitalizations: No Seasonal Allergies Seasonal Allergies: No Past Medical History Surgeries: Yes (back Sx, 6 percutaneous nephrolithotomy) Tonsillectomy Respiratory: No Cardiac: Yes Hypertension Neurological: No Genitourinary: Yes (functionally unilateral kidney) Kidney Infection, Kidney Stones Gastrointestinal: No Musculoskeletal: Yes Chronic Back Pain Endocrine: No HEENT: No Cancer: No Psychosocial: No Integumentary: No Blood Disorders: No Physical Exam Vital Signs Vital Signs - First Documented 07/20/20 13:10 Temp 37.2 Pulse 91 Resp 16 B/P (MAP) 122/82 (95) Pulse Ox 98 O2 Delivery Room Air Capillary Refill : Less Than 3 Seconds Height, Weight, BMI Height: '" Weight: lbs. oz. kg; 31.00 BMI Method: General Appearance: WD/WN, no apparent distress HEENT: PERRL/EOMI, normal ENT inspection Neck: non-tender, full range of motion, other (no nuchal rigidity) Respiratory: no respiratory distress, no accessory muscle use Gastrointestinal: normal bowel sounds, non tender, soft Extremities: normal range of motion, non-tender Neurologic/Psychiatric: alert, oriented x 3 Skin: normal color, warm/dry Focused Exam Lactate Level 07/20/20 14:42: Lactic Acid Level 0.85 Lactic Acid Level Laboratory Tests Test 07/20/20 14:42 Lactic Acid Level 0.85 MMOL/L (0.50-2.00) Progress/Results/Core Measures Suspected Sepsis Recent Fever Within 48 Hours: No Infection Criteria Present: None New/Unexplained Altered Menta: No Sepsis Screen: No Definite Risk SIRS Temperature: Pulse: 91 Respiratory Rate: 16 Laboratory Tests 07/20/20 13:21: White Blood Count 21.5H Blood Pressure 122 /82 Mean: 95 07/20/20 14:42: Lactic Acid Level 0.85 Laboratory Tests 07/20/20 13:21: Creatinine 1.26, Platelet Count 290, Total Bilirubin 1.4H Results/Orders Lab Results Laboratory Tests Test 07/20/20 13:14 07/20/20 13:21 07/20/20 14:42 Range/Units Urine Color YELLOW Urine Clarity SL CLOUDY Urine pH 6.0 5-9 Urine Specific [place] 1.025 H 1.016-1.022 Urine Protein NEGATIVE NEGATIVE Urine Glucose (UA) NEGATIVE NEGATIVE Urine Ketones 1+ H NEGATIVE Urine Nitrite NEGATIVE NEGATIVE Urine Bilirubin NEGATIVE NEGATIVE Urine Urobilinogen 1.0 < = 1.0 MG/DL Urine Leukocyte Esterase 1+ H NEGATIVE Urine RBC (Auto) NEGATIVE NEGATIVE Urine RBC 10-25 H /HPF Urine WBC 2-5 /HPF Urine Squamous Epithelial Cells 0-2 /HPF Urine Crystals NONE /LPF Urine Bacteria NEGATIVE /HPF Urine Casts NONE /LPF Urine Mucus NEGATIVE /LPF Urine Culture Indicated NO White Blood Count 21.5 H 4.3-11.0 10^3/uL Red Blood Count 4.74 4.30-5.52 10^6/uL Hemoglobin 15.4 13.3-17.7 g/dL Hematocrit 44 40-54 % Mean Corpuscular Volume 94 80-99 fL Mean Corpuscular Hemoglobin 33 25-34 pg Mean Corpuscular Hemoglobin Concent 35 32-36 g/dL Red Cell Distribution Width 13.0 10.0-14.5 % Platelet Count 290 130-400 10^3/uL Mean Platelet Volume 10.6 9.0-12.2 fL Immature Granulocyte % (Auto) 1 % Neutrophils (%) (Auto) 82 H 42-75 % Lymphocytes (%) (Auto) 9 L 12-44 % Monocytes (%) (Auto) 8 0-12 % Eosinophils (%) (Auto) 0 0-10 % Basophils (%) (Auto) 0 0-10 % Neutrophils # (Auto) 17.6 H 1.8-7.8 10^3/uL Lymphocytes # (Auto) 2.0 1.0-4.0 10^3/uL Monocytes # (Auto) 1.7 H 0.0-1.0 10^3/uL Eosinophils # (Auto) 0.1 0.0-0.3 10^3/uL Basophils # (Auto) 0.1 0.0-0.1 10^3/uL Immature Granulocyte # (Auto) 0.1 0.0-0.1 10^3/uL Neutrophils % (Manual) 77 % Lymphocytes % (Manual) 8 % Monocytes % (Manual) 8 % Eosinophils % (Manual) 1 % Myelocytes % 1 % Band Neutrophils 4 % Atypical Lymphocytes 1 % Polychromasia SLIGHT Microcytosis SLIGHT Sodium Level 139 135-145 MMOL/L Potassium Level 3.9 3.6-5.0 MMOL/L Chloride Level 102 98-107 MMOL/L Carbon Dioxide Level 26 21-32 MMOL/L Anion Gap 11 5-14 MMOL/L Blood Urea Nitrogen 17 7-18 MG/DL Creatinine 1.26 0.60-1.30 MG/DL Estimat Glomerular Filtration Rate > 60 BUN/Creatinine Ratio 13 Glucose Level 97 70-105 MG/DL Calcium Level 9.4 8.5-10.1 MG/DL Corrected Calcium 9.1 8.5-10.1 MG/DL Total Bilirubin 1.4 H 0.1-1.0 MG/DL Aspartate Amino Transf (AST/SGOT) 25 5-34 U/L Alanine Aminotransferase (ALT/SGPT) 34 0-55 U/L Alkaline Phosphatase 132 40-136 U/L C-Reactive Protein High Sensitivity 9.45 H 0.00-0.50 MG/DL Total Protein 7.4 6.4-8.2 GM/DL Albumin 4.4 3.2-4.5 GM/DL Procalcitonin 0.22 H <0.10 NG/ML Lactic Acid Level 0.85 0.50-2.00 MMOL/L My Orders Orders - MEKHI MCKEON APRN Cbc With Automated Diff (07/20/20 13:20) Comprehensive Metabolic Panel (07/20/20 13:20) Ed Iv/Invasive Line Start (07/20/20 13:20) Ns Iv 1000 Ml (Sodium Chloride 0.9%) (07/20/20 13:30) Manual Differential (07/20/20 13:21) Blood Culture (07/20/20 13:38) Lactic Acid Analyzer (07/20/20 13:38) Ct Abd/Pelvis Wo(Kidney Stone) (07/20/20 13:40) Urine Culture (07/20/20 14:13) Chest 1 View, Ap/Pa Only (07/20/20 14:25) Hs C Reactive Protein (07/20/20 14:44) Procalcitonin (Pct) (07/20/20 14:44) Ceftriaxone For Iv Use (Rocephin For I (07/20/20 15:00) Medications Given in ED Current Medications Medications Dose Ordered Sig/Jesus Route Start Time Stop Time Status Last Admin Dose Admin Ceftriaxone Sodium 2000 mg/ Sterile Water 20 ml @ 240 mls/hr ONCE ONCE IV 07/20/20 15:00 07/20/20 15:04 DC 07/20/20 15:05 240 MLS/HR Vital Signs/I&O 07/20/20 13:10 Temp 37.2 Pulse 91 Resp 16 B/P (MAP) 122/82 (95) Pulse Ox 98 O2 Delivery Room Air Capillary Refill : Less Than 3 Seconds Blood Pressure Mean: 95 Departure Communication (Admissions) 1442-he has a 21,000 white count with 82% neutrophils and 4 bands. I do not have any priors to compare to. If this was an isolated finding I would be less concerned but given his symptoms of subjective illness including body aches and fatigue which are consistent with previous kidney infections in addition to the leukocytosis I think it would be best to observe him in the hospital with repeat labs in the morning even though I am unable to identify a source of infection currently. Blood cultures are pending. We will do an empiric 2 g of Rocephin 1451-patient was advised that we should observe him in the hospital and he cuts me off midsentence to state "no. Im Not staying in the hospital just give me antibiotics, I'm going home". We will do the 2 g of Rocephin here and have him sign out AGAINST MEDICAL ADVICE. 1535- now he would like to stay Impression Primary Impression: SIRS (systemic inflammatory response syndrome) Disposition: 09 ADMITTED INPATIENT Condition: Stable Admissions Decision to Admit Reason: Admit from ER (General) Decision to Admit/Date: July 20, 2020 Time/Decision to Admit Time: 15:35 Departure-Patient Inst. Referrals: NO,LOCAL PHYSICIAN (PCP/Family) Primary Care Physician MEKHI MCKEON APRN July 20, 2020 13:22
[2020-07-20 13:24] LABS: BILIRUBIN,URINE NEGATIVE (NEGATIVE); CLARITY,URINE SL CLOUDY; COLOR,URINE YELLOW; GLUCOSE, URINE (UA) NEGATIVE (NEGATIVE); KETONES,URINE 1+ (NEGATIVE); LEUKOCYTE ESTERASE ,URINE 1+ (NEGATIVE); NITRITE,URINE NEGATIVE (NEGATIVE); PROTEIN,URINE NEGATIVE (NEGATIVE)
[2020-07-20] MEDS ORDERED: NS IV 1000 ML 1,000 ML IV SCH (13:30)
[2020-07-20 13:36] LABS: BASOPHILS # (AUTO) 0.1 10^3/uL (0.0-0.1); BASOPHILS % (AUTO) 0 % (0-10); EOSINOPHILS # (AUTO) 0.1 10^3/uL (0.0-0.3); EOSINOPHILS % (AUTO) 0 % (0-10); HEMATOCRIT 44 % (40-54); HEMOGLOBIN 15.4 g/dL (13.3-17.7); LYMPHOCYTES % (AUTO) 9 % (12-44); MEAN CORPUSCULAR HEMOGLOBIN 33 pg (25-34); MEAN CORPUSCULAR HGB CONC 35 g/dL (32-36); MEAN CORPUSCULAR VOLUME 94 fL (80-99); MEAN PLATELET VOLUME 10.6 fL (9.0-12.2); MONOCYTES # (AUTO) 1.7 10^3/uL (0.0-1.0); MONOCYTES % (AUTO) 8 % (0-12); NEUTROPHILS # (AUTO) 17.6 10^3/uL (1.8-7.8); NEUTROPHILS % (AUTO) 82 % (42-75); PLATELET COUNT 290 10^3/uL (130-400); WHITE BLOOD COUNT 21.5 10^3/uL (4.3-11.0)
[2020-07-20 13:37] LABS: BACTERIA,URINE NEGATIVE /HPF; SQUAMOUS EPITHELIAL CELL,UR 0-2 /HPF
[2020-07-20 13:48] LABS: ALBUMIN 4.4 GM/DL (3.2-4.5)
[2020-07-20 13:49] LABS: CHLORIDE 102 MMOL/L (98-107); POTASSIUM 3.9 MMOL/L (3.6-5.0); SODIUM 139 MMOL/L (135-145)
[2020-07-20 13:50] LABS: CALCIUM 9.4 MG/DL (8.5-10.1)
[2020-07-20 13:51] LABS: GLUCOSE 97 MG/DL (70-105); TOTAL PROTEIN 7.4 GM/DL (6.4-8.2)
[2020-07-20 13:52] LABS: CARBON DIOXIDE 26 MMOL/L (21-32)
[2020-07-20 13:53] LABS: BILIRUBIN,TOTAL 1.4 MG/DL (0.1-1.0)
[2020-07-20 13:54] LABS: ALKALINE PHOSPHATASE 132 U/L (40-136)
[2020-07-20 13:55] LABS: CREATININE SERUM 1.26 MG/DL (0.60-1.30); GFR ESTIMATED > 60
[2020-07-20 13:56] LABS: BUN/CREATININE RATIO 13
[2020-07-20 13:57] LABS: ALANINE AMINOTRANSFERASE 34 U/L (0-55)
--- NOTE | 2020-07-20 14:08 | Diagnostic Imaging Report ---
PROCEDURE: CT urinary tract, rule out kidney stone. TECHNIQUE: Multiple contiguous axial images were obtained through the abdomen and pelvis without the use of intravenous contrast. Auto Exposure Controls were utilized during the CT exam to meet ALARA standards for radiation dose reduction. Indication: Dysuria, flank pain. Comparison: None. Discussion: Lung bases are well-aerated. Normal heart size. No pleural or pericardial fluid. The liver, gallbladder, pancreas, stomach, spleen, and adrenal glands are unremarkable. No normal-appearing renal parenchyma is noted on the right. There is a cystic mass in this region which likely represents remnants of the prior kidney. This could represent severe chronic hydronephrosis with renal atrophy though a cystic dysplastic kidney or even a solid mass in this region cannot be excluded on this noncontrast CT. Malignancy on the right cannot be excluded. Punctate nonobstructing left renal calculi are noted measuring up to 2 mm. No hydronephrosis on the left. The bladder is mostly decompressed. Prostate is normal in size. The large and small bowel loops appear within normal limits. No obstruction, pneumatosis, pneumoperitoneum. The appendix is normal. No ascites or pathologically enlarged lymph nodes identified. No osseous abnormality identified. Fusion of the lumbar spine is noted. Impression: 1. Abnormal appearing mass noted within the right renal bed, possible remnants of a prior kidney with underlying cystic change. However a solid mass or component in this region cannot be excluded Comparison the contrast. This is chronic in appearance. Recommend at a minimum ultrasound to further evaluate. 2. Nonobstructing left renal calculi. Dictated by: Dictated on workstation # [id number]
[2020-07-20 14:09] LABS: ATYPICAL LYMPHOCYTES 1 %; BAND NEUTROPHILS 4 %; EOSINOPHILS % (MANUAL) 1 %; LYMPHOCYTES % (MANUAL) 8 %; MICROCYTOSIS SLIGHT; MONOCYTES % (MANUAL) 8 %; MYELOCYTES % 1 %; NEUTROPHILS % (MANUAL) 77 %; POLYCHROMASIA SLIGHT
[2020-07-20] MEDS ORDERED: cefTRIAXone FOR IV USE 2,000 MG in WATER (STERILE) FOR INJECTION 20 ML IV ONE (15:00)
--- NOTE | 2020-07-20 15:04 | Diagnostic Imaging Report ---
EXAMINATION: Chest radiograph, portable AP view. DATE: 07/20/2020 2:46 PM INDICATION: 45-year-old male, leukocytosis. COMPARISON: August 18, 2008. FINDINGS: Stable overall appearance of the cardiomediastinal silhouette. There is no identified pneumothorax. There is no large pleural effusion. There is no identified focal airspace consolidation. IMPRESSION: No identified acute cardiopulmonary abnormality. Dictated by: Dictated on workstation # [id number]
[2020-07-20] MEDS ORDERED: LACTATED RINGERS 1,000 ML IV ONE (16:25)
[2020-07-20 16:30] VITALS: BP 137/94
[2020-07-20] MEDS: LACTATED RINGERS 1,000 ML IV SCH (16:57)
[2020-07-20] MEDS ORDERED: IBUPROFEN 600 MG (MOTRIN) TAB PO PRN ×2 (17:00→21:15)
[2020-07-20] MEDS ORDERED: ACHD5005 PO (17:23)
[2020-07-20] MEDS ORDERED: HYDR12.56 PO (17:23)
[2020-07-20] MEDS ORDERED: ACET-2267 PO (17:23)
[2020-07-20] MEDS ORDERED: ANTACID SUSP 30 ML UDC (MYLANTA) PO PRN (18:00)
[2020-07-20] MEDS ORDERED: MELATONIN 3 MG TABLET PO PRN (18:00)
[2020-07-20] MEDS ORDERED: ONDANSETRON 4 MG/2 ML (SDV) Z0FRAN IV PRN (18:00)
[2020-07-20] MEDS ORDERED: BISACODYL 10 MG SUPP (DULCOLAX) PR PRN (18:00)
[2020-07-20] MEDS ORDERED: ENOXAPARIN 40 MG/0.4 ML (LOVENOX) SYR SC SCH (18:00)
[2020-07-20] MEDS ORDERED: PATIENT MAY USE OWN MEDS, ALL PO SCH (18:00)
[2020-07-20] MEDS ORDERED: diphenhydrAMINE 25 MG TAB (BENADRYL) PO PRN (18:00)
[2020-07-20] MEDS ORDERED: polyethylene glycoL POWDER 17 GM (MIRALAX) PACK PO PRN (18:00)
[2020-07-20] MEDS ORDERED: ONDANSETRON 4 MG (ZOFRAN) ORAL DISSOLVE TAB PO PRN (18:00)
[2020-07-20] MEDS ORDERED: ENOXAPARIN 40 MG/0.4 ML (LOVENOX) SYR ONE (18:09)
[2020-07-20] MEDS ORDERED: ACETAMINOPHEN 325 MG TABLET ONE (18:10)
[2020-07-20] MEDS: ACETAMINOPHEN 325 MG TABLET PO PRN ×2 (18:21→23:10)
[2020-07-20 19:42] VITALS: BP 114/65
[2020-07-20] MEDS: DOCUSATE SODIUM 100 MG (COLACE) CAP PO SCH (20:13)
[2020-07-20] MEDS: SENNOSIDES 8.6 MG (SENOKOT) TAB PO SCH (20:13)
[2020-07-21 00:06] VITALS: BP 130/81
[2020-07-21] MEDS: LACTATED RINGERS 1,000 ML IV SCH ×2 (00:53→10:01)
[2020-07-21 04:53] VITALS: BP 112/70
[2020-07-21 05:31] LABS: BASOPHILS # (AUTO) 0.1 10^3/uL (0.0-0.1); BASOPHILS % (AUTO) 0 % (0-10); EOSINOPHILS # (AUTO) 0.1 10^3/uL (0.0-0.3); EOSINOPHILS % (AUTO) 0 % (0-10); HEMATOCRIT 42 % (40-54); HEMOGLOBIN 14.3 g/dL (13.3-17.7); LYMPHOCYTES # (AUTO) 2.1 10^3/uL (1.0-4.0); LYMPHOCYTES % (AUTO) 10 % (12-44); MEAN CORPUSCULAR HEMOGLOBIN 32 pg (25-34); MEAN CORPUSCULAR HGB CONC 34 g/dL (32-36); MEAN CORPUSCULAR VOLUME 93 fL (80-99); MEAN PLATELET VOLUME 10.7 fL (9.0-12.2); MONOCYTES # (AUTO) 1.8 10^3/uL (0.0-1.0); MONOCYTES % (AUTO) 9 % (0-12); NEUTROPHILS # (AUTO) 16.2 10^3/uL (1.8-7.8); NEUTROPHILS % (AUTO) 80 % (42-75); PLATELET COUNT 239 10^3/uL (130-400); WHITE BLOOD COUNT 20.3 10^3/uL (4.3-11.0)
[2020-07-21 08:00] VITALS: BP 117/66
[2020-07-21] MEDS: DOCUSATE SODIUM 100 MG (COLACE) CAP PO SCH (08:07)
[2020-07-21] MEDS: SENNOSIDES 8.6 MG (SENOKOT) TAB PO SCH (08:07)
[2020-07-21] MEDS ORDERED: TAMSULOSIN 0.4 MG (FLOMAX) CAP PO SCH (08:30)
[2020-07-21] MEDS ORDERED: cefTRIAXone FOR IV USE 2,000 MG in WATER (STERILE) FOR INJECTION 20 ML IV SCH (09:00)
[2020-07-21] MEDS ORDERED: meTOproloL SUCCINATE 50 MG (TOPROL XL) TAB PO SCH (09:00)
[2020-07-21] MEDS ORDERED: TMSL.4C PO (11:01)
[2020-07-21] MEDS ORDERED: CEFD300C3 PO (11:01)
[2020-07-21 12:00] VITALS: BP 131/81
--- NOTE | 2020-07-21 12:23 | Discharge Summary ---
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 He was concerned that he was having symptoms consistent with a urinary tract infection. His urinalysis was not consistent with a UTI. He was started on antibiotics. He did have a fever and leukocytosis. A CT abdomen did not reveal any source of infection. I did show a nonobstructive left-sided 2 mm stone. He was encouraged to stay well- hydrated. He was discharged home in stable condition. He was instructed to fo llow-up with his primary care physician. Labs and Pending Lab Test: Laboratory Tests 07/20/20 13:14: Urine Color YELLOW, Urine Clarity SL CLOUDY, Urine pH 6.0, Urine Specific [place] 1.025H, Urine Protein NEGATIVE, Urine Glucose (UA) NEGATIVE, Urine Ketones 1+H, Urine Nitrite NEGATIVE, Urine Bilirubin NEGATIVE, Urine Urobilinogen 1.0, Urine Leukocyte Esterase 1+H, Urine RBC (Auto) NEGATIVE, Urine RBC 10-25H, Urine WBC 2-5, Urine Squamous Epithelial Cells 0-2, Urine Crystals NONE, Urine Bacteria NEGATIVE, Urine Casts NONE, Urine Mucus NEGATIVE, Urine Culture Indicated NO 07/20/20 13:21: White Blood Count 21.5H, Red Blood Count 4.74, Hemoglobin 15.4, Hematocrit 44, Mean Corpuscular Volume 94, Mean Corpuscular Hemoglobin 33, Mean Corpuscular Hemoglobin Concent 35, Red Cell Distribution Width 13.0, Platelet Count 290, Mean Platelet Volume 10.6, Immature Granulocyte % (Auto) 1, Neutrophils (%) (Auto) 82H, Lymphocytes (%) (Auto) 9L, Monocytes (%) (Auto) 8, Eosinophils (%) (Auto) 0, Basophils (%) (Auto) 0, Neutrophils # (Auto) 17.6H, Lymphocytes # (Auto) 2.0, Monocytes # (Auto) 1.7H, Eosinophils # (Auto) 0.1, Basophils # (Auto) 0.1, Immature Granulocyte # (Auto) 0.1, Neutrophils % (Manual) 77, Lymphocytes % (Manual) 8, Monocytes % (Manual) 8, Eosinophils % (Manual) 1, Myelocytes % 1, Band Neutrophils 4, Atypical Lymphocytes 1, Polychromasia SLIGHT, Microcytosis SLIGHT, Sodium Level 139, Potassium Level 3.9, Chloride Level 102, Carbon Dioxide Level 26, Anion Gap 11, Blood Urea Nitrogen 17, Creatinine 1.26, Estimat Glomerular Filtration Rate > 60, BUN/Creatinine Ratio 13, Glucose Level 97, Calcium Level 9.4, Corrected Calcium 9.1, Total Bilirubin 1.4H, Aspartate Amino Transf (AST/SGOT) 25, Alanine Aminotransferase (ALT/SGPT) 34, Alkaline Phosphatase 132, C-Reactive Protein High Sensitivity 9.45H, Total Protein 7.4, Albumin 4.4, Procalcitonin 0.22H 07/20/20 14:42: Lactic Acid Level 0.85 07/21/20 05:21: White Blood Count 20.3H, Red Blood Count 4.48, Hemoglobin 14.3, Hematocrit 42, Mean Corpuscular Volume 93, Mean Corpuscular Hemoglobin 32, Mean Corpuscular Hemoglobin Concent 34, Red Cell Distribution Width 13.0, Platelet Count 239, Mean Platelet Volume 10.7, Immature Granulocyte % (Auto) 1, Neutrophils (%) (Auto) 80H, Lymphocytes (%) (Auto) 10L, Monocytes (%) (Auto) 9, Eosinophils (%) (Auto) 0, Basophils (%) (Auto) 0, Neutrophils # (Auto) 16.2H, Lymphocytes # (Auto) 2.1, Monocytes # (Auto) 1.8H, Eosinophils # (Auto) 0.1, Basophils # (Auto) 0.1, Immature Granulocyte # (Auto) 0.1 Home Meds Active Cefdinir 300 Mg Capsule 300 Mg PO BID 7 Days Flomax (Tamsulosin HCl) 0.4 Mg Cap 0.4 Mg PO DAILY@1800 30 Days Reported Tylenol Extra Strength (Acetaminophen) 500 Mg Tablet 1,000 Mg PO Q6H PRN Hydrocodone-Acetamin 5-325 mg (Hydrocodone/Acetaminophen) 1 Each Tablet 1 Tab PO BID Hydrochlorothiazide 12.5 Mg Tablet 12.5 Mg PO DAILY Metoprolol Tartrate 75 Mg Tablet 75 Mg PO DAILY Assessment/Pt Instructions Take medications as prescribed. Complete your course of antibiotics even if you are feeling better. Follow-up with your primary care physician. Return with worsening symptoms. Discharge Planning: <30 minutes discharge planning Discharge Instructions Discharge Diet: No Restrictions Activity as Tolerated: Yes Discharge Physical Examination Vital Signs Vital Signs Date Time Temp Pulse Resp B/P (MAP) Pulse Ox O2 Delivery O2 Flow Rate FiO2 07/21/20 12:00 36.6 101 20 131/81 (98) 95 Room Air General Appearance: No Apparent Distress, Obese HEENT: PERRL/EOMI, Pharynx Normal Respiratory: Lungs Clear, Normal Breath Sounds, No Respiratory Distress Cardiovascular: Regular Rate, Rhythm, No Edema, No Murmur Gastrointestinal: Normal Bowel Sounds, Non Tender, Soft Extremity: Normal Inspection, Non Tender, No Pedal Edema Skin: Normal Color, Warm/Dry Neurologic/Psychiatric: Alert, Oriented x3, No Motor/Sensory Deficits, Normal Mood/Affect Allergies: Coded Allergies: No Known Drug Allergies (Unverified , 05/28/19) Discharge Summary Date of Admission July 20, 2020 at 14:35 Date of Discharge Discharge Date: July 21, 2020 Discharge Time: 12:19 Admission Diagnosis SIRS Discharge Diagnosis (1) SIRS (systemic inflammatory response syndrome) Status: Acute (2) Nephrolithiasis MARTHA NOBLES MD July 21, 2020 12:23
[2020-07-21 12:33] VITALS: BP 131/81
== END 2020-07-21 12:35 | disposition home or self-care (01) ==
LOC: EDUNIT# 12:45 → ER 12:48 → 4TH 14:35
PROVIDERS: ADMIT Internal Medicine; ATTEND Internal Medicine
DX: N39.0 Urinary tract infection, site not specified (principal); B96.20 Unspecified Escherichia coli [E. coli] as the cause of diseases classified elsewhere; N20.0 Calculus of kidney; I10 Essential (primary) hypertension; G89.29 Other chronic pain; M54.9 Dorsalgia, unspecified; Z79.899 Other long term (current) drug therapy
CPT/HCPCS: 36415; 71045; 74176; 80053; 81000; 83605; 84145; 85007; 85025; 85027; 86141; 87040; 87077; 87088; 87186; G0378

== ENCOUNTER 2020-12-01 19:20 | Emergency (ER) | payer BC ==
[~2020-12-01] VITALS: Ht 167 cm; Wt 86.0 kg
[~2020-12-01 19:20] MED LIST changes: +ACET-2267 PO; +ACHD5005 PO; +CEFD300C3 PO; +HYDR12.56 PO; +TMSL.4C PO
--- OUTSIDE RECORDS SUMMARY | 2020-12-01 19:26 | XMS REPORT ---
Author Author Liam Willard Organization [facility] ou Address [address] [facility], [facility]–[address] [place], [place] [id number] Care Team Providers Care Leather Tanner Name Role Phone Heath Willard PCP Heath Willard PreferredProvider Allergies and Adverse Reactions Name Reaction Notes No known drug allergy Plan of Treatment Planned Activity Comments Planned Date Planned Time Plan/Goal ABDOMEN ONE VIEW 07/03/2019 12:00 AM Medications Active Name Start Date Estimated Completion Date SIG Co mments Diflucan 150 mg oral tablet 12/07/2019 take 1 tablet by oral route every 3 days x 3 doses hydrochlorothiazide 12.5 mg oral capsule 03/13/2020 12/09/19 21 Take 1 capsule by mouth once daily metoprolol tartrate 25 mg oral tablet 06/24/2020 12/21/2020 Take 3 tablets by mouth once daily hydrocodone-acetaminophen oral tablet 10-325 mg 10/09/2020 11/08/2020 take 1 tablet by oral route 3 times a day for 30 days Name Start Date Expiration Date SIG Comments Naproxen OTC 2 in am 2 in the pm Bactrim DS 800-160 mg oral tablet 02/04/2018 [...] 09/05/2018 Take 2 tabs x 5 days; hydrochlorothiazide 12.5 mg oral capsule 11/17/2018 TAKE 1 CAPSULE BY MOUTH ONCE DAILY cephalexin 500 mg oral capsule 01/17/2019 01/24/2019 t robi 1 capsule (500 mg) by oral route every 12 hours for 7 days tramadol 50 mg oral tablet 01/20/2019 take 2 tablets (100 mg) by oral route every 6 hours as needed gabapentin 100 mg oral capsule 02/01/2019 t robi 1 capsule by oral route 2 times a day Lyrica 50 mg oral capsule 03/31/2019 05/30/2019 take 1 capsule (50 mg) by oral route 3 times per day for 30 days Discontinued Name Start Date [...] route daily as needed for 30 days baclofen 20 mg oral tablet 08/31/2018 01/03/2019 take 1 tablet by oral route once a day (at bedtime) diclofenac sodium 50 mg oral tablet,delayed release (DR/EC) 11/17/2018 01/03/2019 take 1 tablet (50 mg) by oral route 2 times per day fo r 30 days Problem List Description Status Onset Hypertension Active Kidney Stones Active Solitary kidney Active 12/08/2017 Chronic back pain Active 10/16/2020 Vital Signs Date Time BP-Sys(mm[Hg] BP-Agatha(mm[Hg]) HR(bpm) RR(rpm) Temp WT HT HC BMI BSA BMI Percentile O2 Sat(%) 11/29/2019 1:44:00 PM 130 mm[Hg] 80 mm[Hg] 80 {beats}/min 16 rpm 97.4 F 226 lbs 67 in 35.3962 kg/m2 2.2014 m2 97 % 09/05/2019 10:15:00 AM 136 mm[Hg] 80 mm[Hg] 78 {beats}/min 98.1 F 222 lbs 67 in 34.77 kg/m2 2.18 m2 95 % 08/23/2019 9:38:00 AM 130 mm[Hg] 80 mm[Hg] 66 {beats}/min 16 rpm 98.2 F 222 lbs 67 in 34.7698 kg/m2 2.1818 m2 98 % 07/10/2019 1:09:00 PM 86 {beats}/min 16 rpm 99.7 F 67 in 97 % 04/18/2019 1:48:00 PM 130 mm[Hg] 80 mm[Hg] 73 {beats}/min 16 rpm 97.8 F 223 lbs 67 in 34.9264 kg/m2 2.1867 m2 97 % 03/27/2019 10:56:00 AM 130 mm[Hg] 90 mm[Hg] 80 {beats}/min 16 rpm 97.8 F 227 lbs 67 in 35.55 kg/m2 2.21 m2 96 % 02/01/2019 3:55:00 PM 112 mm[Hg] 74 mm[Hg] 91 {beats}/min 18 rpm 97.7 F 229.5 lbs 67 in 35.9444 kg/m2 2.2183 m2 96 % 01/17/2019 1:48:00 PM 120 mm[Hg] 80 mm[Hg] 73 {beats}/min 16 rpm 98.1 F 227 lbs 67 in 35.55 kg/m2 2.21 m2 97 % 01/03/2019 8:22:00 AM 132 mm[Hg] 90 mm[Hg] 79 {beats}/min 18 rpm 97.9 F 225 lbs 67 in 35.2396 kg/m2 2.1965 m2 95 % 12/15/2018 1:44:00 PM 125 mm[Hg] 80 mm[Hg] 75 {beats}/min 16 rpm 97.9 F 225 lbs 67 in 35.24 kg/m2 2.20 m2 95 % 11/17/2018 4:05:00 PM 125 mm[Hg] 80 mm[Hg] 82 {beats}/min 16 rpm 97.8 F 230 lbs 67 in 36.0227 kg/m2 2.2208 m2 95 % 08/31/2018 10:38:00 AM 120 mm[Hg] 80 mm[Hg] 90 {beats}/min 16 rpm 97.2 F 230 lbs 67 in 36.02 kg/m2 2.22 m2 96 % 06/11/2018 12:33:00 PM 130 mm[Hg] 90 mm[Hg] 103 {beats}/min 18 rpm 98.1 F 224.25 lbs 98 % 05/26/2018 3:55:00 PM 124 mm[Hg] 90 mm[Hg] 113 {beats}/min 18 rpm 99.1 F 225.125 lbs 67 in 35.2592 kg/m2 2.1971 m2 94 % 03/25/2018 11:41:00 AM 138 mm[Hg] 80 mm[Hg] 92 {beats}/min 18 rpm 97.7 F 222.25 lbs 67 in 34.81 kg/m2 2.18 m2 96 % 03/07/2018 3:50:00 PM 110 mm[Hg] 80 mm[Hg] 99 {beats}/min 17 rpm 97.5 F 212 lbs 67 in 33.2036 kg/m2 2.1321 m2 92 % 12/17/2017 2:56:00 PM 120 mm[Hg] 80 mm[Hg] 95 {beats}/min 18 rpm 98.1 F 214.375 lbs 96 % 11/26/2017 10:20:00 AM 130 mm[Hg] 100 mm[Hg] 83 {beats}/min 16 rpm 97.9 F 212.25 lbs 67 in 33.2427 kg/m2 2.1333 m2 95 % 11/26/2017 8:58:00 AM 132 mm[Hg] 82 mm[Hg] 105 {beats}/min 20 rpm 97.3 F 213 lbs 67 in 33.36 kg/m2 2.14 m2 97 % 09/27/2017 5:16:00 PM 150 mm[Hg] 88 mm[Hg] 86 {beats}/min 97.9 F 214 lbs 67 in 33.5168 kg/m2 2.1421 m2 96 % 08/31/2017 3:53:00 PM 130 mm[Hg] 90 mm[Hg] 08/31/2017 3:48:00 PM 132 mm[Hg] 90 mm[Hg] 82 {beats}/min 20 rpm 97.9 F 212.25 lbs 67 in 33.24 kg/m2 2.13 m2 96 % 04/30/2017 11:37:00 AM 122 mm[Hg] 78 mm[Hg] 71 {beats}/min 20 rpm 98.5 F 214.375 lbs 67 in 33.5755 kg/m2 2.144 m2 95 % 03/30/2017 6:15:00 PM 144 mm[Hg] 84 mm[Hg] 88 {beats}/min 18 rpm 97.3 F 216 lbs 67 [...] 12:00 AM SEMEN ANAL SPERM DETECTION Reviewed 06/20/2018 12:00 AM US EXAM ABDO BACK WALL COMP Reviewed 06/20/2018 12:00 AM X-RAY EXAM OF ABDOMEN Reviewed 12/26/2018 1:22 PM URINALYSIS AUTO W/O SCOPE Reviewed 01/03/2019 12:00 AM URINALYSIS AUTO W/SCOPE Reviewed 01/03/2019 12:00 AM METABOLIC PANEL TOTAL CA Reviewed 03/27/2019 12:00 AM RADEX SPINE LUMBOSACRAL 2/3 VIEWS Review ed 07/10/2019 12:00 AM SARS-CoV-2 non-CDC lab test Returned 09/05/2019 12:00 AM X-RAY EXAM L-S SPINE BENDING Returned Results Summary Date and Description Results [...] 88 SODIUM 140 POTASS IUM 4.3 CHLORIDE 103.0 mmol/LCO2 28 BUN 23.0 mg/dLCREATININE 1.20 mg/dLCALCIUM 9.50 mg/dLAGE 42 GFR NonAA 67 GFR AA 81 eGFR 67 eGFR AA* >60 mL/min/1.73 m2WBC 9.6 RBC 4.38 HGB 14.10 g/dLHCT 41.90 %MCV 96.0 fLMCH 32.20 pgMCHC 33.70 g/dLRDW SD 46 fLRDW CV 12.90 %MPV 9.50 fLPLT 542 NRBC# 0.00 NRBC% 0.0 %NEUT 50.7 [...] PM WBC 7.2 RBC 4.73 HGB 15.0 g/ dLHCT 43.50 %MCV 92.0 fLMCH 31.70 pgMCHC 34.50 g/dLRDW SD 43 fLRDW CV 12.80 %MPV 10.60 fLPLT 306 NRBC# 0.00 NRBC% 0.0 %NEUT 51.6 %LYMP 35.5 %MONO 10.3 %EOS 2.1 %BASO 0.4 #NEUT 3.69 #LYMP 2.54 #MONO 0.74 #EOS 0.15 #BASO 0.03 MANUAL DIFF NOT IND GLUCOSE 91 SODIUM 140 POTASSIUM 4.3 CHLORIDE 107.0 mmol/LCO2 25 BUN 21.0 mg/dLCREATININE 1.50 mg/dLCALCIUM 9.40 mg/dLAGE 43 GFR NonAA 52 GFR AA 63 eGFR 52 eGFR AA* >60 m L/min/1.73 m2 05/26/2018 5:18 PM COLOR YELLOW APPEARANCE LISHA R SPEC GRAV 1.025 pH 6.0 PROTEIN NEGATIVE GLUCOSE NEGATIVE KETONE NEGATIVE BILIRUBIN NEGATIVE BLOOD NEGATIVE NITRITE NEGATIVE LEUK SCREEN NEGATIVE WBC/HPF RARE RBC/HPF NEGATIVE CASTS/LPF NEGATIVE CRYSTALS NEGATIVE MUCOUS THRDS NEGATIVE BACTERIA NEGATIVE EPITH CELLS FEW SQUAMOUS TRICHOMONAS NEGATIVE YEAST NEGATIVE CULT SET UP? NO 12/15/2018 1:22 PM Urine-Color yellow Glucose U r-sCnc neg Bilirub Ur Ql neg Ketones Ur Ql Strip neg Sp Gr Ur Qn 1.020 Hgb Ur Ql Strip neg Prot Ur Ql Strip neg Urobilinogen Ur-mCnc 0.2 Nitrite Ur Ql Strip neg WBC # Ur neg 01/03/2019 8:50 AM GLUCOSE 105 SODIUM 142 POTAS SIUM 3.8 CHLORIDE 106.0 mmol/LCO2 27 BUN 24.0 mg/dLCREATININE 1.290 mg/dLCALCIUM 9.40 mg/dLAGE 43 GFR NonAA 61 GFR AA 74 eGFR 61 mL/min/1.73meGFR AA* >60 mL/min/1.73m 01/03/2019 3:28 PM COLOR Light-Yellow CLARITY C lear SPEC GRAV 1.025 pH 7.0 PROTEIN 10 GLUCOSE Normal KETONE Negative BILIRUBIN Negative BLOOD Negative NITRITE Negative LEUK SCREEN Negative RBC/HPF 0-3 WBC/HPF 0-5 BACTERIA/HPF None Seen SQUAMOUS EPI/LPF None Seen MUCOUS/LPF Few CULT SET UP? NO History Of Immunizations Not available. History of Past Illness Name Date of Onset Comments Hypertension Kidney Stones Solitary kidney 12/08/2017 Chronic back pain 10/16/2020 Left anterior knee pain Mar 30 2017 [...] sciatica, right side Aug 31 2018 10:40AM Lumbago with sciatica, right side Nov 17 2018 4:07PM Essential hypertension Nov 17 2018 4:07PM Sinus congestion Dec 15 2018 1:47PM Fatigue, unspecified type Dec 15 2018 1:47PM Solitary kidney Dec 15 2018 1:47PM Urinary Frequency Jan 03 2019 8:24AM Urinary urgency Jan 03 2019 8:24AM Kidney Stones Jan 03 2019 8:24AM Solitary kidney, acquired Jan 03 2019 8:24AM Kidney stone Jan 03 2019 8:39AM Facial swelling Jan 19 2019 3:45PM Facial pain Jan 17 2019 1:51PM Swelling of right side of face Jan 17 2019 1:51PM Right sided facial pain Feb 01 2019 3:58PM Lumbago with sciatica, right side Mar 27 2019 10:58AM Lumbago with sciatica, left side Mar 27 2019 10:58AM Other chronic pain Mar 27 2019 10:58AM Solitary kidney Mar 27 2019 10:58AM Hypertension Mar 27 2019 10:58AM Low back pain Apr 18 2019 1:50PM Other chronic pain Apr 18 2019 1:50PM History of back surgery Apr 18 2019 1:50PM Low back pain Jun 19 2019 2:27PM Other chronic pain Jun 19 2019 2:27PM Fever Jul 10 2019 12:43PM Vomiting Jul 10 2019 12:43PM Low back pain Aug 23 2019 9:39AM Other chronic pain Aug 23 2019 9:39AM Mechanical low back pain Sep 05 2019 10:21AM Gluteal pain Sep 05 2019 10:21AM Solitary kidney Sep 05 2019 10:21AM Low back pain Sep 19 2019 9:51AM Other chronic pain Sep 19 2019 9:51AM Ringworm of body Nov 29 2019 1:46PM Low back pain Nov 29 2019 1:46PM Other chronic pain Nov 29 2019 1:46PM Skin lesion of back Dec 07 2019 4:44PM Ringworm of body Dec 07 2019 4:44PM Hypertension Oct 09 2020 11:23AM Dorsalgia, unspecified Oct 09 2020 11:23AM Other chronic pain Oct 09 2020 11:23AM Payers Insurance Name Company Name Plan Name Plan Number Policy Number Duane cy Group Number Start Date [facility] [id number] [facility] [id number] N/A Adela Chapman [id number] May History of Encounters Visit Date Visit Type Provider 10/09/2020 Office visit Heath Willard APR N 12/07/2019 Office visit Heath Wlilard APR N 11/29/2019 Office visit Heath Willard APR N 09/19/2019 Office visit Heath Willard APR N 09/05/2019 Office visit Carlosalexandru Ana DO 08/23/2019 Office visit Heath Willard APR N 07/10/2019 Office visit Bailey KATE RN 06/19/2019 Office visit Heath Farmerran APR N 04/18/2019 Office visit Heath Farmerran APR N 03/27/2019 Office visit Heath Farmerran APR N 02/01/2019 Office visit Heath Farmerran APR N 01/17/2019 Office visit Heath Farmerran APR N 01/03/2019 Office visit PATY YEE SECONDARY ENGLISH TEACHER 12/15/2018 Office visit Heath Farmerran APR N 11/17/2018 Office visit Heath Farmerran APR N 08/31/2018 Office visit Heath Willard APR N 06/11/2018 Office visit Bailey KATE RN 05/26/2018 Office visit Bar Mata MD 04/21/2018 Office visit Bar Mata MD 04/15/2018 Surgery Bar Mata MD 03/25/2018 Hospital Mina Barlow MD 03/25/2018 Office visit Bar Mata MD 03/07/2018 Office visit Heath Farmerran APR N 12/17/2017 Office visit Heath Willard APR N 12/06/2017 Hospital Mina Barlow MD 11/26/2017 Office visit Bar Mata MD 11/26/2017 Office visit Heath Farmerran APR N 09/27/2017 Office visit Heath Willard APR N 08/31/2017 Office visit Philomena Nelson SECONDARY ENGLISH TE[employer]ER 04/30/[address] Julio Alexis MD 03/30/2017 Office visit Uyen Cardenas APR N
--- OUTSIDE RECORDS SUMMARY | 2020-12-01 19:26 | XMS REPORT ---
Author Author Liam Willard Organization [facility] ou Address [address] [facility] [address] [place], [place] [id number] Care Team Providers Care Derrick Worker Well Service Name Role Phone Heath Willard PCP Heath Willard PreferredProvider Allergies and Adverse Reactions Name Reaction Notes No known drug allergy Plan of Treatment Planned Activity Comments Planned Date Planned Time Plan/Goal ABDOMEN ONE VIEW 07/03/2019 12:00 AM Medications Active Name Start Date Estimated Completion Date SIG Co mments metoprolol tartrate 25 mg oral tablet 06/24/2020 12/21/2020 Take 3 tablets by mouth once daily hydrocodone-acetaminophen oral tablet 10-325 mg 10/09/2020 11/08/2020 take 1 tablet by oral route 3 times a day for 30 days phentermine oral tablet 37.5 mg 10/21/2020 11/20/2020 take 1 tablet (37.5 mg) by oral route once daily one or two hours after breakfast for 30 days Name Start Date Expiration [...] 3 times per day for 30 days Diflucan 150 mg oral tablet 12/07/2019 take 1 tablet by oral route every 3 days x 3 doses hydrochlorothiazide 12.5 mg oral capsule 03/13/2020 12/09/19 21 Take 1 capsule by mouth once daily Discontinued Name Start Date Discontinued Date SIG [...] Other chronic pain Oct 09 2020 11:23AM Polyphagia Oct 21 2020 4:57PM Dietary counseling and surveillance Oct 21 2020 4:57PM Hypertension Oct 21 2020 4:57PM Payers Insurance Name Company Name Plan Name Plan Number Policy Number Duane cy Group Number Start Date [facility] [id number] [facility] [id number] N/A [employer] [id number] May History of Encounters Visit Date Visit Type Provider 10/21/2020 Office visit Heath Farmerran APR N 10/09/2020 Office visit Heath Farmerran APR N 12/07/2019 Office visit Heath Willard APR N 11/29/2019 Office visit Heath Willard APR N 09/19/2019 Office visit Heath Farmerran APR N 09/05/2019 Office visit Carlos Cox DO 08/23/2019 Office visit Heath Farmerran APR N 07/10/2019 Office visit Bailey KATE RN 06/19/2019 Office visit Heath Farmerran APR N 04/18/2019 Office visit Heath Farmerran APR N 03/27/2019 Office visit Heath Farmerran APR N 02/01/2019 Office visit Heath Farmerran APR N 01/17/2019 Office visit Heath Farmerran APR N 01/03/2019 Office visit PATY YEE CHECK WRITER SALESPERSON 12/15/2018 Office visit Heath Farmerran APR N 11/17/2018 Office visit Heath Farmerran APR N 08/31/2018 Office visit Heath Farmerran APR N 06/11/2018 Office visit Bailey KATE [...] APR N 08/31/2017 Office visit Philomena Nelson CHECK WRITER SALESPERSON 04/30/[address] Julio Alexis MD 03/30/2017 Office visit Uyen Cardenas APR N
--- NOTE | 2020-12-01 19:40 | ED General ---
General Chief Complaint: General Problems/Pain Stated Complaint: MUSCLE ACHES,FATIGUE,HEADACHE,CHILLS,KIDNEY INFECT Source of Information: Patient Exam Limitations: No Limitations History of Present Illness Date Seen by Provider: Dec 01, 2020 Time Seen by Provider: 19:39 Initial Comments To ER with a 2-day history of body aches fatigue, foul-smelling urine and burning with urination for 2 days. No fevers at home though he has has had chills. History of a functional solitary kidney, he has both kidneys but only 1 works. History of recurrent pyelonephritis. Timing/Duration: 1-2 Days Severity: Moderate Associated Systoms: Fever/Chills; No Nausea/Vomiting Allergies and Home Medications Allergies Coded Allergies: No Known Drug Allergies (Unverified , 05/28/19) Patient Home Medication List Home Medication List Reviewed: Yes Acetaminophen (Tylenol Extra Strength) 500 Mg Tablet, 1,000 MG PO Q6H PRN for PAIN-MILD (1-4), (Reported) Entered as Reported by: ISAIAS BOWLES on 07/20/201722 Cefdinir (Cefdinir) 300 Mg Capsule, 300 MG PO BID Prescribed by: MARTHA NOBLES on 07/21/20 110 Hydrochlorothiazide (Hydrochlorothiazide) 12.5 Mg Tablet, 12.5 MG PO DAILY, (Reported) Entered as Reported by: ISAIAS BOWLES on 07/20/20 172 Hydrocodone/Acetaminophen (Hydrocodone-Acetamin 5-325 mg) 1 Each Tablet, 1 TAB PO BID, (Reported) Entered as Reported by: ISAIAS BOWLES on 07/20/20 172 Metoprolol Tartrate (Metoprolol Tartrate) 75 Mg Tablet, 75 MG PO DAILY, (Reported) Entered as Reported by: MIRIAN FRANCO on 05/28/192044 Tamsulosin HCl (Flomax) 0.4 Mg Cap, 0.4 MG PO DAILY@1800 Prescribed by: MARTHA NOBLES on 07/21/20 110 Review of Systems Review of Systems Constitutional: see HPI, chills; No fever; malaise EENTM: see HPI Respiratory: no symptoms reported Cardiovascular: no symptoms reported Genitourinary: no symptoms reported Musculoskeletal: no symptoms reported Skin: no symptoms reported Psychiatric/Neurological: No Symptoms Reported Hematologic/Lymphatic: No Symptoms Reported Immunological/Allergic: no symptoms reported Past Yderzdg-Dopbpm-Qijyzy Hx Seasonal Allergies Seasonal Allergies: No Past Medical History Surgeries: Yes (back Sx, 6 percutaneous nephrolithotomy) Tonsillectomy Respiratory: No Cardiac: Yes Hypertension Neurological: No Genitourinary: Yes (functionally unilateral kidney) Kidney Infection, Kidney Stones Gastrointestinal: No Musculoskeletal: Yes Chronic Back Pain Endocrine: No HEENT: No Cancer: No Psychosocial: No Integumentary: No Blood Disorders: No Physical Exam Vital Signs Vital Signs - First Documented Capillary Refill : Height, Weight, BMI Height: '" Weight: lbs. oz. kg; 31.31 BMI Method: General Appearance: No Apparent Distress, WD/WN Eyes: Bilateral Eye Normal Inspection, Bilateral Eye PERRL Neck: Full Range of Motion, Normal Inspection Respiratory: No Accessory Muscle Use, No Respiratory Distress Cardiovascular: Normal Peripheral Pulses, Tachycardia Gastrointestinal: Normal Bowel Sounds, Non Tender, Soft Extremity: Normal Capillary Refill, Normal Inspection Neurologic/Psychiatric: Alert, Oriented x3 Skin: Normal Color, Warm/Dry Focused Exam Lactate Level 12/01/20 20:13: Lactic Acid Level 1.00 Lactic Acid Level Laboratory Tests Test 12/01/20 20:13 Lactic Acid Level 1.00 MMOL/L (0.50-2.00) Progress/Results/Core Measures Suspected Sepsis SIRS Temperature: Pulse: Respiratory Rate: Laboratory Tests 12/01/20 19:39: White Blood Count 21.0H Blood Pressure / Mean: 12/01/20 20:13: Lactic Acid Level 1.00 Laboratory Tests 12/01/20 19:39: Creatinine 1.24, INR Comment 1.1, Platelet Count 368, Total Bilirubin 1.0 Results/Orders Lab Results Laboratory Tests Test 12/01/20 19:39 12/01/20 20:13 12/01/20 21:30 Range/Units White Blood Count 21.0 H 4.3-11.0 10^3/uL Red Blood Count 5.23 4.30-5.52 10^6/uL Hemoglobin 16.6 13.3-17.7 g/dL Hematocrit 48 40-54 % Mean Corpuscular Volume 92 80-99 fL Mean Corpuscular Hemoglobin 32 25-34 pg Mean Corpuscular Hemoglobin Concent 35 32-36 g/dL Red Cell Distribution Width 12.5 10.0-14.5 % Platelet Count 368 130-400 10^3/uL Mean Platelet Volume 10.3 9.0-12.2 fL Immature Granulocyte % (Auto) 0 % Neutrophils (%) (Auto) 80 H 42-75 % Lymphocytes (%) (Auto) 11 L 12-44 % Monocytes (%) (Auto) 8 0-12 % Eosinophils (%) (Auto) 0 0-10 % Basophils (%) (Auto) 0 0-10 % Neutrophils # (Auto) 16.8 H 1.8-7.8 10^3/uL Lymphocytes # (Auto) 2.4 1.0-4.0 10^3/uL Monocytes # (Auto) 1.7 H 0.0-1.0 10^3/uL Eosinophils # (Auto) 0.1 0.0-0.3 10^3/uL Basophils # (Auto) 0.1 0.0-0.1 10^3/uL Immature Granulocyte # (Auto) 0.1 0.0-0.1 10^3/uL Neutrophils % (Manual) 72 % Lymphocytes % (Manual) 13 % Monocytes % (Manual) 8 % Eosinophils % (Manual) 2 % Band Neutrophils 3 % Atypical Lymphocytes 2 % Blood Morphology Comment NORMAL Prothrombin Time 14.3 12.2-14.7 SEC INR Comment 1.1 0.8-1.4 Activated Partial Thromboplast Time 31 24-35 SEC Sodium Level 137 135-145 MMOL/L Potassium Level 3.9 3.6-5.0 MMOL/L Chloride Level 102 98-107 MMOL/L Carbon Dioxide Level 21 21-32 MMOL/L Anion Gap 14 5-14 MMOL/L Blood Urea Nitrogen 12 7-18 MG/DL Creatinine 1.24 0.60-1.30 MG/DL Estimat Glomerular Filtration Rate 64 BUN/Creatinine Ratio 10 Glucose Level 108 H 70-105 MG/DL Calcium Level 10.3 H 8.5-10.1 MG/DL Corrected Calcium 9.9 8.5-10.1 MG/DL Total Bilirubin 1.0 0.1-1.0 MG/DL Aspartate Amino Transf (AST/SGOT) 21 5-34 U/L Alanine Aminotransferase (ALT/SGPT) 27 0-55 U/L Alkaline Phosphatase 156 H 40-136 U/L Total Protein 7.9 6.4-8.2 GM/DL Albumin 4.5 3.2-4.5 GM/DL Lactic Acid Level 1.00 0.50-2.00 MMOL/L Urine Color YELLOW Urine Clarity CLEAR Urine pH 6.5 5-9 Urine Specific [place] 1.010 L 1.016-1.022 Urine Protein NEGATIVE NEGATIVE Urine Glucose (UA) NEGATIVE NEGATIVE Urine Ketones NEGATIVE NEGATIVE Urine Nitrite NEGATIVE NEGATIVE Urine Bilirubin NEGATIVE NEGATIVE Urine Urobilinogen 0.2 < = 1.0 MG/DL Urine Leukocyte Esterase 1+ H NEGATIVE Urine RBC (Auto) NEGATIVE NEGATIVE Urine RBC 0-2 /HPF Urine WBC 25-50 H /HPF Urine Squamous Epithelial Cells RARE /HPF Urine Crystals NONE /LPF Urine Bacteria NEGATIVE /HPF Urine Casts NONE /LPF Urine Mucus NEGATIVE /LPF Urine Culture Indicated NO My Orders Orders - MEKHI MCKEON APRN Cbc With Automated Diff (12/01/20:24) Comprehensive Metabolic Panel (12/01/20 19:24) Blood Culture (12/01/20 19:24) Sputum Culture (12/01/20:24) Urinalysis (12/01/20:24) Urine Culture (12/01/20:24) Protime With Inr (12/01/20:24) Partial Thromboplastin Time (12/01/20 19:24) Chest 1 View, Ap/Pa Only (12/01/20 19:24) Ed Iv/Invasive Line Start (12/01/20 19:24) Vital Signs Adult Sepsis Patie Q15M (12/01/20 19:24) O2 (12/01/20 19:24) Remove Rings In Anticipation O (12/01/20:24) Lactic Acid Analyzer (12/01/20 19:24) Covid 19 Inhouse Test (12/01/20 19:27) Ceftriaxone (Rocephin) (12/01/20 19:45) Ns Iv 1000 Ml (Sodium Chloride 0.9%) (12/01/20 19:45) Manual Differential (12/01/20 19:39) Lactated Ringers (Lr 1000 Ml Iv Solution (12/01/20 20:45) Medications Given in ED Current Medications Medications Dose Ordered Sig/Jesus Route Start Time Stop Time Status Last Admin Dose Admin Ceftriaxone Sodium 2000 mg/ Sterile Water 20 ml @ 240 mls/hr ONCE ONCE IV 12/01/20 19:45 12/01/20 19:49 DC 12/01/20 20:22 240 MLS/HR Vital Signs/I&O 12/01/20 12/01/20 12/01/20 12/01/20 19:39 19:39 19:39 20:47 Temp 36.4 36.4 36.4 Pulse 122 122 104 Resp 18 18 18 B/P (MAP) 146/94 146/94 (111) 133/95 Pulse Ox 96 96 96 94 O2 Delivery Room Air Room Air Room Air Room Air Capillary Refill : Departure Communication (Admissions) Urine culture from last visit showed E. coli sensitivity to Rocephin. 2199-Discussed admission with him given the tachycardia leukocytosis and source of infection he technically meets sepsis criteria. He states that he would prefer to go home as he has been through this before. I discussed with him the risks of going home including and worsening of symptoms and the benefit of staying the observation in the hospital. When he have shown historically that his his UTI is typically positive for E. coli that is sensitive to most options. We will give some Rocephin here then discharge home on Bactrim for a prolonged course. He agrees to return to ER for any worsening. He will call his kidney doctor tomorrow for follow-up. Impression Primary Impression: Urinary tract infection Disposition: HOME, SELF-CARE Condition: Stable Departure-Patient Inst. Decision time for Depature: 22:02 Referrals: NO,LOCAL PHYSICIAN (PCP/Family) Primary Care Physician Patient Instructions: Kidney Infection Add. Discharge Instructions: 1. Increase fluid intake. Return promptly to ER for any fevers, pain, vomiting that keeps you from taking your antibiotics or any worsening symptoms at all. Call your kidney doctor tomorrow to make an appointment to be seen for follow- up. All discharge instructions reviewed with patient and/or family. Voiced understanding. Scripts Sulfamethoxazole/Trimethoprim (Bactrim Ds Tablet) 1 Each Tablet 1 EACH PO BID, #20 TAB Prov: MEKHI MCKEON APRN 12/01/20 Work/School Note: Work Release Form Date Seen in the Emergency Department: Dec 01, 2020 Return to Work: Dec 03, 2020 MEKHI MCKEON APRN Dec 01, 2020 19:40
[2020-12-01] MEDS ORDERED: cefTRIAXone 2,000 MG in WATER (STERILE) FOR INJECTION 20 ML IV ONE (19:45)
[2020-12-01] MEDS ORDERED: NS IV 1000 ML 1,000 ML IV SCH (19:45)
[2020-12-01 19:54] LABS: BASOPHILS # (AUTO) 0.1 10^3/uL (0.0-0.1); BASOPHILS % (AUTO) 0 % (0-10); EOSINOPHILS # (AUTO) 0.1 10^3/uL (0.0-0.3); EOSINOPHILS % (AUTO) 0 % (0-10); HEMATOCRIT 48 % (40-54); HEMOGLOBIN 16.6 g/dL (13.3-17.7); LYMPHOCYTES # (AUTO) 2.4 10^3/uL (1.0-4.0); LYMPHOCYTES % (AUTO) 11 % (12-44); MEAN CORPUSCULAR HEMOGLOBIN 32 pg (25-34); MEAN CORPUSCULAR HGB CONC 35 g/dL (32-36); MEAN CORPUSCULAR VOLUME 92 fL (80-99); MEAN PLATELET VOLUME 10.3 fL (9.0-12.2); MONOCYTES # (AUTO) 1.7 10^3/uL (0.0-1.0); MONOCYTES % (AUTO) 8 % (0-12); NEUTROPHILS # (AUTO) 16.8 10^3/uL (1.8-7.8); NEUTROPHILS % (AUTO) 80 % (42-75); PLATELET COUNT 368 10^3/uL (130-400)
--- NOTE | 2020-12-01 19:56 | Diagnostic Imaging Report ---
EXAMINATION: Chest 1 view. HISTORY: Sepsis. COMPARISON: 07/20/2020. FINDINGS: The lung volumes are normal. No focal consolidation is seen. No large pleural effusion or pneumothorax is seen. The cardiomediastinal silhouette is normal in size and contour. No acute osseous abnormality is seen. IMPRESSION: No acute pleuroparenchymal process. Dictated by: Dictated on workstation # [id number]
[2020-12-01 20:10] LABS: INR 1.1 (0.8-1.4); PROTHROMBIN TIME PATIENT 14.3 SEC (12.2-14.7)
[2020-12-01 20:16] LABS: ALBUMIN 4.5 GM/DL (3.2-4.5); CALCIUM 10.3 MG/DL (8.5-10.1); CREATININE SERUM 1.24 MG/DL (0.60-1.30); POTASSIUM 3.9 MMOL/L (3.6-5.0); TOTAL PROTEIN 7.9 GM/DL (6.4-8.2)
[2020-12-01] MEDS ORDERED: LACTATED RINGERS 1,000 ML IV SCH (20:45)
[2020-12-01 21:08] LABS: ATYPICAL LYMPHOCYTES 2 %; BAND NEUTROPHILS 3 %; EOSINOPHILS % (MANUAL) 2 %; LYMPHOCYTES % (MANUAL) 13 %; MONOCYTES % (MANUAL) 8 %; NEUTROPHILS % (MANUAL) 72 %; RBC MORPH NORMAL
[2020-12-01 21:35] LABS: BILIRUBIN,URINE NEGATIVE (NEGATIVE); CLARITY,URINE CLEAR; COLOR,URINE YELLOW; GLUCOSE, URINE (UA) NEGATIVE (NEGATIVE); KETONES,URINE NEGATIVE (NEGATIVE); LEUKOCYTE ESTERASE ,URINE 1+ (NEGATIVE); NITRITE,URINE NEGATIVE (NEGATIVE); PH,URINE 6.5 (5-9); PROTEIN,URINE NEGATIVE (NEGATIVE)
[2020-12-01 21:53] LABS: BACTERIA,URINE NEGATIVE /HPF; RBC,URINE 0-2 /HPF; WBC,URINE 25-50 /HPF
[2020-12-01 21:54] LABS: SQUAMOUS EPITHELIAL CELL,UR RARE /HPF
[2020-12-01] MEDS ORDERED: SULF1TAB38 PO (22:05)
[2020-12-01 22:14] VITALS: BP 133/95
== END 2020-12-01 22:15 | disposition home or self-care (01) ==
LOC: EDUNIT# 19:20 → ER 19:22
DX: N39.0 Urinary tract infection, site not specified (principal); I10 Essential (primary) hypertension; G89.29 Other chronic pain; M54.9 Dorsalgia, unspecified; Z79.891 Long term (current) use of opiate analgesic; Z79.899 Other long term (current) drug therapy
CPT/HCPCS: 36415; 71045; 80053; 81000; 83605; 85007; 85027; 85610; 85730; 87040; 87088

== ENCOUNTER → 2020-12-17 | Outpatient (CLI) | payer BC ==
[~2020-12-17] MED LIST changes: +SULF1TAB38 PO
--- NOTE | 2020-12-17 09:31 | Diagnostic Imaging Report ---
PROCEDURE: CT abdomen and pelvis without contrast. TECHNIQUE: Multiple contiguous axial images were obtained through the abdomen and pelvis without the use of intravenous contrast. Auto Exposure Controls were utilized during the CT exam to meet ALARA standards for radiation dose reduction. INDICATION: Decreased renal function. Compared with study 07/20/2020. Right renal parenchyma largely replaced by cystic density collections unchanged. There are calculi within the left kidney, the largest 4 mm. These are nonobstructing. There is no left-sided hydroureteronephrosis and no opaque left ureteral stone is found. Urinary bladder unopacified appeared unremarkable. There is no perinephric or periureteric edema. Overall no change from prior. There is stool in the colon, fecal load may be mildly elevated but no impaction or obstruction. No bowel obstruction. Liver, gallbladder, bile ducts, spleen, adrenals and pancreas all unremarkable. The aorta is nonaneurysmal. There is no ascites, abscess, hematoma or acute fluid collection. 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 Dictated by: Dictated on workstation # [id number]
== END ==
LOC: RAD 07:45
PROVIDERS: ATTEND Urology
DX: N20.0 Calculus of kidney (principal); N41.0 Acute prostatitis; Q60.0 Renal agenesis, unilateral
CPT/HCPCS: 74176

== ENCOUNTER 2021-03-20 12:53 | Emergency (ER) | payer BC ==
[~2021-03-20] VITALS: Ht 167 cm; Wt 76.0 kg
[~2021-03-20 12:53] MED LIST changes: +CYCL10TA25 PO; -CYCL10TA9 PO
--- OUTSIDE RECORDS SUMMARY | 2021-03-20 12:58 | XMS REPORT ---
Author Author Liam Willard Organization [facility] Address [address] [place], [place] [id number] Care Team Providers Care Frickertron Checker Name Role Phone Heath Willard PCP Heath Willard PreferredProvider Allergies and Adverse Reactions Name Reaction Notes No known drug allergy Plan of Treatment Planned Activity Comments Planned Date Planned Time Plan/Goal ABDOMEN ONE VIEW 07/03/2019 12:[address] ABD AND PELVIS W/O CONTRAST 12/03/2020 12:00 AM Medications Active Name Start Date Estimated Completion Date SIG Co mments Flomax 0.4 mg oral capsule 12/03/2020 take 1 capsule (0.4 mg) by oral route once daily 1/2 hour following the same meal each day metoprolol tartrate 25 mg oral tablet 02/07/2021 03/09/2021 Take 3 tablets by mouth once daily hydrochlorothiazide 12.5 mg oral tablet 02/10/2021 2 take 1 tablet (12.5 mg) by oral route once daily for 90 days hydrocodone-acetaminophen 10-325 mg oral tablet 02/26/2021 03/28/2021 take 1 tablet by oral route 3 times a day for 30 days levofloxacin 500 mg oral tablet 02/26/2021 03/05/2021 take 1 tablet (500 mg) by oral route once daily for 7 days phentermine 37.5 mg oral tablet 02/26/2021 03/28/2021 take 1 tablet (37.5 mg) by oral [...] HC BMI BSA BMI Percentile O2 Sat(%) 12/03/2020 1:01:00 PM 126 mm[Hg] 74 mm[Hg] 80 {beats}/min 97.7 F 98 % 11/29/2019 1:44:00 PM 130 mm[Hg] 80 mm[Hg] [...] AM X-RAY EXAM L-S SPINE BENDING Returned 12/03/2020 12:00 AM METABOLIC PANEL TOTAL CA Reviewed 12/03/2020 12:00 AM COMPLETE CBC W/AUTO DIFF WBC Reviewed 12/03/2020 12:00 AM URINALYSIS AUTO W/SCOPE Reviewed 12/03/2020 12:00 AM Rocephin 1 gram Injection Reviewed Results Summary Date and Description Results [...] Seen MUCOUS/LPF Few CULT SET UP? NO 12/03/2020 12:02 PM GLUCOSE 109 SODIUM 136 POTAS SIUM 4.0 CHLORIDE 98.0 mmol/LCO2 26 BUN 12.0 mg/dLCREATININE 1.20 mg/dLCALCIUM 9.70 mg/dLAGE 45 GFR NonAA 66 GFR AA 80 eGFR 66 mL/min/1.73meGFR AA* >60 mL/min/1.73mWBC 12.7 RBC 5.11 HGB 16.0 g/dLHCT 47.30 %MCV 93.0 fLMCH 31.30 pgMCHC 33.80 g/dLRDW SD 43 %RDW CV 12.40 %MPV 10.10 fLPLT 337 x10E3/uLNRBC# 0.00 NRBC% 0.0 %NEUT 71.0 %LYMP 15.8 %MONO 10.8 %EOS 1.7 %BASO 0.4 #NEUT 9.04 #LYMP 2.01 #MONO 1.38 #EOS 0.22 #BASO 0.05 MANUAL DIFF NOT IND COLOR Light-Yellow CLARITY Clear SPEC GRAV 1.014 pH 6.5 PROTEIN 20 GLUCOSE Normal KETONE Negative BILIRUBIN Negative BLOOD Negative NITRITE Negative LEUK SCREEN 75 RBC/HPF 0-3 WBC/HPF 21-50 BACTERIA/HPF None Seen SQUAMOUS EPI/LPF None Seen CULT SET UP? YES History Of Immunizations Not available. History of [...] 2020 4:57PM Hypertension Oct 21 2020 4:57PM UTI (urinary tract infection) Dec 03 2020 8:51AM Kidney Stones Dec 03 2020 1:04PM Acute prostatitis Dec 03 2020 1:04PM Solitary kidney Dec 03 2020 1:04PM Prostatitis Feb 26 2021 4:05PM Polyphagia Feb 26 2021 4:05PM Dietary counseling and surveillance Feb 26 2021 4:05PM Payers Insurance Name Company Name Plan Name Plan Number Policy Number [place] Group Number Start Date [id number] N/ A [employer] [id number] May [facility] [id number] [facility] [id number] N/A History of Encounters Visit Date Visit Type Provider 02/26/2021 Office visit Heath Willard APR N 12/03/2020 Office visit PATY YEE NANOELECTRONICS ENGINEER 10/21/2020 Office visit Heath Willard APR N 10/09/2020 Office visit Heath Willard APR N 12/07/2019 Office visit Heath Willard APR N 11/29/2019 Office visit Heath Willard APR N 09/19/2019 Office visit Heath Willard APR N 09/05/2019 Office visit Carlos Cox DO 08/23/2019 Office visit Heath Willard APR N 07/10/2019 Office visit Bailey KATE RN 06/19/2019 Office visit Heath Willard APR N 04/18/2019 Office visit Heath Willard APR N 03/27/2019 Office visit Heath Willard APR N 02/01/2019 Office visit Heath Willard APR N 01/17/2019 Office visit Heath Willard APR N 01/03/2019 Office visit PATY YEE NANOELECTRONICS ENGINEER 12/15/2018 Office visit Heath Willard APR N 11/17/2018 Office visit Heath Willard APR N 08/31/2018 Office visit Heath Farmerran [...] APR N 08/31/2017 Office visit Philomena Nelson NANOELECTRONICS ENGINEER 04/30/[address] Julio Alexis MD 03/30/2017 Office visit Uyen Cardenas APR N
[2021-03-20] MEDS ORDERED: NS IV 1000 ML 1,000 ML IV SCH ×3 (13:15→15:15)
--- NOTE | 2021-03-20 13:19 | ED Abdominal Pain ---
General Stated Complaint: SOB History of Present Illness Date Seen by Provider: Mar 20, 2021 Time Seen by Provider: 13:15 Initial Comments Patient is a 46-year-old male who presents ED with shortness of breath and body tingling. This started about 45 minutes ago. Patient was currently at work. Started feeling short of breath. Started having diffuse tingling, and sweating. Patient states he did have some improvement when he sat down but it did continue afterwards. He states the tingling became worse. Started to feel di zzy. Denies any chest pain, abdominal pain, headache, cough, runny nose, vomiting or diarrhea. Denies any alcohol use. He states he is currently on diet medication, opiates, anti-inflammatories and phentermine. He states he did take the medication but has been on the medication in the past. He also reports a THC type substance for back pain. Unclear if this is result of his symptoms. No recent travels or surgeries. Denies history of coronary artery disease. Does have a history of hypertension. Patient was hyperventilating on arrival. This became controlled. Afebrile. Vital signs otherwise stable. (DYAN CAROL[place]) Allergies and Home Medications Allergies Coded Allergies: No Known Drug Allergies (Unverified , 05/28/19) Patient Home Medication List Home Medication List Reviewed: Yes (DYAN [place]) Acetaminophen (Tylenol Extra Strength) 500 Mg Tablet, 1,000 MG PO Q6H PRN for PAIN-MILD (1-4), (Reported) Entered as Reported by: ISAIAS BOWLES on 07/20/20 1723 Cefdinir (Cefdinir) 300 Mg Capsule, 300 MG PO BID Prescribed by: MARTHA NOBLES on 07/21/20 1101 Hydrochlorothiazide (Hydrochlorothiazide) 12.5 Mg Tablet, 12.5 MG PO DAILY, (Reported) Entered as Reported by: ISAIAS BOWLES on 07/20/20 1723 Hydrocodone/Acetaminophen (Hydrocodone-Acetamin 5-325 mg) 1 Each Tablet, 1 TAB PO BID, (Reported) Entered as Reported by: ISAIAS BOWLES on 07/20/20 1723 Metoprolol Tartrate (Metoprolol Tartrate) 75 Mg Tablet, 75 MG PO DAILY, (Reported) Entered as Reported by: MIRIAN FRANCO on 05/28/192044 Sulfamethoxazole/Trimethoprim (Bactrim Ds Tablet) 1 Each Tablet, 1 EACH PO BID Prescribed by: MEKHI MCKEON on 12/01/202204 Tamsulosin HCl (Flomax) 0.4 Mg Cap, 0.4 MG PO DAILY@1800 Prescribed by: MARTHA NOBLES on 07/21/20 1101 Review of Systems Review of Systems Constitutional: No chills, No diaphoresis; dizziness; No fever, No malaise EENTM: No Eye Pain, No Ear Pain, No Nose Pain, No Throat Pain, No Throat Swelling Respiratory: Denies Cough; SOA at Rest; Denies Wheezing Gastrointestinal: Denies Abdominal Pain, Denies Constipated, Denies Diarrhea, Denies Nausea, Denies Vomiting Genitourinary: Denies Drainage, Denies Frequency, Denies Flank Pain Musculoskeletal: No back pain, No gout, No joint pain Skin: No change in color, No change in hair/nails Psychiatric/Neurological: Denies Headache; Numbness, Paresthesia Endocrine: Denies Intolerance to Cold, Denies Intolerance to Heat, Denies Increased Hunger, Denies Increased Urine Hematologic/Lymphatic: Denies Anemia (DYAN CAR[place]) Past Xfajwqm-Lfdkan-Criusa Hx Seasonal Allergies Seasonal Allergies: No (DYAN CAROL[place]) Past Medical History Surgery/Hospitalization HX: kidney stone removal, back surgery, T/A as a child Surgeries: Yes (back Sx, 6 percutaneous nephrolithotomy) Tonsillectomy Respiratory: No Cardiac: Yes Hypertension Neurological: No Genitourinary: Yes (functionally unilateral kidney) Kidney Infection, Kidney Stones Gastrointestinal: No Musculoskeletal: Yes Chronic Back Pain Endocrine: No HEENT: No Cancer: No Psychosocial: No Integumentary: No Blood Disorders: No (DYAN CAR[place]) Physical Exam Vital Signs Vital Signs - First Documented 03/20/21 13:00 Temp 36.5 Pulse 115 Resp 44 B/P (MAP) 128/83 (98) Pulse Ox 100 (GREGORY NELSON MD) Vital Signs Capillary Refill : (DYAN CAROL[place]) Height/Weight/BMI Height: '" Weight: lbs. oz. kg; 30.00 BMI Method: General Appearance: mild distress, other (Sweating) HEENT: PERRL/EOMI, normal ENT inspection Neck: non-tender, full range of motion, supple Respiratory: chest non-tender, lungs clear, normal breath sounds, no respiratory distress, no accessory muscle use Cardiovascular: no edema, no gallop, no JVD, no murmur, tachycardia Gastrointestinal: normal bowel sounds, non tender, soft, no organomegaly Extremities: normal range of motion, non-tender, normal inspection Back: normal inspection, no CVA tenderness (DYAN CAROLINA) Progress/Results/Core Measures Results/Orders Lab Results Laboratory Tests Test 03/20/21 13:10 03/20/21 13:12 03/20/21 15:07 03/20/21 15:21 Range/Units White Blood Count 16.7 H 4.3-11.0 10^3/uL Red Blood Count 5.59 H 4.30-5.52 10^6/uL Hemoglobin 17.9 H 13.3-17.7 g/dL Hematocrit 51 40-54 % Mean Corpuscular Volume 91 80-99 fL Mean Corpuscular Hemoglobin 32 25-34 pg Mean Corpuscular Hemoglobin Concent 35 32-36 g/dL Red Cell Distribution Width 12.4 10.0-14.5 % Platelet Count 432 H 130-400 10^3/uL Mean Platelet Volume 10.3 9.0-12.2 fL Immature Granulocyte % (Auto) 0 % Neutrophils (%) (Auto) 68 42-75 % Lymphocytes (%) (Auto) 23 12-44 % Monocytes (%) (Auto) 8 0-12 % Eosinophils (%) (Auto) 1 0-10 % Basophils (%) (Auto) 0 0-10 % Neutrophils # (Auto) 11.3 H 1.8-7.8 10^3/uL Lymphocytes # (Auto) 3.9 1.0-4.0 10^3/uL Monocytes # (Auto) 1.3 H 0.0-1.0 10^3/uL Eosinophils # (Auto) 0.1 0.0-0.3 10^3/uL Basophils # (Auto) 0.1 0.0-0.1 10^3/uL Immature Granulocyte # (Auto) 0.1 0.0-0.1 10^3/uL Neutrophils % (Manual) 65 % Lymphocytes % (Manual) 30 % Monocytes % (Manual) 5 % Blood Morphology Comment NORMAL Sodium Level 140 142 135-145 MMOL/L Potassium Level 3.8 3.5 L 3.6-5.0 MMOL/L Chloride Level 103 109 H 98-107 MMOL/L Carbon Dioxide Level 19 L 20 L 21-32 MMOL/L Anion Gap 18 H 13 5-14 MMOL/L Blood Urea Nitrogen 21 H 20 H 7-18 MG/DL Creatinine 1.88 H 1.41 H 0.60-1.30 MG/DL Estimat Glomerular Filtration Rate 39 55 BUN/Creatinine Ratio 11 14 Glucose Level 95 80 70-105 MG/DL Calcium Level 10.6 H 8.6 8.5-10.1 MG/DL Corrected Calcium 8.5-10.1 MG/DL Total Bilirubin 1.4 H 0.1-1.0 MG/DL Aspartate Amino Transf (AST/SGOT) 41 H 5-34 U/L Alanine Aminotransferase (ALT/SGPT) 44 0-55 U/L Alkaline Phosphatase 146 H 40-136 U/L Creatine Kinase MB 2.8 <6.6 NG/ML Troponin I < 0.028 <0.028 NG/ML Total Protein 8.2 6.4-8.2 GM/DL Albumin 4.7 H 3.2-4.5 GM/DL Lipase 28 8-78 U/L Smear Scan N Influenza Type A (RT-PCR) Not Detected Not Detecte Influenza Type B (RT-PCR) Not Detected Not Detecte SARS-CoV-2 RNA (RT-PCR) Not Detected Not Detecte Urine Color YELLOW Urine Clarity CLEAR Urine pH 6.5 5-9 Urine Specific [place] 1.020 1.016-1.022 Urine Protein 2+ H NEGATIVE Urine Glucose (UA) NEGATIVE NEGATIVE Urine Ketones 2+ H NEGATIVE Urine Nitrite NEGATIVE NEGATIVE Urine Bilirubin NEGATIVE NEGATIVE Urine Urobilinogen 0.2 < = 1.0 MG/DL Urine Leukocyte Esterase NEGATIVE NEGATIVE Urine RBC (Auto) NEGATIVE NEGATIVE Urine RBC RARE /HPF Urine WBC 2-5 /HPF Urine Crystals PRESENT H /LPF Urine Amorphous Sediment FEW CARROLL URATES H /LPF Urine Bacteria TRACE /HPF Urine Casts NONE /LPF Urine Mucus SMALL H /LPF Urine Culture Indicated NO Urine Opiates Screen POSITIVE H NEGATIVE Urine Oxycodone Screen NEGATIVE NEGATIVE Urine Methadone Screen NEGATIVE NEGATIVE Urine Propoxyphene Screen NEGATIVE NEGATIVE Urine Barbiturates Screen NEGATIVE NEGATIVE Ur Tricyclic Antidepressants Screen NEGATIVE NEGATIVE Urine Phencyclidine Screen NEGATIVE NEGATIVE Urine Amphetamines Screen POSITIVE H NEGATIVE Urine Methamphetamines Screen NEGATIVE NEGATIVE Urine Benzodiazepines Screen NEGATIVE NEGATIVE Urine Cocaine Screen NEGATIVE NEGATIVE Urine Cannabinoids Screen POSITIVE H NEGATIVE (GREGORY NELSON MD) Vital Signs/I&O 03/20/21 03/20/21 13:00 15:55 Temp 36.5 Pulse 115 68 Resp 44 18 B/P (MAP) 128/83 (98) 122/72 Pulse Ox 100 100 (GREGORY NELSON MD) Initial ECG Impression Date: Mar 20, 2021 Initial ECG Impression Time: 13:29 Comment Sinus tachycardia, 117 bpm, QRS duration 84 MS, QTc 466 MS. (DYAN CAROL[place]) Departure Communication (PCP) Patient is a 46-year-old male who presents to ED with acute onset of shortness of breath. Patient appeared to be hyperventilating with tingling throughout his body on arrival. EKG without evidence of ST changes. I Was able to control breathing by having him breath in a mask. Patient states he was working started to feel short of breath. Improvement when he sat down but noted he started breathing heavier again. Patient recently started taking diet medication ph entermine. He also reports opiate use and a form of THC. Patient has no known history of coronary artery disease. History of hypertension and family cardiac history. He has no chest pain or abdominal pain. His EKG sinus tachycardia. Chest x-ray negative for pneumonia, pneumothorax. Covid and influenza negative. Patient states he has one functional kidney. Patient initial creatinine 1.88, GFR 39. slight elevated BUN. No evidence of rhabdomyolysis. Normal troponin. Patient was given 2 L of fluid with improvement of his heart rate and his symptoms. Recheck of his creatinine 1.44. Previous creatinine 1.24 in November. Patient was able to urinate. Toxicology positive for opiates, amphetamines, cannabis. Patient walking here in the ED without any difficulties. No recent travels or surgeries. No history of PE, DVT. Has no leg pain. Patient states he feels much better at this time. Discussed with patient concern that he was dehydrated resulting in acute kidney injury. Recommend stopping the phentermine, THC Discussed resting. Recommend recheck with his primary care physician of his kidney function in the next 1 to 2 days. If any similar type symptoms do develop to return back to ED for further evaluation. Discussed mechanisms of controlling breathing. Return precautions were discussed with patient. No evidence suggesting infection at this time. He has no peritoneal signs or had any type of chest pain during his visit. (DYAN CAROL[place]) Impression Primary Impression: JYOTHI (acute kidney injury) Additional Impression: Dehydration Disposition: 01 HOME, SELF-CARE Condition: Stable Departure-Patient Inst. Decision time for Depature: 15:40 (DYAN CAROL[place]) Referrals: [facility],LOCAL PHYSICIAN (PCP) Primary Care Physician Patient Instructions: Acute Kidney Injury (DC) Add. Discharge Instructions: Recommend follow-up with your PCP for recheck of kidney function. Discussed changes in your medication Work/School Note: Family Work Note, Work Release Form Date Seen in the Emergency Department: Mar 20, 2021 Return to Work: Mar 24, 2021 ATTENDING PHYSICIAN NOTE: I was physically present as attending physician in the emergency department during the care of this patient, but I was not directly involved in the decision making or delivery of care for this patient. (GREGORY NELSON MD) DYAN CAROLINA Mar 20, 2021 13:18 GREGORY NELSON MD Mar 20, 2021 19:14
[2021-03-20 13:27] LABS: BASOPHILS # (AUTO) 0.1 10^3/uL (0.0-0.1); BASOPHILS % (AUTO) 0 % (0-10); EOSINOPHILS # (AUTO) 0.1 10^3/uL (0.0-0.3); EOSINOPHILS % (AUTO) 1 % (0-10); HEMATOCRIT 51 % (40-54); HEMOGLOBIN 17.9 g/dL (13.3-17.7); LYMPHOCYTES # (AUTO) 3.9 10^3/uL (1.0-4.0); LYMPHOCYTES % (AUTO) 23 % (12-44); MEAN CORPUSCULAR HEMOGLOBIN 32 pg (25-34); MEAN CORPUSCULAR HGB CONC 35 g/dL (32-36); MEAN CORPUSCULAR VOLUME 91 fL (80-99); MEAN PLATELET VOLUME 10.3 fL (9.0-12.2); MONOCYTES # (AUTO) 1.3 10^3/uL (0.0-1.0); MONOCYTES % (AUTO) 8 % (0-12); NEUTROPHILS # (AUTO) 11.3 10^3/uL (1.8-7.8); NEUTROPHILS % (AUTO) 68 % (42-75); PLATELET COUNT 432 10^3/uL (130-400); WHITE BLOOD COUNT 16.7 10^3/uL (4.3-11.0)
[2021-03-20 13:40] LABS: SMEAR SCAN COMMENT N
[2021-03-20 13:43] LABS: LYMPHOCYTES % (MANUAL) 30 %; MONOCYTES % (MANUAL) 5 %; NEUTROPHILS % (MANUAL) 65 %; RBC MORPH NORMAL
[2021-03-20 13:51] LABS: ALBUMIN 4.7 GM/DL (3.2-4.5); CHLORIDE 103 MMOL/L (98-107); POTASSIUM 3.8 MMOL/L (3.6-5.0); SODIUM 140 MMOL/L (135-145)
[2021-03-20 13:52] LABS: CALCIUM 10.6 MG/DL (8.5-10.1)
[2021-03-20 13:53] LABS: GLUCOSE 95 MG/DL (70-105)
[2021-03-20 13:54] LABS: TOTAL PROTEIN 8.2 GM/DL (6.4-8.2)
[2021-03-20 13:55] LABS: BILIRUBIN,TOTAL 1.4 MG/DL (0.1-1.0); CARBON DIOXIDE 19 MMOL/L (21-32)
[2021-03-20 13:57] LABS: ALKALINE PHOSPHATASE 146 U/L (40-136); CREATININE SERUM 1.88 MG/DL (0.60-1.30); GFR ESTIMATED 39
[2021-03-20 13:58] LABS: BUN/CREATININE RATIO 11
[2021-03-20 14:00] LABS: ALANINE AMINOTRANSFERASE 44 U/L (0-55); LIPASE 28 U/L (8-78)
[2021-03-20 14:08] LABS: CREATINE KINASE MB 2.8 NG/ML (<6.6)
--- NOTE | 2021-03-20 14:22 | Diagnostic Imaging Report ---
EXAMINATION: Chest 1 view HISTORY: sob COMPARISON: 12/01/2020 FINDINGS: Heart size and pulmonary vasculature are normal. Low lung volumes without consolidation, pleural effusion, or pneumothorax. The osseous structures are intact. IMPRESSION: 1. No acute radiographic abnormality in the chest. Dictated by: Dictated on workstation # [id number]
[2021-03-20 15:30] LABS: POTASSIUM 3.5 MMOL/L (3.6-5.0)
[2021-03-20 15:31] LABS: CALCIUM 8.6 MG/DL (8.5-10.1)
[2021-03-20 15:35] LABS: BILIRUBIN,URINE NEGATIVE (NEGATIVE); CLARITY,URINE CLEAR; COLOR,URINE YELLOW; GLUCOSE, URINE (UA) NEGATIVE (NEGATIVE); KETONES,URINE 2+ (NEGATIVE); LEUKOCYTE ESTERASE ,URINE NEGATIVE (NEGATIVE); NITRITE,URINE NEGATIVE (NEGATIVE); PH,URINE 6.5 (5-9); PROTEIN,URINE 2+ (NEGATIVE)
[2021-03-20 15:35] LABS: CREATININE SERUM 1.41 MG/DL (0.60-1.30)
[2021-03-20 15:41] LABS: RBC,URINE RARE /HPF
[2021-03-20 15:42] LABS: AMORPHOUS SEDIMENT,UR FEW AMOR URATES /LPF; BACTERIA,URINE TRACE /HPF
[2021-03-20 15:55] VITALS: BP 122/72
[2021-03-20 15:56] LABS: AMPHETAMINE SCREEN, URINE POSITIVE (NEGATIVE); BARBITURATE SCREEN URINE NEGATIVE (NEGATIVE); BENZODIAZEPINES SCREEN URINE NEGATIVE (NEGATIVE); CANNABINOID SCREEN, URINE POSITIVE (NEGATIVE); COCAINE SCREEN URINE NEGATIVE (NEGATIVE); METHADONE STAT NEGATIVE (NEGATIVE); METHAMPHETAMINE SCREEN URINE S NEGATIVE (NEGATIVE); OPIATE SCREEN URINE POSITIVE (NEGATIVE); OXYCODONE STAT NEGATIVE (NEGATIVE); PROPOXYPHENE STAT NEGATIVE (NEGATIVE); TRICYCLIC ANTIDEPRESSANTS SCRE NEGATIVE (NEGATIVE)
== END 2021-03-20 15:56 | disposition home or self-care (01) ==
LOC: EDUNIT# 12:53 → ER 12:55
DX: N17.9 Acute kidney failure, unspecified (principal); E86.0 Dehydration; I10 Essential (primary) hypertension; G89.29 Other chronic pain; M54.9 Dorsalgia, unspecified; Z87.442 Personal history of urinary calculi; Z98.890 Other specified postprocedural states; Z90.5 Acquired absence of kidney; Z20.822 Contact with and (suspected) exposure to COVID-19; Z79.1 Long term (current) use of non-steroidal anti-inflammatories (NSAID); Z79.891 Long term (current) use of opiate analgesic; Z79.899 Other long term (current) drug therapy
CPT/HCPCS: 36415; 71045; 80048; 80053; 80306; 81000; 82553; 83690; 84484; 85007; 85025; 85027; 87636; 93005

== ENCOUNTER 2022-01-18 18:25 | Emergency (ER) | payer BC ==
[~2022-01-18] VITALS: Ht 167.7 cm; Wt 95.3 kg
--- NOTE | 2022-01-18 18:52 | ED General ---
General Chief Complaint: Rect Problems Stated Complaint: PAIN, HEMROIDS Nursing Triage Note: PT AMB TO RM 8 WITH COMPLAINT OF HEMRRHOID PAIN. STATES PAIN STARTED WEDNESDAY. WENT TO WALK IN [facility] AND WAS PRESCRIBED PREPARATION H AND HYDROCODONE. STATES HE IS HAVING DIARRHA. DENIES BLOOD IN STOOL Source of Information: Patient Exam Limitations: No Limitations History of Present Illness Date Seen by Provider: Jan 18, 2022 Time Seen by Provider: 18:45 Initial Comments BPPatient is a 46-year-old male who presents to the emergency department for evaluation of rectal pain that began on Wednesday and has progressively worsened since. Patient was seen by his on Wednesday and was prescribed hydrocortisone ointment for presumed hemorrhoid. Patient states the pain is persisted since that time and and worsened. Patient has been taking his home hydrocodone that he takes for his chronic back pain but this has not been helping the pain. Patient denies any constipation, hard stools, bloody stools, rectal bleeding, abdominal pain, fever. Patient has not been taking anything for the symptoms other than his hydrocodone and the prescribed hydrocortisone cream. He denies any history of similar symptoms. Allergies and Home Medications Allergies Coded Allergies: No Known Drug Allergies (Unverified , 05/28/19) Patient Home Medication List Home Medication List Reviewed: Yes Acetaminophen (Tylenol Extra Strength) 500 Mg Tablet, 1,000 MG PO Q6H PRN for PAIN-MILD (1-4), (Reported) Entered as Reported by: ISAIAS BOWLES on 07/20/20 172 Cefdinir (Cefdinir) 300 Mg Capsule, 300 MG PO BID Prescribed by: MARTHA NOBLES on 07/21/20 1101 Hydrochlorothiazide (Hydrochlorothiazide) 12.5 Mg Tablet, 12.5 MG PO DAILY, (Reported) Entered as Reported by: ISAIAS BOWLES on 07/20/20 172 Hydrocodone/Acetaminophen (Hydrocodone-Acetamin 5-325 mg) 1 Each Tablet, 1 TAB PO BID, (Reported) Entered as Reported by: ISAIAS BOWLES on 07/20/20 172 Hydrocortisone/Lidocaine/Aloe (Lidocaine-Hc 2.8-0.55% Gel) 0.55 %-2.8 % G el.w.appl, 100 GM RC BID PRN for PAIN-SEE DOSE INSTRUCTIONS Prescribed by: Valdez Peterson on 01/18/221958 Metoprolol Tartrate (Metoprolol Tartrate) 75 Mg Tablet, 75 MG PO DAILY, (Reported) Entered as Reported by: MIRIAN FRANCO on 05/28/192044 Sulfamethoxazole/Trimethoprim (Bactrim Ds Tablet) 1 Each Tablet, 1 EACH PO BID Prescribed by: MEKHI MCKEON on 12/01/202204 Tamsulosin HCl (Flomax) 0.4 Mg Cap, 0.4 MG PO DAILY@1800 Prescribed by: MARTHA NOBLES on 07/21/20 1101 Review of Systems Review of Systems Constitutional: no symptoms reported EENTM: no symptoms reported Respiratory: no symptoms reported Cardiovascular: no symptoms reported Gastrointestinal: see HPI Genitourinary: no symptoms reported Musculoskeletal: no symptoms reported Skin: no symptoms reported Past Nezzyhy-Hbvctb-Rkhwiq Hx Patient Social History Tobacco Use?: No Use of E-Cig and/or Vaping dev: No Substance use?: No Alcohol Use?: No Pt feels they are or have been: No Seasonal Allergies Seasonal Allergies: No Past Medical History Surgery/Hospitalization HX: kidney stone removal, back surgery, T/A as a child Surgeries: Yes (back Sx, 6 percutaneous nephrolithotomy) Tonsillectomy Respiratory: No Cardiac: Yes Hypertension Neurological: No Genitourinary: Yes (functionally unilateral kidney) Kidney Infection, Kidney Stones Gastrointestinal: No Musculoskeletal: Yes Chronic Back Pain Endocrine: No HEENT: No Cancer: No Psychosocial: No Integumentary: No Blood Disorders: No Physical Exam Vital Signs Vital Signs - First Documented 01/18/22 18:39 Temp 37.1 Pulse 102 Resp 16 B/P (MAP) 137/101 (113) Pulse Ox 95 O2 Delivery Room Air Capillary Refill : Less Than 3 Seconds Height, Weight, BMI Height: '" Weight: lbs. oz. kg; 33.00 BMI Method: General Appearance: No Apparent Distress, WD/WN HEENT: PERRL/EOMI, TMs Normal, Normal ENT Inspection, Pharynx Normal Neck: Full Range of Motion, Normal Inspection, Non Tender, Supple Respiratory: Chest Non Tender, Lungs Clear, Normal Breath Sounds, No Accessory Muscle Use, No Respiratory Distress Cardiovascular: Regular Rate, Rhythm, No Edema Gastrointestinal: Normal Bowel Sounds Rectal: Normal Rectal Tone; No Hemorrhoids, No Mass; Tenderness Back: Normal Inspection Extremity: Normal Capillary Refill, Normal Inspection Neurologic/Psychiatric: Alert, Oriented x3, No Motor/Sensory Deficits, Normal Mood/Affect Progress/Results/Core Measures Suspected Sepsis SIRS Temperature: Pulse: 102 Respiratory Rate: 16 Blood Pressure 137 /101 Mean: 113 Results/Orders My Orders Orders - VALDEZ PETERSON APRN Ct Pelvis Wo (01/18/22 18:50) Vital Signs/I&O 01/18/22 01/18/22 18:39 20:07 Temp 37.1 Pulse 102 93 Resp 16 B/P (MAP) 137/101 (113) 144/97 Pulse Ox 95 98 O2 Delivery Room Air Room Air Capillary Refill : Less Than 3 Seconds Blood Pressure Mean: 113 Progress Note : Progress Note Patient is nontoxic and well-hydrated on exam. Rectal exam is largely unre markable. Patient does have some tenderness to palpation of the inferior portions of the rectum. There are no hemorrhoids noted on visual exam. Rectal tone is intact. No marked abnormalities on digital exam of the rectum. I do not appreciate any perirectal abscess on exam. No draining wounds. No anal fissures noted. CT of the pelvis was obtained that was notable for some mild stranding of the rectal tissues of uncertain clinical significance. The exam would have been more sensitive with contrast but the patient states he is a difficult stick and did not want an IV placed. Will give patient a prescription for hydrocortisone/lidocaine gel for symptom control. It was recommended he follow-up with his PCP and/or general surgery for further exam and possible proctoscopy/colonoscopy. Return precautions for urgent symptomology discussed. Patient verbalized understanding. Departure Impression Primary Impression: Rectal pain Disposition: 01 HOME, SELF-CARE Condition: Stable Departure-Patient Inst. Decision time for Depature: 19:54 Referrals: [facility] [employer]INTE[employer]CE SUPERVISOR (PCP) Primary Care Physician KATHRINE HASSAN DO Patient Instructions: Acute Pain, Adult Scripts Hydrocortisone/Lidocaine/Aloe (Lidocaine-Hc 2.8-0.55% Gel) 0.55 %-2.8 % Gel.w.appl 100 GM RC BID PRN for PAIN-SEE DOSE INSTRUCTIONS for 7 Days, #1 EA Prov: VALDEZ PETERSON APRN 01/18/22 VALDEZ PETERSON APRN Jan 18, 2022 18:52
--- NOTE | 2022-01-18 19:48 | Diagnostic Imaging Report ---
PROCEDURE: CT pelvis without contrast. TECHNIQUE: Multiple contiguous axial images were obtained through the pelvis without the use of intravenous contrast. Sagittal and coronal reformations were performed. Auto Exposure Controls were utilized during the CT exam to meet ALARA standards for radiation dose reduction. INDICATION: Hemorrhoidal pain. Diarrhea. Blood in the stool. COMPARISON: CT abdomen and pelvis dated 12/17/2020. FINDINGS: There is subtle stranding of the perirectal fat (image 73, series 2). Evaluation for rectal mass is suboptimal given technique and modality. Rectal mass could be obscured. Apparent rectal wall thickening is noted, but may be related to underdistention. Included portions of the more proximal colon are unremarkable. Normal appendix is also included within the [id number]. No abnormal perirectal or other retroperitoneal adenopathy is seen. Urinary bladder is unopacified. No calculi are seen within the urinary bladder. There is no free fluid, loculated fluid collection or free air. Osseous structures show no acute abnormality. IMPRESSION: Abnormal appearance to the rectum and perirectal fat, as described above. Findings could be on the basis of nonspecific infectious or inflammatory proctitis. Rectal mass cannot be excluded based on this exam. Clinical correlation is advised. Dictated by: Dictated on workstation # [id number]
[2022-01-18] MEDS ORDERED: [UNRECOGNIZED DRUG - CODE] RC (19:59)
[2022-01-18 20:07] VITALS: BP 144/97
== END 2022-01-18 20:07 | disposition home or self-care (01) ==
LOC: EDUNIT# 18:25 → ER 18:27
DX: K62.89 Other specified diseases of anus and rectum (principal)
CPT/HCPCS: 72192

== ENCOUNTER → 2022-07-01 | Outpatient (CLI) | payer SELFPAY ==
[~2022-07-01] MED LIST changes: +[UNRECOGNIZED DRUG - CODE] RC
--- NOTE | 2022-07-01 17:25 | Diagnostic Imaging Report ---
INDICATION: Pain. FINDINGS: No opaque foreign body identified. No fracture, dislocation, or gas. No acute periosteal reaction. No bony destructive process. IMPRESSION: Unremarkable three-view left foot. Dictated by: Dictated on workstation # [id number]
== END ==
LOC: RAD 17:01
PROVIDERS: ATTEND Nurse Practitioner Family
DX: M79.5 Residual foreign body in soft tissue (principal)
CPT/HCPCS: 73630

== ENCOUNTER 2023-01-28 11:28 | Emergency (ER) | payer BC ==
[~2023-01-28] VITALS: Ht 170.2 cm; Wt 79.4 kg
[2023-01-28 11:28] VITALS: BP 143/109
--- NOTE | 2023-01-28 11:33 | ED General ---
General Chief Complaint: Respiratory Problems Stated Complaint: CHEST PAINS | ANXIETY Source of Information: Patient Exam Limitations: No Limitations History of Present Illness Date Seen by Provider: Jan 28, 2023 Time Seen by Provider: 11:27 Initial Comments 47-year-old male with past medical history most notable for hypertension coming in due to what he states is a panic attack. He states it started well over an hour prior to arrival, he started breathing really rapidly, and then he started feeling tingly and numb all over his body. This occurred at work while a machine he was using broke down. He was immediately concerned he could lose his job. He did not really have any pain associated with this. This has happened in the past. He does not take anything for it. Denies any personal cardiac history, no prior history of DVT or PE, no lower extremity swelling or pain, no cough or hemoptysis, no fever, vomiting, diarrhea, weakness, headache, or any other concerns. Allergies and Home Medications Allergies Coded Allergies: No Known Drug Allergies (Unverified , 05/28/19) Patient Home Medication List Home Medication List Reviewed: Yes Acetaminophen (Tylenol Extra Strength) 500 Mg Tablet, 1,000 MG PO Q6H PRN for PAIN-MILD (1-4), (Reported) Entered as Reported by: ISAIAS BOWLES on 07/20/20 1723 Cefdinir (Cefdinir) 300 Mg Capsule, 300 MG PO BID Prescribed by: MARTHA NOBLES on 07/21/20 1101 Hydrochlorothiazide (Hydrochlorothiazide) 12.5 Mg Tablet, 12.5 MG PO DAILY, (Reported) Entered as Reported by: ISAIAS BOWLES on 07/20/20 1723 Hydrocodone/Acetaminophen (Hydrocodone-Acetamin 5-325 mg) 1 Each Tablet, 1 TAB PO BID, (Reported) Entered as Reported by: ISAIAS BOWLES on 07/20/20 1723 Hydrocortisone/Lidocaine/Aloe (Lidocaine-Hc 2.8-0.55% Gel) 0.55 %-2.8 % Gel.w.appl, 100 GM RC BID PRN for PAIN-SEE DOSE INSTRUCTIONS Prescribed by: Valdez Peterson on 01/18/221958 Hydroxyzine HCl (Hydroxyzine HCl) 25 Mg Tablet, 25 MG PO HS PRN for ANXIETY Prescribed by: DYAN BOURNE on 11/9/23 1203 Metoprolol Tartrate (Metoprolol Tartrate) 75 Mg Tablet, 75 MG PO DAILY, (Reported) Entered as Reported by: MIRIAN FRANCO on 05/28/192044 Sulfamethoxazole/Trimethoprim (Bactrim Ds Tablet) 1 Each Tablet, 1 EACH PO BID Prescribed by: MEKHI MCKEON on 12/01/20 2205 Tamsulosin HCl (Flomax) 0.4 Mg Cap, 0.4 MG PO DAILY@1800 Prescribed by: MARTHA NOBLES on 07/21/20 1101 Review of Systems Review of Systems Constitutional: No fever EENTM: no symptoms reported Respiratory: see HPI Cardiovascular: no symptoms reported Gastrointestinal: no symptoms reported Genitourinary: no symptoms reported Psychiatric/Neurological: See HPI Past [id number] Hx Patient Social History Tobacco Use?: Yes Tobacco type used: Cigarettes Seasonal Allergies Seasonal Allergies: No Past Medical History Surgery/Hospitalization HX: kidney stone removal, back surgery, T/A as a child Surgeries: Yes (back Sx, 8 percutaneous nephrolithotomy) Tonsillectomy Respiratory: No Cardiac: Yes Hypertension Neurological: No Genitourinary: Yes (functionally unilateral kidney) Kidney Infection, Kidney Stones Gastrointestinal: No Musculoskeletal: Yes Chronic Back Pain Endocrine: No HEENT: No Cancer: No Psychosocial: No Integumentary: No Blood Disorders: No Physical Exam Vital Signs Vital Signs - First Documented 01/28/23 01/28/23 11:28 11:47 Temp 35.6 Pulse 80 Resp 32 B/P (MAP) 143/109 (120) Pulse Ox 100 O2 Delivery Room Air Capillary Refill : Height, Weight, BMI Height: '" Weight: lbs. oz. kg; 33.00 BMI Method: General Appearance: Anxious Eyes: Bilateral Eye Normal Inspection HEENT: PERRL/EOMI, Normal ENT Inspection, Pharynx Normal Neck: Full Range of Motion, Normal Inspection, Non Tender, Supple Respiratory: Chest Non Tender, Lungs Clear, Normal Breath Sounds, No Accessory Muscle Use, No Respiratory Distress Cardiovascular: Regular Rate, Rhythm, No Edema, Normal Peripheral Pulses Gastrointestinal: Normal Bowel Sounds, Non Tender, Soft Back: Normal Inspection, No CVA Tenderness Extremity: Normal Capillary Refill, Normal Inspection, Normal Range of Motion, Non Tender, No Calf Tenderness, No Pedal Edema Neurologic/Psychiatric: Alert, Oriented x3, No Motor/Sensory Deficits, Normal Mood/Affect Skin: Normal Color, Warm/Dry Progress/Results/Core Measures Suspected Sepsis SIRS Temperature: Pulse: Respiratory Rate: Laboratory Tests 01/28/23 11:30: White Blood Count 11.8H Blood Pressure / Mean: Laboratory Tests 01/28/23 11:30: Creatinine 1.31H, Platelet Count 361, Total Bilirubin 0.9 Results/Orders Lab Results Laboratory Tests Test 01/28/23 11:30 Range/Units White Blood Count 11.8 H 4.3-11.0 10^3/uL Red Blood Count 5.54 H 4.30-5.52 10^6/uL Hemoglobin 18.2 H 13.3-17.7 g/dL Hematocrit 50 40-54 % Mean Corpuscular Volume 91 80-99 fL Mean Corpuscular Hemoglobin 33 25-34 pg Mean Corpuscular Hemoglobin Concent 36 32-36 g/dL Red Cell Distribution Width 12.2 10.0-14.5 % Platelet Count 361 130-400 10^3/uL Mean Platelet Volume 10.1 9.0-12.2 fL Immature Granulocyte % (Auto) 0 % Neutrophils (%) (Auto) 63 42-75 % Lymphocytes (%) (Auto) 26 12-44 % Monocytes (%) (Auto) 9 0-12 % Eosinophils (%) (Auto) 2 0-10 % Basophils (%) (Auto) 1 0-10 % Neutrophils # (Auto) 7.4 1.8-7.8 10^3/uL Lymphocytes # (Auto) 3.0 1.0-4.0 10^3/uL Monocytes # (Auto) 1.1 H 0.0-1.0 10^3/uL Eosinophils # (Auto) 0.2 0.0-0.3 10^3/uL Basophils # (Auto) 0.1 0.0-0.1 10^3/uL Immature Granulocyte # (Auto) 0.0 0.0-0.1 10^3/uL Sodium Level 139 135-145 MMOL/L Potassium Level 3.8 3.6-5.0 MMOL/L Chloride Level 104 98-107 MMOL/L Carbon Dioxide Level 19 L 21-32 MMOL/L Anion Gap 16 H 5-14 MMOL/L Blood Urea Nitrogen 17 7-18 MG/DL Creatinine 1.31 H 0.60-1.30 MG/DL Estimat Glomerular Filtration Rate 68 BUN/Creatinine Ratio 13 Glucose Level 104 70-105 MG/DL Calcium Level 10.5 H 8.5-10.1 MG/DL Corrected Calcium 8.5-10.1 MG/DL Total Bilirubin 0.9 0.1-1.0 MG/DL Aspartate Amino Transf (AST/SGOT) 33 5-34 U/L Alanine Aminotransferase (ALT/SGPT) 43 0-55 U/L Alkaline Phosphatase 131 40-136 U/L Troponin I < 0.028 <0.028 NG/ML Total Protein 8.3 H 6.4-8.2 GM/DL Albumin 5.0 H 3.2-4.5 GM/DL Thyroid Stimulating Hormone (TSH) 0.92 0.35-4.94 UIU/ML My Orders Orders - DYAN BOURNE MD Cbc And Automated Diff (01/28/23 11:31) Comprehensive Metabolic Panel (01/28/23 11:31) Thyroid Stimulating Hormone (01/28/23 11:31) Troponin I [place] (01/28/23 11:31) Lorazepam Injection (Lorazepam Injection (01/28/23 11:31) Ekg Tracing (01/28/23 11:31) Vital Signs/I&O 01/28/23 01/28/23 11:28 11:47 Temp 35.6 Pulse 80 81 Resp 32 18 B/P (MAP) 143/109 (120) 120/97 (105) Pulse Ox 100 O2 Delivery Room Air Room Air Capillary Refill : Progress Note : Progress Note 47-year-old male with above history coming in due to rapid breathing and fingers tingling in the setting of him saying he is having a panic attack. ABCs were intact and vitals were stable on presentation. Physical exam reassuring including no focal neurologic findings. EKG ordered and interpreted by me showing normal sinus rhythm with no acute ischemic changes. An IV was placed and basic labs were obtained and were significant for hemoglobin around 18 which is likely hemoconcentrated, but similar to his prior. He also has a slightly elevated creatinine but also similar to his prior. Troponin is negative and thyroid studies are normal. Patient was given half a milligram of IV Ativan. On reassessment he is well-appearing. This is not consistent with ACS clinica lly and based on the labs. He is low risk for PE per [place] criteria and is PERC negative as well. I believe the patient is stable for discharge with outpatient follow-up. He was sent home with strict return precautions. ECG Initial ECG Impression Date: Jan 28, 2023 Initial ECG Impression Time: 11:32 Initial ECG Rate: 82 Initial ECG Rhythm: Normal Sinus Comment Narrow QRS, normal axis, no significant ST changes or T wave abnormalities Departure Impression Primary Impression: Panic attack Disposition: 01 HOME, SELF-CARE Condition: Improved Departure-Patient Inst. Decision time for Depature: 12:20 Referrals: [facility] (PCP/Family) Primary Care Physician Patient Instructions: Panic Attack ED Add. Discharge Instructions: Fortunately were not seeing any evidence of heart attack or anything life-threatening such as a stroke. Medication was sent to your pharmacy which you can take at nighttime that can help with these. Please follow-up with your regular doctor if this becomes more recurrent as there are likely other medications that could put you on that would be better. Scripts Hydroxyzine HCl (Hydroxyzine HCl) 25 Mg Tablet 25 MG PO HS PRN for ANXIETY for 14 Days, #14 TAB Prov: DYAN BOURNE MD 01/28/23 Work/School Note: Work Release Form Date Seen in the Emergency Department: Jan 28, 2023 Return to Work: Jan 29, 2023 Restrictions: No Restrictions DYAN BOURNE MD Jan 28, 2023 11:33
[2023-01-28 11:39] LABS: BASOPHILS # (AUTO) 0.1 10^3/uL (0.0-0.1); BASOPHILS % (AUTO) 1 % (0-10); EOSINOPHILS # (AUTO) 0.2 10^3/uL (0.0-0.3); EOSINOPHILS % (AUTO) 2 % (0-10); HEMATOCRIT 50 % (40-54); HEMOGLOBIN 18.2 g/dL (13.3-17.7); LYMPHOCYTES % (AUTO) 26 % (12-44); MEAN CORPUSCULAR HEMOGLOBIN 33 pg (25-34); MEAN CORPUSCULAR HGB CONC 36 g/dL (32-36); MEAN CORPUSCULAR VOLUME 91 fL (80-99); MEAN PLATELET VOLUME 10.1 fL (9.0-12.2); MONOCYTES # (AUTO) 1.1 10^3/uL (0.0-1.0); MONOCYTES % (AUTO) 9 % (0-12); NEUTROPHILS # (AUTO) 7.4 10^3/uL (1.8-7.8); NEUTROPHILS % (AUTO) 63 % (42-75); PLATELET COUNT 361 10^3/uL (130-400); WHITE BLOOD COUNT 11.8 10^3/uL (4.3-11.0)
[2023-01-28 11:50] LABS: CHLORIDE 104 MMOL/L (98-107); POTASSIUM 3.8 MMOL/L (3.6-5.0); SODIUM 139 MMOL/L (135-145)
[2023-01-28 11:51] LABS: CALCIUM 10.5 MG/DL (8.5-10.1)
[2023-01-28 11:52] LABS: GLUCOSE 104 MG/DL (70-105); TOTAL PROTEIN 8.3 GM/DL (6.4-8.2)
[2023-01-28 11:53] LABS: CARBON DIOXIDE 19 MMOL/L (21-32)
[2023-01-28 11:54] LABS: BILIRUBIN,TOTAL 0.9 MG/DL (0.1-1.0)
[2023-01-28 11:55] LABS: ALKALINE PHOSPHATASE 131 U/L (40-136)
[2023-01-28 11:56] LABS: CREATININE SERUM 1.31 MG/DL (0.60-1.30); GFR ESTIMATED 68
[2023-01-28 11:57] LABS: BUN/CREATININE RATIO 13
[2023-01-28 11:59] LABS: ALANINE AMINOTRANSFERASE 43 U/L (0-55)
[2023-01-28] MEDS ORDERED: HYDR-700 PO (12:03)
== END 2023-01-28 12:29 | disposition home or self-care (01) ==
LOC: EDUNIT# 11:28 → ER 11:29
DX: F41.0 Panic disorder [episodic paroxysmal anxiety] (principal)
CPT/HCPCS: 36415; 80053; 84443; 84484; 85025; 93005; 96374